=== PATIENT | female | born 1995 | race Caucasian/White ===

== ENCOUNTER → 2017-09-04 14:00 | Outpatient (CLI) | payer BC, SELFPAY ==
[2017-08-28 09:35] VITALS: BP 136/90
--- NOTE | 2017-09-04 14:00 | BRBX_PTH ---
PATIENT: MECHE HORNER LOC: [facility] U#:[id number] AGE/SX: 30/F ROOM: RE09/04/[address]: Dr. Oliver Stewart MD : 1995 BED: DIS: SPEC #: [id number] RECD: 09/04/17 19:24 STATUS: EZEKIEL JULIUS #: [id number] MIKAL: 09/04/17 14:[address]: Oliver Stewart DEPT: SURGICAL PATHOLOGY RECD BY: Casper Dahl ENTERED: 09/05/17 12:05 SP TYPE: BREAST BX OTHR DR: Dr. Cade Calhoun MD Tissues: Left breast, NOS Procedures: Surgery Specimen Level IV HEADER OPERATION: Left breast core biopsy PRE-OP DIAGNOSIS: Left breast abnormal ultrasound TISSUE SUBMITTED: Left breast tissue ISCHEMIC TIME: <1 minute MICROSCOPIC DIAGNOSIS Left breast, core biopsy: Fibroadenoma. AM:mich 09/08/17 MICROSCOPIC DESCRIPTION Slides are reviewed. GROSS DESCRIPTION Received in fixative is one container labeled with the patient's name and designated left breast tissue. The specimen consists of multiple cores of light dean-white soft tissue measuring in aggregate 1 x 0.5 x 0.1 cm. The specimen is totally submitted in one cassette. / AM:mich 09/05/17 TC: 5 CPT: 87290
[2017-09-04 14:25] VITALS: BMI 23.3
== END ==
PROVIDERS: Family Provider Family Medicine; PCP Family Medicine; Visit Provider Surgery
DX: D24.2 Benign neoplasm of left breast (principal)
CPT/HCPCS: 88305

== ENCOUNTER → 2017-09-26 15:53 | Outpatient (CLI) | payer BC, SELFPAY ==
[2017-09-26 18:23] LABS: T4 Free Direct 0.95 ng/dL (0.76-1.46); Thyroid Stim Hormone (TSH) 5.87 uIU/mL (0.358-3.74)
[2017-09-26 18:29] LABS: Vitamin D,25 Hydroxy 29.3 ng/mL (29.95-100.01)
== END ==
PROVIDERS: Family Provider Family Medicine; PCP Family Medicine; Visit Provider Family Medicine
DX: E03.9 Hypothyroidism, unspecified (principal); R53.83 Other fatigue; R00.2 Palpitations
CPT/HCPCS: 36415; 82306; 84439; 84443

== ENCOUNTER → 2017-12-25 15:08 | Outpatient (CLI) | payer BC, SELFPAY ==
[2017-12-25 17:42] LABS: Thyroid Stim Hormone (TSH) 7.89 uIU/mL (0.358-3.74)
== END ==
PROVIDERS: Visit Provider Family Medicine
DX: E03.9 Hypothyroidism, unspecified (principal)
CPT/HCPCS: 36415; 84443

== ENCOUNTER → 2018-02-20 15:20 | Outpatient (CLI) | payer BC, SELFPAY ==
[2018-02-20 18:02] LABS: Thyroid Stim Hormone (TSH) 2.98 uIU/mL (0.358-3.74)
== END ==
PROVIDERS: Family Provider Family Medicine; PCP Family Medicine; Visit Provider Family Medicine
DX: E03.9 Hypothyroidism, unspecified (principal)
CPT/HCPCS: 36415; 84443

== ENCOUNTER → 2018-05-22 15:11 | Outpatient (CLI) | payer BC, SELFPAY | PROVIDERS: Family Provider Family Medicine; PCP Family Medicine; Visit Provider Family Medicine | DX: E03.9 Hypothyroidism, unspecified (principal) | CPT/HCPCS: 36415; 84443 ==

== ENCOUNTER → 2018-10-22 14:10 | Outpatient (CLI) | payer BC, SELFPAY ==
[2018-10-22 08:39] VITALS: BMI 23.3
[2018-10-22 17:06] LABS: Chlamydia Trachomatis by PCR Negative (Negative); Neisserai gonorrhoeae by PCR Negative (Negative); Probe Check PASS; Sample Adequacy Control PASS; Specimen Processing Control PASS
== END ==
PROVIDERS: Family Provider Family Medicine; PCP Family Medicine; Referring Provider Nurse Practitioner Women's Health; Visit Provider Nurse Practitioner Women's Health
DX: Z11.3 Encounter for screening for infections with a predominantly sexual mode of transmission (principal); N89.8 Other specified noninflammatory disorders of vagina
CPT/HCPCS: 87070; 87205; 87491; 87591

== ENCOUNTER → 2019-06-30 15:03 | Outpatient (CLI) | payer BC, SELFPAY ==
[2018-10-22 08:39] VITALS: BMI 23.3
--- NOTE | 2019-06-30 15:09 | US_ITS ---
STUDY: THYROID ULTRASOUND REASON FOR EXAM: Female, 24 years old. Enlarged thyroid TECHNIQUE: Ultrasound evaluation of the thyroid was performed with real-time and static almendarez-scale imaging. COMPARISON: None. FINDINGS: RIGHT LOBE: The right lobe of the thyroid gland measures 3.6 x 1.2 x 1.1 cm. There is a homogeneous echotexture. There are no demonstrated solid, cystic or complex lesions. LEFT LOBE: The left lobe of the thyroid gland measures 3.7 x 1.1 x 0.9 cm. There is a homogeneous echotexture. There are no demonstrated solid, cystic or complex lesions. ISTHMUS: The isthmus measures 2 mm . The regional lymph nodes are normal. US/Thyroid IMPRESSION: Normal ultrasound examination of the thyroid. Electronically Signed: Leeroy Gerardo MD at 16:15 EST , Service support ,
== END ==
PROVIDERS: Family Provider Internal Medicine; PCP Internal Medicine; Referring Provider Internal Medicine; Visit Provider Internal Medicine
DX: E04.9 Nontoxic goiter, unspecified (principal)
CPT/HCPCS: 76536

== ENCOUNTER → 2019-07-02 09:58 | Outpatient (CLI) | payer BC, SELFPAY ==
[2018-10-22 08:39] VITALS: BMI 23.3
--- NOTE | 2019-07-02 10:01 | NM_ITS ---
CLINICAL: 24-year-old female with history of clinically apparent thyromegaly 99m Tc SESTAMIBI DUAL PHASE PARATHYROID SCINTIGRAPHY COMPARISON: Thyroid ultrasound report 06/30/2019 FINDINGS: Following the intravenous administration of 25.4 mCi of 99m Tc sestamibi, image acquisitions of the anterior neck at approximately 20 minutes and approximately 2.0 hours post radiopharmaceutical provision reveal: 1. Immediate static blood pool acquisitions demonstrate distribution of the radiopharmaceutical in the right-left thyroid colloid. Subtle prominent uptake is noted in the left anterior neck caudal to the inferior pole of the left lobe thyroid colloid. 2. Delayed images depict symmetric near complete washout of the radiotracer from the right thyroid bed. Asymmetric persistent uptake is noted in the left thyroid bed and left anterior neck adjacent to the inferior pole of the left thyroid bed. NM/Parathyroid Scan IMPRESSION: 1. The persistent relative increase in radiopharmaceutical concentration identified in the left thyroid bed and left anterior neck may represent the presence of parathyroid adenoma. 2. No other definitive scintigraphic abnormalities are visualized. Electronically Signed: Casper Lugo DO at 11:04 EST Tel , Service support ,
== END ==
LOC: NM 09:59
PROVIDERS: Family Provider Internal Medicine; PCP Internal Medicine; Referring Provider Internal Medicine; Visit Provider Internal Medicine
DX: E04.9 Nontoxic goiter, unspecified (principal)
CPT/HCPCS: 78070; A9500

== ENCOUNTER → 2021-07-06 | Outpatient (CLI) | payer BC, SELFPAY ==
[2021-07-06 13:05] LABS: Follicle Stimulating Hormone 7.3 mIU/mL; Luteinizing Hormone 3.7 mIU/mL; Prolactin 14.1 ng/mL
[2021-07-09 10:48] LABS: Testosterone Free 2.4 pg/mL (0.0-4.2)
== END | disposition home or self-care (01) ==
LOC: LABSPEC 10:40
PROVIDERS: PCP Internal Medicine; Visit Provider Internal Medicine
DX: N92.6 Irregular menstruation, unspecified (principal)
CPT/HCPCS: 82670; 83001; 83002; 84146; 84402

== ENCOUNTER → 2021-07-13 | Outpatient (CLI) | payer BC, SELFPAY ==
[2021-07-13 11:30] LABS: Follicle Stimulating Hormone 8.8 mIU/mL
== END | disposition home or self-care (01) ==
LOC: LABSPEC 10:12
PROVIDERS: PCP Internal Medicine; Visit Provider Internal Medicine
DX: N92.6 Irregular menstruation, unspecified (principal)
CPT/HCPCS: 83001

== ENCOUNTER 2021-10-19 12:39 | Outpatient (CLI) | payer BC, SELFPAY ==
[2021-10-19 12:54] LABS: Internal QC Validated? YES +Cl - CLEAR BKGD
[2021-10-19 13:05] LABS: Pregnancy, Serum, hCG Quali. POSITIVE Negative (0-9 Nonpreg); hCG Titer Quant., Serum 619 mIU/mL (1-3)
== END 2021-10-19 23:59 | disposition home or self-care (01) ==
LOC: LABSPEC 12:40
PROVIDERS: PCP Internal Medicine; Visit Provider Internal Medicine
DX: N91.2 Amenorrhea, unspecified (principal)
CPT/HCPCS: 84702; 84703

== ENCOUNTER 2021-10-19 16:20 | Emergency (ER) | payer BC, SELFPAY ==
[2021-10-19 16:21] VITALS: BP 168/89; PULSE 119; RESP 18; TEMP 36.4; O2SAT 97; BMI 25.7
--- NOTE | 2021-10-19 16:54 | EDS_ITS ---
HPI HPI - Female History of Present Illness Chief Complaint: Informant: patient Pain Pain: Positive for Pelvic Pain Onset: Days (3) Context: Gradual Onset Timing: Continuous Quality: Positive for Dull Location: LLQ Bleeding Maximum Severity: Spotting (2 days ago) Associated Symptoms Associated Symptoms: Negative for Dysuria and Hematuria Last known menstrual period: 09/20/2021 P: 0 Ab: 0 Narrative Narrative: Patient presents with pelvic pain that has been getting worse over the past 3 days. Patient states that she was supposed to start her menstrual cycle yesterday. Patient states that when the pain began she thought it was typical menstrual cramping. Patient went to her doctor today and was diagnosed with a positive test. Quantitative hCG was 619 earlier today. Patient states that her primary care physician told her to come to the emergency department for possible ectopic . Patient is 1 para 0. Patient states she had some mild spotting 2 days ago but denies any other vaginal bleeding or discharge. Patient states her pain is worse over the left lower abdomen and pelvis area. Patient states her pain is worse with walking. [facility] Medical History (Updated 10/19/21 @ 19:[address] Alex Knox, ) Anxiety Breast lump in female Thyroid disorder Home Medications escitalopram oxalate 10 mg tablet 10 mg PO QDAY 08/28/17 [History Last Taken Unknown] levonorgestrel 0.15 mg-ethinyl estradiol 0.03 mg tablet 1 tab PO DAILY #84 tab 10/22/18 [Rx Last Taken Unknown] metronidazole 500 mg tablet 500 mg PO BID #14 tab 11/25/19 [Rx Last Taken Unknown] Allergy/AdvReac Type Severity Reaction Status Date / Time acetaminophen [From [place]] Allergy Mild Other Verified 10/19/21 16:29 hydrocodone [From [place]] Allergy Mild Other Verified 10/19/21 16:29 Family History Mother Breast cancer Asthma Social History Smoking Status: Never smoker alcohol intake: never substance use type: does not use caffeine: Yes what type of physical activity do you participate in: none seatbelt use: always do you feel safe at home: Yes additional social history: Seperated- works at [employer] ROS ROS ED Constitutional Constitutional ED: Denies chills or fever(s) Eyes Eyes: Denies blurry vision or change in vision ENT ENT ED: Denies rhinorrhea or sore throat Cardiovascular Cardiovascular: Denies chest pain or palpitations Respiratory/Chest Respiratory/Chest: Denies cough or dyspnea Gastrointestinal Gastrointestinal: Reports abdominal pain; Denies nausea or vomiting Genitourinary Genitourinary ED: Denies dysuria or hematuria Musculoskeletal Musculoskeletal: Denies back pain or neck pain Integumentary Denies abscess or rash Neurologic Neurologic: Denies headache(s) or weakness Allergic/Immunologic Allergic/Immunologic ED: Denies mouth swelling or urticaria EXAM Physical Exam Const Vital Signs: 10/19/21 16:21 Temperature 97.6 F L Temperature Source Temporal Pulse Rate 119 H Respiratory Rate 18 Blood Pressure 168/89 H Blood Pressure Mean 115 Pulse Ox 97 Oxygen Delivery Method Room Air Positive well nourished and well developed General Appearance ED: well developed and NAD HEENT Reports moist mucous membranes Neck supple and no JVD Resp normal respiratory effort and clear to auscultation bilaterally Cardio regular rate, regular rhythm and no murmurs GI normal to inspection, nondistended, normoactive bowel sounds and soft to palpation Palpation: soft and tender LLQ; Negative for guarding or rigid Extremity normal to inspection General Extremety ED: Negative for edema or tenderness General Extremity: Negative for edema Neuro oriented x3, CN's II-XII intact bilaterally and no sensory deficits noted Sensorium / Orientation: alert Motor Exam: strength 5/5 throughout Psych mental status grossly normal Skin no rashes or lesions noted MDM MDM MDM Narrative Medical decision making narrative: Patient was given IV fluids. CBC was within normal limits. Basic metabolic profile was within normal limits. Urinalysis does not show any evidence of urinary tract infection. Blood type is A positive. Outpatient quantitative hCG was 619 earlier today. Pelvic ultrasound was obtained. There are cysts on the left ovary. There is a complex cyst measuring 22 x 23 mm which has the appearance of a hemorrhagic cyst. There is a second cyst measuring 16 x 15 mm. This looks like a simple cyst. There is no adnexal mass or complex lesion. There is no intrauterine visualized. Patient was advised of her findings. Patient was advised that her quantitative hCG levels may be too low to see an intrauterine at this time. Patient was instructed to follow-up with her [employer] in 2 to 3 days for repeat quantitative hCG and reevaluation. Patient was instructed to return if worse in any way. Patient understood and was agreeable with the plan. All questions were answered. Lab Data Attestation: I reviewed the patient's lab results. Labs: Laboratory Results - last 24 hr 10/19/21 10/19/21 10/19/21 17:25 17:25 17:25 WBC 8.1 RBC 4.86 Hgb 14.3 Hct 43.9 MCV 90.3 MCH 29.4 MCHC 32.6 RDW Std Deviation 40.3 RDW Coeff of Anai 12.2 Plt Count 240 MPV 10.7 Immature Gran % (Auto) 0.100 Neut % (Auto) 72.3 H Lymph % (Auto) 21.0 Stokes % (Auto) 5.0 Eos % (Auto) 1.0 Baso % (Auto) 0.6 Absolute Neuts (auto) 5.8 Absolute Lymphs (auto) 1.70 Nucleated RBC % 0 Sodium 136 Potassium 3.5 Chloride 105 Carbon Dioxide 25.0 Anion Gap 6 BUN 11 Creatinine 0.95 Estim Creat Clear Calc 80.75 Est GFR (MDRD) Af Amer 91 Est GFR (MDRD) Non-Af 75 BUN/Creatinine Ratio 11.6 Glucose 95 Calcium 9.2 Urine Color Urine Clarity Urine pH Ur Specific [place] Urine Protein Urine Glucose (UA) Urine Ketones Urine Occult Blood Urine Nitrite Urine Bilirubin Urine Urobilinogen Ur Leukocyte Esterase Urine RBC Urine WBC Ur Squamous Epith Cells Urine Bacteria Urine Mucus Blood Type A POSITIVE 10/19/21 17:40 WBC RBC Hgb Hct MCV MCH MCHC RDW Std Deviation RDW Coeff of Anai Plt Count MPV Immature Gran % (Auto) Neut % (Auto) Lymph % (Auto) Stokes % (Auto) Eos % (Auto) Baso % (Auto) Absolute Neuts (auto) Absolute Lymphs (auto) Nucleated RBC % Sodium Potassium Chloride Carbon Dioxide Anion Gap BUN Creatinine Estim Creat Clear Calc Est GFR (MDRD) Af Amer Est GFR (MDRD) Non-Af BUN/Creatinine Ratio Glucose Calcium Urine Color Yellow Urine Clarity Clear Urine pH 6.5 Ur Specific [place] 1.010 Urine Protein Negative Urine Glucose (UA) Normal Urine Ketones 15 H Urine Occult Blood 25 H Urine Nitrite Negative Urine Bilirubin Negative Urine Urobilinogen Normal Ur Leukocyte Esterase Negative Urine RBC 0 SEEN Urine WBC 0 SEEN Ur Squamous Epith Cells 0-5 SEEN Urine Bacteria RARE Urine Mucus 0 SEEN Blood Type Radiography Diagnostic Testing: Clinical Impression(s) from Imaging Studies Obstetrics Ultrasound 10/19/21 17:05 IMPRESSION: There is no intrauterine Complex cyst measures 22 x 23 mm. This has the appearance of a hemorrhagic cyst or collapsing cyst, or involuting corpus luteum cyst. However, given patient history ectopic is not excluded but felt to be less likely given that there is no free fluid in the pelvis. . Electronically Signed: Benigno Hope MD at 18:44 EDT Reading Location ID and State: [facility] / [place] , Service support , Discharge Plan Triage Chief Complaint: Other Complaint: Abd Pain ED Provider: Alex Knox Dx/Rx/DC Orders Clinical Impression: , Ovarian cyst during in first trimester Instructions: ED Abdominal Pain, Early Prescriptions: No Action escitalopram oxalate 10 mg tablet 10 mg PO QDAY RF: 0 levonorgestrel-ethinyl estrad 0.15-0.03 mg tablet 1 tab PO DAILY Qty: 84 RF: 4 metronidazole [Flagyl] 500 mg tablet 500 mg PO BID Qty: 14 RF: 0 Primary Care Provider: Marina Bronson Referrals: Marina Bronson MD [Primary Care Provider] - 5-7 Days Yenni Acuna MD [STAFF PHYSICIAN] - 3-5 Days Activity Restrictions/Additional Instructions: You may start taking vitamins. They are [id number]. Disposition Disposition: Home, Self Care
--- NOTE | 2021-10-19 17:05 | US_ITS ---
STUDY: FIRST TRIMESTER OBSTETRICAL ULTRASOUND REASON FOR EXAM: Female, 26 years old. Pelvic pain TECHNIQUE: Transvaginal US was obtained to better visualized the ovaries. TECHNICAL QUALITY: Adequate. PRIOR ULTRASOUND: None. FINDINGS: There is no demonstrated intrauterine gestational sac. There is no demonstrated yolk sac. The placenta is non-visualized. There is no demonstrated embryo ( pole). The estimated gestation age (EGA) by LMP is 4 weeks, 1 days. The estimated date of delivery (STEFANI) by LMP is 12.1.22. The uterus measures 8 x 5.1 cm. There is no demonstrated uterine fibroid. The cervix is closed. Endometrial stripe is 13 mm. Possible arcuate uterus. The right ovary measures in cm: 2.5 x 1.9. Prominent follicle measures 9 mm. There is no visualized right adnexal mass or complex lesion. The left ovary measures 3.3 x 3.2 cm. Complex cyst measures 22 x 23 mm. This has the appearance of a hemorrhagic cyst Second cyst measures 16 x 15 mm. This has appearance of a simple cyst. There is no visualized left adnexal mass or complex lesion. There is no fluid in the cul de sac. US/Transvaginal w/Preg US IMPRESSION: There is no intrauterine Complex cyst measures 22 x 23 mm. This has the appearance of a hemorrhagic cyst or collapsing cyst, or involuting corpus luteum cyst. However, given patient history ectopic is not excluded but felt to be less likely given that there is no free fluid in the pelvis. . Electronically Signed: Benigno Hope MD at 18:44 EDT ,
[2021-10-19 17:38] LABS: Absolute Neutrophil Count 5.8 X10^3/uL (2.0-7.7); Basophil# 0.05 X10^3/uL; Basophil% 0.6 % (0-1); Eosinophil# 0.08 X10^3/uL; Hematocrit 43.9 % (37-47); Hemoglobin 14.3 g/dL (12.0-15.0); Mean Corp Hgb Conc 32.6 g/dL (32-36); Mean Corpuscular Hgb 29.4 pg (27.0-32.0); Mean Corpuscular Volume 90.3 fL (81-99); Mean Platelet Vol. 10.7 fl (6.2-12.0); NRBC Flagged by Analyzer 0 % (0-5); Neutrophil # 5.84 X10^3/uL (2.7-7.7); Neutrophil % 72.3 % (47-70); Platelet Count 240 K/mm3 (150-450); RBC Distribution Width CV 12.2 % (11.6-14.6); RBC Distribution Width SD 40.3 fl (35.1-43.9); Red Blood Count 4.86 M/mm3 (4.2-5.4); White Blood Count 8.1 K/mm3 (4.4-11.0)
[2021-10-19 17:48] LABS: Anion Gap 6 (5-15); BUN 11 mg/dL (7-18); BUN/Creat Ratio 11.6 RATIO (10-20); Calcium,Total 9.2 mg/dL (8.5-10.1); Chloride 105 mmol/L (98-107); Creatinine, Serum 0.95 mg/dL (0.55-1.02); EST Glomerular Filtration Rate 75 mL/min (>60); Est Glom Filt Rate - Afr Amer 91 mL/min (>60); Estimated Creatinine Clearance 80.75 ml/min; Glucose 95 mg/dL (74-106); Potassium 3.5 mmol/L (3.5-5.1); Sodium Level 136 mmol/L (136-145)
[2021-10-19] MEDS: 0.9% Normal Saline 1,000 ML 1000 ML IV (17:49)
[2021-10-19 17:56] LABS: Mucous, Urine 0 SEEN /hpf (<or=2+); Red Blood Cells-Urine 0 SEEN /hpf (0-5); White Blood Cells 0 SEEN /hpf (0-5)
[2021-10-19 17:58] LABS: Color, Urine Yellow (Yellow); Glucose, Dipstick Normal (Normal); Ketone-Dipstick 15 mg/dl (Negative); Leukocyte Esterase-Dipstick Negative /ul (Negative); Nitrite-Dipstick Negative (Negative); Occult Blood-Urine 25 /ul (Negative); Protein-Dipstick Negative (Negative); Urine Bilirubin Dipstick Negative (Negative); Urine Clarity Clear (Clear); Urine Urobilinogen Normal (Normal); Urine pH 6.5 (5.0 - 8.0)
[2021-10-19 18:05] LABS: Bacteria RARE /hpf (None Seen); Squamous Epithelial Cells - UA 0-5 SEEN /hpf (5-10)
[2021-10-19 19:47] VITALS: BP 124/74; PULSE 76; RESP 18; O2SAT 98
== END 2021-10-19 19:52 | disposition home or self-care (01) ==
PROVIDERS: Emergency Provider Emergency Medicine; PCP Internal Medicine; Visit Provider Emergency Medicine
DX: O34.81 Maternal care for other abnormalities of pelvic organs, first trimester (principal); N83.202 Unspecified ovarian cyst, left side; O99.281 Endocrine, nutritional and metabolic diseases complicating pregnancy, first trimester; E07.9 Disorder of thyroid, unspecified; Z79.899 Other long term (current) drug therapy
CPT/HCPCS: 76817; 80048; 81001; 85025; 86900; 86901; 96360; 96361; 99283; J7030; A4216

== ENCOUNTER 2021-10-22 09:46 | Outpatient (CLI) | payer BC, SELFPAY ==
[2021-10-22 10:37] LABS: hCG Titer Quant., Serum 1368 mIU/mL (1-3)
== END 2021-10-22 23:59 | disposition home or self-care (01) ==
LOC: LABSPEC 09:47
PROVIDERS: PCP Internal Medicine; Visit Provider Internal Medicine
DX: R10.2 Pelvic and perineal pain (principal); Z33.1 Pregnant state, incidental
CPT/HCPCS: 84702

== ENCOUNTER 2021-10-22 15:02 | Outpatient (CLI) | payer BC, SELFPAY ==
--- NOTE | 2021-10-22 15:06 | US_ITS ---
STUDY: FIRST TRIMESTER OBSTETRICAL ULTRASOUND REASON FOR EXAM: Female, 26 years old viability/rule out ectopic -- STAT read/call office LMP: 09/20/2021. TECHNIQUE: Transvaginal TECHNICAL QUALITY: Adequate. PRIOR ULTRASOUND: Comparison is made with prior study 10/19/2021. FINDINGS: There is visualization of a single gestational sac in a normal intrauterine position. The mean sac diameter (MSD) measures 3.9 mm, indicating an estimated gestational age (EGA) of 5 weeks, 0 days. The gestational sac shape is within normal limits. There is no demonstrated yolk sac. The placenta is non-visualized. There is no demonstrated embryo ( pole). The estimated gestation age (EGA) by LMP is 4 weeks, 4 days. The estimated date of delivery (STEFANI) by LMP is 06/27/2022. The estimated gestation age (EGA) by US is 5 weeks, 0 days. The estimated date of delivery (STEFANI) by US is 06/24/2022. The uterus measures 8 cm x 6.1 cm x 4.4 cm. There is no demonstrated uterine fibroid. The cervix is closed. The right ovary measures 2.5 cm x 1.6 cm x 1.5 cm. There is no right ovarian cyst. There is no visualized right adnexal mass or complex lesion. The left ovary measures 3.8 cm x 4.1 cm x 3.1 cm. A a solid nodule measuring 2.9 cm x 2.1 cm x 2.3 cm is seen within the ovary. An ectopic cannot be excluded.. Adjacent to this, there is evidence of a 2.4 cm x 1.5 cm x 1.9 cm simple cyst in the left ovary. There is no fluid in the cul de sac. US/Transvaginal w/Preg US IMPRESSION: 3.9 mm rounded fluid collection is seen within the endometrium. No yolk sac or pole is seen. There is a 2.9 cm x 2.1 cm by 2.3 cm solid nodule in the left ovary adjacent to a 2.4 cm x 1.5 cm x 1.9 cm ovarian cyst. An ectopic patency cannot be excluded. Serial beta hCG correlation is recommended. Electronically Signed: Tyree Faulkner MD at 9:37 EDT ,
== END 2021-10-22 23:59 | disposition home or self-care (01) ==
LOC: US 15:04
PROVIDERS: PCP Internal Medicine; Referring Provider Obstetrics & Gynecology; Visit Provider Obstetrics & Gynecology
DX: O34.81 Maternal care for other abnormalities of pelvic organs, first trimester (principal); O99.891 Other specified diseases and conditions complicating pregnancy; N83.209 Unspecified ovarian cyst, unspecified side
CPT/HCPCS: 76817

== ENCOUNTER 2021-10-24 10:10 | Outpatient (CLI) | payer BC, SELFPAY ==
[2021-10-24 10:51] LABS: hCG Titer Quant., Serum 3221 mIU/mL (1-3)
== END 2021-10-24 23:59 | disposition home or self-care (01) ==
LOC: LABSPEC 10:12
PROVIDERS: PCP Internal Medicine; Referring Provider Internal Medicine; Visit Provider Internal Medicine
DX: R10.2 Pelvic and perineal pain (principal); Z33.1 Pregnant state, incidental
CPT/HCPCS: 84702

== ENCOUNTER 2021-10-26 10:07 | Outpatient (CLI) | payer BC, SELFPAY ==
[2021-10-26 10:50] LABS: hCG Titer Quant., Serum 6948 mIU/mL (1-3)
== END 2021-10-26 23:59 | disposition home or self-care (01) ==
LOC: LABSPEC 10:09
PROVIDERS: PCP Internal Medicine; Visit Provider Internal Medicine
DX: Z33.1 Pregnant state, incidental (principal)
CPT/HCPCS: 84702

== ENCOUNTER 2021-10-30 08:19 | Outpatient (CLI) | payer BC, SELFPAY ==
--- NOTE | 2021-10-30 08:22 | US_ITS ---
STUDY: FIRST TRIMESTER OBSTETRICAL ULTRASOUND REASON FOR EXAM: Female, 26 years old viability -- previous US 10/22/21 LMP: 09/20/2021. TECHNIQUE: Transvaginal TECHNICAL QUALITY: Adequate. PRIOR ULTRASOUND: None. FINDINGS: There is visualization of a single gestational sac in a normal intrauterine position. The mean sac diameter (MSD) measures 1.5 cm, indicating an estimated gestational age (EGA) of 6 weeks, 2 days. The gestational sac shape is within normal limits. There is a visualized yolk sac. The yolk sac measures 3.2 mm. The placenta is non-visualized. Findings suggestive of embryonic pole. The crown-rump length (CRL) measures 3 mm, indicating an estimated gestational age (EGA) of 6 weeks, 1 days. There is no demonstrated cardiac activity . The estimated gestation age (EGA) by LMP is 5 weeks, 5 days. The estimated date of delivery (STEFANI) by LMP is 06/27/2022. The estimated gestation age (EGA) by US is 6 weeks, 1 days. The estimated date of delivery (STEFANI) by US is 06/24/2022. The uterus measures 8.7 cm x 5.7 cm x 4.5 cm. There is no demonstrated uterine fibroid. The cervix is closed. The right ovary measures 2.9 cm x 2.4 cm x 1.9 cm. There is no right ovarian cyst. There is no visualized right adnexal mass or complex lesion. The left ovary measures 4.1 cm x 3.9 cm x 2.3 cm. There is a 3.3 cm x 2 cm x 2.4 cm cyst in the left ovary. There is also evidence of a 2.5 cm x 2 cm x 2.3 cm complex cyst in the left ovary. There is no visualized left adnexal mass or complex lesion. There is no fluid in the cul de sac. US/Transvaginal w/Preg US IMPRESSION: Intrauterine gestational sac containing a yolk sac and possible pole. No cardiac activity is noted. Estimated gestational age is 6 weeks and 1 day. Left ovarian cyst. Left ovarian complex cyst. Electronically Signed: Tyree Faulkner MD at 10:31 EDT ,
== END 2021-10-30 23:59 | disposition home or self-care (01) ==
LOC: US 08:20
PROVIDERS: PCP Internal Medicine; Referring Provider Obstetrics & Gynecology; Visit Provider Obstetrics & Gynecology
DX: O36.80X0 Pregnancy with inconclusive fetal viability, not applicable or unspecified (principal)
CPT/HCPCS: 76817

== ENCOUNTER 2021-11-01 15:02 | Outpatient (CLI) | payer BC, SELFPAY ==
[2021-11-01 15:47] LABS: hCG Titer Quant., Serum 48954 mIU/mL (1-3)
== END 2021-11-01 23:59 | disposition home or self-care (01) ==
LOC: LABSPEC 15:04
PROVIDERS: PCP Internal Medicine; Visit Provider Internal Medicine
DX: R10.2 Pelvic and perineal pain (principal); Z33.1 Pregnant state, incidental
CPT/HCPCS: 84702

== ENCOUNTER 2021-11-06 13:58 | Outpatient (CLI) | payer BC, SELFPAY | END 2021-11-06 23:59 | disposition home or self-care (01) | LOC: LABSPEC 13:59 | PROVIDERS: PCP Internal Medicine; Visit Provider Internal Medicine | DX: Z34.90 Encounter for supervision of normal pregnancy, unspecified, unspecified trimester (principal) | CPT/HCPCS: 84702 ==

== ENCOUNTER → 2021-11-30 | Outpatient (CLI) | payer BC, SELFPAY ==
[2021-11-29 12:54] LABS: Amphetamine Urine VISTA NEGATIVE (<1000 ng/mL); Barbiturate Urine VISTA NEGATIVE (< 200 ng/mL); Benzodiazepine Urine VISTA NEGATIVE (< 200 ng/mL); Cocaine Urine VISTA NEGATIVE (< 300 ng/mL); Ecstacy Urine VISTA NEGATIVE (< 500 ng/mL); Methadone Urine VISTA NEGATIVE (< 300 ng/mL); PCP Urine VISTA NEGATIVE (< 25 ng/mL); THC Urine VISTA NEGATIVE (< 50 ng/mL); Vista UDS pH Range 8
[2021-11-30 22:06] LABS: Chlamydia By Nucleic Acid AMP Negative (Negative)
[2021-12-01 10:36] LABS: Gonococcus By Nucleic Acid AMP Negative (Negative)
[2021-12-04 16:46] LABS: HPV Reflexed? NOT INDICATED
== END | disposition home or self-care (01) ==
LOC: LABSPEC 09:46
PROVIDERS: PCP Internal Medicine; Visit Provider Obstetrics & Gynecology
DX: Z34.90 Encounter for supervision of normal pregnancy, unspecified, unspecified trimester (principal)
CPT/HCPCS: 80307; 87086; 87491; 87591; 88175; G0145

== ENCOUNTER → 2022-04-05 | Outpatient (CLI) | payer BC, SELFPAY ==
[2022-04-05 10:17] LABS: Basophil# 0.04 X10^3/uL; Basophil% 0.5 % (0-1); Eosinophil# 0.15 X10^3/uL; Eosinophils% 1.7 % (0-5); Hematocrit 33.2 % (37-47); Hemoglobin 10.9 g/dL (12.0-15.0); Lymphocyte % 13.6 % (19-41); Mean Corp Hgb Conc 32.8 g/dL (32-36); Mean Corpuscular Hgb 29.5 pg (27.0-32.0); Mean Platelet Vol. 10.5 fl (6.2-12.0); Monocyte% 4.5 % (0-10); NRBC Flagged by Analyzer 0 % (0-5); Neutrophil # 6.99 X10^3/uL (2.7-7.7); Platelet Count 207 K/mm3 (150-450); RBC Distribution Width CV 12.6 % (11.6-14.6); RBC Distribution Width SD 41.6 fl (35.1-43.9); Red Blood Count 3.69 M/mm3 (4.2-5.4); White Blood Count 8.8 K/mm3 (4.4-11.0)
[2022-04-05 10:42] LABS: Glucose Challenge Gest 1H 50g 164 mg/dL (70-140)
== END | disposition home or self-care (01) ==
LOC: LAB 08:48
PROVIDERS: PCP Internal Medicine; Referring Provider Obstetrics & Gynecology; Visit Provider Obstetrics & Gynecology
DX: O09.90 Supervision of high risk pregnancy, unspecified, unspecified trimester (principal)
CPT/HCPCS: 36415; 82950; 85025

== ENCOUNTER → 2022-04-16 | Outpatient (CLI) | payer BC, SELFPAY ==
[2022-04-16 07:56] LABS: Glucose GTT-Gestation. Fasting 84 mg/dL (<105)
[2022-04-16 08:53] LABS: Glucose GTT-Gestational 1 Hr 200 mg/dL (<190)
[2022-04-16 09:38] LABS: Glucose GTT-Gestational 2 Hr 175 mg/dL (<165)
[2022-04-16 10:35] LABS: Glucose GTT-Gestational 3 Hr 120 L (<145)
== END | disposition home or self-care (01) ==
LOC: LAB 06:53
PROVIDERS: PCP Internal Medicine; Referring Provider Obstetrics & Gynecology; Visit Provider Obstetrics & Gynecology
DX: O99.810 Abnormal glucose complicating pregnancy (principal)
CPT/HCPCS: 36415; 82951; 82952

== ENCOUNTER 2022-04-24 09:01 | Outpatient (RCR) | payer BC, SELFPAY | END 2022-04-26 23:59 | LOC: DC 09:01 | PROVIDERS: PCP Internal Medicine; Referring Provider Registered Nurse; Visit Provider Registered Nurse | DX: O24.419 Gestational diabetes mellitus in pregnancy, unspecified control (principal) | CPT/HCPCS: 97802 ==

== ENCOUNTER 2022-05-01 13:13 | Outpatient (RCR) | payer BC, SELFPAY | END 2022-05-27 23:59 | LOC: DC 13:13 | PROVIDERS: PCP Internal Medicine; Referring Provider Registered Nurse; Visit Provider Registered Nurse | DX: O24.419 Gestational diabetes mellitus in pregnancy, unspecified control (principal) | CPT/HCPCS: 97803 ==

== ENCOUNTER → 2022-05-30 | Outpatient (CLI) | payer BC, SELFPAY ==
--- NOTE | 2022-05-30 08:51 | US_ITS ---
STUDY: SECOND AND THIRD TRIMESTER OBSTETRICAL ULTRASOUND - LIMITED REASON FOR EXAM: Female, 27 years old growth LMP: 09/20/2021. PRIOR ULTRASOUND: Comparison is made with prior study dated 10/30/2021. TECHNIQUE: Transabdominal TECHNICAL QUALITY: Adequate. FINDINGS: There is a single intrauterine fetus. The fetus is in a cephalic presentation. There is demonstrated cardiac activity with a heart rate of 136 bpm. There is a normal amniotic fluid volume. The largest amniotic fluid pocket measures 5.75 cm. The amniotic fluid index (MEL) is 12.02 cm. The placenta is anterior in location and is not low lying. There are Grade 0 placental changes. The cervix measures 3.4 cm in length. BIOMETRY: BPD: 8.88 cm: 35 weeks, 6 days HC: 31.74 cm: 35 weeks, 5 days AC: 32.11 cm: 36 weeks, 0 days FL: 6.92 cm: 35 weeks, 4 days Age by LMP: 36 weeks, 0 days. STEFANI by LMP: 06/27/2022. age by current US: 35 weeks, 5 days. STEFANI by current US: 06/29/2022. Estimated weight: 2823 grams, +/- 423 grams, 51 percentile. US/OB Limited With Biometrics IMPRESSION: Single live intrauterine gestation with a mean gestational age of 35 weeks and 5 days. Electronically Signed: Tyree Faulkner MD at 13:06 EDT ,
== END | disposition home or self-care (01) ==
LOC: OPUS 08:50
PROVIDERS: PCP Internal Medicine; Visit Provider Obstetrics & Gynecology
DX: O09.93 Supervision of high risk pregnancy, unspecified, third trimester (principal); Z3A.35 35 weeks gestation of pregnancy
CPT/HCPCS: 76816

== ENCOUNTER → 2022-06-06 | Outpatient (CLI) | payer BC, SELFPAY | END | disposition home or self-care (01) | PROVIDERS: PCP Internal Medicine; Visit Provider Obstetrics & Gynecology | DX: O09.90 Supervision of high risk pregnancy, unspecified, unspecified trimester (principal) | CPT/HCPCS: 87081 ==

== ENCOUNTER 2022-06-23 16:25 | Inpatient (IN) | payer BC, SELFPAY ==
[2022-06-23] VITALS (25 sets, daily range): BP systolic 114–163; BP diastolic 65–97; PULSE 74–99; TEMP 36–37.6; O2SAT 97–100; BMI 31.1
[2022-06-23] MEDS: LACTATED RINGERS 500 ML 999 ML IV (16:48)
[2022-06-23 16:55] LABS: Bedside Glucose 95 mg/dL (74-106)
[2022-06-23 17:02] LABS: Absolute Neutrophil Count 7.4 X10^3/uL (2.0-7.7); Basophil# 0.02 X10^3/uL; Basophil% 0.2 % (0-1); Eosinophil# 0.03 X10^3/uL; Eosinophils% 0.3 % (0-5); Hematocrit 39.8 % (37-47); Hemoglobin 12.8 g/dL (12.0-15.0); Mean Corp Hgb Conc 32.2 g/dL (32-36); Mean Corpuscular Hgb 28.2 pg (27.0-32.0); Mean Corpuscular Volume 87.7 fL (81-99); Mean Platelet Vol. 11.3 fl (6.2-12.0); Monocyte# 0.48 X10^3/uL; Monocyte% 5.2 % (0-10); NRBC Flagged by Analyzer 0 % (0-5); Neutrophil # 7.42 X10^3/uL (2.7-7.7); Neutrophil % 79.8 % (47-70); Platelet Count 200 K/mm3 (150-450); RBC Distribution Width CV 13.9 % (11.6-14.6); RBC Distribution Width SD 44.1 fl (35.1-43.9); Red Blood Count 4.54 M/mm3 (4.2-5.4); White Blood Count 9.3 K/mm3 (4.4-11.0)
[2022-06-23 17:14] LABS: AST(SGOT) 17 U/L (15-37); Alanine Aminotransfer ALT/SGPT 21 U/L (13-56); EST Glomerular Filtration Rate 91 mL/min (>60); Est Glom Filt Rate - Afr Amer 110 mL/min (>60); Estimated Creatinine Clearance 95.05 ml/min; Uric Acid 4.4 mg/dL (2.6-6.0)
[2022-06-23] MEDS: Lactated Ringers 1,000 ML 200 ML IV (17:19)
[2022-06-23 18:05] LABS: Bedside Glucose 92 mg/dL (74-106)
[2022-06-23 18:15] LABS: Protein, Urine (Random) 9.5 mg/dL (<11.9); Protein:Creat Ratio 265 mg/g CRE (0-200)
--- NOTE | 2022-06-23 18:36 | HP.PCM.OB_ITS ---
HPI - General General Date of Admission: 06/23/22 HPI Narrative MECHE MUHAMMAD, is a 27 F who presents IAL 5 cm dilated regualr ctx no vb lof good fm Maternal Data Information STEFANI Calculator Estimated Delivery Date Method Current WG Current Estimate 06/27/22 LMP (Certain) 39w 3d PFSH PFSH Medical History (Updated 06/23/22 @ 22:[address] Yenni Acuna MD) Abnormal glucose affecting Anxiety Breast lump in female Thyroid disorder Home Medications levothyroxine 75 mcg tablet (Synthroid) 75 mcg PO DAILY hypothyroidism 11/07/21 [History Last Taken 06/23/22 09:30] prenat.vits,jaswant,qcw-gxir-nutoa 1 tab PO DAILY 11/13/21 [History Last Taken 06/23/22 09:30] sertraline 50 mg tablet 50 mg PO DAILY anxiety 11/13/21 [History Last Taken 06/22/22 22:00] Allergy/AdvReac Type Severity Reaction Status Date / Time acetaminophen [From [place]] Allergy Mild Other Verified 06/23/22 16:53 hydrocodone [From [place]] Allergy Mild Other Verified 06/23/22 16:53 Family History Mother Breast cancer Asthma Social History adopted: No household members: significant other current occupational status: employed current occupation: [employer] pets and animals: No Smoking Status: Never smoker alcohol intake: never substance use type: does not use caffeine: Yes what type of physical activity do you participate in: none seatbelt use: always do you feel safe at home: Yes additional social history: BF:Noe History 1 Elective abortions Hx Para 0 Spontaneous abortions Hx # Term Pregnancies Ectopic pregnancies Hx # Pregnancies Multiple births # of living children Visit Details Expected Delivery Route/Plan Labor Preferences- CB/BF classes: [] labor support person: [] labor intervention preferences: [] pain management options preferred: [] cut cord/dad catch: [] : [] PP control planned: [] discussed possible routes of delivery and associated risks: [] special requests: [] Plans Covid status: discussed Flu vaccine: discussed Tdap vaccine: [] Rhogam: [] LARC form signed: [] Problem list reviewed and updated with the most current plan of care details and appropriate orders placed. Relevant counseling for the gestational age provided. Continue routine care and follow up unless otherwise noted in visit notes/problem list details OB Flowsheet Initial Weight: 161 lb Date -?-?-?-?-?-?-?-?-?-?-?-?- EGA Weight BP Urine Prot -?-?-?-?-?-?-?-?-?-?-?-?- Glucose FHR FuHt Pres Dilation -?-?-?-?-?-?-?-?-?-?-?-?- Effaced St Visit Note 11/29/21 -?-?-?-?-?-?-?-?-?-?-?-?- 10w 0d 161 lb (+0 oz) -?-?-?-?-?-?-?-?-?-?-?-?- 145 -?-?-?-?-?-?-?-?-?-?-?-?- SM- CRL 3 cm con s with LMP 12/27/21 -?-?-?-?-?-?-?-?-?-?-?-?- 14w 0d 166 lb (+5 lb) 135/87 Negative -?-?-?-?-?-?-?-?-?-?-?-?- Negative 140 -?-?-?-?-?-?-?-?-?-?-?-?- JV- pt complains of allergies. She has confirmed that she does not want to do nipt or carrier testing. anatomy ultrasound with mfm ordered. 01/24/22 -?-?-?-?-?-?-?-?-?-?-?-?- 18w 0d 175 lb 6 oz (+14 lb 6 oz) 142/84 Negative -?-?-?-?-?-?-?-?-?-?-?-?- Negative 150 -?-?-?-?-?-?-?-?-?-?-?-?- JV- no lof, vagi nal bleeding, or dec fm. antomy scan scheduled 02/07 with mfm. 02/19/22 -?-?-?-?-?-?-?-?-?-?-?-?- 21w 5d 177 lb (+16 lb) 130/86 Negative -?-?-?-?-?-?-?-?-?-?-?-?- Negative 145 -?-?-?-?-?-?-?-?-?-?-?-?- SM- no vb lof go od fm no regular ctx, told to go get NOB labs drawn 03/20/22 -?-?-?-?-?-?-?-?-?-?-?-?- 25w 6d 183 lb 6 oz (+22 lb 6 oz) 130/84 Negative -?-?-?-?-?-?-?-?-?-?-?-?- Negative 135 26 -?-?-?-?-?-?-?-?-?-?-?-?- JV- no lof, vagi nal bleeding, or dec fm. 28 week labs ordered. plan for tdap next visit. 04/05/22 -?-?-?-?-?-?-?-?-?-?-?-?- 28w 1d 188 lb 8 oz (+27 lb 8 oz) 130/80 Negative -?-?-?-?-?-?-?-?-?-?-?-?- Negative 143 28 -?-?-?-?-?-?-?-?-?-?-?-?- JV- no lof, vagi nal bleeding, or dec fm. Pt had cbc and gct today. gct is pending, cbc showed borderline anemia. 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 Still needs TSH. will get that next visit. 04/19/22 -?-?-?-?-?-?-?-?-?-?-?-?- 30w 1d 188 lb 2 oz (+27 lb 2 oz) 137/91 Negative -?-?-?-?-?-?-?-?-?-?-?-?- Negative 145 30 -?-?-?-?-?-?-?-?-?-?-?-?- JV- glucose leve ls well controlled with diet alone. No complaints. declines flu shot 05/03/22 -?-?-?-?-?-?-?-?-?-?-?-?- 32w 1d 187 lb (+26 lb) 115/79 Negative -?-?-?-?-?-?-?-?-?-?-?-?- Negative 140 32 -?-?-?-?-?-?-?-?-?-?-?-?- SM- no vb lof go od fm no regular ctx BS well controlled. 05/17/22 -?-?-?-?-?-?-?-?-?-?-?-?- 34w 1d 187 lb 2 oz (+26 lb 2 oz) 125/82 Negative -?-?-?-?-?-?-?-?-?-?-?-?- Negative 145 34 -?-?-?-?-?-?-?-?-?-?-?-?- JV- glucose leve ls still controlled well with diet and followed by endo. no lof ,vaginal bleeding, or dec fm. u 05/28/22 -?-?-?-?-?-?-?-?-?-?-?-?- 35w 5d 189 lb 4 oz (+28 lb 4 oz) 118/82 Negative -?-?-?-?-?-?-?-?-?-?-?-?- Negative 147 35 -?-?-?-?-?-?-?-?-?-?-?-?- JV- no lof, vagi nal bleeding, or dec fm. growth scan is on thrusday this week. 06/06/22 -?-?-?-?-?-?-?-?-?-?-?-?- 37w 0d 190 lb 4 oz (+29 lb 4 oz) 134/83 Negative -?-?-?-?-?-?-?-?-?-?-?-?- Negative 145 36 Cephalic -?-?-?-?-?-?-?-?-?-?-?-?- JV- no lof, vag inal bleeding, or dec fm. growth scan last week showed that baby was in the 51st% and efw at delivery is between 7-8 pounds. pt declines pelvic exam today. 06/13/22 -?-?-?-?-?-?-?-?-?-?-?-?- 38w 0d 192 lb (+31 lb) 110/78 Negative -?-?-?-?-?-?-?-?-?-?-?-?- Negative 140 37 Cephalic -?-?-?-?-?-?-?-?-?-?-?-?- SM- no vb lof go od fm n regular ctx BS controlled SM- no vb lof good fm n regu lar ctx BS controlled, discussed needs fu to obtain lab results, had drawn at her work office 06/19/22 -?-?-?-?-?-?-?-?-?-?-?-?- 38w 6d 188 lb 2 oz (+27 lb 2 oz) 135/88 Negative -?-?-?-?-?-?-?-?-?-?-?-?- Negative 130 37 Cephalic 3 -?-?-?-?-?-?-?-?-?-?-?-?- 70 JV- good control of glucose. no lof, vaginal bleeding, or dec fm. setting up 40 week IOL. 06/23/22 -?-?-?-?-?-?-?-?-?-?-?-?- 39w 3d 187 lb 6.287 oz (+26 lb 6.287 oz) 150/97 163/92 133/77 147/80 142/81 122/71 142/84 129/78 146/79 126/67 156/77 121/65 -?-?-?-?-?-?-?-?-?-?-?-?- -?-?-?-?-?-?-?-?-?-?-?-?- NST FHR Rate Baby A Baseline: 140 Variability:: Moderate Accelerations:: 15 x 15 Decelerations:: None NST Reactive:: Yes FHR Category:: Category I Uterine Activity:: q3-5 ROS Constitutional Constitutional: Reports systems reviewed and no addt'l complaints, except as documented ENT HEENT: Reports systems reviewed and no addt'l complaints, except as documented Cardiovascular Cardiovascular: Reports systems reviewed and no addt'l complaints, except as documented Respiratory/Chest Respiratory/Chest: Reports systems reviewed and no addt'l complaints, except as documented Gastrointestinal Gastrointestinal: Reports systems reviewed and no addt'l complaints, except as documented and nausea; Denies abdominal pain Genitourinary Genitourinary: Reports systems reviewed and no addt'l complaints, except as documented, contractions Details: present and frequency (regular ) and movement Details: present Musculoskeletal Musculoskeletal: Reports systems reviewed and no addt'l complaints, except as documented Integumentary Integumentary: Reports as per HPI Neurologic Neurologic: Reports systems reviewed and no addt'l complaints, except as documented Endocrine Endocrinology: Reports systems reviewed and no addt'l complaints, except as docu mented Vital Signs Vital Signs Vital Signs: 06/23/22 16:11 06/23/22 16:11 06/23/22 16:11 Temperature Temperature Source Pulse Rate 99 Blood Pressure 150/97 H BP Systolic 150 BP Diastolic 97 Pulse Ox 100 06/23/22 16:11 06/23/22 16:28 06/23/22 16:28 Temperature 98.6 F Temperature Source Pulse Rate 96 Blood Pressure 163/92 H BP Systolic 163 BP Diastolic 92 Pulse Ox 06/23/22 16:43 06/23/22 16:43 06/23/22 16:58 Temperature Temperature Source Pulse Rate 89 Blood Pressure 133/77 H 147/80 H BP Systolic 133 147 BP Diastolic 77 80 Pulse Ox 06/23/22 16:58 06/23/22 17:14 06/23/22 17:14 Temperature Temperature Source Pulse Rate 85 86 Blood Pressure 142/81 H BP Systolic 142 BP Diastolic 81 Pulse Ox 06/23/22 17:28 06/23/22 17:28 06/23/22 17:58 Temperature Temperature Source Pulse Rate 86 Blood Pressure 122/71 H 142/84 H BP Systolic 122 142 BP Diastolic 71 84 Pulse Ox 06/23/22 17:58 06/23/22 17:59 06/23/22 17:59 Temperature 99.7 F H Temperature Source Temporal Pulse Rate 85 Blood Pressure BP Systolic BP Diastolic Pulse Ox 06/23/22 18:29 06/23/22 18:29 Temperature Temperature Source Pulse Rate 76 Blood Pressure 129/78 H BP Systolic 129 BP Diastolic 78 Pulse Ox Weight Weight: 187 lb 6.287 oz Body Mass Index (BMI) 31.1 Physical Exam Const alert, oriented x3 and healthy appearing Constitutional Narrative: uncomfortable with contractions HEENT normocephalic and moist oral mucous membranes Head and Scalp: atraumatic Neck full ROM, no lymphadenopathy, supple and thyroid normal General: trachea midline Thyroid: thyroid normal Lymph Lymphatic: no lymphadenopathy noted Chest inspection of chest normal Resp normal respiratory effort Cardio regular rate GI normal to inspection, nondistended, normoactive bowel sounds, soft to palpation and non-tender Inspection: gravid external exam normal Bimanual Exam - Vag & Uterus: uterus non-tender Manual OB Exam: estimated gestational size appropriate, presentation cephalic, dilated, effaced and station Extremity normal to inspection General Extremity: Negative for edema Skin no rashes or lesions noted Neuro deep tendon reflexes 2+ bilaterally Motor Exam: strength 5/5 throughout and clonus absent Psych mental status grossly normal Labs Labs Labs: Blood Type A POSITIVE Antibody Screen NEGATIVE Hct 39.8 % (37-47) Hgb 12.8 g/dL (12.0-15.0) Pap Smear Negative Obstetrics US Chlamydia DNA (ABRAM) Negative (Negative) Neisseria gonorrhoeae DNA (ABRAM) Negative (Negative) Glucose 1 Hr 50 gm 164 mg/dL (70-140) H Assessment & Plan (1) Active labor at term: (2) Thyroid disorder: COMMENT: synthroid, labs q trimester hypothyroid (3) Gestational diabetes: COMMENT: monitor bs q 1 hr active labor diet controlled. plan delivery by 40 weeks. 05/30 growth 2823g 51% (4) Abnormal glucose affecting : COMMENT: failed 3 hr GTT (5) Refuses tetanus, diphtheria, and acellular pertussis (Tdap) vaccination: (6) Anxiety: COMMENT: zoloft, counseling encouraged (7) Supervision of high risk , antepartum: COMMENT: PRR STEFANI: 06/27/22 BF:Noe(Crystal) (8) : QUALIFIERS: Weeks of gestation: 38 weeks Qualified Code(s): Z3A.38 - 38 weeks gestation of COMMENT: GBS neg, discussed genetic and carrier screen, nl anatomy PLAN: Plan Patient presents IAL, plan expectant management for , pitocin/AROM PRN if needed. Pain management: none. GBS neg. Management of any complications: gdm see a/p comments I have reviewed the PFSH and made any clinically relevant updates.
[2022-06-23 21:11] LABS: Bedside Glucose 90 mg/dL (74-106)
[2022-06-23 21:11] LABS: Bedside Glucose 91 mg/dL (74-106)
[2022-06-23] MEDS: Oxytocin 10 UNITS/ML Vial IM (21:53)
--- NOTE | 2022-06-23 22:23 | OP.PCM_ITS ---
Assessment & Plan (1) Active labor at term: (2) : QUALIFIERS: Weeks of gestation: 38 weeks Qualified Code(s): Z3A.38 - 38 weeks gestation of COMMENT: GBS neg, discussed genetic and carrier screen, nl anatomy (3) Supervision of high risk , antepartum: COMMENT: PRR STEFANI: 06/27/22 BF:Noe(Crystal) (4) Anxiety: COMMENT: zoloft, counseling encouraged (5) Refuses tetanus, diphtheria, and acellular pertussis (Tdap) vaccination: (6) Abnormal glucose affecting : COMMENT: failed 3 hr GTT (7) Gestational diabetes: COMMENT: monitor bs q 1 hr active labor diet controlled. plan delivery by 40 weeks. 05/30 growth 2823g 51% (8) Thyroid disorder: COMMENT: synthroid, labs q trimester hypothyroid (9) Vaginal delivery: COMMENT: SM girl Lisa 38 IAL GDMA1 Maternal Data Information STEFANI Calculator Estimated Delivery Date Method Current WG Current Estimate 06/27/22 LMP (Certain) 39w 3d Vaginal Delivery Operative Information Date of Procedure: 06/23/22 Pre-Operative Diagnosis: IAL Post-Operative Diagnosis: same Surgery / Procedure Performed: Spontaneous Vaginal Delivery Type of Anesthesia: Local with 1% Lidocaine Special Medications: none Estimated Blood Loss: 200 Fluids Replaced: crystalloid Findings Description of Procedure: Patient began pushing and delivered the head in the WILLIE presentation. The head was delivered atraumatically . The anterior and posterior shoulders delivered without complication followed by the rest of the and the infant was placed on the maternal abdomen. Delayed cord clamping was employed for approximately 60 seconds. Cord was clamped and cut and gentle traction was applied to the cord and the placenta delivered spontaneously immediately following it was noted to be intact with three-vessel cord. The perineum and vagina were inspected and noted to have a right periclitoral and second degree perineal laceration repaired with 3-0 rapide i nthe usual fashion. EBL was 200. Patient and infant tolerated delivery well. Presentation: WILLIE Amniotic Membrane Rupture Type: Spontaneous Amniotic Fluid Description: Clear Placental Delivery Description: Spontaneous Placenta Disposition: [facility] Cord Vessel Description: 3 Vessels Cord Entanglement: None Infant A Gender: Female Delayed Cord Clamping: Yes Post Vaginal Delivery Medications Given After Delivery: IV Pitocin Episiotomy Description: None Laceration: Periurethral Extnsion/lac (periclitoral right), Perineal Extension/lac and 2nd degree Complication Complications: None Procedures Urinary/Genital [id number]: [id number] Vaginal Delivery [facility]
--- NOTE | 2022-06-23 22:25 | DCINST_ITS ---
Discharge Instructions Diet Discharge Diet: No restrictions Activity Discharge Activity: Return to Normal Activity, May Drive, May Shower and May Take a Tub Bath (in 4 weeks) May resume sexual activity in: 6-8 weeks (after seen by OB provider) Weight Bearing Status: Full weight bearing Lifting Restrictions: none Dressing / Incision Call your doctor if you observe: Fever of 101 or Higher, Inability to urinate, Using more than 1 pad per hour (for more than 2 hours in a row or more), Shortness of breath, Dizziness, Chest pain and - (headache not controlled with tylenol, change in vision) Follow Up Care When: in 6 weeks for visit, call the office to make the appointment. If you had elevated blood pressures call the office to be seen within 1 week. Test Results: Test results from this visit will be discussed in further detail at your follow- up appointment, if applicable. Discharge Plan Admission Admit Date/Time: 06/23/22 16:25 Attending Provider: Yenni Acuna Primary Care Provider: Marina Bronson Discharge Orders/Prescriptions Prescriptions: No Action levothyroxine [Synthroid] 75 mcg tablet 75 mcg PO DAILY sertraline 50 mg tablet 50 mg PO DAILY prenat.vits,jaswant,wgj-xbwh-akicd Tablet 1 tab PO DAILY Referrals / Follow Up: Marina Bronson MD [Primary Care Provider] - Disposition Disposition (needs filled in before D/C Order can be placed): Home, Self Care
[2022-06-23 23:26] LABS: Bedside Glucose 121 mg/dL (74-106)
[2022-06-23] MEDS: Sertraline 50 MG Tablet PO (23:48)
[2022-06-24 00:10] VITALS: BP 119/74; PULSE 77
[2022-06-24] MEDS: Acetaminophen 500 MG Tablet 1000 MG PO ×3 (00:33→15:50)
[2022-06-24 04:25] VITALS: BP 127/70; PULSE 80; RESP 16; TEMP 36.5; O2SAT 96
[2022-06-24] MEDS: Naproxen 500 MG Tablet PO ×3 (04:35→21:49)
[2022-06-24] MEDS: Levothyroxine 75 MCG Tablet PO (06:02)
[2022-06-24 06:25] LABS: Bedside Glucose 106 mg/dL (74-106)
--- NOTE | 2022-06-24 08:54 | PN.OBGYN_ITS ---
Subjective Subjective Patient doing well without complaints. Tolerating PO. Ambulating and voiding without difficulty. Feeding well. Denies chest pain, shortness of breath, calf pain/swelling, fevers, chills, lightheadedness. Objective Data Objective Data Vital Signs: Vital Signs Temp Pulse Resp BP Pulse Ox O2 Del Method 97.7 F L 80 16 127/70 H 96 Room Air 06/24/22 04:25 06/24/22 04:25 06/24/22 04:25 06/24/22 04:25 06/24/22 04:25 06/24/22 04:25 Oxygen Delivery Method Room Air Weight: 187 lb 6.287 oz Body Mass Index (BMI) 31.1 Intake & Output: Intake and Output for Last 24 Hours 06/22/22 06/23/22 06/24/22 23:59 23:59 23:59 Intake Total 1416.67 / 1416.67 Output Total 400 / 400 1080 / 1080 Balance 1016.67 / 1016.67 -1080 / -1080 Lab / Micro Data Attestation: I reviewed the patient's lab results. Result Diagrams: 06/23/22 16:48 06/23/22 16:48 Labs: Laboratory Results - last 24 hr 06/23/22 16:34: POC Glucose 95 06/23/22 16:48: WBC 9.3, RBC 4.54, Hgb 12.8, Hct 39.8, MCV 87.7, MCH 28.2, MCHC 32.2, RDW Std Deviation 44.1 H, RDW Coeff of Anai 13.9, Plt Count 200, MPV 11.3, Immature Gran % (Auto) 0.500, Neut % (Auto) 79.8 H, Lymph % (Auto) 14.0 L, [place] % (Auto) 5.2, Eos % (Auto) 0.3, Baso % (Auto) 0.2, Absolute Neuts (auto) 7.4, Absolute Lymphs (auto) 1.30, Nucleated RBC % 0 06/23/22 16:48: Blood Type A POSITIVE, Antibody Screen NEGATIVE 06/23/22 16:48: Creatinine 0.80, Estim Creat Clear Calc 95.05, Est GFR (MDRD) Af Amer 110, Est GFR (MDRD) Non-Af 91, Uric Acid 4.4, AST 17, ALT 21 06/23/22 17:42: POC Glucose 92 06/23/22 17:45: U Random Total Protein 9.5, Urine Creatinine 35.90, Protein/Creatinin Ratio 265 H 06/23/22 19:28: POC Glucose 91 06/23/22 20:37: POC Glucose 90 06/23/22 22:51: POC Glucose 121 H 06/24/22 06:01: POC Glucose 106 Physical Exam Const alert, oriented x3 and no apparent distress Lymph Lymphatic: no lymphadenopathy noted Resp normal respiratory effort and normal air movement GI soft to palpation and non-tender GI Narrative: fundus 1below U, firm. small lochia rubra Extremity normal to inspection and full ROM Skin no rashes or lesions noted Psych mental status grossly normal Assessment & Plan (1) Vaginal delivery: COMMENT: SM girl Lisa 38 IAL GDMA1 (2) Anxiety: COMMENT: zoloft, counseling encouraged (3) Gestational diabetes: COMMENT: diet controlled. plan delivery by 40 weeks. 05/30 growth 2823g 51% stable blood sugars pp. 106 (4) Thyroid disorder: COMMENT: synthroid, labs q trimester hypothyroid PLAN: Plan s/p PPD # 1 1. routine post delivery care 2. breast feeding- support given 3. rh positive 4. rubella immune
[2022-06-24 09:16] VITALS: BP 106/61; PULSE 70; RESP 16; TEMP 36.1; O2SAT 95
[2022-06-24] MEDS: Senna/Docusate Sodium 1 Tablet PO (09:26)
--- NOTE | 2022-06-24 10:44 | NURSING ---
periclitoral laceration noted in addition to second degree perineal tear.
[2022-06-24 11:40] VITALS: BP 130/78; PULSE 75; RESP 16; TEMP 36.6; O2SAT 97
--- NOTE | 2022-06-24 11:46 | NURSING ---
periclitoral tear noted by this RN in additio to second degree perineal tear
[2022-06-24] MEDS: Prenatal Vits Tablet 1 TABLET PO (13:05)
[2022-06-24 16:18] VITALS: BP 117/86; PULSE 84; RESP 16; TEMP 36.4; O2SAT 96
[2022-06-24 20:48] VITALS: BP 132/92; PULSE 89; RESP 15; TEMP 36.3; O2SAT 97
[2022-06-24] MEDS: Sertraline 50 MG Tablet PO (21:49)
[2022-06-25 01:22] VITALS: BP 128/79; PULSE 70; RESP 15; TEMP 36.6; O2SAT 97
[2022-06-25] MEDS: Acetaminophen 500 MG Tablet 1000 MG PO (07:35)
[2022-06-25] MEDS: Levothyroxine 75 MCG Tablet PO (07:35)
--- NOTE | 2022-06-25 07:57 | PCM.PN.OB ---
Subjective Subjective Patient doing well without complaints. Tolerating PO. Ambulating and voiding without difficulty. Feeding well. Denies chest pain, shortness of breath, calf pain/swelling, fevers, chills, lightheadedness. Objective Data Objective Data Vital Signs: Vital Signs Temp Pulse Resp BP Pulse Ox O2 Del Method 97.9 F 70 15 128/79 H 97 Room Air 06/25/22 01:22 06/25/22 01:22 06/25/22 01:22 06/25/22 01:22 06/25/22 01:22 06/25/22 01:22 Oxygen Delivery Method Room Air Weight: 187 lb 6.287 oz Body Mass Index (BMI) 31.1 Intake & Output: Intake and Output for Last 24 Hours 06/23/22 06/24/22 06/25/22 23:59 23:59 23:59 Intake Total 1416.67 / 1416.67 Output Total 400 / 400 1080 / 1080 Balance 1016.67 / 1016.67 -1080 / -1080 Lab / Micro Data Result Diagrams: 06/23/22 16:48 06/23/22 16:48 Physical Exam Const alert and oriented x3 HEENT normocephalic Eyes PERRL Neck full ROM Resp normal respiratory effort GI soft to palpation GI Narrative: FF below U Assessment & Plan (1) Vaginal delivery: COMMENT: SM girl Lisa 38 IAL GDMA1 (2) Anxiety: COMMENT: zoloft, counseling encouraged (3) Gestational diabetes: COMMENT: diet controlled. plan delivery by 40 weeks. 05/30 growth 2823g 51% stable blood sugars pp. 106 (4) Thyroid disorder: COMMENT: synthroid, labs q trimester hypothyroid PLAN: Plan s/p PPD # 2 1. routine post delivery care 2. breast feeding- support given 3. rh positive 4. rubella immune 5. home today
[2022-06-25 08:42] VITALS: BP 124/76; PULSE 62; RESP 16; TEMP 36.2; O2SAT 98
== END 2022-06-25 10:00 | disposition home or self-care (01) | DRG 807 ==
LOC: WPOUT 16:27 → WP 16:27
PROVIDERS: Admitting Provider Obstetrics & Gynecology; PCP Internal Medicine; Referring Provider Obstetrics & Gynecology; Visit Provider Obstetrics & Gynecology
DX: O70.1 Second degree perineal laceration during delivery (principal); Z37.0 Single live birth; O24.429 Gestational diabetes mellitus in childbirth, unspecified control; E03.9 Hypothyroidism, unspecified; F41.9 Anxiety disorder, unspecified; O99.344 Other mental disorders complicating childbirth; O99.284 Endocrine, nutritional and metabolic diseases complicating childbirth; Z3A.38 38 weeks gestation of pregnancy; Z28.21 Immunization not carried out because of patient refusal
CPT/HCPCS: 59025; 59050; 82565; 82570; 82962; 84156; 84450; 84460; 84550; 85025; 86850; 86900; 86901; 99218; J7120; G0378

== ENCOUNTER → 2023-09-15 | Outpatient (CLI) | payer BC, SELFPAY ==
[2023-09-15 13:53] LABS: Internal QC Validated? YES +Cl - CLEAR BKGD
[2023-09-15 14:41] LABS: Pregnancy, Serum, hCG Quali. POSITIVE Negative (0-9 Nonpreg); hCG Titer Quant., Serum 22 mIU/mL (1-3)
== END | disposition home or self-care (01) ==
PROVIDERS: PCP Internal Medicine; Referring Provider Internal Medicine; Visit Provider Internal Medicine
DX: N91.2 Amenorrhea, unspecified (principal); R79.89 Other specified abnormal findings of blood chemistry
CPT/HCPCS: 84702; 84703

== ENCOUNTER → 2023-09-18 | Outpatient (CLI) | payer BC, SELFPAY ==
[2023-09-18 10:38] LABS: hCG Titer Quant., Serum 81 mIU/mL (1-3)
--- OUTSIDE RECORDS SUMMARY | 2023-09-18 11:09 | XMS RPT_ITS | CCD ---
Author Name Unknown Address [address] [place] [address] Organization [facility] Care Team Providers Care Lvn Lpn Name Role Phone Diamond Mclean E Unavailable EILEEN Stevenson Unavailable Unavailable Unavailable Unavailable Anatoly Escalona Unavailable Unavailable Diamond Mclean Unavailable Anatoly Escalona Unavailable Unavailable Unavailable Unavailable Casper Reyes Unavailable meche jensen Unavailable Unavailable Winnie Jensen Unavailable Unavailable Tapan Mejia Unavailable EILEEN Stevenson Unavailable Unavailable Diamond Mclean Attending Unavailable Diamond Mclean Referring Unavailable Diamond Mclean Consulting Unavailable Virginia Redmond Unavailable Unavailable meche Anguiano Unavailable Unavailable EILEEN Stevenson Unavailable Unavailable Anatoly Escalona Unavailable Unavailable Anatoly Andrea Unavailable Unavailable May Pineda Unavailable Unavailable Ciesa Diamond BRUSH Unavailable Tapan Mejia Unavailable Casper Reyes MD Unavailable EILEEN Stevenson LPN Unavailable Unavailable Anatoly Andrea LPN Unavailable Unavailable Silvio meche Unavailable Unavailable Edwin GUADALUPE May Unavailable Unavailable Unavailable Unavailable Marina Bronson MD Unavailable [phone] [employer] LIQUOR DEPARTMENT MANAGER, Jyoti Unavailable Unavailable Marline Rosado MA Unavailable Unavailable DoroteoaDiamond Unavailable Caridad Diamond Unavailable Marina Bronson MD Unavailable [phone] Medications Current Medications Medication Drug Class(es) Dates Sig (Normalized) Sig (Original) sertraline 100 mg oral tablet (20 sources) Serotonin Reuptake Inhibitor Start: 02-07-2023 sertraline 100 mg oral tablet 1 1/2 (one and a half) tablet daily for 0 days Quantity: 180 {Tablet} Refills: 3 Ordered: 07-Feb-2023 Aiyana JARRELL, Marina Bronson MD, Marina Bermudez Start : 07-Feb-2023 Active Comments: May increase to two tablets if needed. Completed/Discontinued Medications Medication Drug Class(es) Dates Sig (Normalized) Sig (Original) ALPRAZolam 1 mg oral tablet (20 sources) Benzodiazepine Start: 06-26-2018 End: 10-16-2018 take 1 tablet by mouth every six hours as needed for anxiety Xanax 1 MG Oral Tablet 1 (one) Tablet Tablet q 6 hours prn severe anxiety for 0 days Quantity: 30 {Tablet} Refills: 1 Ordered: 16-Oct-2018 EILEEN Stevenson LPN Start : 26-Jun-2018 End : 16-Oct-2018 Inactive Comments: thirty DX: F41.9 Problems Active Problems Problem Classification Problem Date Documented Da te Episodic/Chronic Administrative/social admission (7 sources) Medical examinations/report s status; Translations: [Well woman exam] 07-31-2018 Episodic Anxiety disorders (20 sources) Anxiety; Translations: [Anxiety] 06-26-2018 Chronic Conditions associated with dizziness or vertigo (20 sources) Vertigo; Translations: [Vertigo] 01-18-2019 Episodic Diabetes or abnormal glucose tolerance complicating ; childbirth; or the puerperium (10 sources) Gestational diabetes mellitus; Translations: [Gestational diabetes] 05-06-2022 Episodic Genitourinary symptoms and ill-defined conditions (20 sources) Dysuria; Translations: [Scalding pain on urination ] Resolved: 10-19-2021 08-25-2018 Episodic Immunizations and screening for infectious disease (20 sources) Contact with and (suspected) exposure to other viral communicable diseases; Translations: [Exposure to SARS virus] Resolved: 10-19-2021 01-17-2020 Episodic Inflammatory diseases of female pelvic organs (20 sources) Vaginitis; Translations: [Vaginitis] Resolved: 10-16-2018 07-31-2018 Episodic Malaise and fatigue (20 sources) Fatigue; Translations: [Fatigue] 06-11-2018 Episodic Menstrual disorders (20 sources) Irregular periods; Translations: [Irregular menses] 06-26-2021 Chronic Mycoses (20 sources) Mycosis; Translations: [Yeast infection] Resolved: 10-16-2018 07-31-2018 Episodic Nutritional deficiencies (20 sources) Cobalamin deficiency; Translations: [B12 deficiency] 06-12-2020 Episodic Other aftercare (20 sources) Antibiotic prophylaxis indicated; Translations: [Prophylactic antibiotic] Resolved: 10-19-2021 06-21-2020 Episodic Other complications of (15 sources) Morning sickness; Translations: [Morning sickness] 11-01-2021 Episodic Other female genital disorders (20 sources) Vaginal discharge; Translations: [Vaginal discharge] Resolved: 10-16-2018 07-31-2018 Episodic Other gastrointestinal disorders (20 sources) Diarrhea; Translations: [Diarrhea] Resolved: 10-16-2018 07-31-2018 Episodic Past or Other Problems Problem Classification Problem Date Documented Da te Episodic/Chronic Residual codes; unclassified (9 sources) Antibiotic prophylaxis indicated; Translations: [Prophylactic antibiotic] 11-26-2019 Unclassified (20 sources) Yeast infection Unclassified (20 sources) Well woman exam; Translations: [Patient encounter status] 07-31-2018 Unclassified (20 sources) Burning with urination Unclassified (20 sources) Unspecified Diagnosis Resolved: 10-16-2018 09-18-2018 Unclassified (20 sources) Strep pharyngitis Unclassified (20 sources) BMI 23.0-23.9, adult; Translations: [Body mass index 20-24 - normal] 02-09-2019 Unclassified (20 sources) Attention deficit Unclassified (20 sources) Enlarged thyroid Unclassified (20 sources) Exposure to SARS virus Unclassified (20 sources) Prophylactic antibiotic Unclassified (20 sources) B12 deficiency Unclassified (18 sources) Rash Unclassified (7 sources) Irregular menses Unclassified (14 sources) Exposure to COVID-19 virus Unclassified (7 sources) Nonsmoker Unclassified (7 sources) Cold sore Unclassified (3 sources) Unclassified (12 sources) Pelvic pain with positive beta-human chorionic gonadotropin (BhCG) in female Unclassified (3 sources) Morning sickness Results Test Name Value Interpretation Reference Range Facil ity Vital Signs Date Time Vital Sign Value Performing Clinician Facility 06-06-2021 11:34-0500 Body height 165.1 cm Anatoly Andrea LPN [facility] Work Phone: 06-06-2021 11:34-0500 Body mass index (BMI) [Ratio] 23.3 kg/m2 Anatoly Andrea THORACIC MEDICINE PHYSICIAN [facility] Work Phone: 06-06-2021 11:34-0500 Body surface area Derived from formula 1.7 m2 Anatoly Andrea [facility] Work Phone: 06-06-2021 11:34-0500 Body temperature 101.4 [degF] Anatoly Andrea [facility] Work Phone: Encounters Encounter Date Encounter Type Care Provider Facility Start: 05-06-2022 End: 05-06-2022 Annotation/Addendum Marina Bronson MD Work Phone: [facility] Start: 04-10-2022 End: 04-10-2022 Phone Encounter Marina Bronson MD Work Phone: [facility] Start: 11-30-2021 End: 11-30-2021 Phone Encounter Marina Bronson MD Work Phone: [facility] Start: 11-30-2021 End: 11-30-2021 Phone Encounter Marina Bronson MD Work Phone: [facility] Start: 11-06-2021 End: 11-06-2021 Lab Order Marina Bronson MD Work Phone: [facility] Start: 11-01-2021 End: 11-01-2021 Lab Order Marina Bronson MD Work Phone: [facility] Start: 11-01-2021 End: 11-01-2021 Phone Encounter Marina Bronson MD Work Phone: [facility] Start: 10-26-2021 End: 10-26-2021 Phone Encounter Marina Bronson MD Work Phone: [facility] Start: 10-24-2021 End: 10-24-2021 Phone Encounter Marina Bronson MD Work Phone: [facility] Start: 10-22-2021 End: 10-22-2021 Lab Order Marina Bronson MD Work Phone: [facility] Start: 10-19-2021 End: 10-19-2021 Lab Order Marina Bronson MD Work Phone: [facility] Start: 06-26-2021 End: 06-26-2021 Lab Order Diamond Mclean STEAM FLATTENER Work Phone: [facility] Start: 06-08-2021 End: 06-08-2021 Phone Encounter Diamond Mclean STEAM FLATTENER Work Phone: [facility] Start: 06-06-2021 End: 06-08-2021 Erroneous Entry Diamond Mclean STEAM FLATTENER Work Phone: [facility] Start: 06-06-2021 End: 06-06-2021 Lab Order Diamond Mclean STEAM FLATTENER Work Phone: [facility] Start: 05-04-2021 End: 05-04-2021 Phone Encounter Diamond Mclean STEAM FLATTENER Work Phone: [facility] Start: 01-05-2021 End: 01-05-2021 Phone Encounter Diamond Mclean STEAM FLATTENER Work Phone: [facility] Start: 12-14-2020 End: 12-14-2020 Phone Encounter Diamond Mclean STEAM FLATTENER Work Phone: [facility] Start: 12-14-2020 End: 12-14-2020 Lab Order Diamond Mclean STEAM FLATTENER Work Phone: [facility] Start: 11-23-2020 Review Diamond Mclean STEAM FLATTENER Work Phone: [facility] Start: 09-18-2020 End: 09-18-2020 Lab Order [facility] Mclean [facility] Start: 07-24-2020 End: 07-24-2020 Annotation/Addendum Diamond Mclean [facility] Start: 07-24-2020 End: 07-24-2020 Annotation/Addendum Diamond Mclean [facility] Start: 07-07-2020 End: 07-07-2020 Phone Encounter Diamond Mclean [facility] Start: 06-21-2020 End: 06-21-2020 Phone Encounter Diamond [facility] Start: 06-12-2020 End: 06-12-2020 Lab Order Diamond Mclean [facility] Start: 01-17-2020 End: 01-17-2020 Annotation/Addendum Diamond Mclean [facility] Start: 11-26-2019 End: 11-26-2019 Phone Encounter Diamond Cresp[facility] Start: 07-19-2019 End: 07-19-2019 Lab Order Diamond Cresp[facility] Start: 06-29-2019 End: 06-29-2019 Lab Order Diamond Cresp[facility] Start: 06-29-2019 End: 06-29-2019 Phone Encounter Diamond [facility]resp[facility] Start: 06-29-2019 End: 06-29-2019 Phone Encounter Diamond Mclean [facility] Start: 04-15-2019 End: 04-15-2019 Annotation/Addendum Diamond Mclean [facility] Start: 04-05-2019 End: 04-05-2019 Phone Encounter Diamond Mclean [facility] Start: 04-02-2019 End: 04-02-2019 Phone Encounter Diamond Mclean [facility] Start: 02-25-2019 End: 02-25-2019 Phone Encounter Diamond Mclean [facility] Start: 02-10-2019 End: 02-10-2019 Phone Encounter Diamond Mclean [facility] Start: 02-09-2019 End: 02-09-2019 Office outpatient visit 40 minutes Diamond Caridad [facility] Start: 01-18-2019 End: 01-18-2019 Phone Encounter Diamond Mclean [facility] Start: 10-20-2018 Patient encounter procedure Diamond Mclean [facility] Start: 10-20-2018 End: 10-20-2018 Lab Order Diamond Mclean [facility] Start: 10-16-2018 Review Diamond Caridad P[facility] Start: 10-13-2018 End: 10-13-2018 Phone Encounter Diamond Mclean [facility] Start: 09-23-2018 End: 09-23-2018 Annotation/Addendum Diamond Mclean [facility] Start: 09-18-2018 End: 09-18-2018 Phone Encounter Diamond Mclean [facility] Start: 09-09-2018 End: 09-09-2018 Phone Encounter Diamond Mclean [facility] Start: 08-25-2018 End: 08-25-2018 Annotation/Addendum Diamond Mclean [facility] Start: 08-25-2018 End: 08-25-2018 Lab Order Diamond Mclean [facility] Start: 07-31-2018 End: 07-31-2018 Lab Order Diamond Mclean [facility] Start: 07-31-2018 End: 07-31-2018 Patient encounter procedure Marina Bronson MD Work Phone: [facility] Start: 07-31-2018 End: 07-31-2018 Office outpatient visit 15 minutes Diamond Mclean [facility] Start: 07-29-2018 End: 07-29-2018 Phone Encounter Diamnod Mclean [facility] Start: 06-26-2018 End: 06-26-2018 Phone Encounter Diamond Mclean [facility] Start: 06-11-2018 End: 06-11-2018 Phone Encounter Diamond Mclean [facility] Start: 05-25-2018 End: 05-25-2018 Lab Order Diamond Mclean [facility] Patient encounter procedure EILEEN Stevenson LPN [facility] Work Phone: Patient encounter procedure Anatoly Andrea LPN [facility] Work Phone: End: 10-19-2021 Patient encounter procedure EILEEN Graham JAINN [facility] Work Phone: Procedures Date Procedure Procedure Detail Performing Clinician Start: 11-25-2022 End: 11-26-2022 MR/[facility] Procedure Note: See Note; NOTES: [address] [address] OFFICE VISIT Date of Service: 11/25/22 MR#: [id number] Acct: [id number] Name: MECHE ANGUIANO Rep #: [id number] : 1995 Provider: MINNA sethi Age/Sex: 27/F Location: [facility] Status: Signed Intake Intake Visit Reasons: black spot on nipple Chief Complaint: black spot on niplpe Accompanied by: Self Allergies acetaminophen [From [place]] Allergy (Mild, Verified 06/23/22 16:53) Other hydrocodone [From [place]] Allergy (Mild, Verified 06/23/22 16:53) Other : Yes PFSH PFSH Medical History (Updated 06/24/22 @ 08:56 by Linda Leonard CNM) Abnormal glucose affecting Anxiety Breast lump in female Thyroid disorder Family History Mother Breast cancer Asthma Social History adopted: No household members: significant other current occupational status: employed current occupation: [employer] pets and animals: No Smoking Status: Never smoker alcohol intake: never substance use type: does not use caffeine: Yes what type of physical activity do you participate in: none seatbelt use: always do you feel safe at home: Yes additional social history: BF:Noe History 1 Elective abortions Hx Para 0 Spontaneous abortions Hx # Term Pregnancies Ectopic pregnancies Hx # Pregnancies Multiple births # of living children 1 Past Pregnancies Del. Date Name GA/Weeks Outcome Route Bth Weight Infant Gen Labor Lgth Anesthesia Del Locatn Provider FOB 06/23/22 Lisa 38 live - full term Female [facility] Dr. Aidan wang Delivery Date: 06/23/22 Last Updated by: Elizabeth Zabala IAL, GDMA1 HPI HPI HPI: MECHE ANGUIANO, is a 27 F who presents to the office today for black sot on nipple. History provided by the patient. ROS ROS Const Constitutional: Denies fever(s) or lethargy : Denies nipple discharge Skin Skin/Breast: Denies breast pain, breast skin changes or nipple discharge Details: black spot noticed about 2 months ago to left nipple, patient is exclusively pumping, patient denies and pain or discomfort are area, was not sure if her pump was rubbing that spot to cause nipple trauma but patient denies any pain with pumping, no itching, drainage or other symptoms, states spot has been about the same size over the last couple of months, no other skin concerns Exam Maternal Assessment Breast Assessment Bilateral Breasts: Full Nipple Assessment Bilateral Nipples: Everted Areolar Tissue Areolar Tissue: Pliable Assessment Goals Breast Feeding Goals: Exclusively pumping Exam Const General: comfortable and no acute distress Orientation: alert and oriented x3 Chest Breast inspection: normal inspection of the breasts Breast palpation: normal palpation of the breasts Other: left nipple with pinpoint blacked spots about 0.5 cm in diameter to upper nipple base, skin healed over, no redness, swelling, warmth or drainage present Resp Effort Inspection: normal respiratory effort Skin General: no rashes or lesions noted Psych Appearance: grossly normal Mental Status: mental status grossly normal Affect: normal affect Assessment and Plan Assessment and Plan (1) Rash and nonspecific skin eruption: Plan: Does not appear to be from nipple trauma and pumping. Patient fitted to make sure using correct flange size. Referred to derm for evaluation. Coding Level of Care Code Off vis,est,level 3 Diagnoses Rash and nonspecific skin eruption R21 11/26/22 0516 <Electronically signed by Wendy HOUSTONC> Date Wendy Wakefield NP, NP-C Cosigner Signature: Date (if applicable) CC: Marina Bronson MD Work Phone: Start: 08-05-2022 End: 08-05-2022 Design Printer Balloon Office Visit Report Procedure Note: See Note; NOTES: [facility] [address] [place] [address] OFFICE VISIT Date of Service: 08/05/22 MR#: [id number] Acct: [id number] Name: MECHE ANGUIANO Rep #: [id number] : 1995 Provider: Dr. Yenni morrow MD Age/Sex: 27/F Location: [place] Status: Signed Intake Vital Signs 08/05/22 10:07 08/05/22 10:07 Height 1.65 m 1.65 m Weight: 72.575 kg BMI 26.6 BP 150/100 H Intake Visit Reasons: 6 wk PP, declined IUD Chief Complaint: 6w pp declines IUD Consumer Lending Manager Required: No Is patient in pain?: No Allergies acetaminophen [From [place]] Allergy (Mild, Verified 06/23/22 16:53) Other hydrocodone [From [place]] Allergy (Mild, Verified 06/23/22 16:53) Other Medications levothyroxine 75 mcg tablet (Synthroid) 75 mcg PO DAILY hypothyroidism 11/07/21 [History Confirmed 08/05/22] prenat.vits,jaswant,pxt-tvkr-mxjk c 1 tab PO DAILY 11/13/21 [History Confirmed 08/05/22] sertraline 50 mg tablet 50 mg PO DAILY anxiety 11/13/21 [History Confirmed 08/05/22] norethindrone (contraceptive) 0.35 mg tablet (Ortho Micronor) 0.35 mg PO DAILY #28 tabs 08/05/22 [Rx Confirmed 08/05/22] : Yes [facility] Medical History (Updated 06/24/22 @ 08:56 by Linda Leonard CNM) Abnormal glucose affecting Anxiety Breast lump in female Thyroid disorder Family History Mother Breast cancer Asthma Social History adopted: No household members: significant other current occupational status: employed current occupation: [employer] pets and animals: No Smoking Status: Never smoker alcohol intake: never substance use type: does not use caffeine: Yes what type of physical activity do you participate in: none seatbelt use: always do you feel safe at home: Yes additional social history: BF:Noe History 1 Elective abortions Hx Para 0 Spontaneous abortions Hx # Term Pregnancies Ectopic pregnancies Hx # Pregnancies Multiple births # of living children 1 Past Pregnancies Del. Date Name GA/Weeks Outcome Route Bth Weight Infant Gen Labor Lgth Anesthesia Del Locatn Provider FOB 06/23/22 Lisa 38 live - full term Female [facility] Dr. Aidan wang Delivery Date: 06/23/22 Last Updated by: Elizabeth Zabala IAL, GDMA1 Depression Screen PHQ-2/9 PHQ-2 Over the last 2 weeks, how often have you been bothered by any of the following problems? 1. Little interest or pleasure in doing things: not at all 2. Feeling down, depressed, or hopeless: not at all Total score: 0 Post HPI 6 wk PP, declined IUD: Details: MECHE ANGUIANO is a 27 year old who presents for her post visit. Infant Feeding: Breast Menses resumed: No Dortches since delivery: No Emotional Support: Yes ROS Const Reports system reviewed and no additional complaints, except as documented GI Reports system reviewed and no additional complaints, except as documented, Denies bloating, Denies constipation, Denies nausea and Denies vomiting Reports system reviewed and no additional complaints, except as documented, Denies abnormal vaginal bleeding, Denies pelvic pain, Denies sexual dysfunction, Denies urinary incontinence, Denies urinary hesitancy, Denies urinary urgency and Denies vaginal discharge Skin/Breast Reports system reviewed and no additional complaints, except as documented and Reports as per HPI Psych Reports as per HPI Exam Const General: cooperative, healthy appearing, comfortable and no acute distress HENMT Head: normal to inspection Neck Neck: normal visual inspection and no lymphadenopathy Thyroid: thyroid normal Chest Breast inspection: normal inspection of the breasts and normal inspection of the axillae Breast palpation: normal palpation of the breasts and normal palpation of the axillae Resp Effort Inspection: normal respiratory effort GI Inspection: normal to inspection Palpation: soft, no hepatosplenomegaly and nontender General: bladder normal to palpation External Female Exam: normal external appearance and normal appearance of the urethra Urethra: normal appearance of the urethra Speculum Exam - Vagina: normal appearance of the vagina and normal vaginal discharge Speculum Exam - Cervix: normal appearance of the cervix Bimanual Exam- Vagina Uterus: normal bimanual exam, uterine size normal, bladder normal to palpation, uterine shape normal and non-tender Bimanual Exam- Adnexa, other: normal adnexae and normal Pelvic Support: normal Skin General: no rashes or lesions noted Coding Level of Care Code No Charge Diagnoses Vaginal delivery O80 Anxiety F41.9 Gestational diabetes O24.419 Thyroid disorder E07.9 Assessment and Plan Assessment and Plan (1) Vaginal delivery: Status: Acute Comment: SM girl Lisa 38 IAL GDMA1 (2) Anxiety: Status: Acute Comment: zoloft, counseling encouraged (3) Gestational diabetes: Status: Acute Comment: diet controlled. plan delivery by 40 weeks. 05/30 growth 2823g 51% stable blood sugars pp. 106 (4) Thyroid disorder: Status: Acute Comment: synthroid, labs q trimester hypothyroid Orders: Orders 2 HR Glucose Tolerance - 75 gm Today O24.419 - Gestational diabetes mellitus in , unspecified control Medications: New norethindrone (contraceptive) (Ortho Micronor) start day 1 of menstrual cycle 0.35 mg PO DAILY 28 tabs 12RF Plan Cervical cancer screening: up to date Contraceptive plans: pill ordered Complications:gct ordered Follow up for annual exams or sooner if indicated. 08/05/22 1112 <Electronically signed by Yenni Acuna MD> Date Yenni Acuna MD Cosign Signature: Date (if applicable) CC: Marina Bronson MD Work Phone: Start: 06-27-2022 End: 06-27-2022 /TOM Procedure Note: See Note; NOTES: [facility] [address] [place] [address] OFFICE VISIT Date of Service: 06/27/22 MR#: [id number] Acct: [id number] Name: MECHE ANGUIANO Rep #: [id number] : 1995 Provider: MINNA sethi Age/Sex: 27/F Location: [facility] [place] Status: Signed Intake Vital Signs 06/23/22 16:17 Height 5 ft 5 in Intake Visit Reasons: feeding assessment Chief Complaint: assessment Accompanied by: Significant Other Allergies acetaminophen [From [place]] Allergy (Mild, Verified 06/23/22 16:53) Other hydrocodone [From [place]] Allergy (Mild, Verified 06/23/22 16:53) Other : Yes PFSH [facility] Medical History (Updated 06/24/22 @ 08:56 by Linda Leonard CNM) Abnormal glucose affecting Anxiety Breast lump in female Thyroid disorder Family History Mother Breast cancer Asthma Social History adopted: No household members: significant other current occupational status: employed current occupation: [employer] pets and animals: No Smoking Status: Never smoker alcohol intake: never substance use type: does not use caffeine: Yes what type of physical activity do you participate in: none seatbelt use: always do you feel safe at home: Yes additional social history: BF:Noe History 1 Elective abortions Hx Para 0 Spontaneous abortions Hx # Term Pregnancies Ectopic pregnancies Hx # Pregnancies Multiple births # of living children 1 Past Pregnancies Del. Date Name GA/Weeks Outcome Route Bth Weight Infant Gen Labor Lgth Anesthesia Del Locatn Provider FOB 06/23/22 Lisa 38 live - full term Female [facility] Dr. Aidan wang Delivery Date: 06/23/22 Last Updated by: Elizabeth Zabala IAL, GDMA1 HPI HPI HPI: MECHE ANGUIANO, is a 27 F who presents to the office today for assessment. History provided by the patient. ROS ROS Const Constitutional: Denies fever(s) or lethargy : Denies nipple discharge Skin Skin/Breast: Reports other (feeling more full, milk coming in last night); Denies breast pain, breast skin changes or nipple discharge Details: 2x in last 24 hours, 15-30 minutes to first side and 0-30 minutes to second side, all other feeds were 30 cc EBM in bottle q2-3 hours, milk started to come in last night, feeling more full, using nipple butter to help with soreness, worse with initial latch and then pain improves as the feed continues Exam Maternal Assessment Breast Assessment Bilateral Breasts: Full Nipple Assessment Right Nipple: Flat Left Nipple: Everted Areolar Tissue Areolar Tissue: Pliable Assessment Baby Feeding History Is your baby latching onto the breast: Yes Number of Breast Feedings in 24 hours: 2x Minutes per breast: First Breast: 15-30 Minutes per breast: Second Breast: 0-30 Supplements Supplement Type:: Expressed milk Frequency: q2-3 horus when not nursing Amount: 1 oz Breast Pumping Type of Breast Pump: Freeme Frequency: q2-3 horus when not nursing Amount: 30 cc Goals Breast Feeding Goals: Exclusive Exam Const General: comfortable and no acute distress Orientation: alert and oriented x3 Chest Breast inspection: normal inspection of the breasts Breast palpation: normal palpation of the breasts Other: bilateral nipples slight reddened, 1 cm bruise above right nipple, small crack to left nipple, no bleeding Resp Effort Inspection: normal respiratory effort Skin General: no rashes or lesions noted Psych Appearance: grossly normal Mental Status: mental status grossly normal Affect: normal affect Assessment and Plan Assessment and Plan (1) Care and examination of lactating mother: Plan: Educated on nursing positions, pulling chin down to get deeper latch for baby. Baby nursed for 15 minutes to each side and transferred 40 cc. Continue to feed on demand q2-3 hours. Educated on skin to skin, milk storage, pumping and haakaa use. Fitted in office and recommended size 20 flange for pump. Follow up with 07/01 or sooner as needed. Coding Level of Care Code 64941 PRVT COUNSELING INDIVID Diagnoses Care and examination of lactating mother Z39.1 Time Spent (min) 30 06/27/22 1423 <Electronically signed by Wendy HOUSTONC> Date Wendy MORILLO Cosigner Signature: Date (if applicable) CC: Marina Bronson MD Work Phone: Start: 06-19-2022 End: 06-19-2022 [employer] Office Visit Report Procedure Note: See Note; NOTES: [facility] [address] [place] [address] OFFICE VISIT Date of Service: 06/19/22 MR#: [id number] Acct: [id number] Name: MECHE ANGUIANO Rep #: [id number] : 1995 Provider: Dr. Kaelyn Mcclain DO Age/Sex: 27/F Location: [facility] Status: Signed Intake Vital Signs 05/28/22 09:00 06/19/22 08:29 06/19/22 08:30 Height 5 ft 5 in 5 ft 5 in 5 ft 5 in Weight: 188 lb 2 oz BMI 31.3 BP 135/88 H Intake Visit Reasons: 39 WK OB Consumer Lending Manager Required: No Is patient in pain?: No Allergies acetaminophen [From [place]] Allergy (Mild, Verified 06/19/22 08:28) Other hydrocodone [From [place]] Allergy (Mild, Verified 06/19/22 08:28) Other Medications levothyroxine 75 mcg tablet (Synthroid) 75 mcg PO DAILY 11/07/21 [History Confirmed 06/19/22] prenat.vits,jaswant,wrm-cgyf-lrjo c 1 tab PO DAILY 11/13/21 [History Confirmed 06/19/22] sertraline 50 mg tablet 100 mg PO DAILY 11/13/21 [History Confirmed 06/19/22] Last Menstrual Period: 09/20/21 Zika: Zika virus screening: Negative : No PFSH PFSH Medical History Abnormal glucose affecting Anxiety Breast lump in female Thyroid disorder Family History Mother Breast cancer Asthma Social History adopted: No household members: significant other current occupational status: employed current occupation: [employer] pets and animals: No Smoking Status: Never smoker alcohol intake: never substance use type: does not use caffeine: Yes what type of physical activity do you participate in: none seatbelt use: always do you feel safe at home: Yes additional social history: BF:Noe History 1 Elective abortions Hx Para 0 Spontaneous abortions Hx # Term Pregnancies Ectopic pregnancies Hx # Pregnancies Multiple births # of living children HPI 39 WK OB Details: MECHE ANGUIANO is a 27 year old who presents for routine OB visit. OB Visit STEFANI Calculator Estimated Delivery Date Method Current WG Current Estimate 06/27/22 LMP (Certain) 38w 6d Expected Delivery Route/Plan Labor Preferences- CB/BF classes: [] labor support person: [] labor intervention preferences: [] pain management options preferred: [] cut cord/dad catch: [] : [] PP control planned: [] discussed possible routes of delivery and associated risks: [] special requests: [] Specific Issue/Plans Covid status: discussed Flu vaccine: discussed Tdap vaccine: [] Rhogam: [] LARC form signed: [] Problem list reviewed and updated with the most current plan of care details and appropriate orders placed. Relevant counseling for the gestational age provided. Continue routine care and follow up unless otherwise noted in visit notes/problem list details Initial Weight: 161 lb Date -???-???-???-???-???-???-???- ???-???-???-???-???- EGA Weight BP Urine Prot -???-???-???-???-???-???-???- ???-???-???-???-???- Glucose FHR FuHt Pres Dilation -???-???-???-???-???-???-???- ???-???-???-???-???- Effaced St Visit Note 11/29/21 -???-???-???-???-???-???-???- ???-???-???-???-???- 10w 0d 161 lb (+0 oz) -???-???-???-???-???-???-???- ???-???-???-???-???- 145 -???-???-???-???-???-???-???- ???-???-???-???-???- SM- CRL 3 cm cons with LMP 12/27/21 -???-???-???-???-???-???-???- ???-???-???-???-???- 14w 0d 166 lb (+5 lb) 135/87 Negative -???-???-???-???-???-???-???- ???-???-???-???-???- Negative 140 -???-???-???-???-???-???-???- ???-???-???-???-???- JV- pt compl ains of allergies. She has confirmed that she does not want to do nipt or carrier testing. anatomy ultrasound with mfm ordered. 01/24/22 -???-???-???-???-???-???-???- ???-???-???-???-???- 18w 0d 175 lb 6 oz (+14 lb 6 oz) 142/84 Negative -???-???-???-???-???-???-???- ???-???-???-???-???- Negative 150 -???-???-???-???-???-???-???- ???-???-???-???-???- JV- no lof, vaginal bleeding, or dec fm. antomy scan scheduled 02/07 with mfm. 02/19/22 -???-???-???-???-???-???-???- ???-???-???-???-???- 21w 5d 177 lb (+16 lb) 130/86 Negative -???-???-???-???-???-???-???- ???-???-???-???-???- Negative 145 -???-???-???-???-???-???-???- ???-???-???-???-???- SM- no vb lo f good fm no regular ctx, told to go get NOB labs drawn 03/20/22 -???-???-???-???-???-???-???- ???-???-???-???-???- 25w 6d 183 lb 6 oz (+22 lb 6 oz) 130/84 Negative -???-???-???-???-???-???-???- ???-???-???-???-???- Negative 135 26 -???-???-???-???-???-???-???- ???-???-???-???-???- JV- no lof, vaginal bleeding, or dec fm. 28 week labs ordered. plan for tdap next visit. 04/05/22 -???-???-???-???-???-???-???- ???-???-???-???-???- 28w 1d 188 lb 8 oz (+27 lb 8 oz) 130/80 Negative -???-???-???-???-???-???-???- ???-???-???-???-???- Negative 143 28 -???-???-???-???-???-???-???- ???-???-???-???-???- JV- no lof, vaginal bleeding, or dec fm. Pt had cbc and gct today. gct is pending, cbc showed borderline anemia. she will berry picker OTC iron. 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 Still needs TSH. will get that next visit. 04/19/22 -???-???-???-???-???-???-???- ???-???-???-???-???- 30w 1d 188 lb 2 oz (+27 lb 2 oz) 137/91 Negative -???-???-???-???-???-???-???- ???-???-???-???-???- Negative 145 30 -???-???-???-???-???-???-???- ???-???-???-???-???- JV- glucose levels well controlled with diet alone. No complaints. declines flu shot 05/03/22 -???-???-???-???-???-???-???- ???-???-???-???-???- 32w 1d 187 lb (+26 lb) 115/79 Negative -???-???-???-???-???-???-???- ???-???-???-???-???- Negative 140 32 -???-???-???-???-???-???-???- ???-???-???-???-???- SM- no vb lo f good fm no regular ctx BS well controlled. 05/17/22 -???-???-???-???-???-???-???- ???-???-???-???-???- 34w 1d 187 lb 2 oz (+26 lb 2 oz) 125/82 Negative -???-???-???-???-???-???-???- ???-???-???-???-???- Negative 145 34 -???-???-???-???-???-???-???- ???-???-???-???-???- JV- glucose levels still controlled well with diet and followed by endo. no lof ,vaginal bleeding, or dec fm. u 05/28/22 -???-???-???-???-???-???-???- ???-???-???-???-???- 35w 5d 189 lb 4 oz (+28 lb 4 oz) 118/82 Negative -???-???-???-???-???-???-???- ???-???-???-???-???- Negative 147 35 -???-???-???-???-???-???-???- ???-???-???-???-???- JV- no lof, vaginal bleeding, or dec fm. growth scan is on thrusday this week. 06/06/22 -???-???-???-???-???-???-???- ???-???-???-???-???- 37w 0d 190 lb 4 oz (+29 lb 4 oz) 134/83 Negative -???-???-???-???-???-???-???- ???-???-???-???-???- Negative 145 36 Cephalic -???-???-???-???-???-???-???- ???-???-???-???-???- JV- no lof, vaginal bleeding, or dec fm. growth scan last week showed that baby was in the 51st% and efw at delivery is between 7-8 pounds. pt declines pelvic exam today. 06/13/22 -???-???-???-???-???-???-???- ???-???-???-???-???- 38w 0d 192 lb (+31 lb) 110/78 Negative -???-???-???-???-???-???-???- ???-???-???-???-???- Negative 140 37 Cephalic -???-???-???-???-???-???-???- ???-???-???-???-???- SM- no vb lo f good fm n regular ctx BS controlled SM- no vb lof good fm n regular ct x BS controlled, discussed needs fu to obtain lab results, had drawn at her work office 06/19/22 -???-???-???-???-???-???-???- ???-???-???-???-???- 38w 6d 188 lb 2 oz (+27 lb 2 oz) 135/88 Negative -???-???-???-???-???-???-???- ???-???-???-???-???- Negative 130 37 Cephalic 3 -???-???-???-???-???-???-???- ???-???-???-???-???- 70 JV- martir c ontrol of glucose. no lof, vaginal bleeding, or dec fm. setting up 40 week IOL. ACOG First Trimester First Trimester: Desire for , Alcohol, Tobacco Cessation, Illicit/Recreational Drug/Substance Use, Intimate Partner Violence, Barriers to care, Unstable Housing, Communication Barriers, Environmental/Work Hazards, Anticipated Course of Care, Toxoplasmosis Precations, Use of Any medications, Sexual activity, Exercise, Dental Care, Sauna/Hot tub use, Seat Belt use, Childbirth classes/Hospital facilities, , Travel, Indications for Ultrasound and Screening for Aneuploidy Second Trimester Second Trimester: Signs and Symptoms of Labor, Selecting a care provider, Reproductive Life Planning Contreception, Care Planning, Depression/Anxiety and Intimate Partner Violence; Discussed Tobacco Cessation Third Trimester Third Trimester: Pain Management Plans, Labor support person(s), Immediate Larc, Movement Monitoring, Signs and Symptoms of Preeclampsia and Education Diagnostics Diagnostics Diagnostics: Gest Glucose Tolerance MG/DL Details: HIV: Urine Culture: Sequential Screen: NIPT Screen: ROS Const Denies fever(s) GI Reports as per HPI and Denies abdominal pain Reports as per HPI, Denies abnormal vaginal bleeding, Denies dysuria and Denies vaginal discharge Exam Const General: healthy appearing, comfortable and no acute distress GI Inspection: normal to inspection Palpation: soft and nontender Results POC Urinalysis 2 Dip (Clinic) Office Urine Glucose Negative Last Edit by Elizabeth Zabala on 06/19/22 08:46 Office Urine Protein Negative Last Edit by Elizabeth Zabala on 06/19/22 08:46 Coding Level of Care Code OB Routine Diagnoses Gestational diabetes O24.419 Abnormal glucose affecting O99.810 Refuses tetanus, diphtheria, and acellular pertussis (Tdap) vaccination Z28.21 Thyroid disorder E07.9 Anxiety F41.9 Supervision of high risk , antepartum O09.90 Z3A.38 Weeks of gestation: 38 weeks Assessment and Plan Assessment and Plan (1) Gestational diabetes: Status: Acute Comment: diet controlled. plan delivery by 40 weeks. 113 growth 2823g 51% (2) Abnormal glucose affecting : Status: Acute Comment: failed 3 hr GTT (3) Refuses tetanus, diphtheria, and acellular pertussis (Tdap) vaccination: Status: Acute (4) Thyroid disorder: Status: Acute Comment: synthroid, labs q trimester (5) Anxiety: Status: Acute Comment: zoloft, counseling encouraged (6) Supervision of high risk , antepartum: Status: Acute Comment: PRR STEFANI: 06/27/22 BF:Miranda) (7) : Status: Acute Qualifiers: Weeks of gestation: 38 weeks Qualified Code(s): Z3A.38 - 38 weeks gestation of Comment: GBS neg, discussed genetic and carrier screen, nl anatomy Orders: Orders POC Urinalysis 2 Dip (Clinic) Today 06/19/22 0858 <Electronically signed by Kaelyn Quinteros DO> Date Kaelyn Quinteros DO Cosigner Signature: Date (if applicable) CC: Marina Bronson MD Work Phone: Start: 06-13-2022 End: 06-17-2022 [employer] Office Visit Report Procedure Note: See Note; NOTES: [facility] [address] [place] [address] OFFICE VISIT Date of Service: 06/13/22 MR#: [id number] Acct: [id number] Name: MECHE ANGUIANO Rep #: [id number] : 1995 Provider: Dr. Yenni morrow MD Age/Sex: 27/F Location: [facility] Status: Signed Intake Vital Signs 05/28/22 09:00 06/13/22 10:59 06/13/22 11:00 Height 5 ft 5 in 5 ft 5 in 5 ft 5 in Weight: 192 lb BMI 31.9 BP 110/78 Intake Visit Reasons: 38 WK OB Chief Complaint: est ob Consumer Lending Manager Required: No Is patient in pain?: No Allergies acetaminophen [From [place]] Allergy (Mild, Verified 06/06/22 08:53) Other hydrocodone [From [place]] Allergy (Mild, Verified 06/06/22 08:53) Other Medications levothyroxine 75 mcg tablet (Synthroid) 75 mcg PO DAILY 11/07/21 [History Confirmed 06/13/22] prenat.vits,jaswant,anx-hgka-yqdq c 1 tab PO DAILY 11/13/21 [History Confirmed 06/13/22] sertraline 50 mg tablet 100 mg PO DAILY 11/13/21 [History Confirmed 06/13/22] Last Menstrual Period: 09/20/21 Zika: Zika virus screening: Negative : No PFSH PFSH Medical History Abnormal glucose affecting Anxiety Breast lump in female Thyroid disorder Family History Mother Breast cancer Asthma Social History adopted: No household members: significant other current occupational status: employed current occupation: [employer] pets and animals: No Smoking Status: Never smoker alcohol intake: never substance use type: does not use caffeine: Yes what type of physical activity do you participate in: none seatbelt use: always do you feel safe at home: Yes additional social history: BF:Noe History 1 Elective abortions Hx Para 0 Spontaneous abortions Hx # Term Pregnancies Ectopic pregnancies Hx # Pregnancies Multiple births # of living children HPI 38 WK OB Details: MECHE ANGUIANO is a 27 year old who presents for routine OB visit. OB Visit STEFANI Calculator Estimated Delivery Date Method Current WG Current Estimate 06/27/22 LMP (Certain) 38w 4d Expected Delivery Route/Plan Labor Preferences- CB/BF classes: [] labor support person: [] labor intervention preferences: [] pain management options preferred: [] cut cord/dad catch: [] : [] PP control planned: [] discussed possible routes of delivery and associated risks: [] special requests: [] Specific Issue/Plans Covid status: discussed Flu vaccine: discussed Tdap vaccine: [] Rhogam: [] LARC form signed: [] Problem list reviewed and updated with the most current plan of care details and appropriate orders placed. Relevant counseling for the gestational age provided. Continue routine care and follow up unless otherwise noted in visit notes/problem list details Initial Weight: 161 lb Date -???-???-???-???-???-???-???- ???-???-???-???-???- EGA Weight BP Urine Prot -???-???-???-???-???-???-???- ???-???-???-???-???- Glucose FHR FuHt Pres Dilation -???-???-???-???-???-???-???- ???-???-???-???-???- Effaced St Visit Note 11/29/21 -???-???-???-???-???-???-???- ???-???-???-???-???- 10w 0d 161 lb (+0 oz) -???-???-???-???-???-???-???- ???-???-???-???-???- 145 -???-???-???-???-???-???-???- ???-???-???-???-???- SM- CRL 3 cm cons with LMP 12/27/21 -???-???-???-???-???-???-???- ???-???-???-???-???- 14w 0d 166 lb (+5 lb) 135/87 Negative -???-???-???-???-???-???-???- ???-???-???-???-???- Negative 140 -???-???-???-???-???-???-???- ???-???-???-???-???- JV- pt compl ains of allergies. She has confirmed that she does not want to do nipt or carrier testing. anatomy ultrasound with mfm ordered. 01/24/22 -???-???-???-???-???-???-???- ???-???-???-???-???- 18w 0d 175 lb 6 oz (+14 lb 6 oz) 142/84 Negative -???-???-???-???-???-???-???- ???-???-???-???-???- Negative 150 -???-???-???-???-???-???-???- ???-???-???-???-???- JV- no lof, vaginal bleeding, or dec fm. antomy scan scheduled 02/07 with mfm. 02/19/22 -???-???-???-???-???-???-???- ???-???-???-???-???- 21w 5d 177 lb (+16 lb) 130/86 Negative -???-???-???-???-???-???-???- ???-???-???-???-???- Negative 145 -???-???-???-???-???-???-???- ???-???-???-???-???- SM- no vb lo f good fm no regular ctx, told to go get NOB labs drawn 03/20/22 -???-???-???-???-???-???-???- ???-???-???-???-???- 25w 6d 183 lb 6 oz (+22 lb 6 oz) 130/84 Negative -???-???-???-???-???-???-???- ???-???-???-???-???- Negative 135 26 -???-???-???-???-???-???-???- ???-???-???-???-???- JV- no lof, vaginal bleeding, or dec fm. 28 week labs ordered. plan for tdap next visit. 04/05/22 -???-???-???-???-???-???-???- ???-???-???-???-???- 28w 1d 188 lb 8 oz (+27 lb 8 oz) 130/80 Negative -???-???-???-???-???-???-???- ???-???-???-???-???- Negative 143 28 -???-???-???-???-???-???-???- ???-???-???-???-???- JV- no lof, vaginal bleeding, or dec fm. Pt had cbc and gct today. gct is pending, cbc showed borderline anemia. she will berry picker OTC iron. 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 Still needs TSH. will get that next visit. 04/19/22 -???-???-???-???-???-???-???- ???-???-???-???-???- 30w 1d 188 lb 2 oz (+27 lb 2 oz) 137/91 Negative -???-???-???-???-???-???-???- ???-???-???-???-???- Negative 145 30 -???-???-???-???-???-???-???- ???-???-???-???-???- JV- glucose levels well controlled with diet alone. No complaints. declines flu shot 05/03/22 -???-???-???-???-???-???-???- ???-???-???-???-???- 32w 1d 187 lb (+26 lb) 115/79 Negative -???-???-???-???-???-???-???- ???-???-???-???-???- Negative 140 32 -???-???-???-???-???-???-???- ???-???-???-???-???- SM- no vb lo f good fm no regular ctx BS well controlled. 05/17/22 -???-???-???-???-???-???-???- ???-???-???-???-???- 34w 1d 187 lb 2 oz (+26 lb 2 oz) 125/82 Negative -???-???-???-???-???-???-???- ???-???-???-???-???- Negative 145 34 -???-???-???-???-???-???-???- ???-???-???-???-???- JV- glucose levels still controlled well with diet and followed by endo. no lof ,vaginal bleeding, or dec fm. u 05/28/22 -???-???-???-???-???-???-???- ???-???-???-???-???- 35w 5d 189 lb 4 oz (+28 lb 4 oz) 118/82 Negative -???-???-???-???-???-???-???- ???-???-???-???-???- Negative 147 35 -???-???-???-???-???-???-???- ???-???-???-???-???- JV- no lof, vaginal bleeding, or dec fm. growth scan is on thrusday this week. 06/06/22 -???-???-???-???-???-???-???- ???-???-???-???-???- 37w 0d 190 lb 4 oz (+29 lb 4 oz) 134/83 Negative -???-???-???-???-???-???-???- ???-???-???-???-???- Negative 145 36 Cephalic -???-???-???-???-???-???-???- ???-???-???-???-???- JV- no lof, vaginal bleeding, or dec fm. growth scan last week showed that baby was in the 51st% and efw at delivery is between 7-8 pounds. pt declines pelvic exam today. 06/13/22 -???-???-???-???-???-???-???- ???-???-???-???-???- 38w 0d 192 lb (+31 lb) 110/78 Negative -???-???-???-???-???-???-???- ???-???-???-???-???- Negative 140 37 Cephalic -???-???-???-???-???-???-???- ???-???-???-???-???- SM- no vb lo f good fm n regular ctx BS controlled SM- no vb lof good fm n regular ct x BS controlled, discussed needs fu to obtain lab results, had drawn at her work office ACOG First Trimester First Trimester: Desire for , Alcohol, Tobacco Cessation, Illicit/Recreational Drug/Substance Use, Intimate Partner Violence, Barriers to care, Unstable Housing, Communication Barriers, Environmental/Work Hazards, Anticipated Course of Care, Toxoplasmosis Precations, Use of Any medications, Sexual activity, Exercise, Dental Care, Sauna/Hot tub use, Seat Belt use, Childbirth classes/Hospital facilities, , Travel, Indications for Ultrasound and Screening for Aneuploidy Second Trimester Second Trimester: Signs and Symptoms of Labor, Selecting a care provider, Reproductive Life Planning Contreception, Care Planning, Depression/Anxiety and Intimate Partner Violence; Discussed Tobacco Cessation Third Trimester Third Trimester: Pain Management Plans, Labor support person(s), Immediate Larc, Movement Monitoring, Signs and Symptoms of Preeclampsia and Education Diagnostics Diagnostics Diagnostics: Gest Glucose Tolerance MG/DL Glucose 1 Hr 50 gm 164 mg/dL (70-140) H Hgb 10.9 g/dL (12.0-15.0) L Hct 33.2 % (37-47) L Details: HIV: Urine Culture: Sequential Screen: NIPT Screen: Results POC Urinalysis 2 Dip (Clinic) Office Urine Glucose Negative Last Edit by Carlota Boland on 06/13/22 11:01 Office Urine Protein Negative Last Edit by Carlota Boland on 06/13/22 11:01 Coding Level of Care Code OB Routine Diagnoses Gestational diabetes O24.419 Abnormal glucose affecting O99.810 Refuses tetanus, diphtheria, and acellular pertussis (Tdap) vaccination Z28.21 Thyroid disorder E07.9 Anxiety F41.9 Supervision of high risk , antepartum O09.90 Z3A.38 Weeks of gestation: 38 weeks Assessment and Plan Assessment and Plan (1) Gestational diabetes: Status: Acute Comment: diet controlled. plan delivery by 40 weeks. 11 growth 2823g 51% (2) Abnormal glucose affecting : Status: Acute Comment: failed 3 hr GTT (3) Refuses tetanus, diphtheria, and acellular pertussis (Tdap) vaccination: Status: Acute (4) Thyroid disorder: Status: Acute Comment: synthroid, labs q trimester (5) Anxiety: Status: Acute Comment: zoloft, counseling encouraged (6) Supervision of high risk , antepartum: Status: Acute Comment: STEFANI: 06/27/22 BF:Noe(Crystal) (7) : Status: Acute Qualifiers: Weeks of gestation: 38 weeks Qualified Code(s): Z3A.38 - 38 weeks gestation of Comment: GBS neg, discussed genetic and carrier screen, nl anatomy Orders: Orders POC Urinalysis 2 Dip (Clinic) 06/13/22 06/17/22 0531 <Electronically signed by Yenni Acuna MD> Date Yenni Acuna MD Cosigner Signature: Date (if applicable) CC: Marina Bronson MD Work Phone: Start: 06-06-2022 End: 06-06-2022 [employer] Office Visit Report Procedure Note: See Note; NOTES: [facility] [address] [place] [address] [address] [place] [address] OFFICE VISIT Date of Service: 06/06/22 MR#: [id number] Acct: [id number] Name: MECHE ANGUIANO Rep #: [id number] : 1995 Provider: Dr. Kaelyn Mcclain DO Age/Sex: 27/F Location: [facility] Status: Signed Intake Vital Signs 06/06/22 08:53 06/06/22 08:54 Height 5 ft 5 in 5 ft 5 in Weight: 190 lb 4 oz BMI 31.6 BP 134/83 H Intake Visit Reasons: 37 WK OB Consumer Lending Manager Required: No Is patient in pain?: No Allergies acetaminophen [From [place]] Allergy (Mild, Verified 06/06/22 08:53) Other hydrocodone [From [place]] Allergy (Mild, Verified 06/06/22 08:53) Other Medications levothyroxine 75 mcg tablet (Synthroid) 75 mcg PO DAILY 11/07/21 [History Confirmed 06/06/22] prenat.vits,jaswant,fvp-ltoe-hkmr c 1 tab PO DAILY 11/13/21 [History Confirmed 06/06/22] sertraline 50 mg tablet 100 mg PO DAILY 11/13/21 [History Confirmed 06/06/22] Last Menstrual Period: 09/20/21 Zika: Zika virus screening: Negative : No PFSH PFSH Medical History Abnormal glucose affecting Anxiety Breast lump in female Thyroid disorder Family History Mother Breast cancer Asthma Social History adopted: No household members: significant other current occupational status: employed current occupation: [employer] pets and animals: No Smoking Status: Never smoker alcohol intake: never substance use type: does not use caffeine: Yes what type of physical activity do you participate in: none seatbelt use: always do you feel safe at home: Yes additional social history: BF:Noe History 1 Elective abortions Hx Para 0 Spontaneous abortions Hx # Term Pregnancies Ectopic pregnancies Hx # Pregnancies Multiple births # of living children HPI 37 WK OB Details: MECHE ANGUIANO is a 27 year old who presents for routine OB visit. OB Visit STEFANI Calculator Estimated Delivery Date Method Current WG Current Estimate 06/27/22 LMP (Certain) 37w 0d Expected Delivery Route/Plan Labor Preferences- CB/BF classes: [] labor support person: [] labor intervention preferences: [] pain management options preferred: [] cut cord/dad catch: [] : [] PP control planned: [] discussed possible routes of delivery and associated risks: [] special requests: [] Specific Issue/Plans Covid status: discussed Flu vaccine: discussed Tdap vaccine: [] Rhogam: [] LARC form signed: [] Problem list reviewed and updated with the most current plan of care details and appropriate orders placed. Relevant counseling for the gestational age provided. Continue routine care and follow up unless otherwise noted in visit notes/problem list details Initial Weight: 161 lb Date -???-???-???-???-???-???-???- ???-???-???-???-???- EGA Weight BP Urine Prot -???-???-???-???-???-???-???- ???-???-???-???-???- Glucose FHR FuHt Pres Dilation -???-???-???-???-???-???-???- ???-???-???-???-???- Effaced St Visit Note 11/29/21 -???-???-???-???-???-???-???- ???-???-???-???-???- 10w 0d 161 lb (+0 oz) -???-???-???-???-???-???-???- ???-???-???-???-???- 145 -???-???-???-???-???-???-???- ???-???-???-???-???- SM- CRL 3 cm cons with LMP 12/27/21 -???-???-???-???-???-???-???- ???-???-???-???-???- 14w 0d 166 lb (+5 lb) 135/87 Negative -???-???-???-???-???-???-???- ???-???-???-???-???- Negative 140 -???-???-???-???-???-???-???- ???-???-???-???-???- JV- pt compl ains of allergies. She has confirmed that she does not want to do nipt or carrier testing. anatomy ultrasound with mfm ordered. 01/24/22 -???-???-???-???-???-???-???- ???-???-???-???-???- 18w 0d 175 lb 6 oz (+14 lb 6 oz) 142/84 Negative -???-???-???-???-???-???-???- ???-???-???-???-???- Negative 150 -???-???-???-???-???-???-???- ???-???-???-???-???- JV- no lof, vaginal bleeding, or dec fm. antomy scan scheduled 02/07 with mfm. 02/19/22 -???-???-???-???-???-???-???- ???-???-???-???-???- 21w 5d 177 lb (+16 lb) 130/86 Negative -???-???-???-???-???-???-???- ???-???-???-???-???- Negative 145 -???-???-???-???-???-???-???- ???-???-???-???-???- SM- no vb lo f good fm no regular ctx, told to go get NOB labs drawn 03/20/22 -???-???-???-???-???-???-???- ???-???-???-???-???- 25w 6d 183 lb 6 oz (+22 lb 6 oz) 130/84 Negative -???-???-???-???-???-???-???- ???-???-???-???-???- Negative 135 26 -???-???-???-???-???-???-???- ???-???-???-???-???- JV- no lof, vaginal bleeding, or dec fm. 28 week labs ordered. plan for tdap next visit. 04/05/22 -???-???-???-???-???-???-???- ???-???-???-???-???- 28w 1d 188 lb 8 oz (+27 lb 8 oz) 130/80 Negative -???-???-???-???-???-???-???- ???-???-???-???-???- Negative 143 28 -???-???-???-???-???-???-???- ???-???-???-???-???- JV- no lof, vaginal bleeding, or dec fm. Pt had cbc and gct today. gct is pending, cbc showed borderline anemia. she will berry picker OTC iron. 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 Still needs TSH. will get that next visit. 04/19/22 -???-???-???-???-???-???-???- ???-???-???-???-???- 30w 1d 188 lb 2 oz (+27 lb 2 oz) 137/91 Negative -???-???-???-???-???-???-???- ???-???-???-???-???- Negative 145 30 -???-???-???-???-???-???-???- ???-???-???-???-???- JV- glucose levels well controlled with diet alone. No complaints. declines flu shot 05/03/22 -???-???-???-???-???-???-???- ???-???-???-???-???- 32w 1d 187 lb (+26 lb) 115/79 Negative -???-???-???-???-???-???-???- ???-???-???-???-???- Negative 140 32 -???-???-???-???-???-???-???- ???-???-???-???-???- SM- no vb lo f good fm no regular ctx BS well controlled. 05/17/22 -???-???-???-???-???-???-???- ???-???-???-???-???- 34w 1d 187 lb 2 oz (+26 lb 2 oz) 125/82 Negative -???-???-???-???-???-???-???- ???-???-???-???-???- Negative 145 34 -???-???-???-???-???-???-???- ???-???-???-???-???- JV- glucose levels still controlled well with diet and followed by endo. no lof ,vaginal bleeding, or dec fm. u 05/28/22 -???-???-???-???-???-???-???- ???-???-???-???-???- 35w 5d 189 lb 4 oz (+28 lb 4 oz) 118/82 Negative -???-???-???-???-???-???-???- ???-???-???-???-???- Negative 147 35 -???-???-???-???-???-???-???- ???-???-???-???-???- JV- no lof, vaginal bleeding, or dec fm. growth scan is on thrusday this week. 06/06/22 -???-???-???-???-???-???-???- ???-???-???-???-???- 37w 0d 190 lb 4 oz (+29 lb 4 oz) 134/83 Negative -???-???-???-???-???-???-???- ???-???-???-???-???- Negative 145 36 Cephalic -???-???-???-???-???-???-???- ???-???-???-???-???- JV- no lof, vaginal bleeding, or dec fm. growth scan last week showed that baby was in the 51st% and efw at delivery is between 7-8 pounds. pt declines pelvic exam today. ACOG First Trimester First Trimester: Desire for , Alcohol, Tobacco Cessation, Illicit/Recreational Drug/Substance Use, Intimate Partner Violence, Barriers to care, Unstable Housing, Communication Barriers, Environmental/Work Hazards, Anticipated Course of Care, Toxoplasmosis Precations, Use of Any medications, Sexual activity, Exercise, Dental Care, Sauna/Hot tub use, Seat Belt use, Childbirth classes/Hospital facilities, , Travel, Indications for Ultrasound and Screening for Aneuploidy Second Trimester Second Trimester: Signs and Symptoms of Labor, Selecting a care provider, Reproductive Life Planning Contreception, Care Planning, Depression/Anxiety and Intimate Partner Violence; Discussed Tobacco Cessation Third Trimester Third Trimester: Pain Management Plans, Labor support person(s), Immediate Larc, Movement Monitoring, Signs and Symptoms of Preeclampsia and [place] [facility] Diagnostics Diagnostics: Gest Glucose Tolerance MG/DL Glucose 1 Hr 50 gm 164 mg/dL (70-140) H Hgb 10.9 g/dL (12.0-15.0) L Hct 33.2 % (37-47) L Details: HIV: Urine Culture: Sequential Screen: NIPT Screen: ROS Const Denies fever(s) GI Reports as per HPI and Denies abdominal pain Reports as per HPI, Denies abnormal vaginal bleeding, Denies dysuria and Denies vaginal discharge Exam Const General: healthy appearing, comfortable and no acute distress GI Inspection: normal to inspection Palpation: soft and nontender Results POC Urinalysis 2 Dip (Clinic) Office Urine Glucose Negative Last Edit by Elizabeth Zabala on 06/06/22 09:08 Office Urine Protein Negative Last Edit by Elizabeth Zabala on 06/06/22 09:08 Coding Level of Care Code OB Routine Diagnoses Gestational diabetes O24.419 Abnormal glucose affecting O99.810 Refuses tetanus, diphtheria, and acellular pertussis (Tdap) vaccination Z28.21 Thyroid disorder E07.9 Anxiety F41.9 Supervision of high risk , antepartum O09.90 Z3A.37 Weeks of gestation: 37 weeks Assessment and Plan Assessment and Plan (1) Gestational diabetes: Status: Acute Comment: [facility]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, 05/30 growth 2823g 51% (2) Abnormal glucose affecting : Status: Acute Comment: failed 3 hr GTT (3) Refuses tetanus, diphtheria, and acellular pertussis (Tdap) vaccination: Status: Acute (4) Thyroid disorder: Status: Acute Comment: synthroid, labs q trimester (5) Anxiety: Status: Acute Comment: zoloft, counseling encouraged (6) Supervision of high risk , antepartum: Status: Acute Comment: STEFANI: 06/27/22 BF:Miranda) (7) : Status: Acute Qualifiers: Weeks of gestation: 37 weeks Qualified Code(s): Z3A.37 - 37 weeks gestation of Comment: discussed genetic and carrier screen, nl anatomy Orders: Orders POC Urinalysis 2 Dip (Clinic) Today Culture, Group B Streptococcus Today O09.90 - Supervision of high risk , unspecified, unspecified trimester 06/06/22 0919 <Electronically signed by Kaelyn Quinteros DO> Date Kaelyn Quinteros DO Cosigner Signature: Date (if applicable) CC: Marina Bronson MD Work Phone: Start: 05-30-2022 End: 05-30-2022 OB Limited With Biometrics Procedure Note: See Note; NOTES: [facility] Imaging Services [address] [place] [address] OB Limited With Biometrics MR#: [id number] Acct: [id number] Name: MECHE ANGUIANO Rep #: [id number] : 1995 F 27 From: Tyree olivo MD PCP: Dr. Marina Bronson MD Status: REG CLI Study: OB Limited With Biometrics Date of Exam: 05/30 Exam# [id number] Ordering Dr: Yenni Acuna STUDY: SECOND AND THIRD TRIMESTER OBSTETRICAL ULTRASOUND - LIMITED REASON FOR EXAM: Female, 27 years old growth LMP: 09/20/2021. PRIOR ULTRASOUND: Comparison is made with prior study dated 10/30/2021. TECHNIQUE: Transabdominal TECHNICAL QUALITY: Adequate. FINDINGS: There is a single intrauterine fetus. The fetus is in a cephalic presentation. There is demonstrated cardiac activity with a heart rate of 136 bpm. There is a normal amniotic fluid volume. The largest amniotic fluid pocket measures 5.75 cm. The amniotic fluid index (MEL) is 12.02 cm. The placenta is anterior in location and is not low lying. There are Grade 0 placental changes. The cervix measures 3.4 cm in length. BIOMETRY: BPD: 8.88 cm: 35 weeks, 6 days HC: 31.74 cm: 35 weeks, 5 days AC: 32.11 cm: 36 weeks, 0 days FL: 6.92 cm: 35 weeks, 4 days Age by LMP: 36 weeks, 0 days. STEFANI by LMP: 06/27/2022. age by current US: 35 weeks, 5 days. STEFANI by current US: 06/29/2022. Estimated weight: 2823 grams, +/- 423 grams, 51 percentile. US/OB Limited With Biometrics IMPRESSION: Single live intrauterine gestation with a mean gestational age of 35 weeks and 5 days. Electronically Signed: Tyree Faulkner MD at 13:06 EDT Reading Location ID and State: [facility] / [place] , Service support , CC: Dr. Marina Bronson MD; Dr. Yenni Acuna MD Reheat Furnace Operator: Signed Marina Bronson MD Work Phone: Start: 05-28-2022 End: 05-28-2022 [employer] Office Visit Report Procedure Note: See Note; NOTES: [facility] [address] [place], [place] [address] OFFICE VISIT Date of Service: 05/28/22 MR#: [id number] Acct: [id number] Name: MECHE ANGUIANO Rep #: [id number] : 1995 Provider: Dr. Kaelyn Mcclain DO Age/Sex: 27/F Location: [facility] Status: Signed Intake Vital Signs 04/19/22 08:55 05/28/22 08:59 05/28/22 09:00 Height 5 ft 5 in 5 ft 5 in 5 ft 5 in Weight: 189 lb 4 oz BMI 31.4 BP 118/82 H Intake Visit Reasons: 36 WK OB Consumer Lending Manager Required: No Is patient in pain?: No Allergies acetaminophen [From [place]] Allergy (Mild, Verified 05/28/22 08:59) Other hydrocodone [From [place]] Allergy (Mild, Verified 05/28/22 08:59) Other Medications levothyroxine 75 mcg tablet (Synthroid) 75 mcg PO DAILY 11/07/21 [History Confirmed 05/28/22] prenat.vits,jaswant,yig-ylbh-ncvp c 1 tab PO DAILY 11/13/21 [History Confirmed 05/28/22] sertraline 50 mg tablet 100 mg PO DAILY 11/13/21 [History Confirmed 05/28/22] Last Menstrual Period: 09/20/21 Zika: Zika virus screening: Negative : No PFSH PFSH Medical History Abnormal glucose affecting Anxiety Breast lump in female Thyroid disorder Family History Mother Breast cancer Asthma Social History adopted: No household members: significant other current occupational status: employed current occupation: [employer] pets and animals: No Smoking Status: Never smoker alcohol intake: never substance use type: does not use caffeine: Yes what type of physical activity do you participate in: none seatbelt use: always do you feel safe at home: Yes additional social history: BF:Noe History 1 Elective abortions Hx Para 0 Spontaneous abortions Hx # Term Pregnancies Ectopic pregnancies Hx # Pregnancies Multiple births # of living children HPI 36 WK OB Details: MECHE ANGUIANO is a 27 year old who presents for routine OB visit. OB Visit STEFANI Calculator Estimated Delivery Date Method Current WG Current Estimate 06/27/22 LMP (Certain) 35w 5d Expected Delivery Route/Plan Labor Preferences- CB/BF classes: [] labor support person: [] labor intervention preferences: [] pain management options preferred: [] cut cord/dad catch: [] : [] PP control planned: [] discussed possible routes of delivery and associated risks: [] special requests: [] Specific Issue/Plans Covid status: discussed Flu vaccine: discussed Tdap vaccine: [] Rhogam: [] LARC form signed: [] Problem list reviewed and updated with the most current plan of care details and appropriate orders placed. Relevant counseling for the gestational age provided. Continue routine care and follow up unless otherwise noted in visit notes/problem list details Initial Weight: 161 lb Date -???-???-???-???-???-???-???- ???-???-???-???-???- EGA Weight BP Urine Prot -???-???-???-???-???-???-???- ???-???-???-???-???- Glucose FHR FuHt Pres Dilation -???-???-???-???-???-???-???- ???-???-???-???-???- Effaced St Visit Note 11/29/21 -???-???-???-???-???-???-???- ???-???-???-???-???- 10w 0d 161 lb (+0 oz) -???-???-???-???-???-???-???- ???-???-???-???-???- 145 -???-???-???-???-???-???-???- ???-???-???-???-???- SM- CRL 3 cm cons with LMP 12/27/21 -???-???-???-???-???-???-???- ???-???-???-???-???- 14w 0d 166 lb (+5 lb) 135/87 Negative -???-???-???-???-???-???-???- ???-???-???-???-???- Negative 140 -???-???-???-???-???-???-???- ???-???-???-???-???- JV- pt compl ains of allergies. She has confirmed that she does not want to do nipt or carrier testing. anatomy ultrasound with mfm ordered. 01/24/22 -???-???-???-???-???-???-???- ???-???-???-???-???- 18w 0d 175 lb 6 oz (+14 lb 6 oz) 142/84 Negative -???-???-???-???-???-???-???- ???-???-???-???-???- Negative 150 -???-???-???-???-???-???-???- ???-???-???-???-???- JV- no lof, vaginal bleeding, or dec fm. antomy scan scheduled 02/07 with mfm. 02/19/22 -???-???-???-???-???-???-???- ???-???-???-???-???- 21w 5d 177 lb (+16 lb) 130/86 Negative -???-???-???-???-???-???-???- ???-???-???-???-???- Negative 145 -???-???-???-???-???-???-???- ???-???-???-???-???- SM- no vb lo f good fm no regular ctx, told to go get NOB labs drawn 03/20/22 -???-???-???-???-???-???-???- ???-???-???-???-???- 25w 6d 183 lb 6 oz (+22 lb 6 oz) 130/84 Negative -???-???-???-???-???-???-???- ???-???-???-???-???- Negative 135 26 -???-???-???-???-???-???-???- ???-???-???-???-???- JV- no lof, vaginal bleeding, or dec fm. 28 week labs ordered. plan for tdap next visit. 04/05/22 -???-???-???-???-???-???-???- ???-???-???-???-???- 28w 1d 188 lb 8 oz (+27 lb 8 oz) 130/80 Negative -???-???-???-???-???-???-???- ???-???-???-???-???- Negative 143 28 -???-???-???-???-???-???-???- ???-???-???-???-???- JV- no lof, vaginal bleeding, or dec fm. Pt had cbc and gct today. gct is pending, cbc showed borderline anemia. she will berry picker OTC iron. 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 Still needs TSH. will get that next visit. 04/19/22 -???-???-???-???-???-???-???- ???-???-???-???-???- 30w 1d 188 lb 2 oz (+27 lb 2 oz) 137/91 Negative -???-???-???-???-???-???-???- ???-???-???-???-???- Negative 145 30 -???-???-???-???-???-???-???- ???-???-???-???-???- JV- glucose levels well controlled with diet alone. No complaints. declines flu shot 05/03/22 -???-???-???-???-???-???-???- ???-???-???-???-???- 32w 1d 187 lb (+26 lb) 115/79 Negative -???-???-???-???-???-???-???- ???-???-???-???-???- Negative 140 32 -???-???-???-???-???-???-???- ???-???-???-???-???- SM- no vb lo f good fm no regular ctx BS well controlled. 05/17/22 -???-???-???-???-???-???-???- ???-???-???-???-???- 34w 1d 187 lb 2 oz (+26 lb 2 oz) 125/82 Negative -???-???-???-???-???-???-???- ???-???-???-???-???- Negative 145 34 -???-???-???-???-???-???-???- ???-???-???-???-???- JV- glucose levels still controlled well with diet and followed by endo. no lof ,vaginal bleeding, or dec fm. u 05/28/22 -???-???-???-???-???-???-???- ???-???-???-???-???- 35w 5d 189 lb 4 oz (+28 lb 4 oz) 118/82 Negative -???-???-???-???-???-???-???- ???-???-???-???-???- Negative 147 35 -???-???-???-???-???-???-???- ???-???-???-???-???- JV- no lof, vaginal bleeding, or dec fm. growth scan is on thrusday this week. ACOG First Trimester First Trimester: Desire for , Alcohol, Tobacco Cessation, Illicit/Recreational Drug/Substance Use, Intimate Partner Violence, Barriers to care, Unstable Housing, Communication Barriers, Environmental/Work Hazards, Anticipated Course of Care, Toxoplasmosis Precations, Use of Any medications, Sexual activity, Exercise, Dental Care, Sauna/Hot tub use, Seat Belt use, Childbirth classes/Hospital facilities, , Travel, Indications for Ultrasound and Screening for Aneuploidy Diagnostics Diagnostics Diagnostics: Gest Glucose Tolerance MG/DL Glucose 1 Hr 50 gm 164 mg/dL (70-140) H Hgb 10.9 g/dL (12.0-15.0) L Hct 33.2 % (37-47) L Details: HIV: Urine Culture: Sequential Screen: NIPT Screen: Results POC Urinalysis 2 Dip (Clinic) Office Urine Glucose Negative Last Edit by Elizabeth Zabala on 05/28/22 09:36 Office Urine Protein Negative Last Edit by Elizabeth Zabala on 05/28/22 09:36 Coding Level of Care Code OB Routine Diagnoses Gestational diabetes O24.419 Abnormal glucose affecting O99.810 Refuses tetanus, diphtheria, and acellular pertussis (Tdap) vaccination Z28.21 Thyroid disorder E07.9 Anxiety F41.9 Supervision of high risk , antepartum O09.90 Z3A.35 Weeks of gestation: 35 weeks Assessment and Plan Assessment and Plan (1) Gestational diabetes: Status: Acute Comment: [facility]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 (2) Abnormal glucose affecting : Status: Acute Comment: failed 3 hr GTT (3) Refuses tetanus, diphtheria, and acellular pertussis (Tdap) vaccination: Status: Acute (4) Thyroid disorder: Status: Acute Comment: synthroid, labs q trimester (5) Anxiety: Status: Acute Comment: zoloft, counseling encouraged (6) Supervision of high risk , antepartum: Status: Acute Comment: STEFANI: 06/27/22 BF:Noe(Crystal) (7) : Status: Acute Qualifiers: Weeks of gestation: 35 weeks Qualified Code(s): Z3A.35 - 35 weeks gestation of Comment: discussed genetic and carrier screen, nl anatomy Orders: Orders POC Urinalysis 2 Dip (Clinic) Today 05/28/22 0942 <Electronically signed by Kaelyn Quinteros DO> Date Kaleyn Quinteros DO [facility] Signature: Date (if applicable) CC: Marina Bronson MD Work Phone: Start: 05-17-2022 End: 05-17-2022 [employer]inter [employer] Office Visit Report Procedure Note: See Note; NOTES: [facility] [address] [place] [address] [address] [place] [address] OFFICE VISIT Date of Service: 05/17/22 MR#: [id number] Acct: [id number] Name: MECHE ANGUIANO Rep #: [id number] : 1995 Provider: Dr. Kaelyn Mcclain DO Age/Sex: 27/F Location: [place] Status: Signed Intake Vital Signs 04/19/22 08:55 05/17/22 08:40 05/17/22 08:40 05/17/22 08:43 Height 5 ft 5 in 5 ft 5 in 5 ft 5 in 5 ft 5 in Weight: 187 lb 2 oz BMI 31.1 BP 125/82 H Intake Visit Reasons: 34 WK OB Allergies acetaminophen [From [place]] Allergy (Mild, Verified 05/17/22 08:40) Other hydrocodone [From [place]] Allergy (Mild, Verified 05/17/22 08:40) Other Medications levothyroxine 75 mcg tablet (Synthroid) 75 mcg PO DAILY 11/07/21 [History Confirmed 05/17/22] prenat.vits,jaswant,qse-neyn-jpve c 1 tab PO DAILY 11/13/21 [History Confirmed 05/17/22] sertraline 50 mg tablet 100 mg PO DAILY 11/13/21 [History Confirmed 05/17/22] Last Menstrual Period: 09/20/21 PFSH PFSH Medical History Abnormal glucose affecting Anxiety Breast lump in female Thyroid disorder Family History Mother Breast cancer Asthma Social History adopted: No household members: significant other current occupational status: employed current occupation: [employer] pets and animals: No Smoking Status: Never smoker alcohol intake: never substance use type: does not use caffeine: Yes what type of physical activity do you participate in: none seatbelt use: always do you feel safe at home: Yes additional social history: BF:Noe History 1 Elective abortions Hx Para 0 Spontaneous abortions Hx # Term Pregnancies Ectopic pregnancies Hx # Pregnancies Multiple births # of living children HPI 34 WK OB Details: MECHE ANGUIANO is a 27 year old who presents for routine OB visit. OB Visit STEFANI Calculator Estimated Delivery Date Method Current WG Current Estimate 06/27/22 LMP (Certain) 34w 1d Comments: HIV: Urine Culture: Sequential Screen: NIPT Screen: Expected Delivery Route/Plan Labor Preferences- CB/BF classes: [] labor support person: [] labor intervention preferences: [] pain management options preferred: [] cut cord/dad catch: [] : [] PP control planned: [] discussed possible routes of delivery and associated risks: [] special requests: [] Specific Issue/Plans Covid status: discussed Flu vaccine: discussed Tdap vaccine: [] Rhogam: [] LARC form signed: [] Problem list reviewed and updated with the most current plan of care details and appropriate orders placed. Relevant counseling for the gestational age provided. Continue routine care and follow up unless otherwise noted in visit notes/problem list details Initial Weight: 161 lb Date -???-???-???-???-???-???-???- ???-???-???-???-???- EGA Weight BP Urine Prot -???-???-???-???-???-???-???- ???-???-???-???-???- Glucose FHR FuHt Pres Dilation -???-???-???-???-???-???-???- ???-???-???-???-???- Effaced St Visit Note 11/29/21 -???-???-???-???-???-???-???- ???-???-???-???-???- 10w 0d 161 lb (+0 oz) -???-???-???-???-???-???-???- ???-???-???-???-???- 145 -???-???-???-???-???-???-???- ???-???-???-???-???- SM- CRL 3 cm cons with LMP 12/27/21 -???-???-???-???-???-???-???- ???-???-???-???-???- 14w 0d 166 lb (+5 lb) 135/87 Negative -???-???-???-???-???-???-???- ???-???-???-???-???- Negative 140 -???-???-???-???-???-???-???- ???-???-???-???-???- JV- pt compl ains of allergies. She has confirmed that she does not want to do nipt or carrier testing. anatomy ultrasound with mfm ordered. 01/24/22 -???-???-???-???-???-???-???- ???-???-???-???-???- 18w 0d 175 lb 6 oz (+14 lb 6 oz) 142/84 Negative -???-???-???-???-???-???-???- ???-???-???-???-???- Negative 150 -???-???-???-???-???-???-???- ???-???-???-???-???- JV- no lof, vaginal bleeding, or dec fm. antomy scan scheduled 02/07 with mfm. 02/19/22 -???-???-???-???-???-???-???- ???-???-???-???-???- 21w 5d 177 lb (+16 lb) 130/86 Negative -???-???-???-???-???-???-???- ???-???-???-???-???- Negative 145 -???-???-???-???-???-???-???- ???-???-???-???-???- SM- no vb lo f good fm no regular ctx, told to go get NOB labs drawn 03/20/22 -???-???-???-???-???-???-???- ???-???-???-???-???- 25w 6d 183 lb 6 oz (+22 lb 6 oz) 130/84 Negative -???-???-???-???-???-???-???- ???-???-???-???-???- Negative 135 26 -???-???-???-???-???-???-???- ???-???-???-???-???- JV- no lof, vaginal bleeding, or dec fm. 28 week labs ordered. plan for tdap next visit. 04/05/22 -???-???-???-???-???-???-???- ???-???-???-???-???- 28w 1d 188 lb 8 oz (+27 lb 8 oz) 130/80 Negative -???-???-???-???-???-???-???- ???-???-???-???-???- Negative 143 28 -???-???-???-???-???-???-???- ???-???-???-???-???- JV- no lof, vaginal bleeding, or dec fm. Pt had cbc and gct today. gct is pending, cbc showed borderline anemia. she will berry picker OTC iron. 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 Still needs TSH. will get that next visit. 04/19/22 -???-???-???-???-???-???-???- ???-???-???-???-???- 30w 1d 188 lb 2 oz (+27 lb 2 oz) 137/91 Negative -???-???-???-???-???-???-???- ???-???-???-???-???- Negative 145 30 -???-???-???-???-???-???-???- ???-???-???-???-???- JV- glucose levels well controlled with diet alone. No complaints. declines flu shot 05/03/22 -???-???-???-???-???-???-???- ???-???-???-???-???- 32w 1d 187 lb (+26 lb) 115/79 Negative -???-???-???-???-???-???-???- ???-???-???-???-???- Negative 140 32 -???-???-???-???-???-???-???- ???-???-???-???-???- SM- no vb lo f good fm no regular ctx BS well controlled. 05/17/22 -???-???-???-???-???-???-???- ???-???-???-???-???- 34w 1d 187 lb 2 oz (+26 lb 2 oz) 125/82 Negative -???-???-???-???-???-???-???- ???-???-???-???-???- Negative 145 34 -???-???-???-???-???-???-???- ???-???-???-???-???- JV- glucose levels still controlled well with diet and followed by endo. no lof ,vaginal bleeding, or dec fm. u ACOG First Trimester First Trimester: Desire for , Alcohol, Tobacco Cessation, Illicit/Recreational Drug/Substance Use, Intimate Partner Violence, Barriers to care, Unstable Housing, Communication Barriers, Environmental/Work Hazards, Anticipated Course of Care, Toxoplasmosis Precations, Use of Any medications, Sexual activity, Exercise, Dental Care, Sauna/Hot tub use, Seat Belt use, Childbirth classes/Hospital facilities, , Travel, Indications for Ultrasound and Screening for Aneuploidy Diagnostics Diagnostics Diagnostics: Gest Glucose Tolerance MG/DL Glucose 1 Hr 50 gm 164 mg/dL (70-140) H Hgb 10.9 g/dL (12.0-15.0) L Hct 33.2 % (37-47) L Chlamydia DNA (ABRAM) Negative (Negative) N.gonorrhoeae DNA (ABRAM) Negative (Negative) Details: HIV: Urine Culture: Sequential Screen: NIPT Screen: HIV: Urine Culture: Sequential Screen: NIPT Screen: Results POC Urinalysis 2 Dip (Clinic) Office Urine Glucose Negative Last Edit by Elizabeth Zabala on 05/17/22 08:54 Office Urine Protein Negative Last Edit by Elizabeth Zabala on 05/17/22 08:54 Coding Level of Care Code OB Routine Diagnoses Gestational diabetes O24.419 Abnormal glucose affecting O99.810 Refuses tetanus, diphtheria, and acellular pertussis (Tdap) vaccination Z28.21 Thyroid disorder E07.9 Anxiety F41.9 Supervision of high risk , antepartum O09.90 Z3A.34 Weeks of gestation: 34 weeks Assessment and Plan Assessment and Plan (1) Gestational diabetes: Status: Acute Comment: 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 (2) Abnormal glucose affecting : Status: Acute Comment: failed 3 hr GTT (3) Refuses tetanus, diphtheria, and acellular pertussis (Tdap) vaccination: Status: Acute (4) Thyroid disorder: Status: Acute Comment: synthroid, labs q trimester (5) Anxiety: Status: Acute Comment: zoloft, counseling encouraged (6) Supervision of high risk , antepartum: Status: Acute Comment: STEFANI: 06/27/22 BF:Miranda) (7) : Status: Acute Qualifiers: Weeks of gestation: 34 weeks Qualified Code(s): Z3A.34 - 34 weeks gestation of Comment: discussed genetic and carrier screen, nl anatomy Orders: Orders POC Urinalysis 2 Dip (Clinic) Today 05/17/22 09 <Electronically signed by Kaelyn Quinteros DO> Date Kaelyn Quinteros DO Cosigner Signature: Date (if applicable) CC: Marina Bronson MD Work Phone: Start: 05-03-2022 End: 05-03-2022 [employer] Office Visit Report Procedure Note: See Note; NOTES: [facility] [address] [place] [address] OFFICE VISIT Date of Service: 05/03/22 MR#: [id number] Acct: [id number] Name: MECHE ANGUIANO Rep #: [id number] : 1995 Provider: Dr. Yenni morrow MD Age/Sex: 27/F Location: [place] Status: Signed Intake Vital Signs 04/19/22 08:55 05/01/22 16:57 05/03/22 10:37 05/03/22 10:38 Height 5 ft 5 in 5 ft 5 in 5 ft 5 in 5 ft 5 in Weight: 187 lb 6.4 oz 187 lb BMI 31.1 BP 115/79 Intake Visit Reasons: 32 WK OB Chief Complaint: est ob Consumer Lending Manager Required: No Is patient in pain?: No Allergies acetaminophen [From [place]] Allergy (Mild, Verified 04/23/22 08:08) Other hydrocodone [From [place]] Allergy (Mild, Verified 04/23/22 08:08) Other Medications levothyroxine 75 mcg tablet (Synthroid) 75 mcg PO DAILY 11/07/21 [History Confirmed 05/03/22] prenat.vits,jaswant,dcs-rcab-zewq c 1 tab PO DAILY 11/13/21 [History Confirmed 05/03/22] sertraline 50 mg tablet 100 mg PO DAILY 11/13/21 [History Confirmed 05/03/22] Last Menstrual Period: 09/20/21 Zika: Zika virus screening: Negative : No PFSH PFSH Medical History Abnormal glucose affecting Anxiety Breast lump in female Thyroid disorder Family History Mother Breast cancer Asthma Social History adopted: No household members: significant other current occupational status: employed current occupation: [employer] pets and animals: No Smoking Status: Never smoker alcohol intake: never substance use type: does not use caffeine: Yes what type of physical activity do you participate in: none seatbelt use: always do you feel safe at home: Yes additional social history: BF:Noe History 1 Elective abortions Hx Para 0 Spontaneous abortions Hx # Term Pregnancies Ectopic pregnancies Hx # Pregnancies Multiple births # of living children HPI 32 WK OB Details: MECHE ANGUIANO is a 27 year old who presents for routine OB visit. OB Visit STEFANI Calculator Estimated Delivery Date Method Current WG Current Estimate 06/27/22 LMP (Certain) 32w 1d Expected Delivery Route/Plan Labor Preferences- CB/BF classes: [] labor support person: [] labor intervention preferences: [] pain management options preferred: [] cut cord/dad catch: [] : [] PP control planned: [] discussed possible routes of delivery and associated risks: [] special requests: [] Specific Issue/Plans Covid status: discussed Flu vaccine: discussed Tdap vaccine: [] Rhogam: [] LARC form signed: [] Problem list reviewed and updated with the most current plan of care details and appropriate orders placed. Relevant counseling for the gestational age provided. Continue routine care and follow up unless otherwise noted in visit notes/problem list details Initial Weight: 161 lb Date -???-???-???-???-???-???-???- ???-???-???-???-???- EGA Weight BP Urine Prot -???-???-???-???-???-???-???- ???-???-???-???-???- Glucose FHR FuHt Pres Dilation -???-???-???-???-???-???-???- ???-???-???-???-???- Effaced St Visit Note 11/29/21 -???-???-???-???-???-???-???- ???-???-???-???-???- 10w 0d 161 lb (+0 oz) -???-???-???-???-???-???-???- ???-???-???-???-???- 145 -???-???-???-???-???-???-???- ???-???-???-???-???- SM- CRL 3 cm cons with LMP 12/27/21 -???-???-???-???-???-???-???- ???-???-???-???-???- 14w 0d 166 lb (+5 lb) 135/87 Negative -???-???-???-???-???-???-???- ???-???-???-???-???- Negative 140 -???-???-???-???-???-???-???- ???-???-???-???-???- JV- pt compl ains of allergies. She has confirmed that she does not want to do nipt or carrier testing. anatomy ultrasound with mfm ordered. 01/24/22 -???-???-???-???-???-???-???- ???-???-???-???-???- 18w 0d 175 lb 6 oz (+14 lb 6 oz) 142/84 Negative -???-???-???-???-???-???-???- ???-???-???-???-???- Negative 150 -???-???-???-???-???-???-???- ???-???-???-???-???- JV- no lof, vaginal bleeding, or dec fm. antomy scan scheduled 02/07 with mfm. 02/19/22 -???-???-???-???-???-???-???- ???-???-???-???-???- 21w 5d 177 lb (+16 lb) 130/86 Negative -???-???-???-???-???-???-???- ???-???-???-???-???- Negative 145 -???-???-???-???-???-???-???- ???-???-???-???-???- SM- no vb lo f good fm no regular ctx, told to go get NOB labs drawn 03/20/22 -???-???-???-???-???-???-???- ???-???-???-???-???- 25w 6d 183 lb 6 oz (+22 lb 6 oz) 130/84 Negative -???-???-???-???-???-???-???- ???-???-???-???-???- Negative 135 26 -???-???-???-???-???-???-???- ???-???-???-???-???- JV- no lof, vaginal bleeding, or dec fm. 28 week labs ordered. plan for tdap next visit. 04/05/22 -???-???-???-???-???-???-???- ???-???-???-???-???- 28w 1d 188 lb 8 oz (+27 lb 8 oz) 130/80 Negative -???-???-???-???-???-???-???- ???-???-???-???-???- Negative 143 28 -???-???-???-???-???-???-???- ???-???-???-???-???- JV- no lof, vaginal bleeding, or dec fm. Pt had cbc and gct today. gct is pending, cbc showed borderline anemia. she will berry picker OTC iron. 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 Still needs TSH. will get that next visit. 04/19/22 -???-???-???-???-???-???-???- ???-???-???-???-???- 30w 1d 188 lb 2 oz (+27 lb 2 oz) 137/91 Negative -???-???-???-???-???-???-???- ???-???-???-???-???- Negative 145 30 -???-???-???-???-???-???-???- ???-???-???-???-???- JV- glucose levels well controlled with diet alone. No complaints. declines flu shot 05/03/22 -???-???-???-???-???-???-???- ???-???-???-???-???- 32w 1d 187 lb (+26 lb) 115/79 Negative -???-???-???-???-???-???-???- ???-???-???-???-???- Negative 140 32 -???-???-???-???-???-???-???- ???-???-???-???-???- SM- no vb lo f good fm no regular ctx BS well controlled. ACOG First Trimester First Trimester: Desire for , Alcohol, Tobacco Cessation, Illicit/Recreational Drug/Substance Use, Intimate Partner Violence, Barriers to care, Unstable Housing, Communication Barriers, Environmental/Work Hazards, Anticipated Course of Care, Toxoplasmosis Precations, Use of Any medications, Sexual activity, Exercise, Dental Care, Sauna/Hot tub use, Seat Belt use, Childbirth classes/Hospital facilities, , Travel, Indications for Ultrasound and Screening for Aneuploidy Diagnostics Diagnostics Diagnostics: Gest Glucose Tolerance MG/DL Glucose 1 Hr 50 gm 164 mg/dL (70-140) H Pap Smear Negative Hgb 10.9 g/dL (12.0-15.0) L Hct 33.2 % (37-47) L Chlamydia DNA (ABRAM) Negative (Negative) N.gonorrhoeae DNA (ABRAM) Negative (Negative) Details: HIV: Urine Culture: Sequential Screen: NIPT Screen: Results POC Urinalysis 2 Dip (Clinic) Office Urine Glucose Negative Last Edit by Carlota Boland on 05/03/22 10:39 Office Urine Protein Negative Last Edit by Carlota Boland on 05/03/22 10:39 Coding Level of Care Code OB Routine Diagnoses Gestational diabetes O24.419 Abnormal glucose affecting O99.810 Refuses tetanus, diphtheria, and acellular pertussis (Tdap) vaccination Z28.21 Thyroid disorder E07.9 Anxiety F41.9 Supervision of high risk , antepartum O09.90 Z3A.32 Weeks of gestation: 32 weeks Assessment and Plan Assessment and Plan (1) Gestational diabetes: Status: Acute Comment: [facility]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 (2) Abnormal glucose affecting : Status: Acute Comment: failed 3 hr GTT (3) Refuses tetanus, diphtheria, and acellular pertussis (Tdap) vaccination: Status: Acute (4) Thyroid disorder: Status: Acute Comment: synthroid, labs q trimester (5) Anxiety: Status: Acute Comment: zoloft, counseling encouraged (6) Supervision of high risk , antepartum: Status: Acute Comment: STEFANI: 06/27/22 BF:Noe(Crystal) (7) : Status: Acute Qualifiers: Weeks of gestation: 32 weeks Qualified Code(s): Z3A.32 - 32 weeks gestation of Comment: discussed genetic and carrier screen, nl anatomy Orders: Orders POC Urinalysis 2 Dip (Clinic) Today 05/03/22 1049 <Electronically signed by Yenni Acuna MD> Date [facility] Signature: Date (if applicable) CC: Marina Bronson MD Work Phone: Start: 04-23-2022 End: 04-23-2022 Endocrinology Visit Report Procedure Note: See Note; NOTES: [facility] [place] [address] OFFICE VISIT Date of Service: 04/23/22 MR#: [id number] Acct: [id number] Name: MECHE ANGUIANO Rep #: [id number] : 1995 Provider: Aidan Rodney Age/Sex: 27/F [place] [facility] [place]: Signed Intake Vital Signs 04/22/22 10:40 04/23/22 08:02 Height 5 ft 5 in 5 ft 5 in Weight: 189 lb 2 oz BMI 31.4 BP 128/86 H Blood Pressure Location Lt brachial Position Sitting Respiration 18 Pulse 110 H Pulse Source Monitor Temp 95.6 F L Temp Source Temporal Pulse Oximetry (%) 96 Oxygen Delivery Method room air Intake Visit Reasons: Gestational diabetes Chief Complaint: gestational diabetes Consumer Lending Manager Required: No Accompanied by: Self Is patient in pain?: No Allergies acetaminophen [From [place]] Allergy (Mild, Verified 04/23/22 08:08) Other hydrocodone [From [place]] Allergy (Mild, Verified 04/23/22 08:08) Other Is last menstrual period known: Yes Patient : Yes Nurse's Note: Pt had A1C 4.8% two weeks ago at work [facility] Medical History Abnormal glucose affecting Anxiety Breast lump in female Thyroid disorder Family History Mother Breast cancer Asthma Social History adopted: No household members: significant other current occupational status: employed current occupation: [employer] pets and animals: No Smoking Status: Never smoker alcohol intake: never substance use type: does not use caffeine: Yes what type of physical activity do you participate in: none seatbelt use: always do you feel safe at home: Yes additional social history: BF:Noe WELLS HPI Chief Complaint: gestational diabetes Details: MECHE ANGUIANO, is a 27 F who presents to the office today for evaluation and management of gestational diabetes. A1C 4.8% per patient 1 hour glucola 164 3 hr gtt: [id number] This is her first , she is 30 weeks gestation. She has gained about 28 pounds so far. Father and paternal grandfather have type 2 diabetes. They both take insulin. She is testing blood sugars for the past 10 days. Blood sugars are in goal post meal, but a bit high fasting. She meets with the gum scoring machine operator tomorrow. Exam Const General: cooperative, healthy appearing, comfortable, no acute distress, well developed and not cushingoid Nutritional Appearance: well nourished Orientation: alert, awake and oriented x3 HENMT Head: normal to inspection Ears: hearing grossly normal bilaterally Nose: external nose normal Mouth: oral mucosae normal Eyes General: appearance normal, both eyes and all related structures Alignment and Position: alignment normal Periorbital: periorbital findings normal Eyelids: eyelids normal Conjunctivae: conjunctivae normal Neck Neck: normal visual inspection Neck mass: No Lymphatic: no lymphadenopathy noted Chest Chest palpation inspection: normal inspection of the chest Resp Effort Inspection: normal respiratory effort, able to speak in complete sentences, symmetric chest movement, no audible wheezes and no cough Cardio Rate: regular rate Rhythm: regular rhythm GI Inspection: normal to inspection Auscultation: normal bowel sounds Palpation: soft and no hepatosplenomegaly Skin General: no rashes or lesions noted Neuro General: patient alert, patient awake and patient oriented x3 Cranial Nerves: CN's II-XI intact bilaterally Cognition: normal cognition Speech: speech normal Gait: normal gait Motor: muscle tone normal throughout Extrem General: no edema Psych Appearance: grossly normal Mental Status: mental status grossly normal Mood: congruent mood Affect: normal affect Speech and Movement: speech and movement normal Attitude: cooperative Thought Process: normal Thought Content: normal Judgment: judgment good Coding Level of Care Code Off vis,new,level 5 Diagnoses Gestational diabetes mellitus O24.410 Gestational diabetes mellitus control: diet-controlled Trimester: third trimester Assessment and Plan Assessment and Plan (1) Gestational diabetes mellitus: Qualifiers: Gestational diabetes mellitus control: diet-controlled Trimester: third trimester Qualified Code(s): O24.410 - Gestational diabetes mellitus in , diet controlled Plan Patient counseled: *consequences of hyperglycemia in including macrosomia, stillbirth, and diabetes during childhood *goals of testing and when to test *how to report blood sugars *possible use of metformin or insulin *future risk of diabetes for patient and child *delivery procedures *Plate method dietary sheet given to the patient and explained in detail. Match all insulin requiring foods with a non-insulin requiring food. Also, choose high fiber, low glycemic index carbohydrates. I have spent [62] minutes today reviewing labs, records and history. Time includes coordinating care, interpretation of tests, discussion with patient's other health care providers via telephone. This also includes time I spent with the patient for exam, treatment plan and education as well as documenting clinical information. 04/23/22 0911 <Electronically signed by Jude Hernandez MD> Date Jude Tejada Signature: Date (if applicable) CC: MD Marina Peñaloza MD Work Phone: Start: 04-19-2022 End: 04-19-2022 [employer] Office Visit Report Procedure Note: See Note; NOTES: [facility] [address] [place] [address] OFFICE VISIT Date of Service: 04/19/22 MR#: [id number] Acct: [id number] Name: MECHE ANGUIANO Rep #: [id number] : 1995 Provider: Dr. Kaelyn Mcclain DO Age/Sex: 27/F Location: [facility] [place] Status: Signed Intake Vital Signs 03/20/22 08:34 04/19/22 08:55 Height 5 ft 5 in 5 ft 5 in Weight: 188 lb 2 oz BMI 31.3 BP 137/91 H Intake Visit Reasons: 30 WK OB Consumer Lending Manager Required: No Is patient in pain?: No Allergies acetaminophen [From [place]] Allergy (Mild, Verified 04/19/22 08:54) Other hydrocodone [From [place]] Allergy (Mild, Verified 04/19/22 08:54) Other Medications levothyroxine 75 mcg tablet (Synthroid) 75 mcg PO DAILY 11/07/21 [History Confirmed 04/19/22] prenat.vits,jaswant,qya-wvkt-okvw c 1 tab PO DAILY 11/13/21 [History Confirmed 04/19/22] sertraline 50 mg tablet 100 mg PO DAILY 11/13/21 [History Confirmed 04/19/22] Last Menstrual Period: 09/20/21 : No PFSH PFSH Medical History Abnormal glucose affecting Anxiety Breast lump in female Thyroid disorder Family History Mother Breast cancer Asthma Social History adopted: No household members: significant other current occupational status: employed current occupation: [employer] pets and animals: No Smoking Status: Never smoker alcohol intake: never substance use type: does not use caffeine: Yes what type of physical activity do you participate in: none seatbelt use: always do you feel safe at home: Yes additional social history: BF:Noe History 1 Elective abortions Hx Para 0 Spontaneous abortions Hx # Term Pregnancies Ectopic pregnancies Hx # Pregnancies Multiple births # of living children HPI 30 WK OB Details: MECHE ANGUIANO is a 27 year old who presents for routine OB visit. OB Visit STEFANI Calculator Estimated Delivery Date Method Current WG Current Estimate 06/27/22 LMP (Certain) 30w 1d Expected Delivery Route/Plan Labor Preferences- CB/BF classes: [] labor support person: [] labor intervention preferences: [] pain management options preferred: [] cut cord/dad catch: [] : [] PP control planned: [] discussed possible routes of delivery and associated risks: [] special requests: [] Specific Issue/Plans Covid status: discussed Flu vaccine: discussed Tdap vaccine: [] Rhogam: [] LARC form signed: [] Problem list reviewed and updated with the most current plan of care details and appropriate orders placed. Relevant counseling for the gestational age provided. Continue routine care and follow up unless otherwise noted in visit notes/problem list details Initial Weight: 161 lb Date -???-???-???-???-???-???-???- ???-???-???-???-???- EGA Weight BP Urine Prot -???-???-???-???-???-???-???- ???-???-???-???-???- Glucose FHR FuHt Pres Dilation -???-???-???-???-???-???-???- ???-???-???-???-???- Effaced St Visit Note 11/29/21 -???-???-???-???-???-???-???- ???-???-???-???-???- 10w 0d 161 lb (+0 oz) -???-???-???-???-???-???-???- ???-???-???-???-???- 145 -???-???-???-???-???-???-???- ???-???-???-???-???- SM- CRL 3 cm cons with LMP 12/27/21 -???-???-???-???-???-???-???- ???-???-???-???-???- 14w 0d 166 lb (+5 lb) 135/87 Negative -???-???-???-???-???-???-???- ???-???-???-???-???- Negative 140 -???-???-???-???-???-???-???- ???-???-???-???-???- JV- pt compl ains of allergies. She has confirmed that she does not want to do nipt or carrier testing. anatomy ultrasound with mfm ordered. 01/24/22 -???-???-???-???-???-???-???- ???-???-???-???-???- 18w 0d 175 lb 6 oz (+14 lb 6 oz) 142/84 Negative -???-???-???-???-???-???-???- ???-???-???-???-???- Negative 150 -???-???-???-???-???-???-???- ???-???-???-???-???- JV- no lof, vaginal bleeding, or dec fm. antomy scan scheduled 02/07 with mfm. 02/19/22 -???-???-???-???-???-???-???- ???-???-???-???-???- 21w 5d 177 lb (+16 lb) 130/86 Negative -???-???-???-???-???-???-???- ???-???-???-???-???- Negative 145 -???-???-???-???-???-???-???- ???-???-???-???-???- SM- no vb lo f good fm no regular ctx, told to go get NOB labs drawn 03/20/22 -???-???-???-???-???-???-???- ???-???-???-???-???- 25w 6d 183 lb 6 oz (+22 lb 6 oz) 130/84 Negative -???-???-???-???-???-???-???- ???-???-???-???-???- Negative 135 26 -???-???-???-???-???-???-???- ???-???-???-???-???- JV- no lof, vaginal bleeding, or dec fm. 28 week labs ordered. plan for tdap next visit. 04/05/22 -???-???-???-???-???-???-???- ???-???-???-???-???- 28w 1d 188 lb 8 oz (+27 lb 8 oz) 130/80 Negative -???-???-???-???-???-???-???- ???-???-???-???-???- Negative 143 28 -???-???-???-???-???-???-???- ???-???-???-???-???- JV- no lof, vaginal bleeding, or dec fm. Pt had cbc and gct today. gct is pending, cbc showed borderline anemia. she will berry picker OTC iron. 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 Still needs TSH. will get that next visit. 04/19/22 -???-???-???-???-???-???-???- ???-???-???-???-???- 30w 1d 188 lb 2 oz (+27 lb 2 oz) 137/91 Negative -???-???-???-???-???-???-???- ???-???-???-???-???- Negative 145 30 -???-???-???-???-???-???-???- ???-???-???-???-???- JV- glucose levels well controlled with diet alone. No complaints. declines flu shot ACOG First Trimester First Trimester: Desire for , Alcohol, Tobacco Cessation, Illicit/Recreational Drug/Substance Use, Intimate Partner Violence, Barriers to care, Unstable Housing, Communication Barriers, Environmental/Work Hazards, Anticipated Course of Care, Toxoplasmosis Precations, Use of Any medications, Sexual activity, Exercise, Dental Care, Sauna/Hot tub use, Seat Belt use, Childbirth classes/Hospital facilities, , Travel, Indications for Ultrasound and Screening for Aneuploidy Diagnostics Diagnostics Diagnostics: Gest Glucose Tolerance MG/DL Glucose 1 Hr 50 gm 164 mg/dL (70-140) H Pap Smear Negative Hgb 10.9 g/dL (12.0-15.0) L Hct 33.2 % (37-47) L Chlamydia DNA (ABRAM) Negative (Negative) N.gonorrhoeae DNA (ABRAM) Negative (Negative) Details: HIV: Urine Culture: Sequential Screen: NIPT Screen: Results POC Urinalysis 2 Dip (Clinic) Office Urine Glucose Negative Last Edit by Edith Blanco on 04/19/22 09:10 Office Urine Protein Negative Last Edit by Edith Blanco on 04/19/22 09:10 Coding Level of Care Code OB Routine Diagnoses Gestational diabetes O24.419 Abnormal glucose affecting O99.810 Refuses tetanus, diphtheria, and acellular pertussis (Tdap) vaccination Z28.21 Thyroid disorder E07.9 Anxiety F41.9 Supervision of high risk , antepartum O09.90 Z3A.30 Weeks of gestation: 30 weeks Assessment and Plan Assessment and Plan (1) Gestational diabetes: Status: Acute Comment: [facility] 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 (2) Abnormal glucose affecting : Status: Acute Comment: failed 3 hr GTT (3) Refuses tetanus, diphtheria, and acellular pertussis (Tdap) vaccination: Status: Acute (4) Thyroid disorder: Status: Acute Comment: synthroid, labs q trimester (5) Anxiety: Status: Acute Comment: zoloft, counseling encouraged (6) Supervision of high risk , antepartum: Status: Acute Comment: STEFANI: 06/27/22 BF:Noe(Crystal) (7) : Status: Acute Qualifiers: Weeks of gestation: 30 weeks Qualified Code(s): Z3A.30 - 30 weeks gestation of Comment: discussed genetic and carrier screen, nl anatomy Orders: Orders POC Urinalysis 2 Dip (Clinic) Today 04/19/22 0914 <Electronically signed by Kaelyn Quinteros DO> Date Kaelyn Quinteros DO Cosigner Signature: Date (if applicable) CC: Marina Bronson MD Work Phone: Start: 04-05-2022 End: 04-05-2022 [employer] Office Visit Report Procedure Note: See Note; NOTES: [facility] [address] [place] [address] OFFICE VISIT Date of Service: 04/05/22 MR#: [id number] Acct: [id number] Name: MECHE ANGUIANO Rep #: [id number] : 1995 Provider: Dr. Kaelyn Mcclain DO Age/Sex: 26/F Location: [place] Status: Signed Intake Vital Signs 03/20/22 08:55 04/05/22 10:03 04/05/22 10:03 Height 5 ft 5 in 5 ft 5 in 5 ft 5 in Weight: 188 lb 8 oz BMI 31.4 BP 130/80 H Intake Visit Reasons: 28 WK OB/GLUCOSE Consumer Lending Manager Required: No Is patient in pain?: No Allergies acetaminophen [From [place]] Allergy (Mild, Verified 04/05/22 10:02) Other hydrocodone [From [place]] Allergy (Mild, Verified 04/05/22 10:02) Other Medications levothyroxine 75 mcg tablet (Synthroid) 75 mcg PO DAILY 11/07/21 [History Confirmed 04/05/22] prenat.vits,jaswant,nvt-ymnb-yyte c 1 tab PO DAILY 11/13/21 [History Confirmed 04/05/22] sertraline 50 mg tablet 100 mg PO DAILY 11/13/21 [History Confirmed 04/05/22] Last Menstrual Period: 09/20/21 Zika: Zika virus screening: Negative : No PFSH PFSH Medical History Anxiety Breast lump in female Thyroid disorder Family History Mother Breast cancer Asthma Social History adopted: No household members: significant other current occupational status: employed current occupation: [employer] pets and animals: No Smoking Status: Never smoker alcohol intake: never substance use type: does not use caffeine: Yes what type of physical activity do you participate in: none seatbelt use: always do you feel safe at home: Yes additional social history: BF:Noe History 1 Elective abortions Hx Para 0 Spontaneous abortions Hx # Term Pregnancies Ectopic pregnancies Hx # Pregnancies Multiple births # of living children HPI 28 WK OB/GLUCOSE Details: MECHE ANGUIANO is a 26 year old who presents for routine OB visit. OB Visit STEFANI Calculator Estimated Delivery Date Method Current WG Current Estimate 06/27/22 LMP (Certain) 28w 1d Expected Delivery Route/Plan Labor Preferences- CB/BF classes: [] labor support person: [] labor intervention preferences: [] pain management options preferred: [] cut cord/dad catch: [] : [] PP control planned: [] discussed possible routes of delivery and associated risks: [] special requests: [] Specific Issue/Plans Covid status: discussed Flu vaccine: discussed Tdap vaccine: [] Rhogam: [] LARC form signed: [] Problem list reviewed and updated with the most current plan of care details and appropriate orders placed. Relevant counseling for the gestational age provided. Continue routine care and follow up unless otherwise noted in visit notes/problem list details Initial Weight: 161 lb Date -???-???-???-???-???-???-???- ???-???-???-???-???- EGA Weight BP Urine Prot -???-???-???-???-???-???-???- ???-???-???-???-???- Glucose FHR FuHt Pres Dilation -???-???-???-???-???-???-???- ???-???-???-???-???- Effaced St Visit Note 11/29/21 -???-???-???-???-???-???-???- ???-???-???-???-???- 10w 0d 161 lb (+0 oz) -???-???-???-???-???-???-???- ???-???-???-???-???- 145 -???-???-???-???-???-???-???- ???-???-???-???-???- SM- CRL 3 cm cons with LMP 12/27/21 -???-???-???-???-???-???-???- ???-???-???-???-???- 14w 0d 166 lb (+5 lb) 135/87 Negative -???-???-???-???-???-???-???- ???-???-???-???-???- Negative 140 -???-???-???-???-???-???-???- ???-???-???-???-???- JV- pt compl ains of allergies. She has confirmed that she does not want to do nipt or carrier testing. anatomy ultrasound with mfm ordered. 01/24/22 -???-???-???-???-???-???-???- ???-???-???-???-???- 18w 0d 175 lb 6 oz (+14 lb 6 oz) 142/84 Negative -???-???-???-???-???-???-???- ???-???-???-???-???- Negative 150 -???-???-???-???-???-???-???- ???-???-???-???-???- JV- no lof, vaginal bleeding, or dec fm. antomy scan scheduled 02/07 with mfm. 02/19/22 -???-???-???-???-???-???-???- ???-???-???-???-???- 21w 5d 177 lb (+16 lb) 130/86 Negative -???-???-???-???-???-???-???- ???-???-???-???-???- Negative 145 -???-???-???-???-???-???-???- ???-???-???-???-???- SM- no vb lo f good fm no regular ctx, told to go get NOB labs drawn 03/20/22 -???-???-???-???-???-???-???- ???-???-???-???-???- 25w 6d 183 lb 6 oz (+22 lb 6 oz) 130/84 Negative -???-???-???-???-???-???-???- ???-???-???-???-???- Negative 135 26 -???-???-???-???-???-???-???- ???-???-???-???-???- JV- no lof, vaginal bleeding, or dec fm. 28 week labs ordered. plan for tdap next visit. 04/05/22 -???-???-???-???-???-???-???- ???-???-???-???-???- 28w 1d 188 lb 8 oz (+27 lb 8 oz) 130/80 Negative -???-???-???-???-???-???-???- ???-???-???-???-???- Negative 143 28 -???-???-???-???-???-???-???- ???-???-???-???-???- JV- no lof, vaginal bleeding, or dec fm. Pt had cbc and gct today. gct is pending, cbc showed borderline anemia. she will berry picker OTC iron. 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 Still needs TSH. will get that next visit. ACOG First Trimester First Trimester: Desire for , Alcohol, Tobacco Cessation, Illicit/Recreational Drug/Substance Use, Intimate Partner Violence, Barriers to care, Unstable Housing, Communication Barriers, Environmental/Work Hazards, Anticipated Course of Care, Toxoplasmosis Precations, Use of Any medications, Sexual activity, Exercise, Dental Care, Sauna/Hot tub use, Seat Belt use, Childbirth classes/Hospital facilities, , Travel, Indications for Ultrasound and Screening for Aneuploidy Diagnostics Diagnostics Diagnostics: Glucose 1 Hr 50 gm Pending Pap Smear Negative Hgb 10.9 g/dL (12.0-15.0) L Hct 33.2 % (37-47) L Chlamydia DNA (ABRAM) Negative (Negative) N.gonorrhoeae DNA (ABRAM) Negative (Negative) Details: HIV: Urine Culture: Sequential Screen: NIPT Screen: Results POC Urinalysis 2 Dip (Clinic) Office Urine Glucose Negative Last Edit by Elizabeth Zabala on 04/05/22 10:13 Office Urine Protein Negative Last Edit by Elizabeth Zabala on 04/05/22 10:13 Coding Level of Care Code OB Routine Diagnoses Thyroid disorder E07.9 Anxiety F41.9 Supervision of high risk , antepartum O09.90 Z3A.28 Weeks of gestation: 28 weeks Assessment and Plan Assessment and Plan (1) Thyroid disorder: Status: Acute Comment: synthroid, labs q trimester (2) Anxiety: Status: Acute Comment: zoloft, counseling encouraged (3) Supervision of high risk , antepartum: Status: Acute Comment: STEFANI: 06/27/22 BF:Noe(Crystal) (4) : Status: Acute Qualifiers: Weeks of gestation: 28 weeks Qualified Code(s): Z3A.28 - 28 weeks gestation of Comment: discussed genetic and carrier screen, nl anatomy Orders: Orders POC Urinalysis 2 Dip (Clinic) Today Thyroid Stim Hormone (TSH) Today E07.9 - Disorder of thyroid, unspecified T4 Free Direct Today E07.9 - Disorder of thyroid, unspecified 04/05/22 1037 <Electronically signed by Kaelyn Quinteros DO> Date Kaelyn Quinteros DO Cosigner Signature: Date (if applicable) CC: Marina Bronson MD Work Phone: Start: 03-20-2022 End: 03-20-2022 [employer] Office Visit Report Procedure Note: See Note; NOTES: [facility] [address] [place] [address]. [address] [place] [address] OFFICE VISIT Date of Service: 03/20/22 MR#: [id number] Acct: [id number] Name: MECHE ANGUIANO Rep #: [id number] : 1995 Provider: Dr. Kaelyn Mcclain DO Age/Sex: 26/F Location: [facility] Status: Signed Intake Vital Signs 03/20/22 08:33 03/20/22 08:34 Height 5 ft 5 in 5 ft 5 in Weight: 183 lb 6 oz BMI 30.5 BP 130/84 H Intake Visit Reasons: 26 WK OB Consumer Lending Manager Required: No Is patient in pain?: No Allergies acetaminophen [From [place]] Allergy (Mild, Verified 03/20/22 08:33) Other hydrocodone [From [place]] Allergy (Mild, Verified 03/20/22 08:33) Other Medications levothyroxine 75 mcg tablet (Synthroid) 75 mcg PO DAILY 11/07/21 [History Confirmed 03/20/22] prenat.vits,jaswant,ttp-nwty-gtoy c 1 tab PO DAILY 11/13/21 [History Confirmed 03/20/22] sertraline 50 mg tablet 100 mg PO DAILY 11/13/21 [History Confirmed 03/20/22] Last Menstral Period: 09/20/21 Zika: Zika virus screening: Negative : No PFSH PFSH Medical History Anxiety Breast lump in female Thyroid disorder Family History Mother Breast cancer Asthma Social History adopted: No household members: significant other current occupational status: employed current occupation: [employer] pets and animals: No Smoking Status: Never smoker alcohol intake: never substance use type: does not use caffeine: Yes what type of physical activity do you participate in: none seatbelt use: always do you feel safe at home: Yes additional social history: BF:Noe Pregancy History 1 Elective abortions Hx Para 0 Spontaneous abortions Hx # Term Pregnancies Ectopic pregnancies Hx # Pregnancies Multiple births # of living children HPI 26 WK OB Details: MECHE ANGUIANO is a 26 year old who presents for routine OB visit. OB Visit STEFANI Calculator Estimated Delivery Date Method Current WG Current Estimate 06/27/22 LMP (Certain) 25w 6d Expected Delivery Route/Plan Labor Preferences- CB/BF classes: [] labor support person: [] labor intervention preferences: [] pain management options preferred: [] cut cord/dad catch: [] : [] PP control planned: [] discussed possible routes of delivery and associated risks: [] special requests: [] Specific Issue/Plans Covid status: discussed Flu vaccine: discussed Tdap vaccine: [] Rhogam: [] LARC form signed: [] Problem list reviewed and updated with the most current plan of care details and appropriate orders placed. Relevant counseling for the gestational age provided. Continue routine care and follow up unless otherwise noted in visit notes/problem list details Initial Weight: 161 lb Date -???-???-???-???-???-???-???- ???-???-???-???-???- EGA Weight BP Urine Prot -???-???-???-???-???-???-???- ???-???-???-???-???- Glucose FHR FuHt Pres Dilation -???-???-???-???-???-???-???- ???-???-???-???-???- Effaced St Visit Note 11/29/21 -???-???-???-???-???-???-???- ???-???-???-???-???- 10w 0d 161 lb (+0 oz) -???-???-???-???-???-???-???- ???-???-???-???-???- 145 -???-???-???-???-???-???-???- ???-???-???-???-???- SM- CRL 3 cm cons with LMP 12/27/21 -???-???-???-???-???-???-???- ???-???-???-???-???- 14w 0d 166 lb (+5 lb) 135/87 Negative -???-???-???-???-???-???-???- ???-???-???-???-???- Negative 140 -???-???-???-???-???-???-???- ???-???-???-???-???- JV- pt compl ains of allergies. She has confirmed that she does not want to do nipt or carrier testing. anatomy ultrasound with mfm ordered. 01/24/22 -???-???-???-???-???-???-???- ???-???-???-???-???- 18w 0d 175 lb 6 oz (+14 lb 6 oz) 142/84 Negative -???-???-???-???-???-???-???- ???-???-???-???-???- Negative 150 -???-???-???-???-???-???-???- ???-???-???-???-???- JV- no lof, vaginal bleeding, or dec fm. antomy scan scheduled 02/07 with mfm. 02/19/22 -???-???-???-???-???-???-???- ???-???-???-???-???- 21w 5d 177 lb (+16 lb) 130/86 Negative -???-???-???-???-???-???-???- ???-???-???-???-???- Negative 145 -???-???-???-???-???-???-???- ???-???-???-???-???- SM- no vb lo f good fm no regular ctx, told to go get NOB labs drawn 03/20/22 -???-???-???-???-???-???-???- ???-???-???-???-???- 25w 6d 183 lb 6 oz (+22 lb 6 oz) 130/84 Negative -???-???-???-???-???-???-???- ???-???-???-???-???- Negative 135 26 -???-???-???-???-???-???-???- ???-???-???-???-???- JV- no lof, vaginal bleeding, or dec fm. 28 week labs ordered. plan for tdap next visit. ACOG First Trimester First Trimester: Desire for , Alcohol, Tobacco Cessation, Illicit/Recreational Drug/Substance Use, Intimate Partner Violence, Barriers to care, Unstable Housing, Communication Ba rriers, Environmental/Work Hazards, Anticipated Course of Care, Toxoplasmosis Precations, Use of Any medications, Sexual activity, Exercise, Dental Care, Sauna/Hot tub use, Seat Belt use, Childbirth classes/Hospital facilities, , Travel, Indications for Ultrasound and Screening for Aneuploidy Diagnostics Diagnostics Diagnostics: Pap Smear Negative Chlamydia DNA (ABRAM) Negative (Negative) N.gonorrhoeae DNA (ABRAM) Negative (Negative) Details: HIV: Urine Culture: Sequential Screen: NIPT Screen: Results POC Urinalysis 2 Dip (Clinic) Office Urine Glucose Negative Last Edit by Elizabeth Zabala on 03/20/22 08:44 Office Urine Protein Negative Last Edit by Elizabeth Zabala on 03/20/22 08:44 Coding Level of Care Code OB Routine Diagnoses Thyroid disorder E07.9 Anxiety F41.9 Supervision of high risk , antepartum O09.90 Z3A.25 Weeks of gestation: 25 weeks Assessment and Plan Assessment and Plan (1) Thyroid disorder: Status: Acute Comment: synthroid, labs q trimester (2) Anxiety: Status: Acute Comment: zoloft, counseling encouraged (3) Supervision of high risk , antepartum: Status: Acute Comment: STEFANI: 06/27/22 BF:Noe(Crystal) (4) : Status: Acute Qualifiers: Weeks of gestation: 25 weeks Qualified Code(s): Z3A.25 - 25 weeks gestation of Comment: discussed genetic and carrier screen, nl anatomy Orders: Orders POC Urinalysis 2 Dip (Clinic) Today Glucose Challenge Gest 1H 50g Today O09.90 - Supervision of high risk , unspecified, unspecified trimester CBC W/Diff, Automated Today O09.90 - Supervision of high risk , unspecified, unspecified trimester 03/20/22 0854 <Electronically signed by Kaelyn Quinteros DO> Date Kaelyn Quinteros DO Cosigner Signature: Date (if applicable) CC: Marina Bronson MD Work Phone: Start: 02-19-2022 End: 02-19-2022 [employer] Office Visit Report Procedure Note: See Note; NOTES: [facility] [place] [address] [place] [address] OFFICE VISIT Date of Service: 02/19/22 MR#: [id number] Acct: [id number] Name: MECHE ANGUIANO Rep #: [id number] : 1995 Provider: Dr. Yenni morrow MD Age/Sex: 26/F Location: [facility] Status: Signed Intake Vital Signs 02/19/22 10:50 02/19/22 10:51 Height 5 ft 5 in 5 ft 5 in Weight: 177 lb BMI 29.4 BP 130/86 H Intake Visit Reasons: 22WK OB Chief Complaint: est ob Consumer Lending Manager Required: No Is patient in pain?: No Allergies acetaminophen [From [place]] Allergy (Mild, Verified 01/24/22 11:50) Other hydrocodone [From [place]] Allergy (Mild, Verified 01/24/22 11:50) Other Medications levothyroxine 75 mcg tablet (Synthroid) 75 mcg PO DAILY 11/07/21 [History Confirmed 02/19/22] prenat.vits,jaswant,kwj-ekqv-uxrt c 1 tab PO DAILY 11/13/21 [History Confirmed 02/19/22] sertraline 50 mg tablet 100 mg PO DAILY 11/13/21 [History Confirmed 02/19/22] Last Menstral Period: 09/20/21 Zika: Zika virus screening: Negative : No PFSH PFSH Medical History Anxiety Breast lump in female Thyroid disorder Family History Mother Breast cancer Asthma Social History adopted: No household members: significant other current occupational status: employed current occupation: [employer] pets and animals: No Smoking Status: Never smoker alcohol intake: never substance use type: does not use caffeine: Yes what type of physical activity do you participate in: none seatbelt use: always do you feel safe at home: Yes additional social history: BF:Noe Pregancy History 1 Elective abortions Hx Para 0 Spontaneous abortions Hx # Term Pregnancies Ectopic pregnancies Hx # Pregnancies Multiple births # of living children HPI 22WK OB Details: MECHE ANGUIANO is a 26 year old who presents for routine OB visit. OB Visit STEFANI Calculator Estimated Delivery Date Method Current WG Current Estimate 06/27/22 LMP (Certain) 21w 5d Expected Delivery Route/Plan Labor Preferences- CB/BF classes: [] labor support person: [] labor intervention preferences: [] pain management options preferred: [] cut cord/dad catch: [] : [] PP control planned: [] discussed possible routes of delivery and associated risks: [] special requests: [] Specific Issue/Plans Covid status: discussed Flu vaccine: discussed Tdap vaccine: [] Rhogam: [] LARC form signed: [] Problem list reviewed and updated with the most current plan of care details and appropriate orders placed. Relevant counseling for the gestational age provided. Continue routine care and follow up unless otherwise noted in visit notes/problem list details Initial Weight: 161 lb Date -???-???-???-???-???-???-???- ???-???-???-???-???- EGA Weight BP Urine Prot -???-???-???-???-???-???-???- ???-???-???-???-???- Glucose FHR FuHt Pres Dilation -???-???-???-???-???-???-???- ???-???-???-???-???- Effaced St Visit Note 11/29/21 -???-???-???-???-???-???-???- ???-???-???-???-???- 10w 0d 161 lb (+0 oz) -???-???-???-???-???-???-???- ???-???-???-???-???- 145 -???-???-???-???-???-???-???- ???-???-???-???-???- SM- CRL 3 cm cons with LMP 12/27/21 -???-???-???-???-???-???-???- ???-???-???-???-???- 14w 0d 166 lb (+5 lb) 135/87 Negative -???-???-???-???-???-???-???- ???-???-???-???-???- Negative 140 -???-???-???-???-???-???-???- ???-???-???-???-???- JV- pt compl ains of allergies. She has confirmed that she does not want to do nipt or carrier testing. anatomy ultrasound with mfm ordered. 01/24/22 -???-???-???-???-???-???-???- ???-???-???-???-???- 18w 0d 175 lb 6 oz (+14 lb 6 oz) 142/84 Negative -???-???-???-???-???-???-???- ???-???-???-???-???- Negative 150 -???-???-???-???-???-???-???- ???-???-???-???-???- JV- no lof, vaginal bleeding, or dec fm. antomy scan scheduled 02/07 with mfm. 02/19/22 -???-???-???-???-???-???-???- ???-???-???-???-???- 21w 5d 177 lb (+16 lb) 130/86 Negative -???-???-???-???-???-???-???- ???-???-???-???-???- Negative 145 -???-???-???-???-???-???-???- ???-???-???-???-???- SM- no vb lo f good fm no regular ctx, told to go get NOB labs drawn ACOG First Trimester First Trimester: Desire for , Alcohol, Tobacco Cessation, Illicit/Recreational Drug/Substance Use, Intimate Partner Violence, Barriers to care, Unstable Housing, Communication Barriers, Environmental/Work Hazards, Anticipated Course of Care, Toxoplasmosis Precations, Use of Any medications, Sexual activity, Exercise, Dental Care, Sauna/Hot tub use, Seat Belt use, Childbirth classes/Hospital facilities, , Travel, Indications for Ultrasound and Screening for Aneuploidy Diagnostics Diagnostics Diagnostics: Chlamydia DNA (ABRAM) Negative (Negative) N.gonorrhoeae DNA (ABRAM) Negative (Negative) Details: HIV: Urine Culture: Sequential Screen: NIPT Screen: Results POC Urinalysis 2 Dip (Clinic) Office Urine Glucose Negative Last Edit by Carlota Boland on 02/19/22 10:53 Office Urine Protein Negative Last Edit by Carlota Boland on 02/19/22 10:53 Coding Level of Care Code OB Routine Diagnoses Thyroid disorder E07.9 Anxiety F41.9 Supervision of high risk , antepartum O09.90 Z3A.21 Weeks of gestation: 21 weeks Assessment and Plan Assessment and Plan (1) Thyroid disorder: Status: Acute Comment: synthroid, labs q trimester (2) Anxiety: Status: Acute Comment: zoloft, counseling encouraged (3) Supervision of high risk , antepartum: Status: Acute Comment: STEFANI: 06/27/22 BF:Noe(Crystal) (4) : Status: Acute Qualifiers: Weeks of gestation: 21 weeks Qualified Code(s): Z3A.21 - 21 weeks gestation of Comment: discussed genetic and carrier screen, nl anatomy Orders: Orders POC Urinalysis 2 Dip (Clinic) Today 02/19/22 1123 <Electronically signed by Yenni Acuna MD> Date [facility] Signature: Date (if applicable) CC: Marina Bronson MD Work Phone: Start: 01-24-2022 End: 01-24-2022 [employer] Office Visit Report Comments: See Note; NOTES: [facility] [address] [place] [address] OFFICE VISIT Date of Service: 01/24/22 MR#: [id number] Acct: [id number] Name: SILVIOMECHE Rep #: [id number] : 1995 Provider: Dr. Kaelyn Mcclain DO Age/Sex: 26/F Location: [facility] Status: Signed Intake Vital Signs 01/24/22 11:50 01/24/22 11:50 Height 5 ft 5 in 5 ft 5 in Weight: 175 lb 6 oz BMI 29.2 BP 142/84 H Intake Visit Reasons: 18 WK OB Consumer Lending Manager Required: No Is patient in pain?: No Allergies acetaminophen [From [place]] Allergy (Mild, Verified 01/24/22 11:50) Other hydrocodone [From [place]] Allergy (Mild, Verified 01/24/22 11:50) Other Medications levothyroxine 75 mcg tablet (Synthroid) 75 mcg PO DAILY 11/07/21 [History Confirmed 01/24/22] prenat.vits,jaswant,apr-zpwu-vvez c 1 tab PO DAILY 11/13/21 [History Confirmed 01/24/22] sertraline 50 mg tablet 100 mg PO DAILY 11/13/21 [History Confirmed 01/24/22] Last Menstral Period: 09/20/21 Zika: Zika virus screening: Negative : No PFSH PFSH Medical History Anxiety Breast lump in female Thyroid disorder Family History Mother Breast cancer Asthma Social History adopted: No household members: significant other current occupational status: employed current occupation: [employer] pets and animals: No Smoking Status: Never smoker alcohol intake: never substance use type: does not use caffeine: Yes what type of physical activity do you participate in: none seatbelt use: always do you feel safe at home: Yes additional social history: BF:Noe Pregancy History 1 Elective abortions Hx Para 0 Spontaneous abortions Hx # Term Pregnancies Ectopic pregnancies Hx # Pregnancies Multiple births # of living children HPI 18 WK OB Details: MECHE ANGUIANO is a 26 year old who presents for routine OB visit. OB Visit STEFANI Calculator Estimated Delivery Date Method Current WG Current Estimate 06/27/22 LMP (Certain) 18w 0d Expected Delivery Route/Plan Labor Preferences- CB/BF classes: [] labor support person: [] labor intervention preferences: [] pain management options preferred: [] cut cord/dad catch: [] : [] PP control planned: [] discussed possible routes of delivery and associated risks: [] special requests: [] Specific Issue/Plans Covid status: discussed Flu vaccine: discussed Tdap vaccine: [] Rhogam: [] LARC form signed: [] Problem list reviewed and updated with the most current plan of care details and appropriate orders placed. Relevant counseling for the gestational age provided. Continue routine care and follow up unless otherwise noted in visit notes/problem list details Initial Weight: 161 lb Date -???-???-???-???-???-???-???- ???-???-???-???-???- EGA Weight BP Urine Prot -???-???-???-???-???-???-???- ???-???-???-???-???- Glucose FHR FuHt Pres Dilation -???-???-???-???-???-???-???- ???-???-???-???-???- Effaced St Visit Note 11/29/21 -???-???-???-???-???-???-???- ???-???-???-???-???- 10w 0d 161 lb (+0 oz) -???-???-???-???-???-???-???- ???-???-???-???-???- 145 -???-???-???-???-???-???-???- ???-???-???-???-???- SM- CRL 3 cm cons with LMP 12/27/21 -???-???-???-???-???-???-???- ???-???-???-???-???- 14w 0d 166 lb (+5 lb) 135/87 Negative -???-???-???-???-???-???-???- ???-???-???-???-???- Negative 140 -???-???-???-???-???-???-???- ???-???-???-???-???- JV- pt compl ains of allergies. She has confirmed that she does not want to do nipt or carrier testing. anatomy ultrasound with mfm ordered. 01/24/22 -???-???-???-???-???-???-???- ???-???-???-???-???- 18w 0d 175 lb 6 oz (+14 lb 6 oz) 142/84 -???-???-???-???-???-???-???- ???-???-???-???-???- 150 -???-???-???-???-???-???-???- ???-???-???-???-???- JV- no lof, vaginal bleeding, or dec fm. antomy scan scheduled 02/07 with mfm. ACOG First Trimester First Trimester: Desire for , Alcohol, Tobacco Cessation, Illicit/Recreational Drug/Substance Use, Intimate Partner Violence, Barriers to care, Unstable Housing, Communication Barriers, Environmental/Work Hazards, Anticipated Course of Care, Toxoplasmosis Precations, Use of Any medications, Sexual activity, Exercise, Dental Care, Sauna/Hot tub use, Seat Belt use, Childbirth classes/Hospital facilities, , Travel, Indications for Ultrasound and Screening for Aneuploidy Diagnostics Diagnostics Diagnostics: Chlamydia DNA (ABRAM) Negative (Negative) N.gonorrhoeae DNA (ABRAM) Negative (Negative) Details: HIV: Urine Culture: Sequential Screen: NIPT Screen: Coding Level of Care Code OB Routine Diagnoses Thyroid disorder E07.9 Anxiety F41.9 Supervision of high risk , antepartum O09.90 Z3A.18 Weeks of gestation: 18 weeks Assessment and Plan Assessment and Plan (1) Thyroid disorder: Status: Acute Comment: synthroid, labs q trimester (2) Anxiety: Status: Acute Comment: zoloft, counseling encouraged (3) Supervision of high risk , antepartum: Status: Acute Comment: STEFANI: 06/27/22 BF:Noe(AmaroChelsey) (4) : Status: Acute Qualifiers: Weeks of gestation: 18 weeks Qualified Code(s): Z3A.18 - 18 weeks gestation of Comment: discussed genetic and carrier screen Orders: Orders POC Urinalysis 2 Dip (Clinic) Today 01/24/22 1211 <Electronically signed by Kaelyn Quinteros DO> Date Kaelyn Quinteros DO [facility] Signature: Date (if applicable) CC: Marina Bronson MD Work Phone: Start: 12-27-2021 End: 12-27-2021 [employer] Office Visit Report Comments: See Note; NOTES: [facility] [address] [place] [address]. [address] [place] [address] OFFICE VISIT Date of Service: 12/27/21 MR#: [id number] Acct: [id number] Name: MECHE ANGUIANO Rep #: [id number] : 1995 Provider: Dr. Kaelyn Mcclain DO Age/Sex: 26/F Location: [facility] Status: Signed Intake Vital Signs 12/27/21 10:30 Height 5 ft 5 in Weight: 166 lb BMI 27.6 BP 135/87 H Intake Visit Reasons: 14 WK OB Consumer Lending Manager Required: No Is patient in pain?: No Allergies acetaminophen [From [place]] Allergy (Mild, Verified 12/27/21 10:29) Other hydrocodone [From [place]] Allergy (Mild, Verified 12/27/21 10:29) Other Medications levothyroxine 75 mcg tablet 75 mcg PO DAILY 11/07/21 [History Confirmed 12/27/21] prenat.vits,jaswant,ufx-sjtp-kywy c 1 tab PO DAILY 11/13/21 [History Confirmed 12/27/21] sertraline 50 mg tablet 100 mg PO DAILY tab 11/13/21 [History Confirmed 12/27/21] Last Menstral Period: 09/20/21 Zika: Zika virus screening: Negative : No PFSH PFSH Medical History Anxiety Breast lump in female Thyroid disorder Family History Mother Breast cancer Asthma Social History adopted: No household members: significant other current occupational status: employed current occupation: [employer] pets and animals: No Smoking Status: Never smoker alcohol intake: never substance use type: does not use caffeine: Yes what type of physical activity do you participate in: none seatbelt use: always do you feel safe at home: Yes additional social history: BF:Noe Pregancy History 1 Elective abortions Hx Para 0 Spontaneous abortions Hx # Term Pregnancies Ectopic pregnancies Hx # Pregnancies Multiple births # of living children HPI 14 WK OB Details: MECHE ANGUIANO is a 26 year old who presents for routine OB visit. OB Visit STEFANI Calculator Estimated Delivery Date Method Current WG Current Estimate 06/27/22 LMP (Certain) 14w 0d Expected Delivery Route/Plan Labor Preferences- CB/BF classes: [] labor support person: [] labor intervention preferences: [] pain management options preferred: [] cut cord/dad catch: [] : [] PP control planned: [] discussed possible routes of delivery and associated risks: [] special requests: [] Specific Issue/Plans Covid status: discussed Flu vaccine: discussed Tdap vaccine: [] Rhogam: [] LARC form signed: [] Problem list reviewed and updated with the most current plan of care details and appropriate orders placed. Relevant counseling for the gestational age provided. Continue routine care and follow up unless otherwise noted in visit notes/problem list details Initial Weight: 161 lb Date -???-???-???-???-???-???-???- ???-???-???-???-???- EGA Weight BP Urine Prot -???-???-???-???-???-???-???- ???-???-???-???-???- Glucose FHR FuHt Pres Dilation -???-???-???-???-???-???-???- ???-???-???-???-???- Effaced St Visit Note 11/29/21 -???-???-???-???-???-???-???- ???-???-???-???-???- 10w 0d 161 lb (+0 oz) -???-???-???-???-???-???-???- ???-???-???-???-???- 145 -???-???-???-???-???-???-???- ???-???-???-???-???- SM- CRL 3 cm cons with LMP 12/27/21 -???-???-???-???-???-???-???- ???-???-???-???-???- 14w 0d 166 lb (+5 lb) 135/87 Negative -???-???-???-???-???-???-???- ???-???-???-???-???- Negative 140 -???-???-???-???-???-???-???- ???-???-???-???-???- JV- pt compl ains of allergies. She has confirmed that she does not want to do nipt or carrier testing. anatomy ultrasound with mfm ordered. ACOG First Trimester First Trimester: Desire for , Alcohol, Tobacco Cessation, Illicit/Recreational Drug/Substance Use, Intimate Partner Violence, Barriers to care, Unstable Housing, Communication Barriers, Environmental/Work Hazards, Anticipated Course of Care, Toxoplasmosis Precations, Use of Any medications, Sexual activity, Exercise, Dental Care, Sauna/Hot tub use, Seat Belt use, Childbirth classes/Hospital facilities, , Travel, Indications for Ultrasound and Screening for Aneuploidy Diagnostics Diagnostics Diagnostics: Blood Type A POSITIVE Hgb 14.3 g/dL (12.0-15.0) Hct 43.9 % (37-47) Chlamydia DNA (ABRAM) Negative (Negative) N.gonorrhoeae DNA (ABRAM) Negative (Negative) Details: HIV: Urine Culture: Sequential Screen: NIPT Screen: Results POC Urinalysis 2 Dip (Clinic) Office Urine Glucose Negative Last Edit by Elizabeth Zabala on 12/27/21 10:42 Office Urine Protein Negative Last Edit by Elizabeth Zabala on 12/27/21 10:42 Coding Level of Care Code OB Routine Diagnoses Thyroid disorder E07.9 Anxiety F41.9 Supervision of high risk , antepartum O09.90 Z3A.14 Weeks of gestation: 14 weeks Assessment and Plan Assessment and Plan (1) Thyroid disorder: Status: Acute Comment: synthroid, labs q trimester (2) Anxiety: Status: Acute Comment: zoloft, counseling encouraged (3) Supervision of high risk , antepartum: Status: Acute Comment: STEFANI: 06/27/22 BF:Noe(Crystal) (4) : Status: Acute Qualifiers: Weeks of gestation: 14 weeks Qualified Code(s): Z3A.14 - 14 weeks gestation of Comment: discussed genetic and carrier screen Plan Details Other Orders: Orders: POC Urinalysis 2 Dip (Clinic) Today 12/27/21 1120 <Electronically signed by Kaelyn Quinteros DO> Date Kaelyn Quinteros DO Cosigner Signature: Date (if applicable) CC: Marina Bronson MD Work Phone: Start: 11-29-2021 End: 11-29-2021 [employer]inter [employer] Office Visit Report Comments: See Note; NOTES: [facility] [address] [place] [address] OFFICE VISIT Date of Service: 11/29/21 MR#: [id number] Acct: [id number] Name: MECHE ANGUIANO Rep #: [id number] : 1995 Provider: Dr. Yenni morrow MD Age/Sex: 26/F Location: [facility] Status: Signed Intake Vital Signs 11/29/21 09:24 Height 5 ft 5 in Weight: 161 lb BMI 26.8 Intake Visit Reasons: NOB LMP 09/20/21 Chief Complaint: NEW OB LMP 09/20/21 Consumer Lending Manager Required: No Is patient in pain?: No Allergies acetaminophen [From [place]] Allergy (Mild, Verified 11/29/21 09:25) Other hydrocodone [From [place]] Allergy (Mild, Verified 11/29/21 09:25) Other Medications levothyroxine 75 mcg tablet 75 mcg PO DAILY 11/07/21 [History Confirmed 11/29/21] prenat.vits,jaswant,azq-ngpz-fcwn c 1 tab PO DAILY 11/13/21 [History Confirmed 11/29/21] sertraline 50 mg tablet 100 mg PO DAILY tab 11/13/21 [History Confirmed 11/29/21] Last Menstral Period: 09/20/21 Zika: Zika virus screening: Negative : No PFSH PFSH Medical History (Updated 11/29/21 @ 09:[address] Yenni Acuna MD) Anxiety Breast lump in female Thyroid disorder Family History Mother Breast cancer Asthma Social History adopted: No household members: significant other current occupational status: employed current occupation: [employer] pets and animals: No Smoking Status: Never smoker alcohol intake: never substance use type: does not use caffeine: Yes what type of physical activity do you participate in: none seatbelt use: always do you feel safe at home: Yes additional social history: BF:Noe Pregancy History 1 Elective abortions Hx Para 0 Spontaneous abortions Hx # Term Pregnancies Ectopic pregnancies Hx # Pregnancies Multiple births # of living children HPI NOB LMP 09/20/21 Details: MECHE ANGUIANO is a 26 year old who presents for New OB visit. OB Visit STEFANI Calculator Estimated Delivery Date Method Current WG Current Estimate 06/27/22 LMP (Certain) 10w 0d Expected Delivery Route/Plan Labor Preferences- CB/BF classes: [] labor support person: [] labor intervention preferences: [] pain management options preferred: [] cut cord/dad catch: [] : [] PP control planned: [] discussed possible routes of delivery and associated risks: [] special requests: [] Specific Issue/Plans Covid status: discussed Flu vaccine: discussed Tdap vaccine: [] Rhogam: [] LARC form signed: [] Problem list reviewed and updated with the most current plan of care details and appropriate orders placed. Relevant counseling for the gestational age provided. Continue routine care and follow up unless otherwise noted in visit notes/problem list details Initial Weight: 161 lb Date -???-???-???-???-???-???-???- ???-???-???-???-???- EGA Weight BP Urine Prot -???-???-???-???-???-???-???- ???-???-???-???-???- Glucose FHR FuHt Pres Dilation -???-???-???-???-???-???-???- ???-???-???-???-???- Effaced St Visit Note 11/29/21 -???-???-???-???-???-???-???- ???-???-???-???-???- 10w 0d 161 lb (+0 oz) -???-???-???-???-???-???-???- ???-???-???-???-???- 145 -???-???-???-???-???-???-???- ???-???-???-???-???- SM- CRL 3 cm cons with LMP Menstrual History Last Menstral Period: 09/20/21 Reported LMP: definite Normal amount/duration: Yes On hormonal BC at conception: No Antepartum Record Genetic Screening: Congenital Heart Defect: Other, Neural Tube Defect: Other, Hemoglobinopathy Or Carrier: Other, Cystic Fibrosis: Other, Chromosome Abnormality: Other, Joe-Sachs: Other, Hemophilia: Other, Intellectual Disability/Autism: Other, Recurrent Loss/Stillbirth: Other, Other Structural Defect: Other, Other Genetic Disease: Other and Maternal Metabolic Disorder: Other Infection History: Live with someone with TB or Exposed to TB: No, Patient or Partner has history of Genital Herpes: No, Rash or Viral illness since last mentrual period: No, Prior GBS-Infected child: No, History of STD: No, HIV Infection: No, History of Hepatitis: No, Recent travel outside of [place]: No, Concern for hepatitis exposure: No and Varicella immune: Yes (immune) Comments: no covid vaccines Medical History Medical History: Positive: Psychiatric (anxiety/zoloft), Thyroid dysfunction (synthroid), Seasonal allergies (OTC med prn) and Drug/latex allergies/reactions ([place]) and Negative: Diabetes, Hypertension, Heart disease, Auto-immune disorder, Kidney disease/UTI, Neurologic/epilepsy, Depression/ depression, Hepatitis/liver disease, Varicosities/phlebitis, Trauma/domestic violence, History of blood transfusions, D (Rh) Sensitized, Pulmonary (e.g.,TB,Asthma), Breast, Cabinet Builder surgery, Operations/hospitalizations, Anesthetic complications, History of abnormal pap, Uterine anomaly/nasra, Infertility, Anti-retroviral treatment, Relevant family history and Other ACOG First Trimester First Trimester: Desire for , Alcohol, Tobacco Cessation, Illicit/Recreational Drug/Substance Use, Intimate Partner Violence, Barriers to care, Unstable Housing, Communication Barriers, Environmental/Work Hazards, Anticipated Course of Care, Nurtrition and weight gain, Toxoplasmosis Precations, Use of Any medications, Sexual activity, Exercise, Dental Care, Sauna/Hot tub use, Seat Belt use, Childbirth classes/Hospital facilities, , Travel, Indications for Ultrasound and Screening for Aneuploidy ROS Const Reports system reviewed and no additional complaints, except as documented, Reports fatigue and Denies fever(s) Eyes Reports system reviewed and no additional complaints, except as documented ENT Reports system reviewed and no additional complaints, except as documented Card Denies chest pain and Denies dyspnea Resp Reports system reviewed and no additional complaints, except as documented, Denies cough and Denies dyspnea GI Denies abdominal pain and Reports nausea Reports system reviewed and no additional complaints, except as documented Musc Reports system reviewed and no additional complaints, except as documented Skin/Breast Reports system reviewed and no additional complaints, except as documented Neuro Yes system reviewed and no additional complaints, except as documented Psych Reports system reviewed and no additional complaints, except as documented Endo Reports system reviewed and no additional complaints, except as documented and Reports fatigue Exam Const General: healthy appearing, comfortable and no acute distress Orientation: alert [facility] Head: normal to inspection, normocephalic and atraumatic Ears: hearing grossly normal bilaterally and external ears normal Nose: external nose normal and nares normal Mouth: oral mucosae normal Teeth and gingiva: dentition normal Eyes General: appearance normal, both eyes and all related structures Neck Neck: normal visual inspection, no lymphadenopathy and supple Thyroid: thyroid normal Chest Chest palpation inspection: normal inspection of the chest Breast inspection: normal inspection of the breasts and normal inspection of the axillae Breast palpation: normal palpation of the breasts and normal palpation of the axillae Resp Effort Inspection: normal respiratory effort GI Inspection: normal to inspection Palpation: soft and no hepatosplenomegaly General: bladder normal to palpation External Female Exam: normal external appearance and normal appearance of the urethra Urethra: normal appearance of the urethra Speculum Exam - Vagina: normal appearance of the vagina and normal vaginal discharge Speculum Exam - Cervix: normal appearance of the cervix Bimanual Exam- Vagina Uterus: normal bimanual exam, bladder normal to palpation, non-tender and other Bimanual Exam- Adnexa, other: non-tender Skin General: no rashes or lesions noted Neuro Motor: muscle tone normal throughout and no movement abnormalities noted Extrem General: normal to inspection and full ROM Supplemental Info [facility] book given and patient encouraged to read about nutrition, exercise, weight gain, and food avoidance in . Coding Level of Care Code OB Routine Diagnoses Thyroid disorder E07.9 Anxiety F41.9 Supervision of high risk , antepartum O09.90 Z34.90 Assessment and Plan Assessment and Plan (1) Thyroid disorder: Status: Acute Comment: synthroid, labs q trimester (2) Anxiety: Status: Acute Comment: zoloft, counseling encouraged (3) Supervision of high risk , antepartum: Status: Acute Comment: STEFANI: 06/27/22 BF:Noe(Crystal) (4) : Status: Acute Comment: discussed genetic and carrier screen Orders: Orders: Type Screen Today Hepatitis B Surface Antigen Today Hepatitis C Antibody Today HIV - [facility] Today Syphilis Antibodies Today Rubella IgG Today T4 Free Direct Today Thyroid Stim Hormone (TSH) Today CBC W/Diff, Automated Today Culture, Urine Today Chlamydia/GC ABRAM aptima Today Urine Drug Screen ([facility]) Today Plan - Dr. Yenni Acuna MD: Patient oriented to practice and discussed care expectations and screenings. OG book offered to patient. Discussed routine and specially indicated labs if needed- patient consents to testing. see problem list details for plan information. Optional screening including carrier screenings, neural tube defect screening, sequential screening, and NIPT screening offered to patient and patient chose: considering NIPT 11/29/21 1027 <Electronically signed by Yenni Acuna MD> Date Yenni Acuna MD Cosigner Signature: Date (if applicable) CC: Marina Bronson MD Work Phone: Start: 11-07-2021 End: 11-07-2021 [employer]inter [employer] Office Visit Report Comments: See Note; NOTES: [facility] [address] [place] [address] OFFICE VISIT Date of Service: 11/07/21 MR#: [id number] Acct: [id number] Name: MECHE ANGUIANO Rep #: [id number] : 1995 Provider: Dr. Kaelyn Mcclain DO Age/Sex: 26/F Location: [facility] Status: Signed Intake Vital Signs 11/07/21 16:34 Height 5 ft 5 in Weight: 152 lb 2 oz BMI 25.3 BP 160/90 H Intake Visit Reasons: repeat US in office ok per JV Consumer Lending Manager Required: No Is patient in pain?: No Allergies acetaminophen [From [place]] Allergy (Mild, Verified 11/07/21 16:33) Other hydrocodone [From [place]] Allergy (Mild, Verified 11/07/21 16:33) Other Medications levothyroxine 75 mcg tablet 75 mcg PO DAILY 11/07/21 [History Confirmed 11/07/21] promethazine 12.5 mg tablet 12.5 mg PO Q6H PRN #60 tab 11/07/21 [Rx Confirmed 11/07/21] sertraline 50 mg tablet 50 mg PO DAILY 11/07/21 [History Confirmed 11/07/21] Is last menstrual period known: Yes Post menopausal: No Patient : Yes : No [facility] Medical History (Updated 11/07/21 @ 16:[address] Kaelyn Quinteros DO) Anxiety Breast lump in female Thyroid disorder Family History Mother Breast cancer Asthma Social History Smoking Status: Never smoker alcohol intake: never substance use type: does not use caffeine: Yes what type of physical activity do you participate in: none seatbelt use: always do you feel safe at home: Yes additional social history: Seperated- works at [employer] HPI repeat US in office ok per JV Details: MECHE ANGUIANO is a 26 year old who presents for possible miscarriage follow up. Last week she had an ultrasound that did not show a heart beat and measured 6 weeks 1 day. She denies cramping or bleeding and states that she very much feels with nausea and anxiousness about what is going on. Pregancy History 1 Elective abortions Hx Para Spontaneous abortions Hx # Term Pregnancies Ectopic pregnancies Hx # Pregnancies Multiple births # of living children ROS Const ROS Unobtainable: All systems reviewed are unremarkable except as noted in H Resp Resp: Reports system reviewed and no additional complaints, except as documented; Denies cough GI GI: Reports as per HPI Psych Psych: Reports system reviewed and no additional complaints, except as documented Exam Const General: cooperative, healthy appearing, comfortable and no acute distress Resp Effort Inspection: normal respiratory effort Skin General: no rashes or lesions noted Psych Appearance: grossly normal Speech and Movement: speech and movement normal Coding Level of Care Code Off vis,est,level 3 Diagnoses Threatened O20.0 Assessment and Plan Assessment and Plan (1) Threatened : Status: Acute Comment: heart tones on ultrasound 11/07 with CRL measuring 7 weeks 0 days Plan - Dr. Kaelyn Quinteros, DO: pt reassured and plans to keep new ob appt next month. Plan Details Other Medications: New: promethazine 12.5 mg PO Q6H PRN 60 tabs 4RF nasuea 11/07/21 7227 <Electronically signed by Kaelyn Quinteros DO> Date Kaelyn Quinteros DO Cosigner Signature: Date (if applicable) CC: Marina Bronson MD Work Phone: Start: 10-30-2021 End: 10-31-2021 Transvaginal w/Preg US Comments: See Note; NOTES: [facility] Imaging Services [address] [place] [address] Transvaginal w/Preg US MR#: [id number] Acct: [id number] Name: MECHE ANGUIANO Rep #: [id number] : 1995 F 26 From: Tyree olivo MD PCP: Dr. Marina Bronson MD Status: REG CLI Study: Transvaginal w/Preg US Date of Exam: 10/30/21 Exam# [id number] Ordering Dr: Nazia Flowers MORTAR MAKER MORTAR MAKER -C STUDY: FIRST TRIMESTER OBSTETRICAL ULTRASOUND REASON FOR EXAM: Female, 26 years old viability -- previous US 10/22/21 LMP: 09/20/2021. TECHNIQUE: Transvaginal TECHNICAL QUALITY: Adequate. PRIOR ULTRASOUND: None. FINDINGS: There is visualization of a single gestational sac in a normal intrauterine position. The mean sac diameter (MSD) measures 1.5 cm, indicating an estimated gestational age (EGA) of 6 weeks, 2 days. The gestational sac shape is within normal limits. There is a visualized yolk sac. The yolk sac measures 3.2 mm. The placenta is non-visualized. Findings suggestive of embryonic pole. The crown-rump length (CRL) measures 3 mm, indicating an estimated gestational age (EGA) of 6 weeks, 1 days. There is no demonstrated cardiac activity . The estimated gestation age (EGA) by LMP is 5 weeks, 5 days. The estimated date of delivery (STEFANI) by LMP is 06/27/2022. The estimated gestation age (EGA) by US is 6 weeks, 1 days. The estimated date of delivery (STEFANI) by US is 06/24/2022. The uterus measures 8.7 cm x 5.7 cm x 4.5 cm. There is no demonstrated uterine fibroid. The cervix is closed. The right ovary measures 2.9 cm x 2.4 cm x 1.9 cm. There is no right ovarian cyst. There is no visualized right adnexal mass or complex lesion. The left ovary measures 4.1 cm x 3.9 cm x 2.3 cm. There is a 3.3 cm x 2 cm x 2.4 cm cyst in the left ovary. There is also evidence of a 2.5 cm x 2 cm x 2.3 cm complex cyst in the left ovary. There is no visualized left adnexal mass or complex lesion. There is no fluid in the cul de sac. US/Transvaginal w/Preg US IMPRESSION: Intrauterine gestational sac containing a yolk sac and possible pole. No cardiac activity is noted. Estimated gestational age is 6 weeks and 1 day. Left ovarian cyst. Left ovarian complex cyst. Electronically Signed: Tyree Faulkner MD at 10:31 EDT Reading Location ID and State: [facility] / [place] , Service support , CC: ILIA Flowers; Dr. Marina Bronson MD Reheat Furnace Operator: Signed Marina Bronson MD Work Phone: Start: 10-22-2021 End: 10-23-2021 Transvaginal w/Preg US Comments: See Note; NOTES: [facility] Imaging Services [address] [place] [id number] Transvaginal w/Preg US MR#: [id number] Acct: [id number] Name: MECHE ANGUIANO Rep #: [id number] : 1995 F 26 From: Tyree olivo MD PCP: Dr. Marina Bronson MD Status: REG CLI Study: Transvaginal w/Preg US Date of Exam: 10/22/21 Exam# [id number] Ordering Dr: Yenni Acuna STUDY: FIRST TRIMESTER OBSTETRICAL ULTRASOUND REASON FOR EXAM: Female, 26 years old viability/rule out ectopic -- STAT read/call office LMP: 09/20/2021. TECHNIQUE: Transvaginal TECHNICAL QUALITY: Adequate. PRIOR ULTRASOUND: Comparison is made with prior study 10/19/2021. FINDINGS: There is visualization of a single gestational sac in a normal intrauterine position. The mean sac diameter (MSD) measures 3.9 mm, indicating an estimated gestational age (EGA) of 5 weeks, 0 days. The gestational sac shape is within normal limits. There is no demonstrated yolk sac. The placenta is non-visualized. There is no demonstrated embryo ( pole). The estimated gestation age (EGA) by LMP is 4 weeks, 4 days. The estimated date of delivery (STEFANI) by LMP is 06/27/2022. The estimated gestation age (EGA) by US is 5 weeks, 0 days. The estimated date of delivery (STEFANI) by US is 06/24/2022. The uterus measures 8 cm x 6.1 cm x 4.4 cm. There is no demonstrated uterine fibroid. The cervix is closed. The right ovary measures 2.5 cm x 1.6 cm x 1.5 cm. There is no right ovarian cyst. There is no visualized right adnexal mass or complex lesion. The left ovary measures 3.8 cm x 4.1 cm x 3.1 cm. A a solid nodule measuring 2.9 cm x 2.1 cm x 2.3 cm is seen within the ovary. An ectopic cannot be excluded.. Adjacent to this, there is evidence of a 2.4 cm x 1.5 cm x 1.9 cm simple cyst in the left ovary. There is no fluid in the cul de sac. US/Transvaginal w/Preg US IMPRESSION: 3.9 mm rounded fluid collection is seen within the endometrium. No yolk sac or pole is seen. There is a 2.9 cm x 2.1 cm by 2.3 cm solid nodule in the left ovary adjacent to a 2.4 cm x 1.5 cm x 1.9 cm ovarian cyst. An ectopic patency cannot be excluded. Serial beta hCG correlation is recommended. Electronically Signed: Tyree Faulkner MD at 9:37 EDT , CC: Dr. Marina Bronson MD; Dr. Yenni Acuna MD Reheat Furnace Operator: Signed Marina Bronson MD Work Phone: Start: 10-19-2021 End: 10-23-2021 Transvaginal w/Preg US Comments: See Note; NOTES: [facility] Imaging Services [address] [place] [address] Transvaginal w/Preg US MR#: [id number] Acct: [id number] Name: MECHE ANGUIANO Rep #: [id number] : 1995 F 26 From: Benigno Chery PCP: Dr. Marina Bronson MD Status: [facility] Study: Transvaginal w/Preg US Date of Exam: 10/19/21 Exam# [id number] Ordering Dr: Alex Knox DO STUDY: FIRST TRIMESTER OBSTETRICAL ULTRASOUND REASON FOR EXAM: Female, 26 years old. Pelvic pain TECHNIQUE: Transvaginal US was obtained to better visualized the ovaries. TECHNICAL QUALITY: Adequate. PRIOR ULTRASOUND: None. FINDINGS: There is no demonstrated intrauterine gestational sac. There is no demonstrated yolk sac. The placenta is non-visualized. There is no demonstrated embryo ( pole). The estimated gestation age (EGA) by LMP is 4 weeks, 1 days. The estimated date of delivery (STEFANI) by LMP is 12.1.22. The uterus measures 8 x 5.1 cm. There is no demonstrated uterine fibroid. The cervix is closed. Endometrial stripe is 13 mm. Possible arcuate uterus. The right ovary measures in cm: 2.5 x 1.9. Prominent follicle measures 9 mm. There is no visualized right adnexal mass or complex lesion. The left ovary measures 3.3 x 3.2 cm. Complex cyst measures 22 x 23 mm. This has the appearance of a hemorrhagic cyst Second cyst measures 16 x 15 mm. This has appearance of a simple cyst. There is no visualized left adnexal mass or complex lesion. There is no fluid in the cul de sac. US/Transvaginal w/Preg US IMPRESSION: There is no intrauterine Complex cyst measures 22 x 23 mm. This has the appearance of a hemorrhagic cyst or collapsing cyst, or involuting corpus luteum cyst. However, given patient history ectopic is not excluded but felt to be less likely given that there is no free fluid in the pelvis. . Electronically Signed: Benigno Hope MD at 18:44 EDT Reading Location ID and State: [facility] / [place] , Service support , CC: Dr. Marina Bronson MD; Dr. Alex Knox DO Reheat Furnace Operator: Signed Marina Bronson MD Work Phone: Start: 10-19-2021 End: 10-19-2021 Emergency Department Summary Comments: See Note; NOTES: [facility] Medical Records Department [address] [place] [id number] Emergency Department Summary 10/19/21 MR#: [id number] Acct: [id number] Name: MECHE ANGUIANO Rep #: [id number] : 1995 26 From: Alex Knox DO PCP: Dr. Marina Bronson MD Status:DEP ER Location: ED HPI HPI - Female History of Present Illness Chief Complaint: Informant: patient Pain Pain: Positive for Pelvic Pain Onset: Days (3) Context: Gradual Onset Timing: Continuous Quality: Positive for Dull Location: LLQ Bleeding Maximum Severity: Spotting (2 days ago) Associated Symptoms Associated Symptoms: Negative for Dysuria and Hematuria Last known menstrual period: 09/20/2021 P: 0 Ab: 0 Narrative Narrative: Patient presents with pelvic pain that has been getting worse over the past 3 days. Patient states that she was supposed to start her menstrual cycle yesterday. Patient states that when the pain began she thought it was typical menstrual cramping. Patient went to her doctor today and was diagnosed with a positive test. Quantitative hCG was 619 earlier today. Patient states that her primary care physician told her to come to the emergency department for possible ectopic . Patient is 1 para 0. Patient states she had some mild spotting 2 days ago but denies any other vaginal bleeding or discharge. Patient states her pain is worse over the left lower abdomen and pelvis area. Patient states her pain is worse with walking. [facility] Medical History (Updated 10/19/21 @ 19:[address] Alex Knox DO) Anxiety Breast lump in female Thyroid disorder Home Medications escitalopram oxalate 10 mg tablet 10 mg PO QDAY 08/28/17 [History Last Taken Unknown] levonorgestrel 0.15 mg-ethinyl estradiol 0.03 mg tablet 1 tab PO DAILY #84 tab 10/22/18 [Rx Last Taken Unknown] metronidazole 500 mg tablet 500 mg PO BID #14 tab 11/25/19 [Rx Last Taken Unknown] Allergy/AdvReac Type Severity Reaction Status Date / Time acetaminophen [From [place]] Allergy Mild Other Verified 10/19/21 16:29 hydrocodone [From [place]] Allergy Mild Other Verified 10/19/21 16:29 Family History Mother Breast cancer Asthma Social History Smoking Status: Never smoker alcohol intake: never substance use type: does not use caffeine: Yes what type of physical activity do you participate in: none seatbelt use: always do you feel safe at home: Yes additional social history: Seperated- works at [employer] ED Constitutional Constitutional ED: Denies chills or fever(s) Eyes Eyes: Denies blurry vision or change in vision ENT ENT ED: Denies rhinorrhea or sore throat Cardiovascular Cardiovascular: Denies chest pain or palpitations Respiratory/Chest Respiratory/Chest: Denies cough or dyspnea Gastrointestinal Gastrointestinal: Reports abdominal pain; Denies nausea or vomiting Genitourinary Genitourinary ED: Denies dysuria or hematuria Musculoskeletal Musculoskeletal: Denies back pain or neck pain Integumentary Denies abscess or rash Neurologic Neurologic: Denies headache(s) or weakness Allergic/Immunologic Allergic/Immunologic ED: Denies mouth swelling or urticaria EXAM Physical Exam Const Vital Signs: 10/19/21 16:21 Temperature 97.6 F L Temperature Source Temporal Pulse Rate 119 H Respiratory Rate 18 Blood Pressure 168/89 H Blood Pressure Mean 115 Pulse Ox 97 Oxygen Delivery Method Room Air Positive well nourished and well developed General Appearance ED: well developed and NAD HEENT Reports moist mucous membranes Neck supple and no JVD Resp normal respiratory effort and clear to auscultation bilaterally Cardio regular rate, regular rhythm and no murmurs GI normal to inspection, nondistended, normoactive bowel sounds and soft to palpation Palpation: soft and tender LLQ; Negative for guarding or rigid Extremity normal to inspection General Extremety ED: Negative for edema or tenderness General Extremity: Negative for edema Neuro oriented x3, CN's II-XII intact bilaterally and no sensory deficits noted Sensorium / Orientation: alert Motor Exam: strength 5/5 throughout Psych mental status grossly normal Skin no rashes or lesions noted MDM MDM MDM Narrative Medical decision making narrative: Patient was given IV fluids. CBC was within normal limits. Basic metabolic profile was within normal limits. Urinalysis does not show any evidence of urinary tract infection. Blood type is A positive. Outpatient quantitative hCG was 619 earlier today. Pelvic ultrasound was obtained. There are cysts on the left ovary. There is a complex cyst measuring 22 x 23 mm which has the appearance of a hemorrhagic cyst. There is a second cyst measuring 16 x 15 mm. This looks like a simple cyst. There is no adnexal mass or complex lesion. There is no intrauterine visualized. Patient was advised of her findings. Patient was advised that her quantitative hCG levels may be too low to see an intrauterine at this time. Patient was instructed to follow-up with her [facility] in 2 to 3 days for repeat quantitative hCG and reevaluation. Patient was instructed to return if worse in any way. Patient understood and was agreeable with the plan. All questions were answered. Lab Data Attestation: I reviewed the patient's lab results. Labs: Laboratory Results - last 24 hr 10/19/21 10/19/21 10/19/21 17:25 17:25 17:25 WBC 8.1 RBC 4.86 Hgb 14.3 Hct 43.9 MCV 90.3 MCH 29.4 MCHC 32.6 RDW Std Deviation 40.3 RDW Coeff of Anai 12.2 Plt Count 240 MPV 10.7 Immature Gran % (Auto) 0.100 Neut % (Auto) 72.3 H Lymph % (Auto) 21.0 Sab[place] % (Auto) 5.0 Eos % (Auto) 1.0 Baso % (Auto) 0.6 Absolute Neuts (auto) 5.8 Absolute Lymphs (auto) 1.70 Nucleated RBC % 0 Sodium 136 Potassium 3.5 Chloride 105 Carbon Dioxide 25.0 Anion Gap 6 BUN 11 Creatinine 0.95 Estim Creat Clear Calc 80.75 Est GFR (MDRD) Af Amer 91 Est GFR (MDRD) Non-Af 75 BUN/Creatinine Ratio 11.6 Glucose 95 Calcium 9.2 Urine Color Urine Clarity Urine pH Ur Specific [place] Urine Protein Urine Glucose (UA) Urine Ketones Urine Occult Blood Urine Nitrite Urine Bilirubin Urine Urobilinogen Ur Leukocyte Esterase Urine RBC Urine WBC Ur Squamous Epith Cells Urine Bacteria Urine Mucus Blood Type A POSITIVE 10/19/21 17:40 WBC RBC Hgb Hct MCV MCH MCHC RDW Std Deviation RDW Coeff of Anai Plt Count MPV Immature Gran % (Auto) Neut % (Auto) Lymph % (Auto) Sabine % (Auto) Eos % (Auto) Baso % (Auto) Absolute Neuts (auto) Absolute Lymphs (auto) Nucleated RBC % Sodium Potassium Chloride Carbon Dioxide Anion Gap BUN Creatinine Estim Creat Clear Calc Est GFR (MDRD) Af Amer Est GFR (MDRD) Non-Af BUN/Creatinine Ratio Glucose Calcium Urine Color Yellow Urine Clarity Clear Urine pH 6.5 Ur Specific [place] 1.010 Urine Protein Negative Urine Glucose (UA) Normal Urine Ketones 15 H Urine Occult Blood 25 H Urine Nitrite Negative Urine Bilirubin Negative Urine Urobilinogen Normal Ur Leukocyte Esterase Negative Urine RBC 0 SEEN Urine WBC 0 SEEN Ur Squamous Epith Cells 0-5 SEEN Urine Bacteria RARE Urine Mucus 0 SEEN Blood Type Radiography Diagnostic Testing: Clinical Impression(s) from Imaging Studies Obstetrics Ultrasound 10/19/21 17:05 IMPRESSION: There is no intrauterine Complex cyst measures 22 x 23 mm. This has the appearance of a hemorrhagic cyst or collapsing cyst, or involuting corpus luteum cyst. However, given patient history ectopic is not excluded but felt to be less likely given that there is no free fluid in the pelvis. . Electronically Signed: Benigno Hope MD at 18:44 EDT Reading Location ID and State: [facility] / [place] , Service support , Discharge Plan Triage Chief Complaint: Other Complaint: Abd Pain ED Provider: Alex Knox Dx/Rx/DC Orders Clinical Impression: , Ovarian cyst during in first trimester Instructions: ED Abdominal Pain, Early Prescriptions: No Action escitalopram oxalate 10 mg tablet 10 mg PO QDAY RF: 0 levonorgestrel-ethinyl estrad 0.15-0.03 mg tablet 1 tab PO DAILY Qty: 84 RF: 4 metronidazole [Flagyl] 500 mg tablet 500 mg PO BID Qty: 14 RF: 0 Primary Care Provider: Marina Bronson Referrals: Marina Bronson MD [Primary Care Provider] - 5-7 Days Yenni Acuna MD [STAFF PHYSICIAN] - 3-5 Days Activity Restrictions/Additional Instructions: You may start taking vitamins. They are [id number]. Disposition Disposition: Home, Self Care What to do if you have Problems For any increased pain, shortness of breath, bleeding, nausea or vomiting, chest pain, or any unexpected problems, contact your Primary Care Provider. Call [facility] ([phone]) or report to the closest Emergency Room. Call 911 if necessary. 10/19/212211 <Electronically signed by Alex Knox DO> Cosigner Signature (if applicable): CC: Dr. Marina Bronson MD Signed Marina Bronson MD Work Phone: Start: 07-02-2019 End: 07-05-2019 Parathyroid scan Comments: See Note; NOTES: [facility] Imaging Services [address] [place] [address] Parathyroid Scan MR#: [id number] Acct: [id number] Name: MECHE ANGUIANO Rep #: [id number] : 1995 F 24 From: Casper Lugo DO PCP: Marina Bronson MD Status: REG CLI Study: Parathyroid Scan Date of Exam: 07/02/19 Exam# [id number] Ordering Dr: Marina Bronson MD CLINICAL: 24-year-old female with history of clinically apparent thyromegaly 99m Tc SESTAMIBI DUAL PHASE PARATHYROID SCINTIGRAPHY COMPARISON: Thyroid ultrasound report 06/30/2019 FINDINGS: Following the intravenous administration of 25.4 mCi of 99m Tc sestamibi, image acquisitions of the anterior neck at approximately 20 minutes and approximately 2.0 hours post radiopharmaceutical provision reveal: 1. Immediate static blood pool acquisitions demonstrate distribution of the radiopharmaceutical in the right-left thyroid colloid. Subtle prominent uptake is noted in the left anterior neck caudal to the inferior pole of the left lobe thyroid colloid. 2. Delayed images depict symmetric near complete washout of the radiotracer from the right thyroid bed. Asymmetric persistent uptake is noted in the left thyroid bed and left anterior neck adjacent to the inferior pole of the left thyroid bed. NM/Parathyroid Scan IMPRESSION: 1. The persistent relative increase in radiopharmaceutical concentration identified in the left thyroid bed and left anterior neck may represent the presence of parathyroid adenoma. 2. No other definitive scintigraphic abnormalities are visualized. Electronically Signed: Casper Lugo DO at 11:04 EST Tel , Service support , CC: Marina Bronson MD Reheat Furnace Operator: Signed Marina Bronson Work Phone: Start: 06-30-2019 End: 06-30-2019 Thyroid Comments: See Note; NOTES: [facility] Imaging Services [address] [place] [id number] Thyroid MR#: [id number] Acct: [id number] Name: MECHE ANGUIANO Rep #: [id number] : 1995 F 24 From: Leeroy Gerardo MD PCP: Marina Bronson MD Status: REG CLI Study: Thyroid Date of Exam: 06/30/19 Exam# [id number] Ordering Dr: Marina Bronson MD STUDY: THYROID ULTRASOUND REASON FOR EXAM: Female, 24 years old. Enlarged thyroid TECHNIQUE: Ultrasound evaluation of the thyroid was performed with real-time and static almendarez-scale imaging. COMPARISON: None. FINDINGS: RIGHT LOBE: The right lobe of the thyroid gland measures 3.6 x 1.2 x 1.1 cm. There is a homogeneous echotexture. There are no demonstrated solid, cystic or complex lesions. LEFT LOBE: The left lobe of the thyroid gland measures 3.7 x 1.1 x 0.9 cm. There is a homogeneous echotexture. There are no demonstrated solid, cystic or complex lesions. ISTHMUS: The isthmus measures 2 mm . The regional lymph nodes are normal. US/Thyroid IMPRESSION: Normal ultrasound examination of the thyroid. Electronically Signed: Leeroy Gerardo MD at 16:15 EST , Service support , CC: Marina Bronson MD Reheat Furnace Operator: Signed Marina Bronson Work Phone: Plan of Treatment Date Care Activity Detail Author Start: 11-30-2021 Syphilis test non-treponemal antibody qual RPR (RAPID PLASMA REAGIN) ([id number]) [facility]; [facility] Work Phone: Start: 11-30-2021 Syphilis test quantitative SYPHILIS ASSAY (39875) [facility]; [facility] Work Phone: Start: 11-30-2021 Culture bct isol&prsmptv id isolate ea urine URINE NAI CULTURE-IDENTIFICATN ([id number]) [facility]; [facility] Work Phone: Start: 11-06-2021 Gonadotropin chorionic qualitative HCG Qualitative, Serum (30734) [facility]; [facility] Work Phone: Payers Date Payer Category Payer Unknown [id number] Unknown Pedro BC/BS Unknown [id number] Social History Date Type Detail Facility Alcohol Use: Alcohol Use: [facility] Work Phone: Medical Equipment Procedure Code Equipment Code Equipment Origin al Text Equipment Identifier Dates ReliOn Blood Glu cose Test In Vitro Strip 1 (one) Each test 4 times daily and as needed for 0 days Quantity: 150 {Each} Refills: 3 Ordered: 06-May-2022 Slarb THORACIC MEDICINE PHYSICIAN, May Start : 06-May-2022 Active Comments: Medication taken as needed. Dx O24.419 Start: 05-06-2022 Clinical Notes Note Date & Type Note Facility [facility]; [facility] Work Phone: Instructions* Name Dates Details How to access health informa tion online Indication:BMI 23.0-23.9, adult Start:09-Feb-2019 Instruction Type:Patient Education How to access health informa tion online - Detail Indication:BMI 23.0-23.9, adult Start:09-Feb-2019 Instruction Type:Patient Education Patient Instructions Indication:BMI 23.0-23.9, adult Start:09-Feb-2019 Instruction Type:Provider Instructions for Treatment How to access health informa tion online Indication:Vaginal discharge Start:31-Jul-2018 Instruction Type:Patient Education How to access health informa tion online - Detail Indication:Vaginal discharge Start:31-Jul-2018 Instruction Type:Patient Education Patient Instructions Indication:Vaginal discharge Start:31-Jul-2018 Instruction Type:Provider Instructions for Treatment [facility]; [facility] Work Phone: Instructions* Name Dates Details How to access health informa tion online Indication:BMI 23.0-23.9, adult Start:09-Feb-2019 Instruction Type:Patient Education How to access health informa tion online - Detail Indication:BMI 23.0-23.9, adult Start:09-Feb-2019 Instruction Type:Patient Education Patient Instructions Indication:BMI 23.0-23.9, adult Start:09-Feb-2019 Instruction Type:Provider Instructions for Treatment How to access health informa tion online Indication:Vaginal discharge Start:31-Jul-2018 Instruction Type:Patient Education How to access health informa tion online - Detail Indication:Vaginal discharge Start:31-Jul-2018 Instruction Type:Patient Education Patient Instructions Indication:Vaginal discharge Start:31-Jul-2018 Instruction Type:Provider Instructions for Treatment [facility] Work Phone: [facility]* Name Dates Details How to access health informa tion online Indication:BMI 23.0-23.9, adult Start:09-Feb-2019 Instruction Type:Patient Education How to access health informa tion online - Detail Indication:BMI 23.0-23.9, adult Start:09-Feb-2019 Instruction Type:Patient Education Patient Instructions Indication:BMI 23.0-23.9, adult Start:09-Feb-2019 Instruction Type:Provider Instructions for Treatment How to access health informa tion online Indication:Vaginal discharge Start:31-Jul-2018 Instruction Type:Patient Education How to access health informa tion online - Detail Indication:Vaginal discharge Start:31-Jul-2018 Instruction Type:Patient Education Patient Instructions Indication:Vaginal discharge Start:31-Jul-2018 Instruction Type:Provider Instructions for Treatment [facility]; [facility] Work Phone: [facility]* Name Dates Details How to access health informa tion online Indication:BMI 23.0-23.9, adult Start:09-Feb-2019 Instruction Type:Patient Education How to access health informa tion online - Detail Indication:BMI 23.0-23.9, adult Start:09-Feb-2019 Instruction Type:Patient Education Patient Instructions Indication:BMI 23.0-23.9, adult Start:09-Feb-2019 Instruction Type:Provider Instructions for Treatment How to access health informa tion online Indication:Vaginal discharge Start:31-Jul-2018 Instruction Type:Patient Education How to access health informa tion online - Detail Indication:Vaginal discharge Start:31-Jul-2018 Instruction Type:Patient Education Patient Instructions Indication:Vaginal discharge Start:31-Jul-2018 Instruction Type:Provider Instructions for Treatment [facility] Work Phone: [facility] Name Dates Details Patient Instructions Indication:Nonsmoker Start:06-Jun-2021 Instruction Type:Provider Instructions for Treatment How to Access Health Informa tion Online using Patient Portal and [employer] Apps Indication:Nonsmoker Start:06-Jun-2021 Instruction Type:Patient Education How to access health informa tion online Indication:BMI 23.0-23.9, adult Start:09-Feb-2019 Instruction Type:Patient Education How to access health informa tion online - Detail Indication:BMI 23.0-23.9, adult Start:09-Feb-2019 Instruction Type:Patient Education Patient Instructions Indication:BMI 23.0-23.9, adult Start:09-Feb-2019 Instruction Type:Provider Instructions for Treatment How to access health informa tion online Indication:Vaginal discharge Start:31-Jul-2018 Instruction Type:Patient Education How to access health informa tion online - Detail Indication:Vaginal discharge Start:31-Jul-2018 Instruction Type:Patient Education Patient Instructions Indication:Vaginal discharge Start:31-Jul-2018 Instruction Type:Provider Instructions for Treatment [facility]; [facility] Work Phone: [facility]* Name Dates Details Patient Instructions Indication:Nonsmoker Start:06-Jun-2021 Instruction Type:Provider Instructions for Treatment How to Access Health Informa tion Online using Patient Portal and [employer] Apps Indication:Nonsmoker Start:06-Jun-2021 Instruction Type:Patient Education How to access health informa tion online Indication:BMI 23.0-23.9, adult Start:09-Feb-2019 Instruction Type:Patient Education How to access health informa tion online - Detail Indication:BMI 23.0-23.9, adult Start:09-Feb-2019 Instruction Type:Patient Education Patient Instructions Indication:BMI 23.0-23.9, adult Start:09-Feb-2019 Instruction Type:Provider Instructions for Treatment How to access health informa tion online Indication:Vaginal discharge Start:31-Jul-2018 Instruction Type:Patient Education How to access health informa tion online - Detail Indication:Vaginal discharge Start:31-Jul-2018 Instruction Type:Patient Education Patient Instructions Indication:Vaginal discharge Start:31-Jul-2018 Instruction Type:Provider Instructions for Treatment [facility]; [facility] Work Phone: [facility]* Name Dates Details Patient Instructions Indication:Nonsmoker Start:06-Jun-2021 Instruction Type:Provider Instructions for Treatment How to Access Health Informa tion Online using Patient Portal and [employer] Apps Indication:Nonsmoker Start:06-Jun-2021 Instruction Type:Patient Education How to access health informa tion online Indication:BMI 23.0-23.9, adult Start:09-Feb-2019 Instruction Type:Patient Education How to access health informa tion online - Detail Indication:BMI 23.0-23.9, adult Start:09-Feb-2019 Instruction Type:Patient Education Patient Instructions Indication:BMI 23.0-23.9, adult Start:09-Feb-2019 Instruction Type:Provider Instructions for Treatment How to access health informa tion online Indication:Vaginal discharge Start:31-Jul-2018 Instruction Type:Patient Education How to access health informa tion online - Detail Indication:Vaginal discharge Start:31-Jul-2018 Instruction Type:Patient Education Patient Instructions Indication:Vaginal discharge Start:31-Jul-2018 Instruction Type:Provider Instructions for Treatment [facility]; [facility] Work Phone: [facility]* Name Dates Details Patient Instructions Indication:Nonsmoker Start:06-Jun-2021 Instruction Type:Provider Instructions for Treatment How to Access Health Informa tion Online using Patient Portal and [employer] Apps Indication:Nonsmoker Start:06-Jun-2021 Instruction Type:Patient Education How to access health informa tion online Indication:BMI 23.0-23.9, adult Start:09-Feb-2019 Instruction Type:Patient Education How to access health informa tion online - Detail Indication:BMI 23.0-23.9, adult Start:09-Feb-2019 Instruction Type:Patient Education Patient Instructions Indication:BMI 23.0-23.9, adult Start:09-Feb-2019 Instruction Type:Provider Instructions for Treatment How to access health informa tion online Indication:Vaginal discharge Start:31-Jul-2018 Instruction Type:Patient Education How to access health informa tion online - Detail Indication:Vaginal discharge Start:31-Jul-2018 Instruction Type:Patient Education Patient Instructions Indication:Vaginal discharge Start:31-Jul-2018 Instruction Type:Provider Instructions for Treatment [facility]; [facility] Work Phone: [facility]* Name Dates Details Patient Instructions Indication:Nonsmoker Start:06-Jun-2021 Instruction Type:Provider Instructions for Treatment How to Access Health Informa tion Online using Patient Portal and [employer] Apps Indication:Nonsmoker Start:06-Jun-2021 Instruction Type:Patient Education How to access health informa tion online Indication:BMI 23.0-23.9, adult Start:09-Feb-2019 Instruction Type:Patient Education How to access health informa tion online - Detail Indication:BMI 23.0-23.9, adult Start:09-Feb-2019 Instruction Type:Patient Education Patient Instructions Indication:BMI 23.0-23.9, adult Start:09-Feb-2019 Instruction Type:Provider Instructions for Treatment How to access health informa tion online Indication:Vaginal discharge Start:31-Jul-2018 Instruction Type:Patient Education How to access health informa tion online - Detail Indication:Vaginal discharge Start:31-Jul-2018 Instruction Type:Patient Education Patient Instructions Indication:Vaginal discharge Start:31-Jul-2018 Instruction Type:Provider Instructions for Treatment [facility]; [facility] Work Phone: [facility]* Name Dates Details Patient Instructions Indication:Nonsmoker Start:06-Jun-2021 Instruction Type:Provider Instructions for Treatment How to Access Health Informa tion Online using Patient Portal and [employer] Apps Indication:Nonsmoker Start:06-Jun-2021 Instruction Type:Patient Education How to access health informa tion online Indication:BMI 23.0-23.9, adult Start:09-Feb-2019 Instruction Type:Patient Education How to access health informa tion online - Detail Indication:BMI 23.0-23.9, adult Start:09-Feb-2019 Instruction Type:Patient Education Patient Instructions Indication:BMI 23.0-23.9, adult Start:09-Feb-2019 Instruction Type:Provider Instructions for Treatment How to access health informa tion online Indication:Vaginal discharge Start:31-Jul-2018 Instruction Type:Patient Education How to access health informa tion online - Detail Indication:Vaginal discharge Start:31-Jul-2018 Instruction Type:Patient Education Patient Instructions Indication:Vaginal discharge Start:31-Jul-2018 Instruction Type:Provider Instructions for Treatment [facility]; [facility] Work Phone: instructions* Name Dates Details Patient Instructions Indication:Nonsmoker Start:06-Jun-2021 Instruction Type:Provider Instructions for Treatment How to Access Health Informa tion Online using Patient Portal and [employer] Apps Indication:Nonsmoker Start:06-Jun-2021 Instruction Type:Patient Education How to access health informa tion online Indication:BMI 23.0-23.9, adult Start:09-Feb-2019 Instruction Type:Patient Education How to access health informa tion online - Detail Indication:BMI 23.0-23.9, adult Start:09-Feb-2019 Instruction Type:Patient Education Patient Instructions Indication:BMI 23.0-23.9, adult Start:09-Feb-2019 Instruction Type:Provider Instructions for Treatment How to access health informa tion online Indication:Vaginal discharge Start:31-Jul-2018 Instruction Type:Patient Education How to access health informa tion online - Detail Indication:Vaginal discharge Start:31-Jul-2018 Instruction Type:Patient Education Patient Instructions Indication:Vaginal discharge Start:31-Jul-2018 Instruction Type:Provider Instructions for Treatment [facility] [facility]; [facility] Work Phone: [employer]* Name Dates Details Patient Instructions Indication:Nonsmoker Start:06-Jun-2021 Instruction Type:Provider Instructions for Treatment How to Access Health Informa tion Online using Patient Portal and [employer] Apps Indication:Nonsmoker Start:06-Jun-2021 Instruction Type:Patient Education How to access health informa tion online Indication:BMI 23.0-23.9, adult Start:09-Feb-2019 Instruction Type:Patient Education How to access health informa tion online - Detail Indication:BMI 23.0-23.9, adult Start:09-Feb-2019 Instruction Type:Patient Education Patient Instructions Indication:BMI 23.0-23.9, adult Start:09-Feb-2019 Instruction Type:Provider Instructions for Treatment How to access health informa tion online Indication:Vaginal discharge Start:31-Jul-2018 Instruction Type:Patient Education How to access health informa tion online - Detail Indication:Vaginal discharge Start:31-Jul-2018 Instruction Type:Patient Education Patient Instructions Indication:Vaginal discharge Start:31-Jul-2018 Instruction Type:Provider Instructions for Treatment [facility]; [facility] Work Phone: instructions* Name Dates Details Patient Instructions Indication:Nonsmoker Start:06-Jun-2021 Instruction Type:Provider Instructions for Treatment How to Access Health Informa tion Online using Patient Portal and [employer] Apps Indication:Nonsmoker Start:06-Jun-2021 Instruction Type:Patient Education How to access health informa tion online Indication:BMI 23.0-23.9, adult Start:09-Feb-2019 Instruction Type:Patient Education How to access health informa tion online - Detail Indication:BMI 23.0-23.9, adult Start:09-Feb-2019 Instruction Type:Patient Education Patient Instructions Indication:BMI 23.0-23.9, adult Start:09-Feb-2019 Instruction Type:Provider Instructions for Treatment How to access health informa tion online Indication:Vaginal discharge Start:31-Jul-2018 Instruction Type:Patient Education How to access health informa tion online - Detail Indication:Vaginal discharge Start:31-Jul-2018 Instruction Type:Patient Education Patient Instructions Indication:Vaginal discharge Start:31-Jul-2018 Instruction Type:Provider Instructions for Treatment [facility]; [facility] Work Phone: instructions* Name Dates Details Patient Instructions Indication:Nonsmoker Start:06-Jun-2021 Instruction Type:Provider Instructions for Treatment How to Access Health Informa tion Online using Patient Portal and [employer] Apps Indication:Nonsmoker Start:06-Jun-2021 Instruction Type:Patient Education How to access health informa tion online Indication:BMI 23.0-23.9, adult Start:09-Feb-2019 Instruction Type:Patient Education How to access health informa tion online - Detail Indication:BMI 23.0-23.9, adult Start:09-Feb-2019 Instruction Type:Patient Education Patient Instructions Indication:BMI 23.0-23.9, adult Start:09-Feb-2019 Instruction Type:Provider Instructions for Treatment How to access health informa tion online Indication:Vaginal discharge Start:31-Jul-2018 Instruction Type:Patient Education How to access health informa tion online - Detail Indication:Vaginal discharge Start:31-Jul-2018 Instruction Type:Patient Education Patient Instructions Indication:Vaginal discharge Start:31-Jul-2018 Instruction Type:Provider Instructions for Treatment [facility]; [facility] Work Phone: Instructions* Name Dates Details Patient Instructions Indication:Nonsmoker Start:06-Jun-2021 Instruction Type:Provider Instructions for Treatment How to Access Health Informa tion Online using Patient Portal and [employer] Indication:Nonsmoker Start:06-Jun-2021 Instruction Type:Patient Education How to access health informa tion online Indication:BMI 23.0-23.9, adult Start:09-Feb-2019 Instruction Type:Patient Education How to access health informa tion online - Detail Indication:BMI 23.0-23.9, adult Start:09-Feb-2019 Instruction Type:Patient Education Patient Instructions Indication:BMI 23.0-23.9, adult Start:09-Feb-2019 Instruction Type:Provider Instructions for Treatment How to access health informa tion online Indication:Vaginal discharge Start:31-Jul-2018 Instruction Type:Patient Education How to access health informa tion online - Detail Indication:Vaginal discharge Start:31-Jul-2018 Instruction Type:Patient Education Patient Instructions Indication:Vaginal discharge Start:31-Jul-2018 Instruction Type:Provider Instructions for Treatment [facility]; [facility] Work Phone: Instructions* Name Dates Details Patient Instructions Indication:Nonsmoker Start:06-Jun-2021 Instruction Type:Provider Instructions for Treatment How to Access Health Informa tion Online using Patient Portal and [employer] Apps Indication:Nonsmoker Start:06-Jun-2021 Instruction Type:Patient Education How to access health informa tion online Indication:BMI 23.0-23.9, adult Start:09-Feb-2019 Instruction Type:Patient Education How to access health informa tion online - Detail Indication:BMI 23.0-23.9, adult Start:09-Feb-2019 Instruction Type:Patient Education Patient Instructions Indication:BMI 23.0-23.9, adult Start:09-Feb-2019 Instruction Type:Provider Instructions for Treatment How to access health informa tion online Indication:Vaginal discharge Start:31-Jul-2018 Instruction Type:Patient Education How to access health informa tion online - Detail Indication:Vaginal discharge Start:31-Jul-2018 Instruction Type:Patient Education Patient Instructions Indication:Vaginal discharge Start:31-Jul-2018 Instruction Type:Provider Instructions for Treatment [facility]; [facility] Work Phone: Instructions* Name Dates Details Patient Instructions Indication:Nonsmoker Start:06-Jun-2021 Instruction Type:Provider Instructions for Treatment How to Access Health Informa tion Online using Patient Portal and [employer] Apps Indication:Nonsmoker Start:06-Jun-2021 Instruction Type:Patient Education How to access health informa tion online Indication:BMI 23.0-23.9, adult Start:09-Feb-2019 Instruction Type:Patient Education How to access health informa tion online - Detail Indication:BMI 23.0-23.9, adult Start:09-Feb-2019 Instruction Type:Patient Education Patient Instructions Indication:BMI 23.0-23.9, adult Start:09-Feb-2019 Instruction Type:Provider Instructions for Treatment How to access health informa tion online Indication:Vaginal discharge Start:31-Jul-2018 Instruction Type:Patient Education How to access health informa tion online - Detail Indication:Vaginal discharge Start:31-Jul-2018 Instruction Type:Patient Education Patient Instructions Indication:Vaginal discharge Start:31-Jul-2018 Instruction Type:Provider Instructions for Treatment [facility]; [facility] Work Phone: Instructions Name Dates Details Vaginal discharge : How to a ccess health information online Indication:Vaginal discharge Vaginal discharge : How to a ccess health information online - Detail Indication:Vaginal discharge Vaginal discharge : Patient Instructions Indication:Vaginal discharge Name Dates Details Vaginal discharge : How to a ccess health information online Indication:Vaginal discharge Vaginal discharge : How to a ccess health information online - Detail Indication:Vaginal discharge Vaginal discharge : Patient Instructions Indication:Vaginal discharge Name Dates Details Vaginal discharge : How to a ccess health information online Indication:Vaginal discharge Vaginal discharge : How to a ccess health information online - Detail Indication:Vaginal discharge Vaginal discharge : Patient Instructions Indication:Vaginal discharge Name Dates Details Vaginal discharge : How to a ccess health information online Indication:Vaginal discharge Vaginal discharge : How to a ccess health information online - Detail Indication:Vaginal discharge Vaginal discharge : Patient Instructions Indication:Vaginal discharge Name Dates Details Vaginal discharge : How to a ccess health information online Indication:Vaginal discharge Vaginal discharge : How to a ccess health information online - Detail Indication:Vaginal discharge Vaginal discharge : Patient Instructions Indication:Vaginal discharge Name Dates Details Vaginal discharge : How to a ccess health information online Indication:Vaginal discharge Vaginal discharge : How to a ccess health information online - Detail Indication:Vaginal discharge Vaginal discharge : Patient Instructions Indication:Vaginal discharge Name Dates Details Vaginal discharge : How to a ccess health information online Indication:Vaginal discharge Vaginal discharge : How to a ccess health information online - Detail Indication:Vaginal discharge Vaginal discharge : Patient Instructions Indication:Vaginal discharge Name Dates Details How to access health informa tion online Indication:Vaginal discharge Start:31-Jul-2018 Instruction Type:Patient Edu cation How to access health informa tion online - Detail Indication:Vaginal discharge Start:31-Jul-2018 Instruction Type:Patient Edu cation Patient Instructions Indication:Vaginal discharge Start:31-Jul-2018 Instruction Type:Provider Instructions for Treatment Name Dates Details How to access health informa tion online Indication:Vaginal discharge Start:31-Jul-2018 Instruction Type:Patient Edu cation How to access health informa tion online - Detail Indication:Vaginal discharge Start:31-Jul-2018 Instruction Type:Patient Edu cation Patient Instructions Indication:Vaginal discharge Start:31-Jul-2018 Instruction Type:Provider Instructions for Treatment Name Dates Details How to access health informa tion online Indication:BMI 23.0-23.9, adult Start:09-Feb-2019 Instruction Type:Patient Education How to access health informa tion online - Detail Indication:BMI 23.0-23.9, adult Start:09-Feb-2019 Instruction Type:Patient Education Patient Instructions Indication:BMI 23.0-23.9, adult Start:09-Feb-2019 Instruction Type:Provider Instructions for Treatment How to access health informa tion online Indication:Vaginal discharge Start:31-Jul-2018 Instruction Type:Patient Education How to access health informa tion online - Detail Indication:Vaginal discharge Start:31-Jul-2018 Instruction Type:Patient Education Patient Instructions Indication:Vaginal discharge Start:31-Jul-2018 Instruction Type:Provider Instructions for Treatment Name Dates Details How to access health informa tion online Indication:BMI 23.0-23.9, adult Start:09-Feb-2019 Instruction Type:Patient Education How to access health informa tion online - Detail Indication:BMI 23.0-23.9, adult Start:09-Feb-2019 Instruction Type:Patient Education Patient Instructions Indication:BMI 23.0-23.9, adult Start:09-Feb-2019 Instruction Type:Provider Instructions for Treatment How to access health informa tion online Indication:Vaginal discharge Start:31-Jul-2018 Instruction Type:Patient Education How to access health informa tion online - Detail Indication:Vaginal discharge Start:31-Jul-2018 Instruction Type:Patient Education Patient Instructions Indication:Vaginal discharge Start:31-Jul-2018 Instruction Type:Provider Instructions for Treatment Name Dates Details How to access health informa tion online Indication:BMI 23.0-23.9, adult Start:09-Feb-2019 Instruction Type:Patient Education How to access health informa tion online - Detail Indication:BMI 23.0-23.9, adult Start:09-Feb-2019 Instruction Type:Patient Education Patient Instructions Indication:BMI 23.0-23.9, adult Start:09-Feb-2019 Instruction Type:Provider Instructions for Treatment How to access health informa tion online Indication:Vaginal discharge Start:31-Jul-2018 Instruction Type:Patient Education How to access health informa tion online - Detail Indication:Vaginal discharge Start:31-Jul-2018 Instruction Type:Patient Education Patient Instructions Indication:Vaginal discharge Start:31-Jul-2018 Instruction Type:Provider Instructions for Treatment Name Dates Details How to access health informa tion online Indication:BMI 23.0-23.9, adult Start:09-Feb-2019 Instruction Type:Patient Education How to access health informa tion online - Detail Indication:BMI 23.0-23.9, adult Start:09-Feb-2019 Instruction Type:Patient Education Patient Instructions Indication:BMI 23.0-23.9, adult Start:09-Feb-2019 Instruction Type:Provider Instructions for Treatment How to access health informa tion online Indication:Vaginal discharge Start:31-Jul-2018 Instruction Type:Patient Education How to access health informa tion online - Detail Indication:Vaginal discharge Start:31-Jul-2018 Instruction Type:Patient Education Patient Instructions Indication:Vaginal discharge Start:31-Jul-2018 Instruction Type:Provider Instructions for Treatment Name Dates Details How to access health informa tion online Indication:BMI 23.0-23.9, adult Start:09-Feb-2019 Instruction Type:Patient Education How to access health informa tion online - Detail Indication:BMI 23.0-23.9, adult Start:09-Feb-2019 Instruction Type:Patient Education Patient Instructions Indication:BMI 23.0-23.9, adult Start:09-Feb-2019 Instruction Type:Provider Instructions for Treatment How to access health informa tion online Indication:Vaginal discharge Start:31-Jul-2018 Instruction Type:Patient Education How to access health informa tion online - Detail Indication:Vaginal discharge Start:31-Jul-2018 Instruction Type:Patient Education Patient Instructions Indication:Vaginal discharge Start:31-Jul-2018 Instruction Type:Provider Instructions for Treatment Name Dates Details How to access health informa tion online Indication:BMI 23.0-23.9, adult Start:09-Feb-2019 Instruction Type:Patient Education How to access health informa tion online - Detail Indication:BMI 23.0-23.9, adult Start:09-Feb-2019 Instruction Type:Patient Education Patient Instructions Indication:BMI 23.0-23.9, adult Start:09-Feb-2019 Instruction Type:Provider Instructions for Treatment How to access health informa tion online Indication:Vaginal discharge Start:31-Jul-2018 Instruction Type:Patient Education How to access health informa tion online - Detail Indication:Vaginal discharge Start:31-Jul-2018 Instruction Type:Patient Education Patient Instructions Indication:Vaginal discharge Start:31-Jul-2018 Instruction Type:Provider Instructions for Treatment Name Dates Details How to access health informa tion online Indication:BMI 23.0-23.9, adult Start:09-Feb-2019 Instruction Type:Patient Education How to access health informa tion online - Detail Indication:BMI 23.0-23.9, adult Start:09-Feb-2019 Instruction Type:Patient Education Patient Instructions Indication:BMI 23.0-23.9, adult Start:09-Feb-2019 Instruction Type:Provider Instructions for Treatment How to access health informa tion online Indication:Vaginal discharge Start:31-Jul-2018 Instruction Type:Patient Education How to access health informa tion online - Detail Indication:Vaginal discharge Start:31-Jul-2018 Instruction Type:Patient Education Patient Instructions Indication:Vaginal discharge Start:31-Jul-2018 Instruction Type:Provider Instructions for Treatment Name Dates Details How to access health informa tion online Indication:BMI 23.0-23.9, adult Start:09-Feb-2019 Instruction Type:Patient Education How to access health informa tion online - Detail Indication:BMI 23.0-23.9, adult Start:09-Feb-2019 Instruction Type:Patient Education Patient Instructions Indication:BMI 23.0-23.9, adult Start:09-Feb-2019 Instruction Type:Provider Instructions for Treatment How to access health informa tion online Indication:Vaginal discharge Start:31-Jul-2018 Instruction Type:Patient Education How to access health informa tion online - Detail Indication:Vaginal discharge Start:31-Jul-2018 Instruction Type:Patient Education Patient Instructions Indication:Vaginal discharge Start:31-Jul-2018 Instruction Type:Provider Instructions for Treatment Name Dates Details How to access health informa tion online Indication:BMI 23.0-23.9, adult Start:09-Feb-2019 Instruction Type:Patient Education How to access health informa tion online - Detail Indication:BMI 23.0-23.9, adult Start:09-Feb-2019 Instruction Type:Patient Education Patient Instructions Indication:BMI 23.0-23.9, adult Start:09-Feb-2019 Instruction Type:Provider Instructions for Treatment How to access health informa tion online Indication:Vaginal discharge Start:31-Jul-2018 Instruction Type:Patient Education How to access health informa tion online - Detail Indication:Vaginal discharge Start:31-Jul-2018 Instruction Type:Patient Education Patient Instructions Indication:Vaginal discharge Start:31-Jul-2018 Instruction Type:Provider Instructions for Treatment Name Dates Details How to access health informa tion online Indication:BMI 23.0-23.9, adult Start:09-Feb-2019 Instruction Type:Patient Education How to access health informa tion online - Detail Indication:BMI 23.0-23.9, adult Start:09-Feb-2019 Instruction Type:Patient Education Patient Instructions Indication:BMI 23.0-23.9, adult Start:09-Feb-2019 Instruction Type:Provider Instructions for Treatment How to access health informa tion online Indication:Vaginal discharge Start:31-Jul-2018 Instruction Type:Patient Education How to access health informa tion online - Detail Indication:Vaginal discharge Start:31-Jul-2018 Instruction Type:Patient Education Patient Instructions Indication:Vaginal discharge Start:31-Jul-2018 Instruction Type:Provider Instructions for Treatment Name Dates Details How to access health informa tion online Indication:BMI 23.0-23.9, adult Start:09-Feb-2019 Instruction Type:Patient Education How to access health informa tion online - Detail Indication:BMI 23.0-23.9, adult Start:09-Feb-2019 Instruction Type:Patient Education Patient Instructions Indication:BMI 23.0-23.9, adult Start:09-Feb-2019 Instruction Type:Provider Instructions for Treatment How to access health informa tion online Indication:Vaginal discharge Start:31-Jul-2018 Instruction Type:Patient Education How to access health informa tion online - Detail Indication:Vaginal discharge Start:31-Jul-2018 Instruction Type:Patient Education Patient Instructions Indication:Vaginal discharge Start:31-Jul-2018 Instruction Type:Provider Instructions for Treatment Name Dates Details How to access health informa tion online Indication:BMI 23.0-23.9, adult Start:09-Feb-2019 Instruction Type:Patient Education How to access health informa tion online - Detail Indication:BMI 23.0-23.9, adult Start:09-Feb-2019 Instruction Type:Patient Education Patient Instructions Indication:BMI 23.0-23.9, adult Start:09-Feb-2019 Instruction Type:Provider Instructions for Treatment How to access health informa tion online Indication:Vaginal discharge Start:31-Jul-2018 Instruction Type:Patient Education How to access health informa tion online - Detail Indication:Vaginal discharge Start:31-Jul-2018 Instruction Type:Patient Education Patient Instructions Indication:Vaginal discharge Start:31-Jul-2018 Instruction Type:Provider Instructions for Treatment Name Dates Details How to access health informa tion online Indication:BMI 23.0-23.9, adult Start:09-Feb-2019 Instruction Type:Patient Education How to access health informa tion online - Detail Indication:BMI 23.0-23.9, adult Start:09-Feb-2019 Instruction Type:Patient Education Patient Instructions Indication:BMI 23.0-23.9, adult Start:09-Feb-2019 Instruction Type:Provider Instructions for Treatment How to access health informa tion online Indication:Vaginal discharge Start:31-Jul-2018 Instruction Type:Patient Education How to access health informa tion online - Detail Indication:Vaginal discharge Start:31-Jul-2018 Instruction Type:Patient Education Patient Instructions Indication:Vaginal discharge Start:31-Jul-2018 Instruction Type:Provider Instructions for Treatment Name Dates Details How to access health informa tion online Indication:BMI 23.0-23.9, adult Start:09-Feb-2019 Instruction Type:Patient Education How to access health informa tion online - Detail Indication:BMI 23.0-23.9, adult Start:09-Feb-2019 Instruction Type:Patient Education Patient Instructions Indication:BMI 23.0-23.9, adult Start:09-Feb-2019 Instruction Type:Provider Instructions for Treatment How to access health informa tion online Indication:Vaginal discharge Start:31-Jul-2018 Instruction Type:Patient Education How to access health informa tion online - Detail Indication:Vaginal discharge Start:31-Jul-2018 Instruction Type:Patient Education Patient Instructions Indication:Vaginal discharge Start:31-Jul-2018 Instruction Type:Provider Instructions for Treatment Name Dates Details How to access health informa tion online Indication:BMI 23.0-23.9, adult Start:09-Feb-2019 Instruction Type:Patient Education How to access health informa tion online - Detail Indication:BMI 23.0-23.9, adult Start:09-Feb-2019 Instruction Type:Patient Education Patient Instructions Indication:BMI 23.0-23.9, adult Start:09-Feb-2019 Instruction Type:Provider Instructions for Treatment How to access health informa tion online Indication:Vaginal discharge Start:31-Jul-2018 Instruction Type:Patient Education How to access health informa tion online - Detail Indication:Vaginal discharge Start:31-Jul-2018 Instruction Type:Patient Education Patient Instructions Indication:Vaginal discharge Start:31-Jul-2018 Instruction Type:Provider Instructions for Treatment Name Dates Details Vaginal discharge : How to a ccess health information online Indication:Vaginal discharge Vaginal discharge : How to a ccess health information online - Detail Indication:Vaginal discharge Vaginal discharge : Patient Instructions Indication:Vaginal discharge Name Dates Details How to access health informa tion online Indication:BMI 23.0-23.9, adult Start:09-Feb-2019 Instruction Type:Patient Education How to access health informa tion online - Detail Indication:BMI 23.0-23.9, adult Start:09-Feb-2019 Instruction Type:Patient Education Patient Instructions Indication:BMI 23.0-23.9, adult Start:09-Feb-2019 Instruction Type:Provider Instructions for Treatment How to access health informa tion online Indication:Vaginal discharge Start:31-Jul-2018 Instruction Type:Patient Education How to access health informa tion online - Detail Indication:Vaginal discharge Start:31-Jul-2018 Instruction Type:Patient Education Patient Instructions Indication:Vaginal discharge Start:31-Jul-2018 Instruction Type:Provider Instructions for Treatment Name Dates Details Vaginal discharge : How to a ccess health information online Indication:Vaginal discharge Vaginal discharge : How to a ccess health information online - Detail Indication:Vaginal discharge Vaginal discharge : Patient Instructions Indication:Vaginal discharge Summary Purpose Family History No Family History Records Found Advance Directives No Advanced Directives Records Found Additional Source Comments INFORMATION SOURCE (unrecogn ized section and content) FOR RECORDS PERTAINING TO PATIENTS WHO ARE OR HAVE BEEN ENROLLED IN A CHEMICAL DEPENDENCY/SUBSTANCEABUSE PROGRAM, SOME INFORMATION MAY BE OMITTED. This clinical summary was aggregated from multiple sources. Caution should be exercised in using it in the provision of clinical care. This summary normalizes information from multiple sources, and as a consequence, information in this document may materially change the coding, format and clinical context of patient data. In addition, data may be omitted in some cases. CLINICAL DECISIONS SHOULD BE BASED ON THE PRIMARY CLINICAL RECORDS. [facility]. provides no warranty or guarantee of the accuracy or completeness of information in this document.
== END | disposition home or self-care (01) ==
LOC: LABSPEC 10:01
PROVIDERS: PCP Internal Medicine; Referring Provider Internal Medicine; Visit Provider Internal Medicine
DX: R79.89 Other specified abnormal findings of blood chemistry (principal)
CPT/HCPCS: 84702

== ENCOUNTER → 2023-09-26 | Outpatient (CLI) | payer BC, SELFPAY ==
[2023-09-26 15:19] LABS: hCG Titer Quant., Serum 2921 mIU/mL (1-3)
--- OUTSIDE RECORDS SUMMARY | 2023-09-26 17:37 | XMS RPT_ITS | CCD ---
Author Name Unknown Address [address] [place] [address] Organization [facility] Care Team Providers Care Marketing Database Coordinator Name Role Phone Diamond Mclean E Unavailable [...] Tapan Mejia Unavailable Casper Reyes MD Unavailable [phone] EILEEN Stevenson LPN Unavailable Unavailable Anatoly Andrea LPN Unavailable Unavailable Silvio meche Unavailable Unavailable Edwin GUADALUPE May Unavailable Unavailable Unavailable Unavailable Marina Bronson MD Unavailable [phone] Gravius SLITTING MACHINE OPERATOR, Jyoti Unavailable Unavailable Marline Rosado MA Unavailable [...] index (BMI) [Ratio] 23.3 kg/m2 Anatoly Andrea JANITORIAL SERVICES SUPERVISOR [facility] Work Phone: 06-06-2021 11:34-0500 Body surface area Derived from formula 1.7 m2 Anatoly Andrea [facility] Work Phone: 06-06-2021 11:34-0500 Body temperature 101.4 [degF] Anatoly Andrea [facility] Work [...] Medicine Start: 11-01-2021 End: 11-01-2021 Phone Encounter Mraina Bronson MD Work Phone: [facility] [...] 06-26-2021 End: 06-26-2021 Lab Order Diamond Mclean [employer] Work Phone: [facility] Start: 06-08-2021 End: 06-08-2021 Phone Encounter Diamond Mclean [employer] Work Phone: [facility] Start: 06-06-2021 End: 06-08-2021 Erroneous Entry Diamond Mclean [employer] Work Phone: [facility] Start: 06-06-2021 End: 06-06-2021 Lab Order Diamond Mclean [employer] Work Phone: [facility] Start: 05-04-2021 End: 05-04-2021 Phone Encounter Diamond Mclean [employer] Work Phone: [facility] Start: 01-05-2021 End: 01-05-2021 Phone Encounter Diamond Mclean [employer] Work Phone: [facility] Start: 12-14-2020 End: 12-14-2020 Phone Encounter Diamond Mclean [employer] Work Phone: [facility] Start: 12-14-2020 End: 12-14-2020 Lab Order Diamond Mclean [employer] Work Phone: [facility] Start: 11-23-2020 Review Diamond Mclean [employer] Work Phone: [facility] Start: 09-18-2020 End: 09-18-2020 Lab Order Diamond Mclean [facility] Start: 07-24-2020 End: 07-24-2020 Annotation/Addendum Diamond Mclean [facility] Start: 07-24-2020 End: 07-24-2020 Annotation/Addendum Diamond Mclean [facility] Start: 07-07-2020 End: 07-07-2020 Phone Encounter Diamond Mclean [facility] Start: 06-21-2020 End: 06-21-2020 Phone Encounter Diamond Crespo Food Service Assistant al Medicine Start: 06-12-2020 End: 06-12-2020 Lab Order Diamond Mclean [facility] Start: 01-17-2020 End: 01-17-2020 Annotation/Addendum Diamond Mclean [facility] Start: 11-26-2019 End: 11-26-2019 Phone Encounter Diamond Crespo Food Service Assistant al Medicine Start: 07-19-2019 End: 07-19-2019 Lab Order Diamond Crespo Food Service Assistant [facility] Medicine Start: 06-29-2019 End: 06-29-2019 Lab Order Diamond Crespo Food Service Assistant [facility] Medicine Start: 06-29-2019 End: 06-29-2019 Phone Encounter Diamond Crespo Food Service Assistant [facility] Medicine Start: 06-29-2019 End: 06-29-2019 Phone Encounter Diamond Mclean [facility] Start: 04-15-2019 End: 04-15-2019 Annotation/Addendum Diamond Mclean [facility] Start: 04-05-2019 End: 04-05-2019 Phone Encounter Diamond Mclean [facility] Start: 04-02-2019 End: 04-02-2019 Phone Encounter Diamond Mclean [facility] Start: 02-25-2019 End: 02-25-2019 Phone Encounter Diamond Mclean [facility] Start: 02-10-2019 End: 02-10-2019 Phone Encounter Diamond Mclean [facility] Start: 02-09-2019 End: 02-09-2019 Office outpatient visit 40 minutes Diamond Caridad [facility] Start: 01-18-2019 End: 01-18-2019 Phone Encounter Diamond Mclean [facility] Start: 10-20-2018 Patient encounter procedure Diamond Mclean [facility] Start: 10-20-2018 End: 10-20-2018 Lab Order Diamond Mclean [facility] Start: 10-16-2018 Review Diamond Caridad Pacheco [facility] Start: 10-13-2018 End: 10-13-2018 Phone Encounter Diamond Mclean [facility] Start: 09-23-2018 End: 09-23-2018 Annotation/Addendum Diamond Mclean [facility] Start: 09-18-2018 End: 09-18-2018 Phone Encounter Diamond Mclean [facility] Start: 09-09-2018 End: 09-09-2018 Phone Encounter Diamond Mclean [facility] Start: 08-25-2018 End: 08-25-2018 Annotation/Addendum Diamond Mclean [facility] Start: 08-25-2018 End: 08-25-2018 Lab Order Diamond Mclean [facility] Start: 07-31-2018 End: 07-31-2018 Lab Order Diamond Mclean [facility] Start: 07-31-2018 End: 07-31-2018 Patient encounter procedure Marina Bronson MD Work Phone: [facility] Start: 07-31-2018 End: 07-31-2018 Office outpatient visit 15 minutes Diamond Mclean [facility] Start: 07-29-2018 End: 07-29-2018 Phone Encounter Diamond Mclean [facility] Start: 06-26-2018 End: 06-26-2018 Phone Encounter Diamond Mclean [facility] Start: 06-11-2018 End: 06-11-2018 Phone Encounter Diamond Mclean [facility] Start: 05-25-2018 End: 05-25-2018 Lab Order Diamond Mclean [facility] Patient encounter procedure EILEEN Stevenson LPN [facility] Work Phone: Patient encounter procedure Anatoly Andrea LPN [facility] Work Phone: End: 10-19-2021 Patient encounter procedure EILEEN Graham JAINN [facility] Work Phone: Procedures Date Procedure Procedure Detail Performing Clinician Start: 11-25-2022 End: 11-26-2022 MR/[facility] Procedure Note: See Note; NOTES: [address] [address] OFFICE VISIT Date of Service: 11/25/22 MR#: [id number] Acct: [id number] Name: MECHE ANGUIANO Rep #: [id number] : 1995 Provider: MINNA sethi Age/Sex: 27/F Location: [facility] Status: Signed Intake Intake Visit Reasons: black spot on nipple Chief Complaint: black spot on niplpe Accompanied by: Self Allergies acetaminophen [From [facility]] Allergy (Mild, Verified 06/23/22 16:53) Other hydrocodone [From [facility]] Allergy (Mild, Verified 06/23/22 16:53) Other : [...] Lisa 38 live - full term Female [facility] Dr. Aidan wang Delivery Date: 06/23/22 Last [...] MD Work Phone: Start: 08-05-2022 End: 08-05-2022 Manager Revenue Office Visit Report Procedure Note: See Note; NOTES: [facility] [address] [place] [address] OFFICE VISIT Date of Service: 08/05/22 MR#: [id number] Acct: [id number] Name: MECHE ANGUIANO Rep #: [id number] : 1995 Provider: Dr. Yenni morrow MD Age/Sex: 27/F [place] [facility] [place]: Signed Intake Vital Signs 08/05/22 10:07 08/05/22 10:07 Height 1.65 m 1.65 m Weight: 72.575 kg BMI 26.6 BP 150/100 H Intake Visit Reasons: 6 wk PP, declined IUD Chief Complaint: 6w pp declines IUD Disability Insurance Hearing Officer Required: No Is patient in pain?: No Allergies acetaminophen [From [facility]] Allergy (Mild, Verified 06/23/22 16:53) Other hydrocodone [From [facility]] Allergy (Mild, Verified 06/23/22 16:53) Other Medications levothyroxine 75 mcg tablet (Synthroid) 75 mcg PO DAILY hypothyroidism 11/07/21 [History Confirmed 08/05/22] prenat.vits,jaswant,isx-gehz-kuqw c 1 tab PO DAILY 11/13/21 [History Confirmed 08/05/22] sertraline 50 mg tablet 50 mg PO DAILY anxiety 11/13/21 [History Confirmed 08/05/22] norethindrone (contraceptive) 0.35 mg tablet (Ortho Micronor) 0.35 mg PO DAILY #28 tabs 08/05/22 [Rx Confirmed 08/05/22] : [facility] Medical History (Updated 06/24/22 @ 08:56 by [...] Date Name GA/Weeks Outcome Route Bth Weight Gen Labor Lgth Anesthesia Del Locatn Provider FOB 06/23/22 Lisa 38 live - full term Female [facility] Dr. Aidan wang Delivery Date: 06/23/22 Last [...] old who presents for her post visit. Feeding: Breast Menses resumed: No [place] since delivery: No Emotional Support: Yes ROS [...] 06-27-2022 /TOM Procedure Note: See Note; NOTES: [facility] [address] [place] [address] OFFICE VISIT Date of Service: 06/27/22 MR#: [id number] Acct: [id number] Name: MECHE ANGUIANO Rep #: [id number] : 1995 Provider: MINNA sethi Age/Sex: 27/F Location: [facility] Status: Signed Intake Vital Signs 06/23/22 16:17 Height 5 ft 5 in Intake Visit Reasons: feeding assessment Chief Complaint: assessment Accompanied by: Significant Other Allergies acetaminophen [From [facility]] Allergy (Mild, Verified 06/23/22 16:53) Other hydrocodone [From [facility]] Allergy (Mild, Verified 06/23/22 16:53) Other : Yes [facility] Medical History (Updated 06/24/22 @ 08:56 by [...] Lisa 38 live - full term Female [facility] Dr. Aidan wang Delivery Date: 06/23/22 Last [...] as needed. Coding Level of Care Code 44290 PRVT COUNSELING INDIVID Diagnoses Care and examination of lactating mother Z39.1 Time Spent (min) 30 06/27/22 1423 <Electronically signed by Wendy HOUSTONC> Date Wendy MORILLO Cosigner Signature: Date (if applicable) CC: Marina Bronson MD Work Phone: Start: 06-19-2022 End: 06-19-2022 Manager Revenue Office Visit Report Procedure Note: See Note; NOTES: [facility] [address] [place] [address] OFFICE VISIT Date of Service: 06/19/22 MR#: [id number] Acct: [id number] Name: MECHE ANGUIANO Rep #: [id number] : 1995 Provider: Dr. Kaelyn Mcclain DO Age/Sex: 27/F [place] [facility] Status: Signed Intake Vital Signs 05/28/22 09:00 06/19/22 08:29 06/19/22 08:30 Height 5 ft 5 in 5 ft 5 in 5 ft 5 in Weight: 188 lb 2 oz BMI 31.3 BP 135/88 H Intake Visit Reasons: 39 WK OB Disability Insurance Hearing Officer Required: No Is patient in pain?: No Allergies acetaminophen [From [facility]] Allergy (Mild, Verified 06/19/22 08:28) Other hydrocodone [From [facility]] Allergy (Mild, Verified 06/19/22 08:28) Other Medications levothyroxine 75 mcg tablet (Synthroid) 75 mcg PO DAILY 11/07/21 [History Confirmed 06/19/22] prenat.vits,jaswant,hty-mflq-bjvd c 1 tab PO DAILY 11/13/21 [History [...] pending, cbc showed borderline anemia. she will sweet pickle maker OTC iron. 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 [...] MD Work Phone: Start: 06-13-2022 End: 06-17-2022 Manager Revenue Office Visit Report Procedure Note: See Note; NOTES: [facility] [address] [place] [address] OFFICE VISIT Date of Service: 06/13/22 MR#: [id number] Acct: [id number] Name: MECHE ANGUIANO Rep #: [id number] : 1995 Provider: Dr. Yenni morrow MD Age/Sex: 27/F [place] [facility] Status: Signed Intake Vital Signs 05/28/22 09:00 06/13/22 10:59 06/13/22 11:00 Height 5 ft 5 in 5 ft 5 in 5 ft 5 in Weight: 192 lb BMI 31.9 BP 110/78 Intake Visit Reasons: 38 WK OB Chief Complaint: est ob Disability Insurance Hearing Officer Required: No Is patient in pain?: No Allergies acetaminophen [From [facility]] Allergy (Mild, Verified 06/06/22 08:53) Other hydrocodone [From [facility]] Allergy (Mild, Verified 06/06/22 08:53) Other Medications levothyroxine 75 mcg tablet (Synthroid) 75 mcg PO DAILY 11/07/21 [History Confirmed 06/13/22] prenat.vits,jaswant,olg-gsls-jmxo c 1 tab PO DAILY 11/13/21 [History [...] pending, cbc showed borderline anemia. she will sweet pickle maker OTC iron. 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 [...] MD Work Phone: Start: 06-06-2022 End: 06-06-2022 Manager Revenue Office Visit Report Procedure Note: See Note; NOTES: [facility] [address] [place] [address] [address] [place] [address] OFFICE VISIT Date of Service: 06/06/22 MR#: [id number] Acct: [id number] Name: MECHE ANGUIANO Rep #: [id number] : 1995 Provider: Dr. Kaelyn Mcclain DO Age/Sex: 27/F [place] [facility] Status: Signed Intake Vital Signs 06/06/22 08:53 06/06/22 08:54 Height 5 ft 5 in 5 ft 5 in Weight: 190 lb 4 oz BMI 31.6 BP 134/83 H Intake Visit Reasons: 37 WK OB Disability Insurance Hearing Officer Required: No Is patient in pain?: No Allergies acetaminophen [From [facility]] Allergy (Mild, Verified 06/06/22 08:53) Other hydrocodone [From [facility]] Allergy (Mild, Verified 06/06/22 08:53) Other Medications levothyroxine 75 mcg tablet (Synthroid) 75 mcg PO DAILY 11/07/21 [History Confirmed 06/06/22] prenat.vits,jaswant,tcg-tfzx-uptz c 1 tab PO DAILY 11/13/21 [History [...] pending, cbc showed borderline anemia. she will sweet pickle maker OTC iron. 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 [...] Plan (1) Gestational diabetes: Status: Acute Comment: [facility] java tech lead referal. appt on 04/24, 05/30 growth 2823g [...] With Biometrics Procedure Note: See Note; NOTES: [facility] [address] [facility] [place] [address] OB Limited With Biometrics MR#: [id number] Acct: [id number] Name: MECHE ANGUIANO Rep #: [id number] : 1995 F 27 From: Tyree olivo MD PCP: Dr. Marina Bronson MD Status: REG CLI Study: OB Limited With Biometrics Date of Exam: 05/30 Exam# [id number] Ordering Dr: eYnni Acuna STUDY: SECOND AND THIRD TRIMESTER OBSTETRICAL [...] 13:06 EDT Reading Location ID and State: [facility] / [place] , Service support , CC: Dr. Marina Bronson MD; Dr. Yenni Acuna MD Forensic Pathologist: Signed Marina Bronson MD Work Phone: Start: 05-28-2022 End: 05-28-2022 Manager Revenue Office Visit Report Procedure Note: See Note; NOTES: [facility] [address] [place], [place] [address] OFFICE VISIT Date of Service: 05/28/22 MR#: [id number] Acct: [id number] Name: MECHE ANGUIANO Rep #: [id number] : 1995 Provider: Dr. Kaelyn Mcclain DO Age/Sex: 27/F Location[place] [facility] Status: Signed Intake Vital Signs 04/19/22 08:55 05/28/22 08:59 05/28/22 09:00 Height 5 ft 5 in 5 ft 5 in 5 ft 5 in Weight: 189 lb 4 oz BMI 31.4 BP 118/82 H Intake Visit Reasons: 36 WK OB Disability Insurance Hearing Officer Required: No Is patient in pain?: No Allergies acetaminophen [From [facility]] Allergy (Mild, Verified 05/28/22 08:59) Other hydrocodone [From [facility]] Allergy (Mild, Verified 05/28/22 08:59) Other Medications levothyroxine 75 mcg tablet (Synthroid) 75 mcg PO DAILY 11/07/21 [History Confirmed 05/28/22] prenat.vits,jaswant,ydc-jwoh-gcbo c 1 tab PO DAILY 11/13/21 [History [...] pending, cbc showed borderline anemia. she will sweet pickle maker OTC iron. 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 [...] Plan (1) Gestational diabetes: Status: Acute Comment: [facility] java tech lead referal. appt on 04/24 (2) Abnormal glucose [...] Kaelyn Quinteros DO> Date Kaelyn Quinteros DO [facility] Signature: Date (if applicable) CC: Marina Bronson MD Work Phone: Start: 05-17-2022 End: 05-17-2022 Manager Revenue Office Visit Report Procedure Note: See Note; NOTES: [facility] [address] [place] [address] [address] [place] [address] OFFICE VISIT Date of Service: 05/17/22 MR#: [id number] Acct: [id number] Name: MECHE ANGUIANO Rep #: [id number] : 1995 Provider: Dr. Kaelyn Mcclain DO Age/Sex: 27/F [place] [facility] Status: Signed Intake Vital Signs 04/19/22 08:55 05/17/22 08:40 05/17/22 08:40 05/17/22 08:43 Height 5 ft 5 in 5 ft 5 in 5 ft 5 in 5 ft 5 in Weight: 187 lb 2 oz BMI 31.1 BP 125/82 H Intake Visit Reasons: 34 WK OB Allergies acetaminophen [From [facility]] Allergy (Mild, Verified 05/17/22 08:40) Other hydrocodone [From [facility]] Allergy (Mild, Verified 05/17/22 08:40) Other Medications levothyroxine 75 mcg tablet (Synthroid) 75 mcg PO DAILY 11/07/21 [History Confirmed 05/17/22] prenat.vits,jaswant,sfn-zrgf-zbzz c 1 tab PO DAILY 11/13/21 [History [...] pending, cbc showed borderline anemia. she will sweet pickle maker OTC iron. 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 [...] (1) Gestational diabetes: Status: Acute Comment: endo [facility] java tech lead referal. appt on 04/24 (2) Abnormal glucose [...] MD Work Phone: Start: 05-03-2022 End: 05-03-2022 Manager Revenue Office Visit Report Procedure Note: See Note; NOTES: [facility] [address] [place] [address] OFFICE VISIT Date of Service: 05/03/22 MR#: [id number] Acct: [id number] Name: MECHE ANGUIANO Rep #: [id number] : 1995 Provider: Dr. Yenni morrow MD Age/Sex: 27/F [place] [facility] Status: Signed Intake Vital Signs 04/19/22 08:55 05/01/22 16:57 05/03/22 10:37 05/03/22 10:38 Height 5 ft 5 in 5 ft 5 in 5 ft 5 in 5 ft 5 in Weight: 187 lb 6.4 oz 187 lb BMI 31.1 BP 115/79 Intake Visit Reasons: 32 WK OB Chief Complaint: est ob Disability Insurance Hearing Officer Required: No Is patient in pain?: No Allergies acetaminophen [From [facility]] Allergy (Mild, Verified 04/23/22 08:08) Other hydrocodone [From [facility]] Allergy (Mild, Verified 04/23/22 08:08) Other Medications levothyroxine 75 mcg tablet (Synthroid) 75 mcg PO DAILY 11/07/21 [History Confirmed 05/03/22] prenat.vits,jaswant,kgw-tkwq-ktgx c 1 tab PO DAILY 11/13/21 [History [...] pending, cbc showed borderline anemia. she will sweet pickle maker OTC iron. 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 [...] Plan (1) Gestational diabetes: Status: Acute Comment: [facility] java tech lead referal. appt on 04/24 (2) Abnormal glucose [...] Yenni Acuna MD> Date [facility]: Date (if applicable) CC: Marina Bronson MD Work Phone: Start: 04-23-2022 End: 04-23-2022 Endocrinology Visit Report Procedure Note: See Note; NOTES: [facility] [facility] [place] [address] OFFICE VISIT Date of Service: 04/23/22 MR#: [id number] Acct: [id number] Name: MECHE ANGUIANO Rep #: [id number] : 1995 Provider: Aidan Rodney Age/Sex: 27/F Location: [facility] Status: Signed Intake Vital Signs 04/22/22 10:40 [...] Reasons: Gestational diabetes Chief Complaint: gestational diabetes Disability Insurance Hearing Officer Required: No Accompanied by: Self Is patient in pain?: No Allergies acetaminophen [From [facility]] Allergy (Mild, Verified 04/23/22 08:08) Other hydrocodone [From [facility]] Allergy (Mild, Verified 04/23/22 08:08) Other Is last menstrual period known: Yes Patient : Yes Nurse's Note: Pt had A1C 4.8% two weeks ago at [facility] Medical History Abnormal glucose affecting Anxiety Breast [...] 1 hour glucola 164 3 hr gtt: [phone] This is her first , she is 30 weeks gestation. She has gained about 28 pounds so far. Father and paternal grandfather have type 2 diabetes. They both take insulin. She is testing blood sugars for the past 10 days. Blood sugars are in goal post meal, but a bit high fasting. She meets with the java tech lead tomorrow. Exam Const General: cooperative, healthy appearing, [...] MD Work Phone: Start: 04-19-2022 End: 04-19-2022 Manager Revenue Office Visit Report Procedure Note: See Note; NOTES: [facility] [address] [place] [address] OFFICE VISIT Date of Service: 04/19/22 MR#: [id number] Acct: [id number] Name: MECHE ANGUIANO Rep #: [id number] : 1995 Provider: Dr. Kaelyn Mcclain DO Age/Sex: 27/F Location[place] [facility] Status: Signed Intake Vital Signs 03/20/22 08:34 04/19/22 08:55 Height 5 ft 5 in 5 ft 5 in Weight: 188 lb 2 oz BMI 31.3 BP 137/91 H Intake Visit Reasons: 30 WK OB Disability Insurance Hearing Officer Required: No Is patient in pain?: No Allergies acetaminophen [From [facility]] Allergy (Mild, Verified 04/19/22 08:54) Other hydrocodone [From [facility]] Allergy (Mild, Verified 04/19/22 08:54) Other Medications levothyroxine 75 mcg tablet (Synthroid) 75 mcg PO DAILY 11/07/21 [History Confirmed 04/19/22] prenat.vits,jaswant,uws-dgnt-nwfb c 1 tab PO DAILY 11/13/21 [History [...] pending, cbc showed borderline anemia. she will sweet pickle maker OTC iron. 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 [...] Plan (1) Gestational diabetes: Status: Acute Comment: [facility] java tech lead referal (2) Abnormal glucose affecting : Status: [...] MD Work Phone: Start: 04-05-2022 End: 04-05-2022 Manager Revenue Office Visit Report Procedure Note: See Note; NOTES: [facility] [address] [place] [address] OFFICE VISIT Date of Service: 04/05/22 MR#: [id number] Acct: [id number] Name: MECHE ANGUIANO Rep #: [id number] : 1995 Provider: Dr. Kaelyn Mcclain DO Age/Sex: 26/F [place] [facility] Status: Signed Intake Vital Signs 03/20/22 08:55 04/05/22 10:03 04/05/22 10:03 Height 5 ft 5 in 5 ft 5 in 5 ft 5 in Weight: 188 lb 8 oz BMI 31.4 BP 130/80 H Intake Visit Reasons: 28 WK OB/GLUCOSE Disability Insurance Hearing Officer Required: No Is patient in pain?: No Allergies acetaminophen [From [facility]] Allergy (Mild, Verified 04/05/22 10:02) Other hydrocodone [From [facility]] Allergy (Mild, Verified 04/05/22 10:02) Other Medications levothyroxine 75 mcg tablet (Synthroid) 75 mcg PO DAILY 11/07/21 [History Confirmed 04/05/22] prenat.vits,jaswant,okz-teqf-poqq c 1 tab PO DAILY 11/13/21 [History [...] pending, cbc showed borderline anemia. she will sweet pickle maker OTC iron. 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 [...] MD Work Phone: Start: 03-20-2022 End: 03-20-2022 Manager Revenue Office Visit Report Procedure Note: See Note; NOTES: [facility] [address] [place] [address]. [address] [place] [address] OFFICE VISIT Date of Service: 03/20/22 MR#: [id number] Acct: [id number] Name: MECHE ANGUIANO Rep #: [id number] : 1995 Provider: Dr. Kaelyn Mcclain DO Age/Sex: 26/F Location: [facility] Status: Signed Intake Vital Signs 03/20/22 08:33 03/20/22 08:34 Height 5 ft 5 in 5 ft 5 in Weight: 183 lb 6 oz BMI 30.5 BP 130/84 H Intake Visit Reasons: 26 WK OB Disability Insurance Hearing Officer Required: No Is patient in pain?: No Allergies acetaminophen [From [facility]] Allergy (Mild, Verified 03/20/22 08:33) Other hydrocodone [From [facility]] Allergy (Mild, Verified 03/20/22 08:33) Other Medications levothyroxine 75 mcg tablet (Synthroid) 75 mcg PO DAILY 11/07/21 [History Confirmed 03/20/22] prenat.vits,jaswant,jti-tsae-numr c 1 tab PO DAILY 11/13/21 [History [...] MD Work Phone: Start: 02-19-2022 End: 02-19-2022 Manager Revenue Office Visit Report Procedure Note: See Note; NOTES: [facility] [address] [facility] [place] [address] OFFICE VISIT Date of Service: 02/19/22 MR#: [id number] Acct: [id number] Name: MECHE ANGUIANO Rep #: [id number] : 1995 Provider: Dr. Yenni morrow MD Age/Sex: 26/F Location: [facility] Status: Signed Intake Vital Signs 02/19/22 10:50 02/19/22 10:51 Height 5 ft 5 in 5 ft 5 in Weight: 177 lb BMI 29.4 BP 130/86 H Intake Visit Reasons: 22WK OB Chief Complaint: est ob Disability Insurance Hearing Officer Required: No Is patient in pain?: No Allergies acetaminophen [From [facility]] Allergy (Mild, Verified 01/24/22 11:50) Other hydrocodone [From [facility]] Allergy (Mild, Verified 01/24/22 11:50) Other Medications levothyroxine 75 mcg tablet (Synthroid) 75 mcg PO DAILY 11/07/21 [History Confirmed 02/19/22] prenat.vits,jaswant,uvj-oytw-fbff c 1 tab PO DAILY 11/13/21 [History [...] <Electronically signed by Yenni Acuna MD> Date [facility] Signature: Date (if applicable) CC: Marina Bronson MD Work Phone: Start: 01-24-2022 End: 01-24-2022 Manager Revenue Office Visit Report Comments: See Note; NOTES: [facility] [address] [place] [address] OFFICE VISIT Date of Service: 01/24/22 MR#: [id number] Acct: [id number] Name: SILVIOMECHE Rep #: [id number] : 1995 Provider: Dr. Kaelyn Mcclain DO Age/Sex: 26/F [place] [facility] [place]: Signed Intake Vital Signs 01/24/22 11:50 01/24/22 11:50 Height 5 ft 5 in 5 ft 5 in Weight: 175 lb 6 oz BMI 29.2 BP 142/84 H Intake Visit Reasons: 18 WK OB Disability Insurance Hearing Officer Required: No Is patient in pain?: No Allergies acetaminophen [From [facility]] Allergy (Mild, Verified 01/24/22 11:50) Other hydrocodone [From [facility]] Allergy (Mild, Verified 01/24/22 11:50) Other Medications levothyroxine 75 mcg tablet (Synthroid) 75 mcg PO DAILY 11/07/21 [History Confirmed 01/24/22] prenat.vits,jaswant,mjs-cmnz-wnja c 1 tab PO DAILY 11/13/21 [History [...] Kaelyn Quinteros DO> Date Kaelyn Quinteros DO [facility] Signature: Date (if applicable) CC: Marina Bronson MD Work Phone: Start: 12-27-2021 End: 12-27-2021 Manager Revenue Office Visit Report Comments: See Note; NOTES: [facility] [address] [place] [address]. [address] [place] [address] OFFICE VISIT Date of Service: 12/27/21 MR#: [id number] Acct: [id number] Name: MECHE ANGUIANO Rep #: [id number] : 1995 Provider: Dr. Kaelyn Mcclain DO Age/Sex: 26/F [place] [facility] [place]: Signed Intake Vital Signs 12/27/21 10:30 Height 5 ft 5 in Weight: 166 lb BMI 27.6 BP 135/87 H Intake Visit Reasons: 14 WK OB Disability Insurance Hearing Officer Required: No Is patient in pain?: No Allergies acetaminophen [From [facility]] Allergy (Mild, Verified 12/27/21 10:29) Other hydrocodone [From [facility]] Allergy (Mild, Verified 12/27/21 10:29) Other Medications levothyroxine 75 mcg tablet 75 mcg PO DAILY 11/07/21 [History Confirmed 12/27/21] prenat.vits,jaswant,ini-zkcc-camw c 1 tab PO DAILY 11/13/21 [History [...] MD Work Phone: Start: 11-29-2021 End: 11-29-2021 Manager Revenue Office Visit Report Comments: See Note; NOTES: [facility] [address] [place] [address] OFFICE VISIT Date of Service: 11/29/21 MR#: [id number] Acct: [id number] Name: MECHE ANGUIANO Rep #: [id number] : 1995 Provider: Dr. Yenni morrow MD Age/Sex: 26/F [place] [facility] [place]: Signed Intake Vital Signs 11/29/21 09:24 Height 5 ft 5 in Weight: 161 lb BMI 26.8 Intake Visit Reasons: NOB LMP 09/20/21 Chief Complaint: NEW OB LMP 09/20/21 Disability Insurance Hearing Officer Required: No Is patient in pain?: No Allergies acetaminophen [From [facility]] Allergy (Mild, Verified 11/29/21 09:25) Other hydrocodone [From [facility]] Allergy (Mild, Verified 11/29/21 09:25) Other Medications levothyroxine 75 mcg tablet 75 mcg PO DAILY 11/07/21 [History Confirmed 11/29/21] prenat.vits,jaswant,szz-vbzi-bvzq c 1 tab PO DAILY 11/13/21 [History [...] allergies (OTC med prn) and Drug/latex allergies/reactions ([facility]) and Negative: Diabetes, Hypertension, Heart disease, Auto-immune disorder, Kidney disease/UTI, Neurologic/epilepsy, Depression/ depression, Hepatitis/liver disease, Varicosities/phlebitis, Trauma/domestic violence, History of blood transfusions, D (Rh) Sensitized, Pulmonary (e.g.,TB,Asthma), Breast, Endless Steamer Tender surgery, Operations/hospitalizations, Anesthetic complications, History of abnormal [...] comfortable and no acute distress Orientation: alert [facility] Head: normal to inspection, normocephalic and [...] to inspection and full ROM Supplemental Info [facility] book given and patient encouraged to read [...] Drug Screen (VISTA) Today Plan - Dr. Yneni Acuna MD: Patient oriented to practice and [...] MD Work Phone: Start: 11-07-2021 End: 11-07-2021 Manager Revenue Office Visit Report Comments: See Note; NOTES: [facility] [address] [place] [address] OFFICE VISIT Date of Service: 11/07/21 MR#: [id number] Acct: [id number] Name: MECHE ANGUIANO Rep #: [id number] : 1995 Provider: Dr. Kaelyn Mcclain DO Age/Sex: 26/F [place] [facility] [place] Status: Signed Intake Vital Signs 11/07/21 16:34 Height 5 ft 5 in Weight: 152 lb 2 oz BMI 25.3 BP 160/90 H Intake Visit Reasons: repeat US in office ok per J[facility] Disability Insurance Hearing Officer Required: No Is patient in pain?: No Allergies acetaminophen [From [facility]] Allergy (Mild, Verified 11/07/21 16:33) Other hydrocodone [From [facility]] Allergy (Mild, Verified 11/07/21 16:33) Other Medications levothyroxine 75 mcg tablet 75 mcg PO DAILY 11/07/21 [History Confirmed 11/07/21] promethazine 12.5 mg tablet 12.5 mg PO Q6H PRN #60 tab 11/07/21 [Rx Confirmed 11/07/21] sertraline 50 mg tablet 50 mg PO DAILY 11/07/21 [History Confirmed 11/07/21] Is last menstrual period known: Yes Post menopausal: No Patient : Yes : No [facility] History (Updated 11/07/21 @ 16:56 by [...] Yes additional social history: Seperated- works at [employer] HPI repeat US in office [...] Q6H PRN 60 tabs 4RF nasuea 11/07/21 0653 <Electronically signed by Kaelyn Quinteros DO> Date Kaelyn Quinteros DO Cosigner Signature: Date (if applicable) CC: Marina Bronson MD Work Phone: Start: 10-30-2021 End: 10-31-2021 Transvaginal w/Preg US Comments: See Note; NOTES: [facility] [address] [place] [address] Transvaginal w/Preg US MR#: [id number] Acct: [id number] Name: MECHE ANGUIANO Rep #: [id number] : 1995 F 26 From: Tyree olivo MD PCP: Dr. Marina Bronson MD Status: REG CLI Study: Transvaginal w/Preg US Date of Exam: 10/30/21 Exam# [id number] Ordering Dr: Nazia Flowers DORMITORY SUPERVISOR DORMITORY SUPERVISOR -C STUDY: FIRST TRIMESTER OBSTETRICAL ULTRASOUND REASON [...] 10:31 EDT Reading Location ID and State: [facility] / [place] , Service support , CC: ILIA Flowers; Dr. Marina Bronson MD Forensic Pathologist: Signed Marina Bronson MD Work Phone: Start: 10-22-2021 End: 10-23-2021 Transvaginal w/Preg US Comments: See Note; NOTES: [facility] [address] [place] [address] Transvaginal w/Preg US MR#: [id number] Acct: [id number] Name: MECHE ANGUIANO Rep #: [id number] : 1995 F 26 From: Tyree olivo MD PCP: Dr. Marina Bronson MD Status: REG CLI Study: Transvaginal w/Preg US Date of Exam: 10/22/21 Exam# [id number] Ordering Dr: Yenni Acuna STUDY: FIRST TRIMESTER [...] Marina Bronson MD; Dr. Yenni Acuna MD Forensic Pathologist: Signed Marina Bronson MD Work Phone: Start: 10-19-2021 End: 10-23-2021 Transvaginal w/Preg US Comments: See Note; NOTES: [facility] [address] [place] [address] Transvaginal w/Preg US MR#: [id number] Acct: [id number] Name: MECHE ANGUIANO Rep #: [id number] : 1995 F 26 From: Benigno Chery PCP: Dr. Marina Bronson MD Status: [facility] Study: Transvaginal w/Preg US Date of Exam: 10/19/21 Exam# [id number] Ordering Dr: Alex Knox DO STUDY: FIRST [...] 18:44 EDT Reading Location ID and State: [facility] / [place] , Service support , CC: Dr. Marina Bronson MD; Dr. Alex Knox DO Forensic Pathologist: Signed Marina Bronson MD Work Phone: Start: 10-19-2021 End: 10-19-2021 Emergency Department Summary Comments: See Note; NOTES: [facility] Medical Records Department [address] [place] [address] Emergency Department Summary 10/19/21 MR#: [id number] Acct: [id number] Name: MECHE ANGUIANO Rep #: [id number] : 1995 26 From: Alex Knox DO [...] states her pain is worse with walking. [facility] Medical History (Updated 10/19/21 @ 19:38 by [...] Reaction Status Date / Time acetaminophen [From [facility]] Allergy Mild Other Verified 10/19/21 16:29 hydrocodone [From [facility]] Allergy Mild Other Verified 10/19/21 16:29 Family History Mother Breast cancer Asthma Social History Smoking Status: Never smoker alcohol intake: never substance use type: does not use caffeine: Yes what type of physical activity do you participate in: none seatbelt use: always do you feel safe at home: Yes additional social history: Seperated- works at [employer] ED Constitutional Constitutional ED: Denies [...] Patient was instructed to follow-up with her RESEARCH EPIDEMIOLOGIST in 2 to 3 days for repeat [...] (Auto) 72.3 H Lymph % (Auto) 21.0 [place] % (Auto) 5.0 Eos % (Auto) 1.0 [...] Color Urine Clarity Urine pH Ur Specific [place] Urine Protein Urine Glucose (UA) Urine Ketones [...] (Auto) Neut % (Auto) Lymph % (Auto) [place] % (Auto) Eos % (Auto) Baso % (Auto) Absolute Neuts (auto) Absolute Lymphs (auto) Nucleated RBC % Sodium Potassium Chloride Carbon Dioxide Anion Gap BUN Creatinine Estim Creat Clear Calc Est GFR (MDRD) Af Amer Est GFR (MDRD) Non-Af BUN/Creatinine Ratio Glucose Calcium Urine Color Yellow Urine Clarity Clear Urine pH 6.5 Ur Specific [place] 1.010 Urine Protein Negative Urine Glucose (UA) [...] 18:44 EDT Reading Location ID and State: [facility] / [place] , Service support , [...] You may start taking vitamins. They are yvqj-lcq-qunlwvp. Disposition Disposition: Home, Self Care What to do if you have Problems For any increased pain, shortness of breath, bleeding, nausea or vomiting, chest pain, or any unexpected problems, contact your Primary Care Provider. Call [facility] ([phone]) or report to the closest Emergency Room. Call 911 if necessary. 10/19/212211 <Electronically signed by Alex Knox DO> Cosigner Signature (if applicable): CC: Dr. Marina Bronson MD Signed Marina Bronson MD Work Phone: Start: 07-02-2019 End: 07-05-2019 Parathyroid scan Comments: See Note; NOTES: [facility] [address] [place] [address] Parathyroid Scan MR#: [id number] Acct: [id number] Name: MECHE ANGUIANO Rep #: [id number] : 1995 F 24 From: Casper Lugo DO PCP: Marina Bronson MD Status: REG CLI Study: Parathyroid Scan Date of Exam: 07/02/19 Exam# [id number] Ordering Dr: Marina Bronson MD CLINICAL: 24-year-old [...] Service support , CC: Marina Bronson MD Forensic Pathologist: Signed Marina Bronson Work Phone: Start: 06-30-2019 End: 06-30-2019 Thyroid Comments: See Note; NOTES: [facility] [address] [place] [address] Thyroid MR#: [id number] Acct: [id number] Name: MECHE ANGUIANO Rep #: [id number] : 1995 F 24 From: Leeroy Gerardo MD PCP: Marina Bronson MD Status: REG CLI Study: Thyroid Date of Exam: 06/30/19 Exam# [id number] Ordering Dr: Marina Bronson MD STUDY: THYROID [...] Service support , CC: Marina Bronson MD Forensic Pathologist: Signed Marina Bronson Work Phone: Plan of Treatment Date Care Activity Detail Author Start: 11-30-2021 Syphilis test non-treponemal antibody qual RPR (RAPID PLASMA REAGIN) (51772) [facility]; [facility] Work Phone: Start: 11-30-2021 Syphilis test quantitative SYPHILIS ASSAY (67328) [facility]; [facility] Work Phone: Start: 11-30-2021 Culture bct isol&prsmptv id isolate ea urine URINE NAI CULTURE-IDENTIFICATN (73169) [facility]; [facility] Work Phone: Start: 11-06-2021 Gonadotropin chorionic qualitative HCG Qualitative, Serum (10582) [facility]; [facility] Work Phone: Payers Date Payer Category Payer Unknown [id number] Unknown Pedro BC/BS Unknown [id number] Social History Date Type Detail Facility Alcohol Use: Alcohol Use: [facility] Work Phone: Medical Equipment Procedure Code Equipment Code Equipment Origin al Text Equipment Identifier Dates ReliOn Blood Glu cose Test In Vitro Strip 1 (one) Each test 4 times daily and as needed for 0 days Quantity: 150 {Each} Refills: 3 Ordered: 06-May-2022 Slarb JANITORIAL SERVICES SUPERVISOR, May Start : 06-May-2022 Active Comments: Medication [...] Internal Medicine; [facility] Work Phone: [employer]kle* Name Dates Details How to access health [...] Internal Medicine; [facility] Work Phone: [employer]kle* Name Dates Details How to access health [...] Internal Medicine; [facility] Work Phone: instructFilmMe* Name Dates Details Patient Instructions Indication:Nonsmoker Start:06-Jun-2021 Instruction Type:Provider Instructions for Treatment How to Access Health Informa tion Online using Patient Portal and Health Integrated Apps Indication:Nonsmoker Start:06-Jun-2021 Instruction Type:Patient Education How [...] [facility] Medicine; [facility] Work Phone: [employer]kle* Name Dates Details Patient Instructions Indication:Nonsmoker Start:06-Jun-2021 Instruction Type:Provider Instructions for Treatment How to Access Health Informa tion Online using Patient Portal and Health Integrated Apps Indication:Nonsmoker Start:06-Jun-2021 Instruction Type:Patient Education How [...] Internal Medicine; [facility] Work Phone: [employer]kle* Name Dates Details Patient Instructions Indication:Nonsmoker Start:06-Jun-2021 Instruction Type:Provider Instructions for Treatment How to Access Health Informa tion Online using Patient Portal and 3rd Libertarian Apps Indication:Nonsmoker Start:06-Jun-2021 Instruction Type:Patient Education How [...] Internal Medicine; [facility] Work Phone: [employer]kle* Name Dates Details Patient Instructions Indication:Nonsmoker Start:06-Jun-2021 Instruction Type:Provider Instructions for Treatment How to Access Health Informa tion Online using Patient Portal and Health Integrated Apps Indication:Nonsmoker Start:06-Jun-2021 Instruction Type:Patient Education How [...] [facility]; [facility] Work Phone: [employer]kle* Name Dates Details Patient Instructions Indication:Nonsmoker Start:06-Jun-2021 Instruction Type:Provider Instructions for Treatment How to Access Health Informa tion Online using Patient Portal and [employer] Libertarian Apps Indication:Nonsmoker Start:06-Jun-2021 Instruction Type:Patient Education How [...] [facility] Medicine; [facility] Work Phone: ins[employer]kle* Name Dates Details Patient Instructions Indication:Nonsmoker Start:06-Jun-2021 Instruction Type:Provider Instructions for Treatment How to Access Health Informa tion Online using Patient Portal and [employer] Libertarian Apps Indication:Nonsmoker Start:06-Jun-2021 Instruction Type:Patient Education How [...] tion Online using Patient Portal and 3rd Libertarian Apps Indication:Nonsmoker Start:06-Jun-2021 Instruction Type:Patient Education How [...] [facility]; [facility] Work Phone: [employer]* Name Dates Details Patient Instructions Indication:Nonsmoker Start:06-Jun-2021 Instruction Type:Provider Instructions for Treatment How to Access Health Informa tion Online using Patient Portal and 3rd Libertarian Apps Indication:Nonsmoker Start:06-Jun-2021 Instruction Type:Patient Education How [...] tion Online using Patient Portal and 3rd Libertarian Apps Indication:Nonsmoker Start:06-Jun-2021 Instruction Type:Patient Education How [...] tion Online using Patient Portal and 3rd Libertarian Apps Indication:Nonsmoker Start:06-Jun-2021 Instruction Type:Patient Education How [...] tion Online using Patient Portal and 3rd Libertarian Apps Indication:Nonsmoker Start:06-Jun-2021 Instruction Type:Patient Education How [...] Informa tion Online using Patient Portal and Message[employer] Libertarian Apps Indication:Nonsmoker Start:06-Jun-2021 Instruction Type:Patient Education How [...] tion Online using Patient Portal and 3rd Libertarian Apps Indication:Nonsmoker Start:06-Jun-2021 Instruction Type:Patient Education How [...] BE BASED ON THE PRIMARY CLINICAL RECORDS. [facility]. provides no warranty or guarantee of the accuracy or completeness of information in this document.
== END | disposition home or self-care (01) ==
LOC: LABSPEC 14:48
PROVIDERS: PCP Internal Medicine; Visit Provider Internal Medicine
DX: R79.89 Other specified abnormal findings of blood chemistry (principal)
CPT/HCPCS: 84702

== ENCOUNTER → 2023-10-16 | Outpatient (CLI) | payer BC, SELFPAY ==
[2023-10-17 21:07] LABS: Chlamydia By Nucleic Acid AMP Negative (Negative); Gonococcus By Nucleic Acid AMP Negative (Negative)
== END | disposition home or self-care (01) ==
PROVIDERS: PCP Internal Medicine; Referring Provider Advanced Practice Midwife; Visit Provider Advanced Practice Midwife
DX: Z34.90 Encounter for supervision of normal pregnancy, unspecified, unspecified trimester (principal); Z3A.00 Weeks of gestation of pregnancy not specified
CPT/HCPCS: 87086; 87491; 87591

== ENCOUNTER → 2023-10-24 | Outpatient (CLI) | payer BC, SELFPAY ==
[2023-10-24 13:54] LABS: Absolute Neutrophil Count 4.3 X10^3/uL (2.0-7.7); Basophil# 0.03 X10^3/uL; Basophil% 0.5 % (0-1); Eosinophil# 0.08 X10^3/uL; Eosinophils% 1.3 % (0-5); Hematocrit 39.8 % (37-47); Mean Corp Hgb Conc 32.7 g/dL (32-36); Mean Corpuscular Hgb 28.3 pg (27.0-32.0); Mean Corpuscular Volume 86.7 fL (81-99); Mean Platelet Vol. 10.8 fl (6.2-12.0); Monocyte# 0.35 X10^3/uL; Monocyte% 5.5 % (0-10); NRBC Flagged by Analyzer 0 % (0-5); Neutrophil # 4.31 X10^3/uL (2.7-7.7); Neutrophil % 67.2 % (47-70); Platelet Count 277 K/mm3 (150-450); RBC Distribution Width CV 12.8 % (11.6-14.6); RBC Distribution Width SD 40.6 fl (35.1-43.9); Red Blood Count 4.59 M/mm3 (4.2-5.4); White Blood Count 6.4 K/mm3 (4.4-11.0)
[2023-10-24 14:09] LABS: Hemoglobin A1c 4.9 % (3.8-5.6)
[2023-10-24 14:21] LABS: T4 Free Direct 0.84 ng/dL (0.76-1.46); Thyroid Stim Hormone (TSH) 4.73 uIU/mL (0.358-3.74)
[2023-10-24 14:54] LABS: HIV - WCH Non-Reactive (Nonreactive); Hepatitis B Surface Antigen Non-Reactive (Nonreactive); Hepatitis C Antibody Non-Reactive (Nonreactive); Rubella IgG Reactive (Nonreactive); Syphilis Antibodies Non-reactive
[2023-10-26 08:08] LABS: Thyroid Peroxidase AB < 9 IU/mL (0-34)
== END | disposition home or self-care (01) ==
PROVIDERS: Advanced Practice Midwife; PCP Internal Medicine; Referring Provider Obstetrics & Gynecology; Visit Provider Obstetrics & Gynecology
DX: O99.280 Endocrine, nutritional and metabolic diseases complicating pregnancy, unspecified trimester (principal); E07.9 Disorder of thyroid, unspecified; O09.299 Supervision of pregnancy with other poor reproductive or obstetric history, unspecified trimester; Z86.32 Personal history of gestational diabetes; Z3A.00 Weeks of gestation of pregnancy not specified
CPT/HCPCS: 83036; 84439; 84443; 85025; 86376; 86703; 86762; 86780; 86803; 86850; 86900; 86901; 87340

== ENCOUNTER 2024-03-09 16:00 | Outpatient (CLI) | payer BC, SELFPAY ==
[2024-03-09 16:19] VITALS: PULSE 90; O2SAT 100
[2024-03-09 16:20] VITALS: RESP 16; TEMP 36.8; O2SAT 100
[2024-03-09 16:24] VITALS: PULSE 88; O2SAT 98
[2024-03-09 16:29] VITALS: BP 126/71; PULSE 83; PULSE 84; O2SAT 97
[2024-03-09 18:08] VITALS: BMI 33.6
--- NOTE | 2024-03-11 19:51 | OB.TRI.PN_ITS ---
Progress Notes Date of Service: 03/09/24 Progress Note: Patient presents for triage evaluation secondary to threatened ptl, FHT: 140 Moderate variability reactive no decelerations category I tracing [place]: no regular Contractions Assessment and plan: threatened pTL Reactive NST, reassuring maternal and status patient discharged to home to follow-up as scehduled, no cervical change. See problem list details for additional plan information. Charges/Coding Procedures Urinary/Genital 52xxx-59xxx: 62477-81 non-stress test Interp Assessment & Plan (1) Threatened labor: (2) 28 weeks gestation of : COMMENT: seen in triage for r/o labor. no change (3) Anxiety: COMMENT: zoloft, counseling encouraged (4) : QUALIFIERS: Weeks of gestation: 29 weeks Qualified Code(s): Z3A.29 - 29 weeks gestation of COMMENT: NIPT low risk, Declined ntd and carrier testing Nl 28wk labs-works at [facility] [employer] [facility] and scanned in. (5) Supervision of high-risk : QUALIFIERS: Trimester: second trimester Qualified Code(s): O09.92 - Supervision of high risk , unspecified, second trimester COMMENT: PRR, , STEFANI 05/22/24 boy PC Lisa, Noe (6) Hx of gestational diabetes in prior , currently : COMMENT: nl HgbA1c at [facility] (7) Hypothyroidism affecting : QUALIFIERS: Trimester: second trimester Qualified Code(s): O99.282 - Endocrine, nutritional and metabolic diseases complicating , second trimester; E03.9 - Hypothyroidism, unspecified COMMENT: synthroid, labs q trimester hypothyroid TSHR AB neg sees PCP
== END 2024-03-09 18:04 | disposition home or self-care (01) ==
LOC: WPOUT 16:14 → WP 16:15
PROVIDERS: PCP Internal Medicine; Referring Provider Obstetrics & Gynecology; Visit Provider Obstetrics & Gynecology
DX: O47.03 False labor before 37 completed weeks of gestation, third trimester (principal); O99.343 Other mental disorders complicating pregnancy, third trimester; F41.9 Anxiety disorder, unspecified; Z79.899 Other long term (current) drug therapy; O99.283 Endocrine, nutritional and metabolic diseases complicating pregnancy, third trimester; E03.9 Hypothyroidism, unspecified; Z79.890 Hormone replacement therapy; O09.93 Supervision of high risk pregnancy, unspecified, third trimester; Z3A.00 Weeks of gestation of pregnancy not specified
CPT/HCPCS: 59025; 59050; 99221; G0378

== ENCOUNTER → 2024-04-26 | Outpatient (CLI) | payer BC, SELFPAY ==
--- NOTE | 2024-04-26 15:26 | US_ITS ---
STUDY: SECOND AND THIRD TRIMESTER OBSTETRICAL ULTRASOUND - LIMITED REASON FOR EXAM: Female, 29 years old thyroid disease in LMP: August 16, 2023. PRIOR ULTRASOUND: None. TECHNIQUE: Transabdominal TECHNICAL QUALITY: Adequate. FINDINGS: There is a single intrauterine fetus. The fetus is in a cephalic presentation. There is demonstrated cardiac activity with a heart rate of 147 bpm. There is a normal amniotic fluid volume. The largest amniotic fluid pocket measures 3.7 cm. The amniotic fluid index (MEL) is 11.3 cm. The placenta is posterior in location and is not low lying. There are Grade 2 placental changes. BIOMETRY: BPD: 9 cm: 36 weeks, 4 days: 67% HC: 32.1 cm: 36 weeks, 1 days: 19% AC: 32.1 cm: 36 weeks, 0 days: 53% FL: 6.6 cm: 34 weeks, 0 days: 4% Age by LMP: 36 weeks, 2 days. STEFANI by LMP: May 22, 2024. age by current US: 35 weeks, 4 days. STEFANI by current US: May 27, 2024. Estimated weight: 2734 grams, +/- 410 grams, 36 percentile. US/OB Limited With Biometrics IMPRESSION: Single live intrauterine gestation with a mean gestational age of 35 weeks and 4 days. Electronically Signed: Tyree Faulkner MD at 14:05 EDT ,
== END | disposition home or self-care (01) ==
PROVIDERS: PCP Internal Medicine; Referring Provider Advanced Practice Midwife; Visit Provider Advanced Practice Midwife
DX: Z34.93 Encounter for supervision of normal pregnancy, unspecified, third trimester (principal); Z3A.35 35 weeks gestation of pregnancy
CPT/HCPCS: 76816; 87081

== ENCOUNTER 2024-05-21 04:50 | Inpatient (IN) | payer BC, SELFPAY ==
[2024-05-21] VITALS (75 sets, daily range): BP systolic 110–143; BP diastolic 60–86; PULSE 65–89; RESP 16–24; TEMP 36.2–36.8; O2SAT 94–100; BMI 35.9
--- OUTSIDE RECORDS SUMMARY | 2024-05-21 04:40 | XMS RPT_ITS | CCD ---
Author Organization [facility] Care Team Providers Care Color Maker Dyer Name Role Phone Diamond Mclean Unavailable EILEEN Stevenson Unavailable Unavailable Unavailable Unavailable Anatoly Escalona Unavailable Unavailable Diamond Mclean Unavailable Anatoly Escalona Unavailable Unavailable Unavailable Unavailable Casper Reyes Unavailable ovi jensen Unavailable Unavailable Winnie Jensen Unavailable Unavailable Tapan Mejia Unavailable EILEEN Stevenson Unavailable Unavailable Diamond Mclean Attending Unavailable Diamond Mclean Referring Unavailable Diamond Mclean Consulting Unavailable Virginia Redmond Unavailable Unavailable ovi Anguiano Unavailable Unavailable EILEEN Stevenson Unavailable Unavailable Anatoly Escalona Unavailable Unavailable Anatoly Andrea Unavailable Unavailable Edwin, May Unavailable Unavailable Diamond Mclean CNP Unavailable Tapan Mejia Unavailable Casper Reyes MD Unavailable [phone] Graham GUADALUPE, EILEEN Unavailable Unavailable Anatoly Andrea LPN Unavailable Unavailable felipe Anguianoline Unavailable Unavailable Edwin GUADALUPE May Unavailable Unavailable Unavailable Unavailable Marina Bronson MD Unavailable [phone] [employer] CEMENT DESPATCH OPERATOR, Jyoti Unavailable Unavailable Marline Rosado MA Unavailable Unavailable DoroteoaDiamond Unavailable Caridad Diamond Unavailable Marina Bronson MD Unavailable [phone] Medications Current Medications Medication Drug Class(es) Dates Sig (Normalized) Sig (Original) sertraline 100 mg oral tablet (20 sources) Serotonin Reuptake Inhibitor Start: 02-07-2023 sertraline 100 mg oral tablet 1 1/2 (one and a half) tablet daily for 0 days Quantity: 180 {Tablet} Refills: 3 Ordered: 07-Feb-2023 Marina Bronson MD, MD, Dana M Start : 07-Feb-2023 Active Comments: May increase to two tablets if needed. Start: 08-30-2022 sertraline 100 mg oral tablet 1 1/2 (one and a half) tablet daily for 0 days Quantity: 180 {Tablet} Refills: 3 Ordered: 30-Aug-2022 Marina Bronson MD, MD, Dana M Start : 30-Aug-2022 Active Comments: May increase to two tablets if needed. Start: 01-07-2022 take 1 tablet by zayra once daily Sertraline HCl 100 MG Oral Tablet 1 (one) Tablet qd for 0 days Quantity: 90 {Tablet} Refills: 3 Ordered: 07-Jan-2022 Marina Bronson MD, MD, Dana M Start : 07-Jan-2022 Active Comments: 07-24-20 this was already sent twice? Start: 06-29-2021 take 1 tablet by zayra once daily Sertraline HCl 100 MG Oral Tablet 1 (one) Tablet qd for 0 days Quantity: 90 {Tablet} Refills: 3 Ordered: 29-Jun-2021 Marina Bronson MD, MD, Dana M Start : 29-Jun-2021 Active Comments: 07-24-20 this was already sent twice? Start: 07-24-2020 take 1 tablet by zayra once daily Sertraline HCl 100 MG Oral Tablet 1 (one) Tablet qd for 0 days Quantity: 90 {Tablet} Refills: 3 Ordered: 24-Jul-2020 Marina Bronson MD Start : 24-Jul-2020 Active Comments: 07-24-20 this was already sent twice? Start: 07-19-2020 take 1 tablet by zayra once daily Sertraline HCl 100 MG Oral Tablet 1 (one) Tablet qd for 0 days Quantity: 90 {Tablet} Refills: 3 Ordered: 19-Jul-2020 Marina Bronson MD Start : 19-Jul-2020 Active Start: 12-13-2019 take 1 tablet by zayra once daily Sertraline HCl 100 MG Oral Tablet 1 (one) Tablet qd for 0 days Quantity: 30 {Tablet} Refills: 6 Ordered: 13-Dec-2019 Marina Bronson MD Start : 13-Dec-2019 Active Start: 11-10-2018 take 1 tablet by zayra th once daily Sertraline HCl 100 MG Oral Tablet 1 (one) Tablet qd for 0 days Quantity: 90 {Tablet} Refills: 3 Ordered: 10-Nov-2018 Marina Bronson MD Start : 10-Nov-2018 Active Start: 06-26-2018 take 1 mg by mouth once daily Sertraline HCl 100 MG Oral Tablet 1 (one) Tablet Tablet qd for 0 days Quantity: 30 {Tablet} Refills: 4 Ordered: 26-Jun-2018 Marina Bronson MD Start : 26-Jun-2018 Active Comments: 06-26-18increase in dose Pt will use the 50mg she has then refill at 100mg qd Comment on above: 06-26-18increase i n dose Pt will use the 50mg she has then refill at 100mg qd 07-24-20 this was al ready sent twice? May increase to two tablets if needed. [...] : 16-Oct-2018 Inactive Comments: thirty DX: F41.9 Comment on above: thirty DX: F41.9 amoxicillin 500 mg oral capsule (20 sources) Penicillin-class Antibacterial Start: 06-21-2020 End: 07-01-2020 take 1 capsule by mouth three times daily Amoxicillin 500 MG Oral Capsule 1 (one) Capsule tid for 10 days Quantity: 30 {Capsule} Refills: 0 Ordered: 21-Jun-2020 EILEEN Stevenson LPN Start : 21-Jun-2020 End : 01-Jul-2020 Inactive amoxicillin 875 mg / clavulanate 125 mg oral tablet (20 sources) Penicillin-class Antibacterial Start: 09-23-2018 End: 10-07-2018 take 1 tablet by mouth twice daily Augmentin 875-125 MG Oral Tablet 1 (one) Tablet bid for 14 days Quantity: 28 {Tablet} Refills: 0 Ordered: 23-Sep-2018 Diamond Mclean Start : 23-Sep-2018 End : 07-Oct-2018 Inactive amphetamine aspartate 5 mg / amphetamine sulfate 5 mg / dextroamphetamine saccharate 5 mg / dextroamphetamine sulfate 5 mg oral tablet (20 sources) Central Nervous System Stimulant Start: 12-31-2019 End: 01-22-2021 take 1 tablet by mouth three times daily Amphetamine-Dext roamphetamine 20 MG Oral Tablet 1 (one) Tablet tid for 0 days Quantity: 90 {Tablet} Refills: 0 Ordered: 22-Jan-2021 EILEEN Stevenson LPN Start : 31-Dec-2019 End : 22-Jan-2021 Inactive Comments: ninety DX: R41.840 Start: 06-14-2019 take 1 tablet by zayra th twice daily Amphetamine-Dextroamphetamine 20 MG Oral Tablet 1 (one) Tablet bid for 0 days Quantity: 60 {Tablet} Refills: 0 Ordered: 14-Jun-2019 Marina Bronson MD Start : 14-Jun-2019 Active Comments: Sixty DX: R41.840 Start: 04-02-2019 take 1 tablet by zayra th twice daily Amphetamine-Dextroamphetamine 20 MG Oral Tablet 1 (one) Tablet bid for 0 days Quantity: 60 {Tablet} Refills: 0 Ordered: 02-Apr-2019 Marina Bronson MD Start : 02-Apr-2019 Active Comments: Sixty DX: R41.840 Start: 02-25-2019 take 1 tablet by zayra th twice daily Amphetamine-Dextroamphetamine 10 MG Oral Tablet 1 (one) Tablet bid for 0 days Quantity: 60 {Tablet} Refills: 0 Ordered: 25-Feb-2019 EILEEN Stevenson Start : 25-Feb-2019 Active Comments: Sixty DX: R41.840 Comment on above: Sixty DX: R41.840 ninety DX: R41.840 azithromycin 250 mg oral tablet (13 sources) Macrolide Antimicrobial Start: 06-08-20 End: 06-26-20 Zithromax 250 MG Oral Tablet uad Tablet 2 today then 1 qd until gone for 0 days Quantity: 1 {Packet} Refills: 0 Ordered: 26-Jun-2021 EILEEN Stevenson LPN Start : 08-Jun-2021 End : 26-Jun-2021 Inactive bifidobacterium infantis 4 mg oral capsule (20 sources) Start: 07-31-19 End: 10-17-19 take 1 capsule by mouth once daily Align 4 MG Oral Capsule 1 (one) Capsule daily for 0 days Quantity: 30 {Capsule} Refills: 0 Ordered: 16-Oct-2018 EILEEN Stevenson LPN Start : 31-Jul-2018 End : 16-Oct-2018 Inactive clomiPHENE citrate 50 mg oral tablet (13 sources) Estrogen Agonist/Antagonist Start: 07-31-19 End: 07-31-19 clomiPHENE Citrate 50 MG Oral Tablet uad Tablet take 1 on day 3 and 4 of menstrual cycle then qd for 5 days as directed for 0 days Quantity: 7 {Tablet} Refills: 1 Ordered: 31-Jul-2021 EILEEN Stevenson LPN Start : 31-Jul-2021 End : 31-Jul-2021 Inactive Start: 06-26-2021 End: 06-26-2021 clomiPHENE Citrate 50 MG Ora l Tablet uad Tablet take 1 tablet on day 5-9 of menses as directed for 0 days Quantity: 5 {Tablet} Refills: 0 Ordered: 26-Jun-2021 EILEEN Stevenson LPN Start : 26-Jun-2021 End : 26-Jun-2021 Inactive Comments: 06-26-21 corrected quantity Comment on above: 06-26-21 corrected q uantity cyclobenzaprine hydrochloride 10 mg oral tablet (20 sources) Muscle Relaxant Start: 04-05-20 End: 12-10-19 take 1 tablet by mouth every eight hours as needed for muscle spasms Cyclobenzaprine HCl 10 MG Oral Tablet 1 (one) Tablet q 8 hours prn spasm for 0 days Quantity: 20 {Tablet} Refills: 0 Ordered: 10-Dec-2019 Anatoly Andrea LPN Start : 05-Apr-2019 End : 10-Dec-2019 Inactive fluconazole 150 mg oral tablet (20 sources) Azole Antifungal Start: 09-10-19 End: 10-20-19 Fluconazole 150 MG Oral Tablet 1 (one) Tablet qd for 3 days then once weekly for 6 months for 0 days Quantity: 27 {Tablet} Refills: 2 Ordered: 19-Oct-2021 EILEEN Stevenson LPN Start : 10-Sep-2021 End : 19-Oct-2021 Inactive Start: 12-11-2020 End: 01-22-2021 Fluconazole 150 MG Oral Tabl et 1 (one) Tablet qd for 7 days for 0 days Quantity: 7 {Tablet} Refills: 2 Ordered: 22-Jan-2021 EILEEN Stevenson LPN Start : 11-Dec-2020 End : 22-Jan-2021 Inactive Start: 07-08-2019 End: 07-27-2019 Fluconazole 150 MG Oral Tabl et 1 (one) Tablet qd for 5 days for 0 days Quantity: 5 {Tablet} Refills: 2 Ordered: 27-Jul-2019 EILEEN Stevenson LPN Start : 08-Jul-2019 End : 27-Jul-2019 Inactive Start: 01-20-2019 End: 02-09-2019 Fluconazole 150 MG Oral Tabl et 1 (one) Tablet today and may repeat in 3 days if not gone for 3 days Quantity: 2 {Tablet} Refills: 2 Ordered: 09-Feb-2019 EILEEN Stevenson LPN Start : 20-Jan-2019 End : 09-Feb-2019 Inactive Start: 09-18-2018 End: 10-16-2018 Fluconazole 150 MG Oral Tabl et 1 (one) Tablet today and may repeat in 2-3 days if not gone for 0 days Quantity: 2 {Tablet} Refills: 1 Ordered: 16-Oct-2018 EILEEN Stevenson Start : 18-Sep-2018 End : 16-Oct-2018 Inactive Start: 07-29-2018 Fluconazole 15 0 MG Oral Tablet 1 (one) Tablet Tablet today and may repeat in 2-3 days if not gone for 0 days Quantity: 2 {Tablet} Refills: 0 Ordered: 29-Jul-2018 Anatoly Escalona Start : 29-Jul-2018 Active levothyroxine sodium 0.075 mg oral tablet (20 sources) l-Thyroxine Start: 08-29-2022 take 1 tablet by mouth once daily levothyroxine 75 mcg oral tablet 1 (one) Tablet qd for 0 days Quantity: 30 {Tablet} Refills: 6 Ordered: 29-Aug-2022 Aiyana JARRELL, Marina Bronson MD, Marina Bermudez Start : 29-Aug-2022 Active Start: 08-14-2021 take 1 tablet by zayra th once daily Levothyroxine Sodium 75 MCG Oral Tablet 1 (one) Tablet qd for 0 days Quantity: 30 {Tablet} Refills: 11 Ordered: 14-Aug-2021 Marina Bronson MD, MD, Dana M Start : 14-Aug-2021 Active Start: 03-23-2021 take 1 tablet by zayra th once daily Levothyroxine Sodium 75 MCG Oral Tablet 1 (one) Tablet qd for 0 days Quantity: 30 {Tablet} Refills: 11 Ordered: 23-Mar-2021 Marina Bronson MD Start : 23-Mar-2021 Active Start: 04-07-2020 take 1 tablet by zayra th once daily Levothyroxine Sodium 75 MCG Oral Tablet 1 (one) Tablet qd for 0 days Quantity: 30 {Tablet} Refills: 11 Ordered: 07-Apr-2020 Marina Bronson MD Start : 07-Apr-2020 Active Start: 02-10-2019 take 1 tablet by zayra th once daily Levothyroxine Sodium 75 MCG Oral Tablet 1 (one) Tablet qd for 0 days Quantity: 30 {Tablet} Refills: 0 Ordered: 10-Feb-2019 Marina Bronson MD Start : 10-Feb-2019 Active meclizine hydrochloride 25 mg chewable tablet (20 sources) Antiemetic Start: 01-18-2019 End: 02-09-2019 take 1-2 tablets by mouth twice daily Meclizine HCl 25 MG Oral Tablet Chewable 1-2 Tablet PO BID for 0 days Quantity: 56 {Tablet} Refills: 0 Ordered: 09-Feb-2019 EILEEN Stevenson LPN Start : 18-Jan-2019 End : 09-Feb-2019 Inactive 24 hr methylphenidate hydrochloride 36 mg extended release oral tablet (20 sources) Central Nervous System Stimulant Start: 03-16-2019 End: 03-16-2019 take 1 tablet by mouth in the morning Concerta 36 MG Oral Tablet Extended Release 1 (one) Tablet in am for 0 days Quantity: 30 {Tablet} Refills: 0 Ordered: 16-Mar-2019 Marina Bronson MD, MD, Dana M Start : 16-Mar-2019 End : 16-Mar-2019 Inactive Comments: thirtynot like how feel, fall off in afternoon and hyper at night Start: 02-09-2019 take 1 tablet by zayra th in the morning Concerta 36 MG Oral Tablet Extended Release 1 (one) Tablet in am for 0 days Quantity: 30 {Tablet} Refills: 0 Ordered: 09-Feb-2019 Aiyana JARRELL, Marina Bermudez Start : 09-Feb-2019 Active Comments: thirty Comment on above: thirty thirtynot like how f eel, fall off in afternoon and hyper at night metroNIDAZOLE 0.01 mg/mg topical gel (15 sources) Nitroimidazole Antimicrobial Start: 01-06-20 End: 01-11-20 21 metroNIDAZOLE 1 % External Gel 1 (one) Applicatorful bid for 5 days Quantity: 10 {Applicatorful} Refills: 0 Ordered: 05-Jan-2021 EILEEN Stevenson LPN Start : 05-Jan-2021 End : 10-Jan-2021 Inactive montelukast 10 mg oral tablet (16 sources) Leukotriene Receptor Antagonist Start: 12-15-19 End: 10-20-19 take 1 tablet by mouth once daily Montelukast Sodium 10 MG Oral Tablet 1 (one) Tablet qd for 0 days Quantity: 30 {Tablet} Refills: 1 Ordered: 19-Oct-2021 EILEEN Stevenson LPN Start : 14-Dec-2020 End : 19-Oct-2021 Inactive nitrofurantoin, macrocrystals 25 mg / nitrofurantoin, monohydrate 75 mg oral capsule (20 sources) Nitrofuran Antibacterial Start: 07-24-20 End: 12-15-19 take 1 capsule by mouth twice daily Macrobid 100 MG Oral Capsule 1 (one) Capsule bid for 7 days Quantity: 14 {Capsule} Refills: 3 Ordered: 14-Dec-2020 EILEEN Stevenson LPN Start : 24-Jul-2020 End : 14-Dec-2020 Inactive Comments: or generic Start: 11-26-2019 End: 12-10-2019 Macrobid 100 MG Oral Capsule 1 (one) Capsule as directed following intercourse prn for 0 days Quantity: 30 {Capsule} Refills: 3 Ordered: 10-Dec-2019 Anatoly Andrea LPN Start : 26-Nov-2019 End : 10-Dec-2019 Inactive Start: 08-25-2018 End: 09-01-2018 take 1 capsule by mouth twice daily Macrobid 100 MG Oral Capsule 1 (one) Capsule BID for 7 days Quantity: 14 {Capsule} Refills: 0 Ordered: 25-Aug-2018 Anatoly Escalona LPN Start : 25-Aug-2018 End : 01-Sep-2018 Inactive Comment on above: or generic ondansetron 4 mg oral tablet (9 sources) Serotonin-3 Receptor Antagonist Start: 2 take 1 tablet by mouth every eight hours as needed for nausea Ondansetron HCl 4 MG Oral Tablet 1 (one) Tablet q 8 hours prn severe nausea for 0 days Quantity: 30 {Tablet} Refills: 0 Ordered: 01-Nov-2021 EILEEN Stevenson LPN Start : 01-Nov-2021 Active predniSONE 20 mg oral tablet (20 sources) Start: 0 End: 1 predniSONE 20 MG Oral Tablet uad Tablet 3 tabs a day for 3 days then 2 tabs a day for 3 days then 1 tab a day for 3 days then 1/2 tab for 4 days for 0 days Quantity: 20 {Tablet} Refills: 0 Ordered: 14-Dec-2020 EILEEN Setvenson LPN Start : 07-Jul-2020 End : 14-Dec-2020 Inactive terconazole 4 mg/ml vaginal cream (20 sources) Azole Antifungal Start: 9 End: 9 Terazol 7 0.4 % Vaginal Cream 1 (one) Application qhs for 7 days Quantity: 7 {Applicator} Refills: 0 Ordered: 31-Jul-2018 Diamond Mclean Start : 31-Jul-2018 End : 07-Aug-2018 Inactive valACYclovir 1000 mg oral tablet (13 sources) Herpesvirus Nucleoside Analog DNA Polymerase Inhibitor, Herpes Simplex Virus Nucleoside Analog DNA Polymerase Inhibitor, Herpes Zoster Virus Nucleoside Analog DNA Polymerase Inhibitor Start: 1 End: 1 Valtrex 1 GM Oral Tablet 2 (two) Tablet bid for 5 days as directed prn for 0 days Quantity: 10 {Tablet} Refills: 3 Ordered: 06-Jun-2021 Anatoly Andrea LPN Start : 04-May-2021 End : 06-Jun-2021 Inactive Problems Active Problems Problem Classification Problem Date [...] Diarrhea; Translations: [Diarrhea] Resolved: 10-16-2018 07-31-2018 Episodic Comment on above: is taking probiotic in purple bottle Other nervous system disorders (20 sources) Disturbance of attention; Translations: [Attention deficit] Resolved: 10-19-2021 02-09-2019 Chronic Comment on above: 02-09-19 [facility] review ed drug screen completed 02-09-19 [facility] review ed drug screen [id number] patient states the Conerta ER is causing increased HR and anxiety towards late afternoon, not like the way feel on ER, will try plain Adderall 10mg bid and see if feel better and not increase HR and anxiety as much. She will fu in 2-3 weeks on how doing 02-09-19 [facility] review ed drug screen -2-77 patient states the Conerta ER is causing increased HR and anxiety towards late afternoon, not like the way feel on ER, will try plain Adderall 10mg bid and see if feel better and not increase HR and anxiety as much. She will fu in 2-3 weeks on how doing04-02-19 patient better with the Adderall 10mg not so much fall off, however still needs an increase to 20mg with continued issue with 100% focus will fu in 2-3 weeks Other and delivery including normal (20 sources) Normal ; Translations: [Encntr for suprvsn of normal , unsp, unsp trimester] 11-30-2021 Episodic Other skin disorders (20 sources) Eruption; Translations: [Rash] Resolved: 10-19-2021 07-07-2020 Episodic Other upper respiratory disease (20 sources) Nasal congestion; Translations: [Nasal congestion] Resolved: 10-19-2021 09-18-2020 Episodic Other upper respiratory disease (11 sources) Pain in throat Episodic Other upper respiratory infections (20 sources) Streptococcal sore throat; Translations: [Strep pharyngitis] Resolved: 10-16-2018 09-23-2018 Episodic Residual codes; unclassified (20 sources) Body mass index 20-24 - normal; Translations: [BMI 23.0-23.9, adult] 01-17-2020 Episodic Residual codes; unclassified (19 sources) Non-smoker; Translations: [Nonsmoker] 06-06-2021 Episodic Spondylosis; intervertebral disc disorders; other back problems (20 sources) Neck pain; Translations: [Neck pain] Resolved: 10-19-2021 04-05-2019 Episodic Thyroid disorders (20 sources) Hypothyroidism; Translations: [Acquired hypothyroidism] 09-09-2018 Chronic Unclassified (20 sources) Unclassified (20 sources) Screen for STD (sexually transmitted disease) (Renamed from Encounter for screening examination for sexually transmitted disease); Translations: [Patient encounter status] 07-31-2018 Viral infection (19 sources) Herpes labialis; Translations: [Cold sore] Resolved: 10-19-2021 06-06-2021 Episodic Past or Other Problems Problem Classification [...] Results Test Name Value Interpretation Reference Range Facility T4, FREE (THYROXINE) ([id number]) Ordered By: Business Librarian on 04-10-2022 Free T4 [Mass/Vol] 0.93 ng/dL Normal 0.82-1.77 [facility]; [facility] Work Phone: Comment on above: PATIENT NOT FASTINGP ERFORMED BY: JOEL [id number] [facility] [id number] TSH (THYROID STIMULATING HOR CAL) ([id number])Ordered By: Business Librarian on 04-10-2022 TSH Qn 4.040 {uIU/mL} Normal 0.450-4.500 Rad[facility]; [facility] Work Phone: Comment on above: PATIENT NOT FASTINGP ERFORMED BY: JOEL [place] [id number] CBC, PLATELETS & AUT DIFF (1 [id number])Ordered By: Business Librarian on 11-30-2021 Basophils (Bld) [#/Vol] 0.0 10*3/uL Normal 0.0-0.2 [facility]; [facility] Work Phone: Comment on above: PATIENT NOT FASTINGP ERFORMED BY: JOEL [employer] [id number] [facility] [id number] Basophils/100 WBC (Bld) 0 % Normal [facility]; [facility] Work Phone: Comment on above: PATIENT NOT FASTINGP ERFORMED BY: [facility] [id number] [facility] [id number] Eosinophils (Bld) [#/Vol] 0.2 10*3/uL Normal 0.0-0.4 [facility]; [facility] Work Phone: Comment on above: PATIENT NOT FASTINGP ERFORMED BY: [facility] [id number] [facility] [id number] Eosinophils/100 WBC (Bld) 2 % Normal [facility]; [facility] Work Phone: Comment on above: PATIENT NOT FASTINGP ERFORMED BY: JOEL [employer] [id number] [facility] [id number] Erythrocyte distribution width (RBC) [Ratio] 12.5 % Normal 11.7-15.4 [facility]; [facility] Work Phone: Comment on above: PATIENT NOT FASTINGP ERFORMED BY: [facility] [id number] [facility] [id number] Hematocrit (Bld) [Volume fraction] 35.9 % Normal 34.0-46.6 [facility]; [facility] Work Phone: Comment on above: PATIENT NOT FASTINGP ERFORMED BY: [facility] [id number] [facility] [id number] Hemoglobin (Bld) [Mass/Vol] 12.0 g/dL Normal 11.1-15.9 [facility]; [facility] Work Phone: Comment on above: PATIENT NOT FASTINGP ERFORMED BY: JOEL [facility] [id number] [address]angel RoadDublin [place] [id number] Immature granulocytes (Bld) [#/Vol] 0.0 10*3/uL Normal 0.0-0.1 [facility]; [facility] Work Phone: Comment on above: PATIENT NOT FASTINGP ERFORMED BY: CB [facility] [id number] [address]angel RoadDorothea Dix Hospitalin [place] [id number] Immature granulocytes/100 WBC (Bld) 0 % Normal [facility]; [facility] Work Phone: Comment on above: PATIENT NOT FASTINGP ERFORMED BY: CB [facility] [id number] [address] [facility] [id number] Lymphocytes (Bld) [#/Vol] 1.6 10*3/uL Normal 0.7-3.1 [facility]; [facility] Work Phone: Comment on above: PATIENT NOT FASTINGP ERFORMED BY: CB [facility] [id number] [address] [facility] [place] [id number] Lymphocytes/100 WBC (Bld) 17 % Normal [facility]; [facility] Work Phone: Comment on above: PATIENT NOT FASTINGP ERFORMED BY: JOEL [facility] [id number] [address] [facility] [id number] MCH (RBC) [Entitic mass] 29.2 pg Normal 26.6-33.0 [facility]; [facility] Work Phone: Comment on above: PATIENT NOT FASTINGP ERFORMED BY: CB [facility] [id number] [address] [facility] [place] [id number] MCHC (RBC) [Mass/Vol] 33.4 g/dL Normal 31.5-35.7 [facility]; [facility] Work Phone: Comment on above: PATIENT NOT FASTINGP ERFORMED BY: CB [facility] [id number] [address] [facility] [place] [id number] MCV (RBC) [Entitic vol] 87 fL Normal 79-97 [facility]; [facility] Work Phone: Comment on above: PATIENT NOT FASTINGP ERFORMED BY: CB [facility] [id number] [address] RoadDublin [place] [id number] Monocytes (Bld) [#/Vol] 0.6 10*3/uL Normal 0.1-0.9 [facility]; [facility] Work Phone: Comment on above: PATIENT NOT FASTINGP ERFORMED BY: CB [facility] [id number] [address] RoadDublin [place] [id number] Monocytes/100 WBC (Bld) 6 % Normal [facility]; [facility] Work Phone: Comment on above: PATIENT NOT FASTINGP ERFORMED BY: CB [facility] [id number] [address] [place] [id number] Neutrophils (Bld) [#/Vol] 6.7 10*3/uL Normal 1.4-7.0 [facility]; [facility] Work Phone: Comment on above: PATIENT NOT FASTINGP ERFORMED BY: CB [facility] [id number] [address] RoadDublin [place] [id number] Neutrophils/100 WBC (Bld) 75 % Normal [facility]; [facility] Work Phone: Comment on above: PATIENT NOT FASTINGP ERFORMED BY: CB [facility] [id number] [address] RoadDublin [place] [id number] Platelets (Bld) [#/Vol] 241 10*3/uL Normal 150-450 [facility]; [facility] Work Phone: Comment on above: PATIENT NOT FASTINGP ERFORMED BY: CB [facility] [id number] [address] RoadDublin [place] [id number] RBC (Bld) [#/Vol] 4.11 10*6/uL Normal 3.77-5.28 [facility]; [facility] Work Phone: Comment on above: PATIENT NOT FASTINGP ERFORMED BY: CB [facility] [id number] [address] RoadDublin [place] [id number] WBC (Bld) [#/Vol] 9.0 10*3/uL Normal 3.4-10.8 [facility]; [facility] Work Phone: Comment on above: PATIENT NOT FASTINGP ERFORMED BY: JOEL [employer] [id number] [facility] [id number] HEPATITIS B SURFACE ANTIGEN ([id number])Ordered By: Business Librarian on 11-30-2021 HBV surface Ag IA Ql Negative Normal [facility]; [facility] Work Phone: Comment on above: PATIENT NOT FASTINGP ERFORMED BY: [employer] [id number] [facility] [id number] HEPATITIS C ANTIBODY ([id number]) Ordered By: Business Librarian on 11-30-2021 HCV Ab Signal/Cutoff IA [Rel units/Vol] {ratio} Normal 0.0-0.9 [facility]; [facility] Work Phone: Comment on above: Negative: < 0.8 Inde terminate: 0.8 - 0.9 Positive: > 0.9 . The CDC recommends that a positive HCV antibody result be followed up with a HCV Nucleic Acid Amplification test (134244). PATIENT NOT FASTINGP ERFORMED BY: [employer] Ojbptc0423 [facility] [id number] HIV ANTIGEN ([id number])Ordered B y: Business Librarian on 11-30-2021 HIV 1+2 Ab+HIV1 p24 Ag IA Ql Non-Reactive Normal [facility]; [facility] Work Phone: Comment on above: HIV NegativeHIV-1/HI V-2 antibodies and HIV-1 p24 antigen were NOT detected.There is no laboratory evidence of HIV infection. PATIENT NOT FASTINGP ERFORMED BY: [employer] Shmndi8514 [facility] [id number] RUBELLA IgG ([id number])Ordered B y: Business Librarian on 11-30-2021 Rubella virus IgG Qn (S) 1.01 {index} Normal [facility]; [facility] Work Phone: Comment on above: Non-immune <0.90 Equ ivocal 0.90 - 0.99 Immune >0.99 PATIENT NOT FASTINGP ERFORMED BY: [employer] Ajcsfi0594 [facility] [id number] T4, FREE (THYROXINE) ([id number]) Ordered By: Business Librarian on 11-30-2021 Free T4 [Mass/Vol] 1.06 ng/dL Normal 0.82-1.77 [facility]; [facility] Work Phone: Comment on above: PATIENT NOT FASTINGP ERFORMED BY: [employer] Xgwija9621 [facility] [id number] TSH (THYROID STIMULATING HOR CAL) ([id number])Ordered By: Business Librarian on 11-30-2021 TSH Qn 3.850 {uIU/mL} Normal 0.450-4.500 [facility]; [facility] Work Phone: Comment on above: PATIENT NOT FASTINGP ERFORMED BY: [employer] Zwelwg9025 [facility] [id number] TYPE & SCREEN GEL (55606)Ord ered By: Business Librarian on 11-30-2021 ABO group Nom (Bld) A Normal [facility]; [facility] Work Phone: Comment on above: PATIENT NOT FASTINGP ERFORMED BY: [employer] Xblhni3354 [facility] [id number] Rh Nom (Bld) Positive Normal Comprehensiv e Internal Medicine; [facility] Work Phone: Comment on above: Please note: Prior r ecords for this patient's ABO / Rh type are notavailable for additional verification. PATIENT NOT FASTINGP ERFORMED BY: [employer] Gywelo0191 [facility] [id number] INHOUSE Rapid Covid/ Flu A/ Flu BOrdered By: EILEEN Stevenson on 06-08-2021 SARS-CoV-2 (COVID-19) RNA ABRAM+probe Ql (Unsp spec) Negative Normal [facility]; [facility] Work Phone: NAI CULTURE-OTHER ([id number])Ord ered By: Business Librarian on 12-14-2020 Bacteria identified Respiratory culture Nom (Unsp spec) Final report Normal [facility]; [facility] Work Phone: Comment on above: PATIENT NOT FASTINGP ERFORMED BY: JOEL Peguero Lvbvej4424 [facility] [id number] Information: SRC:TH Bacteria identified Respiratory culture Nom (Unsp spec) RRF Normal [facility]; [facility] Work Phone: Comment on above: Routine respiratory theodora PATIENT NOT FASTINGP ERFORMED BY: [facility]EL [facility] Ygqnqt1594 [facility] [id number] Information: SRC:TH 2019 Novel Coronavirus (COVI D-19), ABRAM ([id number])Ordered By: Business Librarian on 09-18-2020 2019 Novel Coronavirus (COVID-19), ABRAM ([id number]) Not Detected Normal [facility]; [facility] Work Phone: Comment on above: This nucleic acid am plification test was developed and its performancecharacteristics determined by [employer]. Nucleic acidamplification tests include RT-PCR and TMA. This test has not beenFDA cleared or approved. This test has been authorized by FDA underan Emergency Use Authorization (EUA). This test is only authorizedfor the duration of time the declaration that circumstances existjustifying the authorization of the emergency use of in vitrodiagnostic tests for detection of SARS-CoV-2 virus and/or diagnosisof COVID-19 infection under section 564(b)(1) of the Act, 21 U.S.C.360bbb-3(b) (1), unless the authorization is terminated or revokedsooner.When diagnostic testing is negative, the possibility of a falsenegative result should be considered in the context of a patient'srecent exposures and the presence of clinical signs and symptomsconsistent with COVID-19. An individual without symptoms of COVID-19and who is not shedding SARS-CoV-2 virus would expect to have anegative (not detected) result in this assay. PATIENT NOT FASTINGP ERFORMED BY: [facility] Xkomdd4835 [facility] [id number] 2019 Novel Coronavirus (COVID-19), ABRAM (24092) Not detected Normal [facility]; [facility] Work Phone: Comment on above: This nucleic acid am plification test was developed and its performancecharacteristics determined by [employer]. Nucleic acidamplification tests include RT-PCR and TMA. This test has not beenFDA cleared or approved. This test has been authorized by FDA underan Emergency Use Authorization (EUA). This test is only authorizedfor the duration of time the declaration that circumstances existjustifying the authorization of the emergency use of in vitrodiagnostic tests for detection of SARS-CoV-2 virus and/or diagnosisof COVID-19 infection under section 564(b)(1) of the Act, 21 U.S.C.360bbb-3(b) (1), unless the authorization is terminated or revokedsooner.When diagnostic testing is negative, the possibility of a falsenegative result should be considered in the context of a patient'srecent exposures and the presence of clinical signs and symptomsconsistent with COVID-19. An individual without symptoms of COVID-19and who is not shedding SARS-CoV-2 virus would expect to have anegative (not detected) result in this assay. PATIENT NOT FASTINGP ERFORMED BY: JOEL [employer] [employer] [place] [id number] URINE NAI CULTURE-IDENTIFICA [place] ([id number])Ordered By: Business Librarian on 07-24-2020 Bacteria identified Cx Nom (U) MUG Normal [facility]; [facility] Work Phone: Comment on above: Mixed urogenital wayne ra50,000-100,000 colony forming units per mL PATIENT NOT FASTINGP ERFORMED BY: [employer] [place] [id number] Information: SRC: Bacteria identified Cx Nom (U) Final report Normal [facility]; [facility] Work Phone: Comment on above: PATIENT NOT FASTINGP ERFORMED BY: [facility] [id number] Information: SRC:SAUL Urinalysis, Office ([id number])Or dered By: Anatoly Andrea on 07-24-2020 Bilirubin Ql (U) Negative Normal Comprehe nsive Internal Medicine; [facility] Work Phone: Bilirubin Ql (U) Negative Normal Comprehe nsive [facility] Medicine; [facility] Work Phone: Glucose Test strip (U) [Mass/Vol] Negative Normal [facility]; [facility] Work Phone: Glucose Test strip (U) [Mass/Vol] Negative Normal [facility]; [facility] Work Phone: Hemoglobin Ql (U) +++ Abnormal Compreh ensive Internal Medicine; [facility] Work Phone: Ketones Ql (U) Negative Normal Comprehens phan [facility] Medicine; [facility] Work Phone: Ketones Ql (U) Negative Normal Comprehens phan [facility]; [facility] Work Phone: Leukocyte esterase Test strip Ql (U) Small Normal [facility]; [facility] Work Phone: Nitrite Ql (U) Negative Normal Comprehens phan [facility]; [facility] Work Phone: Nitrite Ql (U) Negative Normal Comprehens ph[facility]; [facility] Work Phone: pH (U) 6 [pH] Abnormal [facility]; [facility] Work Phone: Protein Ql (U) Negative Normal Comprehens phan [facility]; [facility] Work Phone: Protein Ql (U) Negative Normal Comprehens phan [facility]; [facility] Work Phone: Specific gravity (U) [Rel density] 1.005 1 Normal [facility]; [facility] Work Phone: Urobilinogen (24H U) [Mass/Time] Normal Normal [facility]; [facility] Work Phone: CALCIFIDIOL (38218) VIT D 25 Ordered By: Business Librarian on 06-14-2020 25-Hydroxyvitamin D2+25-Hydroxyvita min D3 [Mass/Vol] 41.1 ng/mL Normal 30.0-100.0 [facility] Work Phone: Comment on above: Vitamin D deficiency has been defined by the [place] of[place] and an Endocrine Society practice guideline as alevel of serum 25-OH vitamin D less than 20 ng/mL (1,2).The Endocrine Society went on to further define vitamin Dinsufficiency as a level between 21 and 29 ng/mL (2).1. IOM ([place] of [employer]). 2010. Dietary reference intakes for calcium and D. [place]: The National Academies Press.2. Kevin MF, Aurdey BARFIELD, Amy COHEN, et al. Evaluation, treatment, and prevention of vitamin D deficiency: an Endocrine Society clinical practice guideline. JCEM. 2010; 96(7):1911-30. PATIENT NOT FASTINGP ERFORMED BY: CB [facility] Olmeft0365 [address] RoadDublin [place] [id number] CBC WITH MANUAL DIFF ([id number]) Ordered By: Business Librarian on 06-14-2020 Basophils (Bld) [#/Vol] 0.0 {x10E3/uL} Normal 0.0-0.2 [facility] Work Phone: Comment on above: PATIENT NOT FASTINGP ERFORMED BY: CB [facility] Bemmir6758 [address]Dublin [place] [id number] Basophils (Bld) [#/Vol] 0.0 10*3/uL Normal 0.0-0.2 [facility]; [facility] Work Phone: Comment on above: PATIENT NOT FASTINGP ERFORMED BY: CB [facility] Nkrcxl6525 [address] RoadDublin [place] [id number] Basophils/100 WBC (Bld) 1 % Normal [facility] Work Phone: Comment on above: PATIENT NOT FASTINGP ERFORMED BY: CB [facility] Tpztxi5904 [address] RoadDublin [place] [id number] Eosinophils (Bld) [#/Vol] 0.1 {x10E3/uL} Normal 0.0-0.4 [facility] Work Phone: Comment on above: PATIENT NOT FASTINGP ERFORMED BY: CB [facility] Xilrfb3402 [address] [facility] [id number] Eosinophils (Bld) [#/Vol] 0.1 10*3/uL Normal 0.0-0.4 [facility]; [facility] Work Phone: Comment on above: PATIENT NOT FASTINGP ERFORMED BY: [facility] Hibvzg3565 [address] [facility] [id number] Eosinophils/100 WBC (Bld) 3 % Normal [facility] Work Phone: Comment on above: PATIENT NOT FASTINGP ERFORMED BY: [facility] Qgmxfn5458 [address] [facility] [id number] Erythrocyte distribution width (RBC) [Ratio] 12.6 % Normal 11.7-15.4 [facility] Work Phone: Comment on above: PATIENT NOT FASTINGP ERFORMED BY: [facility] Gabbrf0904 [address] [facility] [id number] Hematocrit (Bld) [Volume fraction] 44.0 % Normal 34.0-46.6 [facility] Work Phone: Comment on above: PATIENT NOT FASTINGP ERFORMED BY: [facility] Uisgrz3548 [address] [facility] [id number] Hemoglobin (Bld) [Mass/Vol] 14.4 g/dL Normal 11.1-15.9 [facility] Work Phone: Comment on above: PATIENT NOT FASTINGP ERFORMED BY: [facility] Wxegmx2268 [address] [facility] [id number] Immature granulocytes (Bld) [#/Vol] 0.0 {x10E3/uL} Normal 0.0-0.1 [facility] Work Phone: Comment on above: PATIENT NOT FASTINGP ERFORMED BY: [facility] Pmuwsj9816 [address] [facility] [id number] Immature granulocytes (Bld) [#/Vol] 0.0 10*3/uL Normal 0.0-0.1 [facility]; [facility] Work Phone: Comment on above: PATIENT NOT FASTINGP ERFORMED BY: CB [facility] Zjgwxy5319 [address]Dublin [place] [id number] Immature granulocytes/100 WBC (Bld) 0 % Normal [facility] Work Phone: Comment on above: PATIENT NOT FASTINGP ERFORMED BY: [facility] Oubqdb4194 [address]Dublin [place] [id number] Lymphocytes (Bld) [#/Vol] 1.4 {x10E3/uL} Normal 0.7-3.1 [facility] Work Phone: Comment on above: PATIENT NOT FASTINGP ERFORMED BY: [facility]6[address]bl[address] [place] [id number] Lymphocytes (Bld) [#/Vol] 1.4 10*3/uL Normal 0.7-3.1 [facility]; [facility] Work Phone: Comment on above: PATIENT NOT FASTINGP ERFORMED BY: [facility]6370 [address] [facility] [id number] Lymphocytes/100 WBC (Bld) 32 % Normal [facility] Work Phone: Comment on above: PATIENT NOT FASTINGP ERFORMED BY: [facility] Nzwoox1638 [address] [facility] [id number] MCH (RBC) [Entitic mass] 28.6 pg Normal 26.6-33.0 [facility] Work Phone: Comment on above: PATIENT NOT FASTINGP ERFORMED BY: [facility]6[address] [facility] [id number] MCHC (RBC) [Mass/Vol] 32.7 g/dL Normal 31.5-35.7 [facility] Work Phone: Comment on above: PATIENT NOT FASTINGP ERFORMED BY: [facility] Zbppst[address] [facility] [place] [id number] MCV (RBC) [Entitic vol] 87 fL Normal 79-97 [facility] Work Phone: Comment on above: PATIENT NOT FASTINGP ERFORMED BY: [facility]Co[facility]3]Dcozzh3378 [address] RoadDublin [place] [id number] Monocytes (Bld) [#/Vol] 0.3 {x10E3/uL} Normal 0.1-0.9 [facility] Work Phone: Comment on above: PATIENT NOT FASTINGP ERFORMED BY: JOEL Cuba6370 [address]Dublin [place] [id number] Monocytes (Bld) [#/Vol] 0.3 10*3/uL Normal 0.1-0.9 [facility]; [facility] Work Phone: Comment on above: PATIENT NOT FASTINGP ERFORMED BY: JOEL Cuba6[address] [place] [id number] Monocytes/100 WBC (Bld) 6 % Normal [facility] Work Phone: Comment on above: PATIENT NOT FASTINGP ERFORMED BY: JOEL Davalos R[address] RoadDuin [place] [id number] Neutrophils (Bld) [#/Vol] 2.6 {x10E3/uL} Normal 1.4-7.0 [facility] Work Phone: Comment on above: PATIENT NOT FASTINGP ERFORMED BY: JOEL Cuba6[address] [place] [id number] Neutrophils (Bld) [#/Vol] 2.6 10*3/uL Normal 1.4-7.0 [facility]; [facility] Work Phone: Comment on above: PATIENT NOT FASTINGP ERFORMED BY: JOEL Whitleylin6370 [address]Dublin [place] [id number] Neutrophils/100 WBC (Bld) 58 % Normal [facility] Work Phone: Comment on above: PATIENT NOT FASTINGP ERFORMED BY: JOEL LabLety WhitleyBvfsqy3110 [address] RoadDublin [place] [id number] Platelets (Bld) [#/Vol] 219 {x10E3/uL} Normal 150-450 [facility] Work Phone: Comment on above: PATIENT NOT FASTINGP ERFORMED BY: JOEL [facility] Fohqpn8523 [address] RoadDublin [place] [id number] Platelets (Bld) [#/Vol] 219 10*3/uL Normal 150-450 [facility]; [facility] Work Phone: Comment on above: PATIENT NOT FASTINGP ERFORMED BY: CB [facility] Prkhrj3876 [address] RoadDublin [place] [id number] RBC (Bld) [#/Vol] 5.04 {x10E6/uL} Normal 3.77-5.28 [facility] Internal Medicine Work Phone: Comment on above: PATIENT NOT FASTINGP ERFORMED BY: CB [facility] Ckypgz0912 [address] RoadDublin [place] [id number] RBC (Bld) [#/Vol] 5.04 10*6/uL Normal 3.77-5.28 [facility] Internal [facility]; [facility] Work Phone: Comment on above: PATIENT NOT FASTINGP ERFORMED BY: CB [facility] Smtmwf2598 [address] RoadDublin [place] [id number] WBC (Bld) [#/Vol] 4.5 {x10E3/uL} Normal 3.4-10.8 [facility] Internal Medicine Work Phone: Comment on above: PATIENT NOT FASTINGP ERFORMED BY: CB [facility] Aiacyu3863 [address] RoadDublin [place] [id number] WBC (Bld) [#/Vol] 4.5 10*3/uL Normal 3.4-10.8 [facility]; [facility] Work Phone: Comment on above: PATIENT NOT FASTINGP ERFORMED BY: CB [facility] Mxfaaw7487 [address] RoadDublin [place] [id number] Iron Binding Capacity (TIBC) ([id number])Ordered By: Business Librarian on 06-14-2020 Iron [Mass/Vol] 165 ug/dL Abnormal 27-159 [facility] Work Phone: Comment on above: Verified by repeat analysis PATIENT NOT FASTINGP ERFORMED BY: CB [facility] Hzrkmh8524 [address] RoadDublin [place] [id number] Iron binding capacity [Mass/Vol] 424 ug/dL Normal 250-450 [facility] Work Phone: Comment on above: PATIENT NOT FASTINGP ERFORMED BY: JOEL LabComarcy WhitleyKrabqg[address] [facility]blin [place] [id number] Iron binding capacity.unsatura denise [Mass/Vol] 259 ug/dL Normal 131-425 [facility] Work Phone: Comment on above: PATIENT NOT FASTINGP ERFORMED BY: [facility] Dhgeue8556 [address] [facility] [id number] Iron saturation [Mass fraction] 39 % Normal 15-55 [facility] Work Phone: Comment on above: PATIENT NOT FASTINGP ERFORMED BY: Sudhir Sgulre2741 [facility] [id number] T3, FREE (TRIDOTHYRONINE) ([id number])Ordered By: Business Librarian on 06-14-2020 Free T3 [Mass/Vol] 2.5 pg/mL Normal 2.0-4.4 [facility] Internal Medicine Work Phone: Comment on above: PATIENT NOT FASTINGP ERFORMED BY: [facility] Hogdpe6286 [facility] [id number] T4, FREE (THYROXINE) ([id number]) Ordered By: Business Librarian on 06-14-2020 Free T4 [Mass/Vol] 1.33 ng/dL Normal 0.82-1.77 [facility] Internal Medicine Work Phone: Comment on above: PATIENT NOT FASTINGP ERFORMED BY: [facility] Nisvmm0551 [address] [facility] [id number] TSH ([id number])Ordered By: Syste m Entry Level on 06-14-2020 TSH Qn 2.200 {uIU/mL} Normal 0.450-4.500 [facility] Internal Medicine Work Phone: Comment on above: PATIENT NOT FASTINGP ERFORMED BY: [facility] Tneovz5292 [facility] [id number] 2019 Novel Coronavirus (COVI D-19), ABRAM ([id number])Ordered By: Business Librarian on 01-17-20202018 Novel Coronavirus (COVID-19), ABRAM ([id number]) Not Detected Normal [facility] Work Phone: Comment on above: This test was develo ped and its performance characteristics determinedby [employer]. This test has not been FDA cleared orapproved. This test has been authorized by FDA under an Emergency UseAuthorization (EUA). This test is only authorized for the duration oftime the declaration that circumstances exist justifying theauthorization of the emergency use of in vitro diagnostic tests fordetection of SARS-CoV-2 virus and/or diagnosis of COVID-19 infectionunder section 564(b)(1) of the Act, 21 U.S.C. 360bbb-3(b)(1), unlessthe authorization is terminated or revoked sooner.When diagnostic testing is negative, the possibility of a falsenegative result should be considered in the context of a patient'srecent exposures and the presence of clinical signs and symptomsconsistent with COVID-19. An individual without symptoms of COVID-19and who is not shedding SARS-CoV-2 virus would expect to have anegative (not detected) result in this assay. PATIENT NOT FASTINGP ERFORMED BY: [employer] [facility] Jvkvfjfhra4886 [facility] [place] [id number] 2018 Novel Coronavirus (COVID-19), ABRAM ([id number]) Not detected Normal [facility]; [facility] Work Phone: Comment on above: This test was develo ped and its performance characteristics determinedby [employer]. This test has not been FDA cleared orapproved. This test has been authorized by FDA under an Emergency UseAuthorization (EUA). This test is only authorized for the duration oftime the declaration that circumstances exist justifying theauthorization of the emergency use of in vitro diagnostic tests fordetection of SARS-CoV-2 virus and/or diagnosis of COVID-19 infectionunder section 564(b)(1) of the Act, 21 U.S.C. 360bbb-3(b)(1), unlessthe authorization is terminated or revoked sooner.When diagnostic testing is negative, the possibility of a falsenegative result should be considered in the context of a patient'srecent exposures and the presence of clinical signs and symptomsconsistent with COVID-19. An individual without symptoms of COVID-19and who is not shedding SARS-CoV-2 virus would expect to have anegative (not detected) result in this assay. PATIENT NOT FASTINGP ERFORMED BY: [employer] Iafqnzldlx3456 [address] Sp[address] [place] [id number] CALCIFIDIOL (87971) VIT D 25 Ordered By: Business Librarian on 07-22-2019 25-Hydroxyvitamin D2+25-Hydroxyvita min D3 [Mass/Vol] 28.4 ng/mL Abnormal 30.0-100.0 [facility] Work Phone: Comment on above: Vitamin D deficiency has been defined by the [place] of[place] and an Endocrine Society practice guideline as alevel of serum 25-OH vitamin D less than 20 ng/mL (1,2).The Endocrine Society went on to further define vitamin Dinsufficiency as a level between 21 and 29 ng/mL (2).1. IOM ([place] [employer]). 2010. Dietary reference intakes for calcium and D. [place]: The National Academies Press.2. Kevin MF, Audrey NC, Amy COHEN, et al. Evaluation, treatment, and prevention of vitamin D deficiency: an Endocrine Society clinical practice guideline. JCEM. 2010; 96(7):1911-30. copy to Dr. Kaila acevedo [phone]; PATIENT NOT FASTINGPERFORMED BY: [employer] [employer] [place] [id number] Metabolic Panel, Basic (8004 [id number])Ordered By: Business Librarian on 07-22-2019 Calcium [Mass/Vol] 9.4 mg/dL Normal 8.7-10.2 [facility] Work Phone: Comment on above: fax copy to Dr. Jeane fairbanks [phone]; PATIENT NOT FASTINGPERFORMED BY: [employer] [place] [id number] Chloride [Moles/Vol] 103 mmol/L Normal 96-106 [facility] Work Phone: Comment on above: fax copy to Dr. Jeane fairbanks [phone]; PATIENT NOT FASTINGPERFORMED BY: CB [facility] Jqmkab4365 [address] RoadDublin [place] [id number] CO2 [Moles/Vol] 23 mmol/L Normal 20-29 [facility] Internal Medicine Work Phone: Comment on above: fax copy to Dr. Jeane fairbanks [phone]; PATIENT NOT FASTINGPERFORMED BY: CB [facility] Hdmrfd3116 [address] RoadDublin [place] [id number] Creatinine [Mass/Vol] 0.77 mg/dL Normal 0.57-1.00 [facility] Work Phone: Comment on above: fax copy to Dr. Jeane fairbanks [phone]; PATIENT NOT FASTINGPERFORMED BY: CB [facility] Ezttca3014 [address]Dublin [place] [id number] GFR/1.73 sq M predicted among blacks CKD-EPI (S/P/Bld) [Vol rate/Area] 125 mL/min/1.73 Normal [facility] Work Phone: Comment on above: fax copy to Dr. Jeane fairbanks [phone]; PATIENT NOT FASTINGPERFORMED BY: CB [facility] Gvzgoz9504 [address] RoadDublin [place] [id number] GFR/1.73 sq M predicted among non-blacks CKD-EPI (S/P/Bld) [Vol rate/Area] 108 mL/min/1.73 Normal [facility] Work Phone: Comment on above: fax copy to Dr. Jeane fairbanks [phone]; PATIENT NOT FASTINGPERFORMED BY: CB [facility] Ckmpxi0798 [address]Dublin [place] [id number] Glucose [Mass/Vol] 82 mg/dL Normal 65-99 [facility] Work Phone: Comment on above: fax copy to Dr. Jeane fairbanks [phone]; PATIENT NOT FASTINGPERFORMED BY: CB [facility] Bundem3469 [address] RoadDublin [place] [id number] Potassium [Moles/Vol] 4.8 mmol/L Normal 3.5-5.2 [facility] Work Phone: Comment on above: fax copy to Dr. Jeane fairbanks [phone]; PATIENT NOT FASTINGPERFORMED BY: CB [facility] Qckprb2651 Rangel RoadDublin [place] [id number] Sodium [Moles/Vol] 139 mmol/L Normal 134-144 [facility] Work Phone: Comment on above: fax copy to Dr. Jeane fairbanks [phone]; PATIENT NOT FASTINGPERFORMED BY: CB [facility] Tmyahw8836 Rangel RoadDublin [place] [id number] Urea nitrogen [Mass/Vol] 9 mg/dL Normal 6-20 [facility] Work Phone: Comment on above: fax copy to Dr. Jeane fairbanks [phone]; PATIENT NOT FASTINGPERFORMED BY: CB [facility] Xqlkyh3846 [address] RoadDublin [place] [id number] Urea nitrogen/Creatini ne [Mass ratio] 12 mg/mg Normal 9-23 [facility] Work Phone: Comment on above: fax copy to Dr. Jeane fairbanks [phone]; PATIENT NOT FASTINGPERFORMED BY: CB [facility] Ngzazs5449 [address] RoadDublin [place] [id number] PARATHORMONE ([id number])Ordered By: Business Librarian on 07-22-2019 Parathyrin.intact [Mass/Vol] 19 pg/mL Normal 15-65 [facility] Work Phone: Comment on above: copy to Dr. Kaila acevedo [phone]; PATIENT NOT FASTINGPERFORMED BY: CB [facility] Fjaygo0920 [address]Dublin [place] [id number] Anti TPO Antibody (84592)Ord ered By: Business Librarian on 06-29-2019 TPO Ab Qn 19 {IU/mL} Normal 0-34 [facility] Work Phone: Comment on above: PATIENT NOT FASTINGP ERFORMED BY: CB [facility] Ywzqxe3697 [address] RoadDublin [place] [id number] TPO Ab Qn 19 [IU]/mL Normal 0-34 [facility]; [facility] Work Phone: Comment on above: PATIENT NOT FASTINGP ERFORMED BY: CB [facility] Qvpckt6253 [address] [facility] [place] [id number] T3, FREE (TRIDOTHYRONINE) (8 6805)Ordered By: Business Librarian on 06-29-2019 Free T3 [Mass/Vol] 2.6 pg/mL Normal 2.0-4.4 [facility] Work Phone: Comment on above: PATIENT NOT FASTINGP ERFORMED BY: CB [facility] Lliflt4967 [address] RoadDublin [place] [id number] T4, FREE (THYROXINE) (27956) Ordered By: Business Librarian on 06-29-2019 Free T4 [Mass/Vol] 1.11 ng/dL Normal 0.82-1.77 [facility] Work Phone: Comment on above: PATIENT NOT FASTINGP ERFORMED BY: CB [facility] Gqqbhs[address]76 [address] [facility] [place] [id number] TSH (THYROID STIMULATING HOR CAL) (28939)Ordered By: Business Librarian on 06-29-2019 TSH Qn 2.880 {uIU/mL} Normal 0.450-4.500 [facility] Work Phone: Comment on above: fax a copy to Dr. Warner [facility]; PATIENT NOT FASTINGPERFORMED BY: CB [facility] Mlotvr7544 [address] [facility] [place] [id number] Drug Screen (7drug + Alcohol ) (06507)Ordered By: EILEEN Stevenson on 04-02-2019 Drug Screen (7drug + Alcohol) (84697) Negative Normal [facility] Work Phone: Drug Screen (7drug + Alcohol) (64818) Negative Normal [facility]; [facility] Work Phone: Drug Screen (7drug + Alcohol ) (79302)Ordered By: EILEEN Stevenson on 02-09-2019 Drug Screen (7drug + Alcohol) (34790) Negative Normal [facility] Work Phone: Drug Screen (7drug + Alcohol) (22114) Negative Normal [facility]; [facility] Work Phone: T3, FREE (TRIDOTHYRONINE) (1 6695)on 10-20-2018 T3 free mass conc 2.4 pg/mL Normal 2.0-4.4 Compreh ensive [facility] Medicine Work Phone: Comment on above: PATIENT NOT FASTINGP ERFORMED BY: JOEL [facility] Vufomx2886 [address] [facility] [facility], [facility] [id number] T4, FREE (THYROXINE) (51849) on 10-20-2018 T4 free mass conc 1.22 ng/dL Normal 0.82-1.77 Compreh ensive [facility] Work Phone: Comment on above: PATIENT NOT FASTINGP ERFORMED BY: JOEL [facility] Qgcufh2480 [address] [employer], LtdF[facility] [id number] Information: NURSE DRAW TSH (79461)on 10-20-2018 Thyrotropin Qn 1.640 {uIU/mL} Normal 0.450-4.500 [facility] Work Phone: Comment on above: PATIENT NOT FASTINGP ERFORMED BY: JOEL [facility] Xfwhqn9271 [address] [employer], LtdF[facility] [id number] Thyroid Peroxidase (TPO) Abo n 10-20-2018 Thyroperoxidase Ab Qn 32 {IU/mL} Normal 0-34 [facility] Work Phone: Comment on above: PATIENT NOT FASTINGP ERFORMED BY: CB [facility] Jmmgce0794 [address] [facility] [facility], LtdF[facility] [id number] MONOSPOT TEST (58009)on 08-29 Heterophile Ab LA Ql (S) Negative Normal [facility] Work Phone: Comment on above: The sensitivity of H eterophile antibody testing is 80- 90%.Kristian March IgM testing offers higher sensitivity. PATIENT NOT FASTINGP ERFORMED BY: [employer] Kcuuad8409 [facility]angelMont[facility] Hospitalin [place] [id number] MONOSPOT TEST (86574)Ordered By: Business Librarian on 09-23-2018 Heterophile Ab LA Ql (S) Negative Normal [facility]; [facility] Work Phone: Comment on above: The sensitivity of H eterophile antibody testing is 80- 90%.Kristian March IgM testing offers higher sensitivity. PATIENT NOT FASTINGP ERFORMED BY: [facility] Gkeguo5020 [address] FermentalgNovant Health [facility] [id number] URINE NAI CULTURE-IDENTIFICA TN (18293)on 08-25-2018 Bacteria identified Cx Nom (U) Final report Normal [facility] Work Phone: Comment on above: PATIENT NOT FASTINGP ERFORMED BY: [employer] Becsrz1902 [address] [employer], LtdF[facility] [id number] Information: SRC:UC Bacteria identified Cx Nom (U) MUG Normal [facility] Work Phone: Comment on above: Mixed urogenital wayne ra1,000 Colonies/mL PATIENT NOT FASTINGP ERFORMED BY: [facility] Acyums3425 [facility] [id number] Information: SRC:UC HPV, Reflex (74875)on 2018 Microscopic observation Other stain Nom (Unsp spec) . Normal [facility] Work Phone: Comment on above: Source.............C ervix;EndocervixNo. of containers..01 ThinPrep VialPATIENT NOT FASTINGPERFORMED BY: [employer] [id number] Information: [id number] Pathology report final diagnosis Narrative SPRCS Normal [facility] Work Phone: Comment on above: NEGATIVE FOR INTRAEP ITHELIAL LESION AND MALIGNANCY.Satisfactory for evaluation. Endocervical and/or squamous metaplasticcells (endocervical component) are present.Z01.419Kathryn George Calender Operator Helper (ASCP) Source.............C ervix;EndocervixNo. of containers..01 ThinPrep VialPATIENT NOT FASTINGPERFORMED BY: [address] [id number] Information: [id number] HPV, Reflex (85668) PAPSMR Normal [facility] Work Phone: Comment on above: The Pap smear is a s creening test designed to aid in the detection ofpremalignant and malignant conditions of the uterine cervix. It is not adiagnostic procedure and should not be used as the sole means of detectingcervical cancer. Both false-positive and false-negative reports do occur. .The HPV DNA reflex criteria were not met with this specimen resulttherefore, no HPV testing was performed. . Source.............C ervix;EndocervixNo. of containers..01 ThinPrep VialPATIENT NOT FASTINGPERFORMED BY: [address] [id number] Information: [id number] NuSwab STD (STD W/ Herpes) ( 86068)on 07-31-2018 Atopobium vaginae DNA ABRAM+probe Ql (Vag fld) Low - 0 Normal [facility] Work Phone: Comment on above: PATIENT NOT FASTINGP ERFORMED BY: [address] [id number] Information: SRC:VA Bacterial vaginosis associated bacterium 2 DNA ABRAM+probe Ql (Vag fld) Low - 0 Normal [facility] Work Phone: Comment on above: PATIENT NOT FASTINGP ERFORMED BY: [address] [id number] Information: SRC:VA C. albicans DNA ABRAM+probe Ql (Vag fld) Negative Normal [facility] Work Phone: Comment on above: PATIENT NOT FASTINGP ERFORMED BY: [address] [id number] Information: SRC:VA C. glabrata DNA ABRAM+probe Ql (Vag fld) Negative Normal [facility] Work Phone: Comment on above: This test was develo ped and its performance characteristics determinedby [employer]. It has not been cleared or approved by the Food and DrugAdministration. The FDA has determined that such clearance orapproval is not necessary. PATIENT NOT FASTINGP ERFORMED BY: [address] [id number] Information: SRC:VA C. trachomatis rRNA ABRAM+probe Ql (Unsp spec) Negative Normal [facility] Work Phone: Comment on above: PATIENT NOT FASTINGP ERFORMED BY: [address] [id number] Information: SRC:VA HSV 1 DNA ABRAM+probe Ql (Unsp spec) Negative Normal [facility] Work Phone: Comment on above: PATIENT NOT FASTINGP ERFORMED BY: [address] [id number] Information: SRC:VA HSV 2 DNA ABRAM+probe Ql (Unsp spec) Negative Normal [facility] Work Phone: Comment on above: PATIENT NOT FASTINGP ERFORMED BY: [address] [id number] Information: SRC:VA Megasphaera sp type 1 DNA ABRAM+probe Ql (Vag fld) Low - 0 Normal [facility] Work Phone: Comment on above: Calculate total scor e by adding the 3 individual bacterialvaginosis (BV) marker scores together. Total score isinterpreted as follows:Total score 0-1: Indicates the absence of BV.Total score 2: Indeterminate for BV. Additional clinical data should be evaluated to establish a diagnosis.Total score 3-6: Indicates the presence of BV. .This test was developed and its performance characteristicsdetermined by [employer]. It has not been cleared or approvedby the Food and Drug Administration. The FDA has determinedthat such clearance or approval is not necessary. PATIENT NOT FASTINGP ERFORMED BY: [address] [id number] Information: SRC:VA N. gonorrhoeae rRNA ABRAM+probe Ql (Unsp spec) Negative Normal [facility] Work Phone: Comment on above: PATIENT NOT FASTINGP ERFORMED BY: [address] [id number] Information: SRC:VA T. vaginalis rRNA ABRAM+probe Ql (Unsp spec) Negative Normal [facility] Work Phone: Comment on above: PATIENT NOT FASTINGP ERFORMED BY: [address] [id number] Information: SRC:[place] Nuab STD (STD W/ Herpes) ( 21501)Ordered By: Business Librarian on 07-31-2018 C. albicans DNA ABRAM+probe Ql (Vag fld) Negative Normal [facility]; [facility] Work Phone: Comment on above: PATIENT NOT FASTINGP ERFORMED BY: [address] [id number] Information: SRC:VA C. glabrata DNA ABRAM+probe Ql (Vag fld) Negative Normal [facility]; [facility] Work Phone: Comment on above: This test was develo ped and its performance characteristics determinedby [facility]. It has not been cleared or approved by the Food and DrugAdministration. The FDA has determined that such clearance orapproval is not necessary. PATIENT NOT FASTINGP ERFORMED BY: [address] [id number] Information: SRC:VA C. trachomatis rRNA ABRAM+probe Ql (Unsp spec) Negative Normal [facility]; [facility] Work Phone: Comment on above: PATIENT NOT FASTINGP ERFORMED BY: [address] [id number] Information: SRC:VA HSV 1 DNA ABRAM+probe Ql (Unsp spec) Negative Normal [facility]; [facility] Work Phone: Comment on above: PATIENT NOT FASTINGP ERFORMED BY: [facility] [address] [id number] Information: SRC:VA HSV 2 DNA ABRAM+probe Ql (Unsp spec) Negative Normal [facility]; [facility] Work Phone: Comment on above: PATIENT NOT FASTINGP ERFORMED BY: Lab[address] [id number] Information: SRC:VA N. gonorrhoeae rRNA ABRAM+probe Ql (Unsp spec) Negative Normal [facility]; [facility] Work Phone: Comment on above: PATIENT NOT FASTINGP ERFORMED BY: Lab[address] [id number] Information: SRC:VA T. vaginalis rRNA ABRAM+probe Ql (Unsp spec) Negative Normal [facility]; [facility] Work Phone: Comment on above: PATIENT NOT FASTINGP ERFORMED BY: [facility] [address] [id number] Information: SRC:VA CBC WITH MANUAL DIFF (17495) on 05-25-2018 Basophils #/vol (Bld) 0.0 {x10E3/uL} Normal 0.0-0.2 [facility] Work Phone: Comment on above: PATIENT NOT FASTINGP ERFORMED BY: [facility] Keeewb3182 [facility] [id number] Basophils Auto #/vol (Bld) 0.0 {x10E3/uL} Normal 0.0-0.2 [facility] Work Phone: Basophils/100 WBC (Bld) 0 % Normal [facility] Work Phone: Comment on above: PATIENT NOT FASTINGP ERFORMED BY: [facility] Nawcfm2833 [facility] [id number] Basophils/100 WBC Auto (Bld) 0 % Normal [facility] Work Phone: Eosinophils #/vol (Bld) 0.1 {x10E3/uL} Normal 0.0-0.4 [facility] Work Phone: Comment on above: PATIENT NOT FASTINGP ERFORMED BY: JOEL [facility] Bhpnlo1275 [address] [facility] [id number] Eosinophils Auto #/vol (Bld) 0.1 {x10E3/uL} Normal 0.0-0.4 [facility] Work Phone: Eosinophils/100 WBC (Bld) 1 % Normal [facility] Work Phone: Comment on above: PATIENT NOT FASTINGP ERFORMED BY: JOEL [facility] Dwuiyc3263 [facility] [id number] Eosinophils/100 WBC Auto (Bld) 1 % Normal [facility] Work Phone: Erythrocyte distribution width Auto Ratio (RBC) 13.3 % Normal 12.3-15.4 [facility] Work Phone: Erythrocyte distribution width Ratio (RBC) 13.3 % Normal 12.3-15.4 [facility] Work Phone: Comment on above: PATIENT NOT FASTINGP ERFORMED BY: JOEL [facility]Smzxko3066 [facility] [id number] Hematocrit Auto Volume Fraction (Bld) 40.6 % Normal 34.0-46.6 [facility] Work Phone: Hematocrit Volume Fraction (Bld) 40.6 % Normal 34.0-46.6 [facility] Work Phone: Comment on above: PATIENT NOT FASTINGP ERFORMED BY: [facility] Cwswsk7552 [facility] [id number] Hemoglobin mass conc (Bld) 13.3 g/dL Normal 11.1-15.9 [facility] Work Phone: Comment on above: PATIENT NOT FASTINGP ERFORMED BY: JOEL [facility] Zgvcyd3515 [facility] [id number] Immature granulocytes #/vol (Bld) 0.0 {x10E3/uL} Normal 0.0-0.1 [facility] Work Phone: Comment on above: PATIENT NOT FASTINGP ERFORMED BY: [facility]6370 [address] [facility] [id number] Immature granulocytes/100 WBC (Bld) 0 % Normal [facility] Work Phone: Comment on above: PATIENT NOT FASTINGP ERFORMED BY: [place] 4685070 [address] [facility] [id number] Lymphocytes #/vol (Bld) 2.7 {x10E3/uL} Normal 0.7-3.1 [facility] Work Phone: Comment on above: PATIENT NOT FASTINGP ERFORMED BY: [place] [id number] [facility] [id number] Lymphocytes Auto #/vol (Bld) 2.7 {x10E3/uL} Normal 0.7-3.1 [facility] Work Phone: Lymphocytes/100 WBC (Bld) 32 % Normal [facility] Work Phone: Comment on above: PATIENT NOT FASTINGP ERFORMED BY: [place] [id number] [facility] [id number] Lymphocytes/100 WBC Auto (Bld) 32 % Normal [facility] Work Phone: MCH Auto Entitic mass (RBC) 27.0 pg Normal 26.6-33.0 [facility] Work Phone: MCH Entitic mass (RBC) 27.0 pg Normal 26.6-33.0 [facility] Work Phone: Comment on above: PATIENT NOT FASTINGP ERFORMED BY: [place] [id number] [facility] [id number] MCHC Auto mass conc (RBC) 32.8 g/dL Normal 31.5-35.7 [facility] Work Phone: MCHC mass conc (RBC) 32.8 g/dL Normal 31.5-35.7 [facility] Work Phone: Comment on above: PATIENT NOT FASTINGP ERFORMED BY: [place] [id number] [facility] [id number] MCV Auto Entitic volume (RBC) 82 fL Normal 79-97 [facility] Work Phone: MCV Entitic volume (RBC) 82 fL Normal 79-97 [facility] Work Phone: Comment on above: PATIENT NOT FASTINGP ERFORMED BY: [place] [id number] [facility] [id number] Monocytes #/vol (Bld) 0.6 {x10E3/uL} Normal 0.1-0.9 [facility] Work Phone: Comment on above: PATIENT NOT FASTINGP ERFORMED BY: [address] [id number] Monocytes Auto #/vol (Bld) 0.6 {x10E3/uL} Normal 0.1-0.9 [facility] Work Phone: Monocytes/100 WBC (Bld) 7 % Normal [facility] Work Phone: Comment on above: PATIENT NOT FASTINGP ERFORMED BY: [address] [id number] Monocytes/100 WBC Auto (Bld) 7 % Normal [facility] Work Phone: Neutrophils #/vol (Bld) 5.1 {x10E3/uL} Normal 1.4-7.0 [facility] Work Phone: Comment on above: PATIENT NOT FASTINGP ERFORMED BY: [place] [id number] [facility] [id number] Neutrophils Auto #/vol (Bld) 5.1 {x10E3/uL} Normal 1.4-7.0 [facility] Work Phone: Neutrophils/100 WBC (Bld) 60 % Normal [facility] Work Phone: Comment on above: PATIENT NOT FASTINGP ERFORMED BY: [place] [id number] [facility] [id number] Neutrophils/100 WBC Auto (Bld) 60 % Normal [facility] Work Phone: Platelets #/vol (Bld) 253 {x10E3/uL} Normal 150-379 [facility] Work Phone: Comment on above: PATIENT NOT FASTINGP ERFORMED BY: JOEL Cuba6370 [facility] [id number] Platelets Auto #/vol (Bld) 253 {x10E3/uL} Normal 150-379 [facility] Work Phone: RBC #/vol (Bld) 4.93 {x10E6/uL} Normal 3.77-5.28 [facility] Internal Medicine Work Phone: Comment on above: PATIENT NOT FASTINGP ERFORMED BY: JOEL Cuba6370 [facility] [id number] RBC Auto #/vol (Bld) 4.93 {x10E6/uL} Normal 3.77-5.28 [facility] Work Phone: WBC #/vol (Bld) 8.5 {x10E3/uL} Normal 3.4-10.8 [facility] Internal Medicine Work Phone: Comment on above: PATIENT NOT FASTINGP ERFORMED BY: JOEL Cuba6370 [facility] [id number] WBC Auto #/vol (Bld) 8.5 {x10E3/uL} Normal 3.4-10.8 [facility] Work Phone: CBC WITH MANUAL DIFF (07684) Ordered By: Business Librarian on 05-25-2018 Basophils (Bld) [#/Vol] 0.0 10*3/uL Normal 0.0-0.2 [facility]; [facility] Work Phone: Comment on above: PATIENT NOT FASTINGP ERFORMED BY: JOEL Whitleylin6370 [facility] [id number] Eosinophils (Bld) [#/Vol] 0.1 10*3/uL Normal 0.0-0.4 [facility]; [facility] Work Phone: Comment on above: PATIENT NOT FASTINGP ERFORMED BY: JOEL Whitleylin6370 [facility] [place] [id number] Immature granulocytes (Bld) [#/Vol] 0.0 10*3/uL Normal 0.0-0.1 [facility]; [facility] Work Phone: Comment on above: PATIENT NOT FASTINGP ERFORMED BY: CB [facility] Vlwmbz7666 Rangel Roadblin [place] [id number] Lymphocytes (Bld) [#/Vol] 2.7 10*3/uL Normal 0.7-3.1 [facility]; [facility] Work Phone: Comment on above: PATIENT NOT FASTINGP ERFORMED BY: CB [facility] Eppkan6949 [address] RoadDublin [place] [id number] Monocytes (Bld) [#/Vol] 0.6 10*3/uL Normal 0.1-0.9 [facility]; [facility] Work Phone: Comment on above: PATIENT NOT FASTINGP ERFORMED BY: [facility] Qayqal5354 Rangel RoadDorothea Dix Hospitalin [place] [id number] Neutrophils (Bld) [#/Vol] 5.1 10*3/uL Normal 1.4-7.0 [facility]; [facility] Work Phone: Comment on above: PATIENT NOT FASTINGP ERFORMED BY: CB [facility] Dmvsfm0442 [address] RoadDublin [place] [id number] Platelets (Bld) [#/Vol] 253 10*3/uL Normal 150-379 [facility]; [facility] Work Phone: Comment on above: PATIENT NOT FASTINGP ERFORMED BY: CB [facility] Tpxbam6789 [address] RoadDublin [place] [id number] RBC (Bld) [#/Vol] 4.93 10*6/uL Normal 3.77-5.28 [facility]; [facility] Work Phone: Comment on above: PATIENT NOT FASTINGP ERFORMED BY: CB [facility] Xooiaa3679 [address] RoadDublin [place] [id number] WBC (Bld) [#/Vol] 8.5 10*3/uL Normal 3.4-10.8 Compre hensive Internal Medicine; [facility] Work Phone: Comment on above: PATIENT NOT FASTINGP ERFORMED BY: CB [facility] Hshrbc5656 [address] RoadDublin [place] [id number] Ferritin (84699)on 8 Ferritin mass conc 20 ng/mL Normal 15-150 [facility] Work Phone: Comment on above: PATIENT NOT FASTINGP ERFORMED BY: CB [facility] Zorsvs1402 [address] RoadDublin [place] [id number] Iron Binding Capacity (TIBC) (92531)on 05-25-2018 Iron binding capacity mass conc 332 ug/dL Normal 250-450 [facility] Work Phone: Comment on above: PATIENT NOT FASTINGP ERFORMED BY: CB [facility] Gqdntp6854 [address] RoadDublin [place] [id number] Iron binding capacity.unsatura denise mass conc 297 ug/dL Normal 131-425 [facility] Work Phone: Comment on above: PATIENT NOT FASTINGP ERFORMED BY: CB [facility] Vaseik5823 [address] RoadDublin [place] [id number] Iron mass conc 35 ug/dL Normal 27-159 Comprehens phan Internal Medicine Work Phone: Comment on above: PATIENT NOT FASTINGP ERFORMED BY: CB [facility] Zhqilc1700 [address] RoadDublin [place] [id number] Iron saturation mass fraction 11 % Abnormal 15-55 [facility] Work Phone: Comment on above: PATIENT NOT FASTINGP ERFORMED BY: CB [facility] Mdptdo4752 [address] RoadDublin [place] [id number] Metabolic Panel, Comprehensi ve (47434)on 05-25-2018 Albumin mass conc 4.6 g/dL Normal 3.5-5.5 Compreh ensive Internal Medicine Work Phone: Comment on above: PATIENT NOT FASTINGP ERFORMED BY: CB [facility] Wfwpfa5644 [address] RoadDublin [place] [id number] Albumin/Globulin mass ratio 1.7 {ratio} Normal 1.2-2.2 [facility] Work Phone: Comment on above: PATIENT NOT FASTINGP ERFORMED BY: JOEL Cuba6[address] [facility] [place] [id number] ALP enzyme act/vol 91 [iU]/L Normal 39-117 [facility] Work Phone: Comment on above: PATIENT NOT FASTINGP ERFORMED BY: JOEL Cuba6370 [address] [facility] [id number] ALT enzyme act/vol 15 [iU]/L Normal 0-32 [facility] Work Phone: Comment on above: PATIENT NOT FASTINGP ERFORMED BY: JOEL Cuba6370 [address] [facility] [id number] AST enzyme act/vol 19 [iU]/L Normal 0-40 [facility] Work Phone: Comment on above: PATIENT NOT FASTINGP ERFORMED BY: JOEL Conor Cuba6370 [address] [facility] [id number] Bilirubin mass conc 0.2 mg/dL Normal 0.0-1.2 [facility] Work Phone: Comment on above: PATIENT NOT FASTINGP ERFORMED BY: JOEL Cuba6370 [address] [facility] [id number] Calcium mass conc 9.6 mg/dL Normal 8.7-10.2 Compreh ensive Internal Medicine Work Phone: Comment on above: PATIENT NOT FASTINGP ERFORMED BY: JOEL Whitleylin6370 [address] [facility] [id number] Chloride molar conc 104 mmol/L Normal 96-106 [facility] Work Phone: Comment on above: PATIENT NOT FASTINGP ERFORMED BY: JOEL LabLety WhitleyOfwnpr3006 [facility] [id number] CO2 molar conc 23 mmol/L Normal 20-29 Comprehens phan [facility] Work Phone: Comment on above: PATIENT NOT FASTINGP ERFORMED BY: JOEL [facility] [id number] [facility] [id number] Creatinine mass conc 0.85 mg/dL Normal 0.57-1.00 [facility] Work Phone: Comment on above: PATIENT NOT FASTINGP ERFORMED BY: JOEL Conor Cuba6370 [facility] [id number] GFR/1.73 sq M predicted among blacks CKD-EPI vol rate/area (S/P/Bld) 112 mL/min/1.73 Normal [facility] Work Phone: Comment on above: PATIENT NOT FASTINGP ERFORMED BY: JOEL [facility]3]Oobhhr3343 [facility] [id number] GFR/1.73 sq M predicted among non-blacks CKD-EPI vol rate/area (S/P/Bld) 97 mL/min/1.73 Normal [facility] Work Phone: Comment on above: PATIENT NOT FASTINGP ERFORMED BY: JOEL LabBar[facility]6370 [facility] [id number] Globulin Calculated mass conc (S) 2.7 g/dL Normal 1.5-4.5 [facility] Work Phone: Globulin mass conc (S) 2.7 g/dL Normal 1.5-4.5 [facility] Work Phone: Comment on above: PATIENT NOT FASTINGP ERFORMED BY: JOEL [facility] Wdzqgz7509 [facility] [id number] Glucose mass conc 96 mg/dL Normal 65-99 Compreh ensive [facility] Work Phone: Comment on above: PATIENT NOT FASTINGP ERFORMED BY: [facility] Czrpfz0300 [facility] [id number] Potassium molar conc 4.3 mmol/L Normal 3.5-5.2 [facility] Work Phone: Comment on above: PATIENT NOT FASTINGP ERFORMED BY: LabCo Ltpopk0758 [facility] [id number] Protein mass conc 7.3 g/dL Normal 6.0-8.5 Compreh ensive [facility] Work Phone: Comment on above: PATIENT NOT FASTINGP ERFORMED BY: JOEL LabComarcy Isssgk7379 [address]angel RoadDublin [place] [id number] Sodium molar conc 142 mmol/L Normal 134-144 Compreh ens[facility] Work Phone: Comment on above: PATIENT NOT FASTINGP ERFORMED BY: JOEL LabLety WhitleyWtonca7762 [address] RoadDublin [place] [id number] Urea nitrogen mass conc 10 mg/dL Normal 6-20 [facility] Work Phone: Comment on above: PATIENT NOT FASTINGP ERFORMED BY: JOEL [facility] Bnesib9479 [address] RoadDublin [place] [id number] Urea nitrogen/Creatini ne mass ratio 12 mg/mg Normal 9-23 [facility] Work Phone: Comment on above: PATIENT NOT FASTINGP ERFORMED BY: JOEL LabLety WhitleyAonjjj6280 [address]blin [place] [id number] Metabolic Panel, Comprehensi ve (01608)Ordered By: Business Librarian on 05-25-2018 ALP [Catalytic activity/Vol] 91 U/L Normal 39-117 [facility]; [facility] Work Phone: Comment on above: PATIENT NOT FASTINGP ERFORMED BY: JOEL Whitleylin6370 [address] RoadDublin [place] [id number] ALT [Catalytic activity/Vol] 15 U/L Normal 0-32 [facility]; [facility] Work Phone: Comment on above: PATIENT NOT FASTINGP ERFORMED BY: JOEL LabNellarp Ouddid6[address] RoadDublin [place] [id number] AST [Catalytic activity/Vol] 19 U/L Normal 0-40 [facility]; [facility] Work Phone: Comment on above: PATIENT NOT FASTINGP ERFORMED BY: JOEL LabNellarp Zodcrx6134 [address] RoadDublin [place] [id number] Vitamin B-12 (cyanocobalamin ) (03006)on 05-25-2018 Cobalamin (Vitamin B12) mass conc 1126 pg/mL Normal 232-1245 [facility] Work Phone: Comment on above: PATIENT NOT FASTINGP ERFORMED BY: [facility]3]Mmzoid6663 [facility] [id number] Vital Signs Date Time Vital Sign Value Performing Clinician Facility 06-06-2021 11:34-0500 Body height 165.1 cm Anatoly Andrea LPN [facility]; [facility] Work Phone: 06-06-2021 11:34-0500 Body mass index (BMI) [Ratio] 23.3 kg/m2 Anatoly Andrea LPN [facility]; [facility] Work Phone: 06-06-2021 11:34-0500 Body surface area Derived from formula 1.7 m2 Anatoly Andrea LPN [facility]; [facility] Work Phone: 06-06-2021 11:34-0500 Body temperature 101.4 [degF] Anatoly Andrea LPN [facility]; [facility] Work Phone: Comment on above: Method: Oral 06-06-2021 11:34-0500 Body weight 63.5 kg Anatoly Andrea LPN [facility]; [facility] Work Phone: 02-09-2019 14:51-0400 BMI (Body Mass Index) 23.3 kg/m2 EILEEN Stevenson LPN [facility] Work Phone: 02-09-2019 14:51-0400 Body Temperature 97.6 [degF] EILEEN Stevenson LPN Comprehens[facility] Work Phone: Comment on above: Method: Temporal 02-09-2019 14:51-0400 Body weight 63.5 kg EILEEN Stevenson LPN [facility] Work Phone: 02-09-2019 14:51-0400 BP Diastolic 70 mm[Hg] EILEEN Stevenson LPN [facility] Work Phone: Comment on above: Patient Position: Sitting; Cuff Location : Left Arm; Cuff Size: Standard 02-09-2019 14:51-0400 BP Systolic 114 mm[Hg] EILEEN Stevenson LPN [facility] Work Phone: Comment on above: Patient Position: Sitting; Cuff Location : Left Arm; Cuff Size: Standard 02-09-2019 14:51-0400 BSA (Body Surface Area) 1.7 m2 EILEEN Stevenson LPN [facility] Work Phone: 02-09-2019 14:51-0400 Height 165.1 cm EILEEN Stevenson LPN [facility] Work Phone: 02-09-2019 14:51-0400 Pulse (Heart Rate) 76 /min EILEEN Stevenson LPN Comprehens phan [facility] Work Phone: Comment on above: Pattern: Regular 02-09-2019 14:51-0400 Pulse Oximetry 98 % Diamond Phippsqueta [facility] Work Phone: Comment on above: Room air 02-09-2019 14:51-0400 Respiratory Rate 18 /min EILEEN Stevenson LPN [facility] Work Phone: Comment on above: Pattern: Unlabored 02-09-2019 14:51-0400 SaO2% (BldA) [Mass fraction] 98 % EILEEN Stevenson LPN [facility]; [facility] Work Phone: Comment on above: Room air 09-23-2018 15:02-0500 Body Temperature 97.4 [degF] Diamond Sadlerlloyd DIRECTOR OF TESTING Work Phone: [facility] Work Phone: 09-23-2018 15:02-0500 BP Diastolic 80 mm[Hg] Diamond Sadlerlloyd DIRECTOR OF TESTING Work Phone: [facility] Work Phone: Comment on above: Patient Position: Supine; Cuff Location: Right Arm; Cuff Size: Standard 09-23-2018 15:02-0500 BP Systolic 112 mm[Hg] Diamond Sadlerlloyd DIRECTOR OF TESTING Work Phone: [facility] Work Phone: Comment on above: Patient Position: Supine; Cuff Location: Right Arm; Cuff Size: Standard 09-23-2018 15:02-0500 Pulse (Heart Rate) 103 /min Diamond Sadlerlloyd DIRECTOR OF TESTING Work Phone: [facility] Work Phone: Comment on above: Pattern: Regular 07-31-2018 13:50-0500 Body Temperature 98.6 [degF] Anatoly Andrea LPN [facility] Work Phone: Comment on above: Method: Temporal 07-31-2018 13:50-0500 BP Diastolic 78 mm[Hg] Anatoly Andrea LPN [facility] Work Phone: Comment on above: Patient Position: Sitting; Cuff Location : Left Arm; Cuff Size: Standard 07-31-2018 13:50-0500 BP Systolic 132 mm[Hg] Anatoly Andrea LPN [facility] Work Phone: Comment on above: Patient Position: Sitting; Cuff Location : Left Arm; Cuff Size: Standard 07-31-2018 13:50-0500 Pulse (Heart Rate) 99 /min Anatoly Andrea LPN [facility] Work Phone: Comment on above: Pattern: Regular 07-31-2018 13:50-0500 Pulse Oximetry 98 % Diamond Mclean [facility] Internal Medicine Work Phone: Comment on above: Room air 07-31-2018 13:50-0500 Respiratory Rate 18 /min Anatoly Andrea LPN [facility] Work Phone: Comment on above: Pattern: Unlabored 07-31-2018 13:50-0500 SaO2% (BldA) [Mass fraction] 98 % Anatoly Andrea LPN [facility]; [facility] Work Phone: Comment on above: Room air Encounters Encounter Date Encounter Type Care Provider [...] 06-26-2021 End: 06-26-2021 Lab Order Diamond Mclean DIRECTOR OF TESTING Work Phone: [facility] Start: 06-08-2021 End: 06-08-2021 Phone Encounter Diamond Mclean DIRECTOR OF TESTING Work Phone: [facility] Start: 06-06-2021 End: 06-08-2021 Erroneous Entry Diamond Sadlera DIRECTOR OF TESTING Work Phone: [facility] Start: 06-06-2021 End: 06-06-2021 Lab Order Diamond Sadlera DIRECTOR OF TESTING Work Phone: [facility] Start: 05-04-2021 End: 05-04-2021 Phone Encounter Diamond Mclean DIRECTOR OF TESTING Work Phone: [facility] Start: 01-05-2021 End: 01-05-2021 Phone Encounter Diamond Mclean DIRECTOR OF TESTING Work Phone: [facility] Start: 12-14-2020 End: 12-14-2020 Phone Encounter Diamond Mclean DIRECTOR OF TESTING Work Phone: [facility] Start: 12-14-2020 End: 12-14-2020 Lab Order Diamond Mclean DIRECTOR OF TESTING Work Phone: [facility] Start: 11-23-2020 Review Diamond Mclean DIRECTOR OF TESTING Work Phone: [facility] Start: 09-18-2020 End: 09-18-2020 Lab Order Diamond Mclean [facility] Start: 07-24-2020 End: 07-24-2020 Annotation/Addendum Diamond Mclean [facility] Start: 07-24-2020 End: 07-24-2020 Annotation/Addendum Diamond Mclean [facility] Start: 07-07-2020 End: 07-07-2020 Phone Encounter Diamond Mclean [facility] Start: 06-21-2020 End: 06-21-2020 Phone Encounter Diamond Mclean [facility] Start: 06-12-2020 End: 06-12-2020 Lab Order Diamond Mclean [facility] Start: 01-17-2020 End: 01-17-2020 Annotation/Addendum Diamond Mclean [facility] Start: 11-26-2019 End: 11-26-2019 Phone Encounter Diamond Mclean [facility] Start: 07-19-2019 End: 07-19-2019 Lab Order Diamond Mclean [facility] Start: 06-29-2019 End: 06-29-2019 Lab Order Diamond Mclean [facility] Start: 06-29-2019 End: 06-29-2019 Phone Encounter Diamond Mclean [facility] Start: 06-29-2019 End: 06-29-2019 Phone Encounter Diamond Mclean [facility] Start: 04-15-2019 End: 04-15-2019 Annotation/Addendum Diamond Mclean [facility] Start: 04-05-2019 End: 04-05-2019 Phone Encounter Diamond Mclean [facility] Start: 04-02-2019 End: 04-02-2019 Phone Encounter Diamond Mclean [facility] Start: 02-25-2019 End: 02-25-2019 Phone Encounter Diamond Mclean [facility] Start: 02-10-2019 End: 02-10-2019 Phone Encounter Diamond Mclean [facility] Start: 02-09-2019 End: 02-09-2019 Office outpatient visit 40 minutes Diamond Mclean [facility] Start: 01-18-2019 End: 01-18-2019 Phone Encounter Diamond Mclean [facility] Start: 10-20-2018 Patient encounter procedure Diamond Mclean [facility] Start: 10-20-2018 End: 10-20-2018 Lab Order Diamond Mclean [facility] Start: 10-16-2018 Review Diamond Mclean [facility] Start: 10-13-2018 End: 10-13-2018 Phone Encounter Diamond Mclean [facility] Start: 09-23-2018 End: 09-23-2018 Annotation/Addendum Diamond Mclean [facility] Start: 09-18-2018 End: 09-18-2018 Phone Encounter Diamond Mclean [facility] Start: 09-09-2018 End: 09-09-2018 Phone Encounter Diamond Mclean [facility] Start: 08-25-2018 End: 08-25-2018 Annotation/Addendum Diamond Mclean [facility] Start: 08-25-2018 End: 08-25-2018 Lab Order Diamond Mclean [facility] Start: 07-31-2018 End: 07-31-2018 Lab Order Diamond Mclean [facility] Start: 07-31-2018 End: 07-31-2018 Patient encounter procedure Marina Bronson MD Work Phone: [facility] Start: 07-31-2018 End: 07-31-2018 Office outpatient visit 15 minutes Diamond Mclean [facility] Start: 07-29-2018 End: 07-29-2018 Phone Encounter Diamond Mclean [facility] Start: 06-26-2018 End: 06-26-2018 Phone Encounter Diamond Mclean [facility] Start: 06-11-2018 End: 06-11-2018 Phone Encounter Diamond Mclean [facility] Start: 05-25-2018 End: 05-25-2018 Lab Order Diamond Mclean [facility] Patient encounter procedure EILEEN Stevenson LPN [facility]; [facility] Work Phone: Patient encounter procedure Anatoly Emre [facility]; [facility] Work Phone: End: 10-19-2021 Patient encounter procedure EILEEN Stevenson [facility]; [facility] Work Phone: Procedures Date Procedure Procedure Detail Performing Clinician Start: 11-25-2022 End: 11-26-2022 MR/BMS.[facility] Procedure Note: See Note; NOTES: [facility] [address] [place] [address] OFFICE VISIT Date of Service: 11/25/22 MR#: [id number] Acct: [id number] Name: OVI ANGUIANO Rep #: [id number] : 1995 Provider: MINNA sethi Age/Sex: 27/F Location: [facility] Status: Signed Intake Intake Visit Reasons: black spot on nipple Chief Complaint: black spot on niplpe Accompanied by: Self Allergies acetaminophen [From [place]] Allergy (Mild, Verified 06/23/22 16:53) Other hydrocodone [From [place]] Allergy (Mild, Verified 06/23/22 16:53) Other : [...] Labor Lgth Anesthesia Del Locatn Provider FOB 11/27/22 Lisa 38 live - full term Female [facility] Dr. Aidan wang Delivery Date: 06/23/22 Last Updated by: Elizabeth Zabala IAL, GDMA1 HPI HPI HPI: OVI ANGUIANO, is a 27 F who presents [...] MD Work Phone: Start: 08-05-2022 End: 08-05-2022 Mash Filter Operator Office Visit Report Procedure Note: See Note; NOTES: [facility] [address] [place] [address] OFFICE VISIT Date of Service: 08/05/22 MR#: [id number] Acct: [id number] Name: OVI ANGUIANO Rep #: [id number] : 1995 Provider: Dr. Yenni morrow MD Age/Sex: 27/F Location: [facility] Status: Signed Intake Vital Signs 08/05/22 10:07 08/05/22 10:07 Height 1.65 m 1.65 m Weight: 72.575 kg BMI 26.6 BP 150/100 H Intake Visit Reasons: 6 wk PP, declined IUD Chief Complaint: 6w pp declines IUD Motion Picture Critic Required: No Is patient in pain?: No Allergies acetaminophen [From [place]] Allergy (Mild, Verified 06/23/22 16:53) Other hydrocodone [From [place]] Allergy (Mild, Verified 06/23/22 16:53) Other Medications levothyroxine 75 mcg tablet (Synthroid) 75 mcg PO DAILY hypothyroidism 11/07/21 [History Confirmed 08/05/22] prenat.vits,jaswant,hqk-sgba-efts c 1 tab PO DAILY 11/13/21 [History Confirmed 08/05/22] sertraline 50 mg tablet 50 mg PO DAILY anxiety 11/13/21 [History Confirmed 08/05/22] norethindrone (contraceptive) 0.35 mg tablet (Ortho Micronor) 0.35 mg PO DAILY #28 tabs 08/05/22 [Rx Confirmed 08/05/22] : [facility] (Updated 06/24/22 @ 08:56 by [...] Lisa 38 live - full term Female [facility] Dr. Aidan wang Delivery Date: 06/23/22 [...] HPI 6 wk PP, declined IUD: Details: OVI ANGUIANO is a 27 year old who presents for her post visit. Feeding: Breast Menses resumed: No Almyra since delivery: No Emotional Support: Yes ROS [...] diet controlled. plan delivery by 40 weeks. 11/3 growth 2823g 51% stable blood sugars pp. [...] Acuna MD> Date Yenni Acuna MD [facility] Signature: Date (if applicable) CC: Marina Bronson MD Work Phone: Start: 06-27-2022 End: 06-27-2022 MR/BMS.BB Procedure Note: See Note; NOTES: [facility] [address] [place] [address] OFFICE VISIT Date of Service: 06/27/22 MR#: [id number] Acct: [id number] Name: OVI ANGUIANO Rep #: [id number] : 1995 Provider: MINNA sethi Age/Sex: 27/F Location: [facility] Status: Signed Intake Vital Signs 06/23/22 16:17 Height 5 ft 5 in Intake Visit Reasons: feeding assessment Chief Complaint: assessment Accompanied by: Significant Other Allergies acetaminophen [From [place]] Allergy (Mild, Verified 06/23/22 16:53) Other hydrocodone [From [place]] Allergy (Mild, Verified 06/23/22 16:53) Other : Yes [facility] Medical History (Updated 06/24/22 @ 08:56 by [...] Lisa 38 live - full term Female [facility] Dr. Aidan wang Delivery Date: 06/23/22 Last Updated by: Elizabeth Zabala IAL, GDMA1 HPI HPI HPI: OVI ANGUIANO, is a 27 F who presents [...] as needed. Coding Level of Care Code 82347 PRVT COUNSELING INDIVID Diagnoses Care and examination of lactating mother Z39.1 Time Spent (min) 30 06/27/22 1423 <Electronically signed by Wendy Wakefield ACCOUNTING INTERN ACCOUNTING INTERN-C> Date Wendy Wakefield NP ACCOUNTING INTERN-C Cosigner Signature: Date (if applicable) CC: Marina Bronson MD Work Phone: Start: 06-19-2022 End: 06-19-2022 Mash Filter Operator Office Visit Report Procedure Note: See Note; NOTES: [facility]'s [address] [place] [address] OFFICE VISIT Date of Service: 06/19/22 MR#: [id number] Acct: [id number] Name: OVI ANGUIANO Rep #: [id number] : 1995 Provider: Dr. Kaelyn Mcclain DO Age/Sex: 27/F Location: [facility] Status: Signed Intake Vital Signs 05/28/22 09:00 06/19/22 08:29 06/19/22 08:30 Height 5 ft 5 in 5 ft 5 in 5 ft 5 in Weight: 188 lb 2 oz BMI 31.3 BP 135/88 H Intake Visit Reasons: 39 WK OB Motion Picture Critic Required: No Is patient in pain?: No Allergies acetaminophen [From [place]] Allergy (Mild, Verified 06/19/22 08:28) Other hydrocodone [From [place]] Allergy (Mild, Verified 06/19/22 08:28) Other Medications levothyroxine 75 mcg tablet (Synthroid) 75 mcg PO DAILY 11/07/21 [History Confirmed 06/19/22] prenat.vits,jaswant,vhr-mxew-etiz c 1 tab PO DAILY 11/13/21 [History Confirmed 06/19/22] sertraline 50 mg tablet 100 mg PO DAILY 11/13/21 [History Confirmed 11/23/22] Last Menstrual Period: 09/20/21 Zika: Zika virus [...] living children HPI 39 WK OB Details: OVI ANGUIANO is a 27 year old who [...] pending, cbc showed borderline anemia. she will apple picker OTC iron. Has radu shower this [...] 130 37 Cephalic 3 -???-???-???-???-???-???-???- ???-???-???-???-???- 70 JORGE A- martir c ontrol of glucose. no lof, [...] Monitoring, Signs and Symptoms of Preeclampsia and [facility] Diagnostics Diagnostics: Gest Glucose Tolerance [...] by 40 weeks. 05/30 growth 2823g 51% (2) Abnormal glucose affecting : Status: Acute Comment: failed 3 hr GTT (3) Refuses tetanus, diphtheria, and acellular pertussis (Tdap) vaccination: Status: Acute (4) Thyroid disorder: Status: Acute Comment: synthroid, labs q trimester (5) Anxiety: Status: Acute Comment: zoloft, counseling encouraged (6) Supervision of high risk , antepartum: Status: Acute Comment: PRR STEFANI: 06/27/22 BF:Noe(AmaroChelsey) (7) : Status: Acute Qualifiers: Weeks of gestation: 38 weeks Qualified Code(s): Z3A.38 - 38 weeks gestation of Comment: GBS neg, discussed genetic and carrier screen, nl anatomy Orders: Orders POC Urinalysis 2 Dip (Clinic) Today 06/19/22 0858 <Electronically signed by Kaelyn Quinteros DO> Date Kaelyn Quinteros DO Cosigner Signature: Date (if applicable) CC: Marina Bronson MD Work Phone: Start: 06-13-2022 End: 06-17-2022 Mash Filter Operator Office Visit Report Procedure Note: See Note; NOTES: [facility] [address] [place], [place] [address]. [address] [place] [address] OFFICE VISIT Date of Service: 06/13/22 MR#: [id number] Acct: [id number] Name: OVI ANGUIANO Rep #: [id number] : 1995 Provider: Dr. Yenni morrow MD Age/Sex: 27/F Location: [facility] Status: Signed Intake Vital Signs 05/28/22 09:00 06/13/22 10:59 06/13/22 11:00 Height 5 ft 5 in 5 ft 5 in 5 ft 5 in Weight: 192 lb BMI 31.9 BP 110/78 Intake Visit Reasons: 38 WK OB Chief Complaint: est ob Motion Picture Critic Required: No Is patient in pain?: No Allergies acetaminophen [From [place]] Allergy (Mild, Verified 06/06/22 08:53) Other hydrocodone [From [place]] Allergy (Mild, Verified 06/06/22 08:53) Other Medications levothyroxine 75 mcg tablet (Synthroid) 75 mcg PO DAILY 11/07/21 [History Confirmed 06/13/22] prenat.vits,jaswant,tzv-ruue-gilq c 1 tab PO DAILY 11/13/21 [History [...] living children HPI 38 WK OB Details: OVI ANGUIANO is a 27 year old who [...] pending, cbc showed borderline anemia. she will apple picker OTC iron. Has radu shower this [...] Monitoring, Signs and Symptoms of Preeclampsia and [facility] [facility] Diagnostics Diagnostics: Gest Glucose Tolerance [...] by 40 weeks. 05/30 growth 2823g 51% (2) Abnormal glucose [...] POC Urinalysis 2 Dip (Clinic) 06/13/22 06/17/22 6860 <Electronically signed by Yenni Acuna MD> Date Yenni Acuna MD Cosign Signature: Date (if applicable) CC: Marina Bronson MD Work Phone: Start: 06-06-2022 End: 06-06-2022 Mash Filter Operator Office Visit Report Procedure Note: See Note; NOTES: [facility] [address] [place] [address] OFFICE VISIT Date of Service: 06/06/22 MR#: [id number] Acct: [id number] Name: OVI ANGUIANO Rep #: [id number] : 1995 Provider: Dr. Kaelyn Mcclain DO Age/Sex: 27/F Location: [facility] Status: Signed Intake Vital Signs 06/06/22 08:53 06/06/22 08:54 Height 5 ft 5 in 5 ft 5 in Weight: 190 lb 4 oz BMI 31.6 BP 134/83 H Intake Visit Reasons: 37 WK OB Motion Picture Critic Required: No Is patient in pain?: No Allergies acetaminophen [From [place]] Allergy (Mild, Verified 06/06/22 08:53) Other hydrocodone [From [place]] Allergy (Mild, Verified 06/06/22 08:53) Other Medications levothyroxine 75 mcg tablet (Synthroid) 75 mcg PO DAILY 11/07/21 [History Confirmed 06/06/22] prenat.vits,jaswant,mer-qyac-fmld c 1 tab PO DAILY 11/13/21 [History [...] living children HPI 37 WK OB Details: OVI ANGUIANO is a 27 year old who [...] pending, cbc showed borderline anemia. she will apple picker OTC iron. Has radu shower this [...] Plan (1) Gestational diabetes: Status: Acute Comment: [facility] jail keeper referal. appt on 04/24, 05/30 growth 2823g [...] of high risk , unspecified, unspecified trimester 06/06/22918 <Electronically signed by Kaelyn Quinteros DO> Date Kaelyn Quinteros DO Cosigndexter Signature: Date (if applicable) CC: Marina Bronson MD Work Phone: Start: 05-30-2022 End: 05-30-2022 OB Limited With Biometrics Procedure Note: See Note; NOTES: [facility] Imaging Services [address] [place] [address] OB Limited With Biometrics MR#: [id number] Acct: [id number] Name: OVI ANGUIANO Rep #: [id number] : 1995 F 27 From: Tyree olivo MD PCP: Dr. Marina Bronson MD Status: REG CLI Study: OB Limited With Biometrics Date of Exam: 05/30 Exam# [id number] Ordering Dr: Yenni Acuna STUDY: SECOND AND [...] Signed: Tyree Faulkner MD at 13:06 EDT , CC: Dr. Marina Bronson MD; Dr. Yenni Acuna MD Jerker: Signed Marina Bronson MD Work Phone: Start: 05-28-2022 End: 05-28-2022 Mash Filter Operator Office Visit Report Procedure Note: See Note; NOTES: [facility] [address] [place] [address] OFFICE VISIT Date of Service: 05/28/22 MR#: [id number] Acct: [id number] Name: OVI ANGUIANO Rep #: [id number] : 1995 Provider: Dr. Kaelyn Mcclain DO Age/Sex: 27/F Location: [facility] Status: Signed Intake Vital Signs 04/19/22 08:55 05/28/22 08:59 05/28/22 09:00 Height 5 ft 5 in 5 ft 5 in 5 ft 5 in Weight: 189 lb 4 oz BMI 31.4 BP 118/82 H Intake Visit Reasons: 36 WK OB Motion Picture Critic Required: No Is patient in pain?: No Allergies acetaminophen [From [place]] Allergy (Mild, Verified 05/28/22 08:59) Other hydrocodone [From [place]] Allergy (Mild, Verified 05/28/22 08:59) Other Medications levothyroxine 75 mcg tablet (Synthroid) 75 mcg PO DAILY 11/07/21 [History Confirmed 05/28/22] prenat.vits,jaswant,doo-psgt-ryhe c 1 tab PO DAILY 11/13/21 [History [...] living children HPI 36 WK OB Details: OVI ANGUIANO is a 27 year old who [...] pending, cbc showed borderline anemia. she will apple picker OTC iron. Has radu shower this [...] Plan (1) Gestational diabetes: Status: Acute Comment: [facility] jail keeper referal. appt on 04/24 (2) Abnormal glucose [...] MD Work Phone: Start: 05-17-2022 End: 05-17-2022 Mash Filter Operator Office Visit Report Procedure Note: See Note; NOTES: [facility] [address] [place] [address] OFFICE VISIT Date of Service: 05/17/22 MR#: [id number] Acct: [id number] Name: OVI ANGUIANO Rep #: [id number] : 1995 Provider: Dr. Kaelyn Mcclain DO Age/Sex: 27/F Location: [facility] Status: Signed Intake Vital Signs 04/19/22 08:55 05/17/22 08:40 05/17/22 08:40 05/17/22 08:43 Height 5 ft 5 in 5 ft 5 in 5 ft 5 in 5 ft 5 in Weight: 187 lb 2 oz BMI 31.1 BP 125/82 H Intake Visit Reasons: 34 WK OB Allergies acetaminophen [From [place]] Allergy (Mild, Verified 05/17/22 08:40) Other hydrocodone [From [place]] Allergy (Mild, Verified 05/17/22 08:40) Other Medications levothyroxine 75 mcg tablet (Synthroid) 75 mcg PO DAILY 11/07/21 [History Confirmed 05/17/22] prenat.vits,jaswant,muf-tgtp-bgqy c 1 tab PO DAILY 11/13/21 [History [...] living children HPI 34 WK OB Details: OVI ANGUIANO is a 27 year old who [...] pending, cbc showed borderline anemia. she will apple picker OTC iron. Has radu shower this [...] Plan (1) Gestational diabetes: Status: Acute Comment: [facility] jail keeper referal. appt on 04/24 (2) Abnormal glucose [...] POC Urinalysis 2 Dip (Clinic) Today 05/17/22 0901 <Electronically signed by Kaelyn Quinteros DO> Date Kaelyn Quinteros DO Cosigner Signature: Date (if applicable) CC: Marina Bronson MD Work Phone: Start: 05-03-2022 End: 05-03-2022 Mash Filter Operator Office Visit Report Procedure Note: See Note; NOTES: [facility] [address] [place] [address] OFFICE VISIT Date of Service: 05/03/22 MR#: [id number] Acct: [id number] Name: OVI ANGUIANO Rep #: [id number] : 1995 Provider: Dr. Yenni morrow MD Age/Sex: 27/F Location: [facility] Status: Signed Intake Vital Signs 04/19/22 08:55 05/01/22 16:57 05/03/22 10:37 05/03/22 10:38 Height 5 ft 5 in 5 ft 5 in 5 ft 5 in 5 ft 5 in Weight: 187 lb 6.4 oz 187 lb BMI 31.1 BP 115/79 Intake Visit Reasons: 32 WK OB Chief Complaint: est ob Motion Picture Critic Required: No Is patient in pain?: No Allergies acetaminophen [From [place]] Allergy (Mild, Verified 04/23/22 08:08) Other hydrocodone [From [place]] Allergy (Mild, Verified 04/23/22 08:08) Other Medications levothyroxine 75 mcg tablet (Synthroid) 75 mcg PO DAILY 11/07/21 [History Confirmed 05/03/22] prenat.vits,jaswant,ajs-jzqx-gxld c 1 tab PO DAILY 11/13/21 [History [...] living children HPI 32 WK OB Details: OVI ANGUIANO is a 27 year old who [...] pending, cbc showed borderline anemia. she will apple picker OTC iron. Has radu shower this [...] Plan (1) Gestational diabetes: Status: Acute Comment: [facility] jail keeper referal. appt on 04/24 (2) Abnormal glucose [...] Visit Report Procedure Note: See Note; NOTES: [facility] [address] [place] [address] OFFICE VISIT Date of Service: 04/23/22 MR#: [id number] Acct: [id number] Name: OVI ANGUIANO Rep #: [id number] : 1995 Provider: Aidan Rodney Age/Sex: 27/F Location: [facility] Status: Signed Intake Vital Signs 04/22/22 10:40 [...] Reasons: Gestational diabetes Chief Complaint: gestational diabetes Motion Picture Critic Required: No Accompanied by: Self Is patient in pain?: No Allergies acetaminophen [From [place]] Allergy (Mild, Verified 04/23/22 08:08) Other hydrocodone [From [place]] Allergy (Mild, Verified 04/23/22 08:08) Other Is last menstrual period known: Yes Patient : Yes Nurse's Note: Pt had A1C 4.8% two weeks ago at work [facility] Medical History Abnormal glucose affecting Anxiety [...] WELLS HPI Chief Complaint: gestational diabetes Details: OVI ANGUIANO, is a 27 F who presents to the office today for evaluation and management of gestational diabetes. A1C 4.8% per patient 1 hour glucola 164 3 hr gtt: [phone] This is her first , she is 30 weeks gestation. She has gained about 28 pounds so far. Father and paternal grandfather have type 2 diabetes. They both take insulin. She is testing blood sugars for the past 10 days. Blood sugars are in goal post meal, but a bit high fasting. She meets with the jail keeper tomorrow. Exam Const General: cooperative, healthy appearing, comfortable, no acute distress, well developed and not cushingoid Nutritional Appearance: well nourished Orientation: alert, awake and oriented x3 HENMS Head: normal to inspection Ears: hearing grossly [...] education as well as documenting clinical information. 04/23/22910 <Electronically signed by Jude Hernandez MD> Date Jude Hernandez MD [facility] Signature: Date (if applicable) CC: MD Marina Peñaloza MD Work Phone: Start: 04-19-2022 End: 04-19-2022 Mash Filter Operator Office Visit Report Procedure Note: See Note; NOTES: [facility] [address] [place] [address] [address] [place], [place] [id number] OFFICE VISIT Date of Service: 04/19/22 MR#: [id number] Acct: [id number] Name: OVI ANGUIANO Rep #: [id number] : 1995 Provider: Dr. Kaelyn Mcclain DO Age/Sex: 27/F Location: [facility] Status: Signed Intake Vital Signs 03/20/22 08:34 04/19/22 08:55 Height 5 ft 5 in 5 ft 5 in Weight: 188 lb 2 oz BMI 31.3 BP 137/91 H Intake Visit Reasons: 30 WK OB Motion Picture Critic Required: No Is patient in pain?: No Allergies acetaminophen [From [place]] Allergy (Mild, Verified 04/19/22 08:54) Other hydrocodone [From [place]] Allergy (Mild, Verified 04/19/22 08:54) Other Medications levothyroxine 75 mcg tablet (Synthroid) 75 mcg PO DAILY 11/07/21 [History Confirmed 04/19/22] prenat.vits,jaswant,xyv-buxn-ezmj c 1 tab PO DAILY 11/13/21 [History [...] living children HPI 30 WK OB Details: OVI ANGUIANO is a 27 year old who [...] pending, cbc showed borderline anemia. she will apple picker OTC iron. Has radu shower this [...] Plan (1) Gestational diabetes: Status: Acute Comment: [facility] jail keeper referal (2) Abnormal glucose affecting : Status: [...] Orders POC Urinalysis 2 Dip (Clinic) Today 04/19/22913 <Electronically signed by Kaelyn Quinteros DO> Date Kaelyn Quinteros DO [facility] Signature: Date (if applicable) CC: Marina Bronson MD Work Phone: Start: 04-05-2022 End: 04-05-2022 Mash Filter Operator Office Visit Report Procedure Note: See Note; NOTES: [facility] [address] [place] [address]. [address] [place] [address] OFFICE VISIT Date of Service: 04/05/22 MR#: [id number] Acct: [id number] Name: OVI ANGUIANO Rep #: [id number] : 1995 Provider: Dr. Kaelyn Mcclain DO Age/Sex: 26/F Location: [facility] Status: Signed Intake Vital Signs 03/20/22 08:55 04/05/22 10:03 04/05/22 10:03 Height 5 ft 5 in 5 ft 5 in 5 ft 5 in Weight: 188 lb 8 oz BMI 31.4 BP 130/80 H Intake Visit Reasons: 28 WK OB/GLUCOSE Motion Picture Critic Required: No Is patient in pain?: No Allergies acetaminophen [From [place]] Allergy (Mild, Verified 04/05/22 10:02) Other hydrocodone [From [place]] Allergy (Mild, Verified 04/05/22 10:02) Other Medications levothyroxine 75 mcg tablet (Synthroid) 75 mcg PO DAILY 11/07/21 [History Confirmed 04/05/22] prenat.vits,jaswant,rjy-lmig-asrj c 1 tab PO DAILY 11/13/21 [History [...] living children HPI 28 WK OB/GLUCOSE Details: OVI ANGUIANO is a 26 year old who [...] pending, cbc showed borderline anemia. she will apple picker OTC iron. Has radu shower this [...] MD Work Phone: Start: 03-20-2022 End: 03-20-2022 Mash Filter Operator Office Visit Report Procedure Note: See Note; NOTES: [facility] [address] [place] [address] OFFICE VISIT Date of Service: 03/20/22 MR#: [id number] Acct: [id number] Name: OVI ANGUIANO Rep #: [id number] : 1995 Provider: Dr. Kaelyn Mcclain DO Age/Sex: 26/F Location: [facility] Status: Signed Intake Vital Signs 03/20/22 08:33 03/20/22 08:34 Height 5 ft 5 in 5 ft 5 in Weight: 183 lb 6 oz BMI 30.5 BP 130/84 H Intake Visit Reasons: 26 WK OB Motion Picture Critic Required: No Is patient in pain?: No Allergies acetaminophen [From [place]] Allergy (Mild, Verified 03/20/22 08:33) Other hydrocodone [From [place]] Allergy (Mild, Verified 03/20/22 08:33) Other Medications levothyroxine 75 mcg tablet (Synthroid) 75 mcg PO DAILY 11/07/21 [History Confirmed 03/20/22] prenat.vits,jaswant,pkq-pijr-atmm c 1 tab PO DAILY 11/13/21 [History [...] living children HPI 26 WK OB Details: OVI ANGUIANO is a 26 year old who [...] MD Work Phone: Start: 02-19-2022 End: 02-19-2022 Mash Filter Operator Office Visit Report Procedure Note: See Note; NOTES: [facility] [place] [address] [place], [place] [id number] OFFICE VISIT Date of Service: 02/19/22 MR#: [id number] Acct: [id number] Name: OVI ANGUIANO Rep #: [id number] : 1995 Provider: Dr. Yenni morrow MD Age/Sex: 26/F Location: [facility] Status: Signed Intake Vital Signs 02/19/22 10:50 02/19/22 10:51 Height 5 ft 5 in 5 ft 5 in Weight: 177 lb BMI 29.4 BP 130/86 H Intake Visit Reasons: 22WK OB Chief Complaint: est ob Motion Picture Critic Required: No Is patient in pain?: No Allergies acetaminophen [From [place]] Allergy (Mild, Verified 01/24/22 11:50) Other hydrocodone [From [place]] Allergy (Mild, Verified 01/24/22 11:50) Other Medications levothyroxine 75 mcg tablet (Synthroid) 75 mcg PO DAILY 11/07/21 [History Confirmed 02/19/22] prenat.vits,jaswant,hjg-dfnf-mzjl c 1 tab PO DAILY 11/13/21 [History [...] of living children HPI 22WK OB Details: OVI ANGUIANO is a 26 year old who [...] signed by Yenni Acuna MD> Date Yenni Tejada Signature: Date (if applicable) CC: Marina Bronson MD Work Phone: Start: 01-24-2022 End: 01-24-2022 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 [address] [place], [place] [address] OFFICE VISIT Date of Service: 01/24/22 MR#: [id number] Acct: [id number] Name: OVI ANGUIANO Rep #: [id number] : 1995 Provider: Dr. Kaelyn Mcclain DO Age/Sex: 26/F Location: [facility] Status: Signed Intake Vital Signs 01/24/22 11:50 01/24/22 11:50 Height 5 ft 5 in 5 ft 5 in Weight: 175 lb 6 oz BMI 29.2 BP 142/84 H Intake Visit Reasons: 18 WK OB Motion Picture Critic Required: No Is patient in pain?: No Allergies acetaminophen [From [place]] Allergy (Mild, Verified 01/24/22 11:50) Other hydrocodone [From [place]] Allergy (Mild, Verified 01/24/22 11:50) Other Medications levothyroxine 75 mcg tablet (Synthroid) 75 mcg PO DAILY 11/07/21 [History Confirmed 01/24/22] prenat.vits,jaswant,kyu-tahk-hlgy c 1 tab PO DAILY 11/13/21 [History [...] living children HPI 18 WK OB Details: OVI ANGUIANO is a 26 year old who [...] MD Work Phone: Start: 12-27-2021 End: 12-27-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 [place] [address] OFFICE VISIT Date of Service: 12/27/21 MR#: [id number] Acct: [id number] Name: OVI ANGUIANO Rep #: [id number] : 1995 Provider: Dr. Kaelyn Mcclain DO Age/Sex: 26/F Location: [facility] Status: Signed Intake Vital Signs 12/27/21 10:30 Height 5 ft 5 in Weight: 166 lb BMI 27.6 BP 135/87 H Intake Visit Reasons: 14 WK OB Motion Picture Critic Required: No Is patient in pain?: No Allergies acetaminophen [From [place]] Allergy (Mild, Verified 12/27/21 10:29) Other hydrocodone [From [place]] Allergy (Mild, Verified 12/27/21 10:29) Other Medications levothyroxine 75 mcg tablet 75 mcg PO DAILY 11/07/21 [History Confirmed 12/27/21] prenat.vits,jaswant,xya-mtcs-cerj c 1 tab PO DAILY 11/13/21 [History [...] living children HPI 14 WK OB Details: OVI ANGUIANO is a 26 year old who [...] signed by Kaelyn Quinteros DO> Date Kaelyn Kaurigndexter Signature: Date (if applicable) CC: Marina Bronson MD Work Phone: Start: 11-29-2021 End: 11-29-2021 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 [address] [place] [address] OFFICE VISIT Date of Service: 11/29/21 MR#: [id number] Acct: [id number] Name: OVI ANGUIANO Rep #: [id number] : 1995 Provider: Dr. Yenni morrow MD Age/Sex: 26/F Location: [facility] Status: Signed Intake Vital Signs 11/29/21 09:24 Height 5 ft 5 in Weight: 161 lb BMI 26.8 Intake Visit Reasons: NOB LMP 09/20/21 Chief Complaint: NEW OB LMP 09/20/21 Motion Picture Critic Required: No Is patient in pain?: No Allergies acetaminophen [From [place]] Allergy (Mild, Verified 11/29/21 09:25) Other hydrocodone [From [place]] Allergy (Mild, Verified 11/29/21 09:25) Other Medications levothyroxine 75 mcg tablet 75 mcg PO DAILY 11/07/21 [History Confirmed 11/29/21] prenat.vits,jaswant,ick-fvgn-ptld c 1 tab PO DAILY 11/13/21 [History Confirmed 11/29/21] sertraline 50 mg tablet 100 mg PO DAILY tab 11/13/21 [History Confirmed 11/29/21] Last Menstral Period: 09/20/21 Zika: Zika virus screening: Negative : No PFSH PFSH Medical History (Updated 11/29/21 @ 09:[address] Yenni cAuna MD) Anxiety Breast lump in female Thyroid [...] living children HPI NOB LMP 09/20/21 Details: OVI ANGUIANO is a 26 year old who [...] allergies (OTC med prn) and Drug/latex allergies/reactions ([place]) and Negative: Diabetes, Hypertension, Heart disease, Auto-immune disorder, Kidney disease/UTI, Neurologic/epilepsy, Depression/ depression, Hepatitis/liver disease, Varicosities/phlebitis, Trauma/domestic violence, History of blood transfusions, D (Rh) Sensitized, Pulmonary (e.g.,TB,Asthma), Breast, Formula Checker surgery, Operations/hospitalizations, Anesthetic complications, History of abnormal [...] comfortable and no acute distress Orientation: alert [facility] Head: normal to inspection, normocephalic and [...] to inspection and full ROM Supplemental Info ACOG book given and patient encouraged to read [...] antepartum: Status: Acute Comment: STEFANI: 06/27/22 BF:Miranda) (4) : Status: Acute Comment: discussed genetic and carrier screen Orders: Orders: Type Screen Today Hepatitis B Surface Antigen Today Hepatitis C Antibody Today HIV - [facility] Today Syphilis Antibodies Today Rubella IgG Today T4 Free Direct Today Thyroid Stim Hormone (TSH) Today CBC W/Diff, Automated Today Culture, Urine Today Chlamydia/GC ABRAM aptima Today Urine Drug Screen ([facility]) Today Plan - Dr. Yenni Acuna MD: Patient oriented to practice and discussed care expectations and screenings. ACOG book offered to patient. 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 Kaelyn Mcclain DO Age/Sex: 26/F Location: [facility] Status: Signed Intake Vital Signs 11/07/21 16:34 Height 5 ft 5 in Weight: 152 lb 2 oz BMI 25.3 BP 160/90 H Intake Visit Reasons: repeat US in office ok per JV Motion Picture Critic Required: No Is patient in pain?: No Allergies acetaminophen [From [place]] Allergy (Mild, Verified 11/07/21 16:33) Other hydrocodone [From [place]] Allergy (Mild, Verified 11/07/21 16:33) Other Medications levothyroxine 75 mcg tablet 75 mcg PO DAILY 11/07/21 [History Confirmed 11/07/21] promethazine 12.5 mg tablet 12.5 mg PO Q6H PRN #60 tab 11/07/21 [Rx Confirmed 11/07/21] sertraline 50 mg tablet 50 mg PO DAILY 11/07/21 [History Confirmed 11/07/21] Is last menstrual period known: Yes Post menopausal: No Patient : Yes : No [facility] Medical History (Updated 11/07/21 @ 16:[address] Kaelyn Quinteros, DO) Anxiety Breast lump in female Thyroid disorder Family History Mother Breast cancer Asthma Social History Smoking Status: Never smoker alcohol intake: never substance use type: does not use caffeine: Yes what type of physical activity do you participate in: none seatbelt use: always do you feel safe at home: Yes additional social history: Seperated- works at [employer] repeat US in office ok per JV Details: OVI ANGUIANO is a 26 year old who [...] Q6H PRN 60 tabs 4RF nasuea 11/07/21 1657 <Electronically signed by Kaelyn Quinteros DO> Date Kaelyn Quinteros DO Cosigner Signature: Date (if applicable) CC: Marina Bronson MD Work Phone: Start: 10-30-2021 End: 10-31-2021 Transvaginal w/Preg US Comments: See Note; NOTES: [facility] Imaging Services [address] [place] [address] Transvaginal w/Preg US MR#: [id number] Acct: [id number] Name: OVI ANGUIANO Rep #: [id number] : 1995 F 26 From: Tyree olivo MD PCP: Dr. Marina Bronson MD Status: REG CLI Study: Transvaginal w/Preg US Date of Exam: 10/30/21 Exam# [id number] Ordering Dr: Nazia Flowers ACCOUNTING INTERN ACCOUNTING INTERN -C STUDY: FIRST TRIMESTER OBSTETRICAL ULTRASOUND REASON [...] Signed: Tyree Faulkner MD at 10:31 EDT , CC: ILIA Flowers; Dr. Marina Bronson MD Jerker: Signed Marina Bronson MD Work Phone: Start: 10-22-2021 End: 10-23-2021 Transvaginal w/Preg US Comments: See Note; NOTES: [facility] Imaging Services [address] [place] [address] Transvaginal w/Preg US MR#: [id number] Acct: [id number] Name: OVI ANGUIANO Rep #: [id number] : 1995 F 26 From: Tyree olivo MD PCP: Dr. Marina Bronson MD Status: REG CLI Study: Transvaginal w/Preg US Date of Exam: 10/22/21 Exam# [id number] Ordering Dr: Yenni Acuna STUDY: FIRST TRIMESTER [...] Marina Bronson MD; Dr. Yenni Acuna MD Jerker: Signed Marina Bronson MD Work Phone: Start: 10-19-2021 End: 10-23-2021 Transvaginal w/Preg US Comments: See Note; NOTES: [facility] Imaging Services [address] [place] [address] Transvaginal w/Preg US MR#: [id number] Acct: [id number] Name: OVI ANGUIANO Rep #: [id number] : 1995 F 26 From: Benigno Chery PCP: Dr. Marina Bronson MD Status: [facility] ER Study: Transvaginal w/Preg US Date of Exam: 10/19/21 Exam# [id number] Ordering Dr: Alex Knox DO STUDY: FIRST [...] Signed: Benigno Hope MD at 18:44 EDT , CC: Dr. Marina Bronson MD; Dr. Alex Knox DO Jerker: Signed Marina Bronson MD Work Phone: Start: 10-19-2021 End: 10-19-2021 Emergency Department Summary Comments: See Note; NOTES: [facility] Medical Records Department [address] [place] [address] Emergency Department Summary 10/19/21 MR#: [id number] Acct: [id number] Name: OVI ANGUIANO Rep #: [id number] : 1995 26 From: Alex Knox DO [...] states her pain is worse with walking. [facility] Medical History (Updated 10/19/21 @ 19:38 [...] Reaction Status Date / Time acetaminophen [From [place]] Allergy Mild Other Verified 10/19/21 16:29 hydrocodone [From [place]] Allergy Mild Other Verified 10/19/21 16:29 Family History Mother Breast cancer Asthma Social History Smoking Status: Never smoker alcohol intake: never substance use type: does not use caffeine: Yes what type of physical activity do you participate in: none seatbelt use: always do you feel safe at home: Yes additional social history: Seperated- works at [employer] ROS ROS ED Constitutional Constitutional ED: Denies chills or [...] Patient was instructed 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 for repeat [...] (Auto) 72.3 H Lymph % (Auto) 21.0 [place] % (Auto) 5.0 Eos % (Auto) 1.0 [...] Color Urine Clarity Urine pH Ur Specific Pollard Urine Protein Urine Glucose (UA) Urine Ketones [...] (Auto) Neut % (Auto) Lymph % (Auto) [place] % (Auto) Eos % (Auto) Baso % (Auto) Absolute Neuts (auto) Absolute Lymphs (auto) Nucleated RBC % Sodium Potassium Chloride Carbon Dioxide Anion Gap BUN Creatinine Estim Creat Clear Calc Est GFR (MDRD) Af Amer Est GFR (MDRD) Non-Af BUN/Creatinine Ratio Glucose Calcium Urine Color Yellow Urine Clarity Clear Urine pH 6.5 Ur Specific [place] 1.010 Urine Protein Negative Urine Glucose (UA) [...] 18:44 EDT Reading Location ID and State: [facility] / [place] , Service support , Discharge Plan Triage [...] You may start taking vitamins. They are gnyd-jjk-dcopzbv. Disposition Disposition: Home, Self Care What to do if you have Problems For any increased pain, shortness of breath, bleeding, nausea or vomiting, chest pain, or any unexpected problems, contact your Primary Care Provider. Call [facility] ([phone]) or report to the closest Emergency Room. Call 911 if necessary. 10/19/212211 <Electronically signed by Alex Knox DO> Cosigner Signature (if applicable): CC: Dr. Marina Bronson MD Signed Marina Bronson MD Work Phone: Start: 07-02-2019 End: 07-05-2019 Parathyroid scan Comments: See Note; NOTES: [facility] Imaging Services [address] [place] [address] Parathyroid Scan MR#: [id number] Acct: [id number] Name: OVI ANGUIANO Rep #: [id number] : 1995 F 24 From: Casper Lugo DO PCP: Marina Bronson MD Status: REG CLI Study: Parathyroid Scan Date of Exam: 07/02/19 Exam# [id number] Ordering Dr: Marina Bronson MD CLINICAL: 24-year-old [...] Service support , CC: Marina Bronson MD Jerker: Signed Marina Bronson Work Phone: Start: 06-30-2019 End: 06-30-2019 Thyroid Comments: See Note; NOTES: [facility] Imaging Services [address] [place] [address] Thyroid MR#: [id number] Acct: [id number] Name: OVI ANGUIANO Rep #: [id number] : 1995 F 24 From: Leeroy Gerardo MD PCP: Marina Bronson MD Status: REG CLI Study: Thyroid Date of Exam: 06/30/19 Exam# [id number] Ordering Dr: Marina Bronson MD STUDY: THYROID [...] Service support , CC: Marina Bronson MD Jerker: Signed Marina Bronson Work Phone: Plan of Treatment Date Care Activity Detail Author Start: 11-30-2021 Syphilis test non-treponemal antibody qual RPR (RAPID PLASMA REAGIN) (10424) [facility]; [facility] Work Phone: Start: 11-30-2021 Syphilis test quantitative SYPHILIS ASSAY (42238) [facility]; [facility] Work Phone: Start: 11-30-2021 Culture bct isol&prs mptv id isolate ea urine URINE NAI CULTURE-IDENTIFICATN (47794) [facility]; [facility] Work Phone: Start: 11-06-2021 Gonadotropin chorion ic qualitative HCG Qualitative, Serum (14931) [facility]; [facility] Work Phone: Comment on above: [facility] Start: 11-01-2021 Gonadotropin chorion ic quantitative HCG Quantitative (67007) [facility]; [facility] Work Phone: Start: 10-26-2021 Gonadotropin chorion ic quantitative HCG Quantitative (01887) [facility]; [facility] Work Phone: Start: 10-24-2021 Gonadotropin chorion ic quantitative HCG Quantitative (38804) [facility]; [facility] Work Phone: Comment on above: stat Start: 10-24-2021 Gonadotropin chorion ic qualitative HCG Qualitative, Serum (31001) [facility]; [facility] Work Phone: Comment on above: stat Start: 10-22-2021 Gonadotropin chorion ic quantitative HCG Quantitative (83863) [facility]; [facility] Work Phone: Start: 10-19-2021 Gonadotropin chorion ic quantitative HCG Quantitative (64984) [facility]; [facility] Work Phone: Start: 10-19-2021 Gonadotropin chorion ic qualitative HCG Qualitative, Serum (20360) [facility]; [facility] Work Phone: Start: 06-26-2021 Gonadotropin follicl e stimulating hormone GONADOTROPIN-FSH (16270) [facility]; [facility] Work Phone: Comment on above: do on day 10 of mens es Start: 06-26-2021 Assay of testosteron e free TESTOSTERONE FREE (22608) [facility]; [facility] Work Phone: Start: 06-26-2021 Dehydroepiandrostero ne-s ulfate DHEA-S (DEHYDROEPIANDROSTERON E SULFATE) (39221) [facility]; [facility] Work Phone: Start: 06-26-2021 Assay of prolactin PROLACTIN (24535) [facility]; [facility] Work Phone: Start: 06-26-2021 Gonadotropin luteini zing hormone GONADOTROPIN-LH (45968) [facility]; [facility] Work Phone: Start: 06-26-2021 Assay of estradiol ESTRADIOL (66471) [facility]; [facility] Work Phone: Start: 06-26-2021 Gonadotropin follicl e stimulating hormone GONADOTROPIN-FSH (91693) [facility]; [facility] Work Phone: Comment on above: draw on day 3 of men ses and draw on day 10 after menses Start: 06-06-2021 Procedure Education Eprescribe d prescriptions (G8553) [facility]; [facility] Work Phone: Start: 06-06-2021 Iaadiadoo influenza 2019 Novel Coronavirus (COVID-19), ABRAM (36007) [facility]; [facility] Work Phone: Start: 12-14-2020 Cul bact xcpt urine blood/stool aerobic isol NAI CULTURE-OTHER (95383) [facility]; [facility] Work Phone: Start: 07-24-2020 Culture bct isol&prs mptv id isolate ea urine URINE NAI CULTURE-IDENTIFICATN (26188) [facility]; [facility] Work Phone: Start: 06-12-2020 Comprehensive metabo lic panel Metabolic Panel, Comprehensive (18678) [facility] Work Phone: Start: 06-12-2020 Assay of iron Iron (13293) [facility]; [facility] Work Phone: Start: 06-12-2020 Iron [Mass/Vol] Iron (95875) [facility] Work Phone: Start: 06-12-2020 Organic acid 1 quantitative Methymalonic Acid, Serum (79463) [facility] Work Phone: Start: 06-12-2020 Blood count manual c ell count each CBC WITH MANUAL DIFF (36407) [facility] Work Phone: Start: 06-12-2020 Cobalamin (Vitamin B 12) [Mass/Vol] Vitamin B-12 (cyanocobalamin) (89810) [facility] Work Phone: Start: 06-12-2020 Cyanocobalamin vitam in b-12 Vitamin B-12 (cyanocobalamin) (55329) [facility]; [facility] Work Phone: Start: 06-12-2020 Iron binding capacity Iron Bin ding Capacity (TIBC) (87375) [facility] Work Phone: Start: 06-12-2020 25 hydroxy includes fractions if performed CALCIFIDIOL (06914) VIT D 25 [facility] Work Phone: Start: 06-12-2020 Free T4 [Mass/Vol] T4, FREE (T HYROXINE) (25880) [facility] Work Phone: Start: 06-12-2020 Free T3 [Mass/Vol] T3, FREE (TRIDOTHYRONINE) (56205) [facility] Work Phone: Start: 06-12-2020 TSH Qn TSH (13751) [facility] Work Phone: Start: 10-20-2018 Free T4 [Mass/Vol] T4, FREE (T HYROXINE) (65485) [facility] Work Phone: Start: 10-20-2018 Free T3 [Mass/Vol] T3, FREE (TRIDOTHYRONINE) (12281) [facility] Work Phone: Start: 10-20-2018 Microsomal antibodie s each Anti-TPO Antibody (68074) [facility] Work Phone: Start: 10-20-2018 TSH Qn TSH (91575) [facility] Work Phone: Start: 09-23-2018 Heterophile antibodi es screen MONOSPOT TEST (86640) [facility] Work Phone: Start: 08-25-2018 Culture bct isol&prs mptv id isolate ea urine URINE NAI CULTURE-IDENTIFICATN (04239) [facility] Work Phone: Start: 07-31-2018 Iadna alhaji specie s amplified probe tq NuSwab STD (STD W/ Herpes) (51956) [facility] Work Phone: Start: 07-31-2018 Cytp c/v auto thin l yr prepj scr mnl rescr phys Pap - GC Chlamydia (77574) [facility] Work Phone: Start: 07-31-2018 Procedure Education Eprescribe d prescriptions (G7033) [facility] Work Phone: Start: 07-31-2018 Provider Instruction s for Treatment Follow up if no improvement or if symptoms worsen [facility] Work Phone: Start: 05-25-2018 25 hydroxy includes fractions if performed CALCIFIDIOL (46304) VIT D 25 [facility] Work Phone: Start: 05-25-2018 Organic acid 1 quantitative Methymalonic Acid, Serum (06426) [facility] Work Phone: Start: 05-25-2018 Assay of iron Iron (86057) [facility]; [facility] Work Phone: Start: 05-25-2018 Iron mass conc Iron (11395) [facility] Work Phone: Vaginal discharg e : Follow up if no improvement or if symptoms worsen [facility] Work Phone: Vaginal discharg e : Eprescribed prescriptions (G8553) [facility] Work Phone: [facility] Work [facility]: [facility] Work Phone: Payers Date Payer Category Payer Unknown [id number] Unknown Pedro BC/BS Unknown [id number] Social History Date Type Detail Facility Alcohol Use: Alcohol Use: [facility] Work Phone: Comment on above: 2 qd Caffeine Use Caffeine Use [facility] Work Phone: Comment on above: 2-3 qd single lives with darwin camilo Current Work/Study Status: Current Work/Study Status: [facility] Work Phone: Comment on above: [facility] Exercise History: Exercise History: [facility] Work Phone: Alcohol Use: Alcohol Use: [facility]; [facility] Work Phone: Comment on above: 2 qd Current Work/Study Status: Current Work/Study Status: [facility]; [facility] Work Phone: Comment on above: [facility] Exercise History: Exercise History: [facility]; [facility] Work Phone: Medical Equipment Procedure Code Equipment Code Equipment Origin al Text Equipment Identifier Dates ReliOn Blood Glucose Test In Vitro Strip 1 (one) Each test 4 times daily and as needed for 0 days Quantity: 150 {Each} Refills: 3 Ordered: 06-May-2022 [employer], May Start : 06-May-2022 Active Comments: Medication taken as needed. Dx O24.419 Start: 05-06-2022 Comment on above: Medication taken as needed. Dx O24.419 ReliOn Blood Glucose Test In Vitro Strip 1 (one) Each test 4 times daily and as needed for 0 days Quantity: 150 {Each} Refills: 3 Ordered: 06-May-2022 [employer]arb [employer]OUNT[employer] SUPPORT SPECIALIST, May Start : 06-May-2022 Active Comments: Medication taken as needed. Dx O24.419 Start: 05-06-2022 Comment on above: Medication taken as needed. Dx O24.419 ReliOn Blood Glucose Test In Vitro Strip 1 (one) Each test 4 times daily and as needed for 0 days Quantity: 150 {Each} Refills: 3 Ordered: 06-May-2022 Slarb [employer]OUNT[employer] SUPPORT SPECIALIST, May Start : 06-May-2022 Active Comments: Medication taken as needed. Dx O24.419 Start: 05-06-2022 Comment on above: Medication taken as needed. Dx O24.419 ReliOn Blood Glucose Test In Vitro Strip 1 (one) Each test 4 times daily and as needed for 0 days Quantity: 150 {Each} Refills: 3 Ordered: 06-May-2022 Slarb [employer]OUNTING SUPPORT SPECIALIST, May Start : 06-May-2022 Active Comments: Medication taken as needed. Dx O24.419 Start: 05-06-2022 Comment on above: Medication taken as needed. Dx O24.419 ReliOn Blood Glucose Test In Vitro Strip 1 (one) Each test 4 times daily and as needed for 0 days Quantity: 150 {Each} Refills: 3 Ordered: 06-May-2022 Slarb [employer]OUNTING SUPPORT SPECIALIST, May Start : 06-May-2022 Active Comments: Medication taken as needed. Dx O24.419 Start: 05-06-2022 Comment on above: Medication taken as needed. Dx O24.419 Clinical Notes Note Date & Type Note Facility Instructions Name How to access health information online Indication:BMI 23.0-23.9, adult Start: 9 Instruction Type:Patient Education How to access health information online - Detail Indication:BMI 23.0-23.9, adult Start: 9 Instruction Type:Patient Education Patient Instructions Indication:BMI 23.0-23.9, adult Start: 9 Instruction Type:Provider Instructions for Treatment How to access health information online Indication:Vaginal discharge Start:31-Jul-2018 Instruction Type:Patient Education How to access health information online - Detail Indication:Vaginal discharge Start:31-Jul-2018 Instruction [...] Medicine Work Phone: instructions* Name Dates Details How to access health [...] Medicine Work Phone: instructions* Name Dates Details How to access health [...] Medicine Work Phone: instructions* Name Dates Details How to access health [...] Informa tion Online using Patient Portal and [employer] Indication:Nonsmoker Start:06-Jun-2021 Instruction Type:Patient Education [...] Informa tion Online using Patient Portal and [employer] Indication:Nonsmoker Start:06-Jun-2021 Instruction Type:Patient Education How [...] Informa tion Online using Patient Portal and [employer] Indication:Nonsmoker Start:06-Jun-2021 Instruction Type:Patient Education How [...] Informa tion Online using Patient Portal and [employer] Indication:Nonsmoker Start:06-Jun-2021 Instruction Type:Patient Education [...] Informa tion Online using Patient Portal and [employer] Indication:Nonsmoker Start:06-Jun-2021 Instruction Type:Patient Education How [...] [facility]; [facility] Work Phone: [email or web address]* Name Dates Details Patient Instructions Indication:Nonsmoker Start:06-Jun-2021 Instruction Type:Provider Instructions for Treatment How to Access Health Informa tion Online using Patient Portal and [employer] Indication:Nonsmoker Start:06-Jun-2021 Instruction Type:Patient Education [...] [facility]; [facility] Work Phone: [email or web address]* Name Dates Details Patient Instructions Indication:Nonsmoker Start:06-Jun-2021 Instruction Type:Provider Instructions for Treatment How to Access Health Informa tion Online using Patient Portal and [employer] Indication:Nonsmoker Start:06-Jun-2021 Instruction Type:Patient Education How [...] [facility]; [facility] Work Phone: [email or web address]* Name Dates Details Patient Instructions Indication:Nonsmoker Start:06-Jun-2021 [...] [facility]; [facility] Work Phone: [email or web address]* Name Dates Details Patient Instructions Indication:Nonsmoker Start:06-Jun-2021 [...] [facility] Medicine; [facility] Work Phone: [email or web address]* Name Dates Details Patient Instructions Indication:Nonsmoker Start:06-Jun-2021 [...] INFORMATION SOURCE (unrecogn ized section and content) DATE CREATED AUTHOR 10/23/2018 [facility] [email or web address] FOR RECORDS PERTAINING TO PATIENTS WHO ARE [...] BE BASED ON THE PRIMARY CLINICAL RECORDS. [employer] provides no warranty or guarantee of the accuracy or completeness of information in this document.
--- OUTSIDE RECORDS SUMMARY | 2024-05-21 05:13 | XMS RPT_ITS | CCD ---
Author Organization [facility] Care Team Providers Care Machine Shop Instructor Name Role Phone Diamond Mclean Unavailable EILEEN [...] Tapan Mejia Unavailable Casper Reyes MD Unavailable Graham GUADALUPE, EILEEN Unavailable Unavailable Anatoly Andrea LPN Unavailable Unavailable felipe Anguianoline Unavailable Unavailable Edwin GUADALUPE May Unavailable Unavailable Unavailable Unavailable Marina Bronson MD Unavailable [phone] [facility] CLINIC PHYSICIAN DIRECTOR, Jyoti Unavailable Unavailable Marline Rosado MA Unavailable Unavailable DoroteoaDiamond Unavailable Caridad Diamond Unavailable Marina Bronson MD Unavailable [phone] Medications Current Medications Medication Drug Class(es) [...] 20 {Tablet} Refills: 0 Ordered: 14-Dec-2020 EILEEN Stevenson LPN Start : 07-Jul-2020 End : 14-Dec-2020 [...] completed 02-09-19 [facility] review ed drug screen [id number] patient states the [facility] ER is causing increased HR and anxiety towards late afternoon, not like the way feel on ER, will try plain Adderall 10mg bid and see if feel better and not increase HR and anxiety as much. She will fu in 2-3 weeks on how doing 02-09-19 [facility] review ed drug screen [id number] patient states the [facility] ER is causing [...] Interpretation Reference Range Facility T4, FREE (THYROXINE) ([id number]) Ordered By: Clinical Project Coordinator on 04-10-2022 Free T4 [Mass/Vol] 0.93 ng/dL Normal 0.82-1.77 [facility]; [facility] Work Phone: Comment on above: PATIENT NOT FASTINGP ERFORMED BY: JOEL Robot App Store6370 [facility]EC[facility] [id number] TSH (THYROID STIMULATING HOR CAL) ([id number])Ordered By: Clinical Project Coordinator on 04-10-2022 TSH Qn 4.040 {uIU/mL} Normal 0.450-4.500 Radha thomas [facility]; [facility] Work Phone: Comment on above: PATIENT NOT FASTINGP ERFORMED BY: JOEL [employer] [place] [id number] CBC, PLATELETS & AUT DIFF ([id number])Ordered By: Clinical Project Coordinator on 11-30-2021 Basophils (Bld) [#/Vol] 0.0 10*3/uL Normal 0.0-0.2 [facility]; [facility] Work Phone: Comment on above: PATIENT NOT FASTINGP ERFORMED BY: JOEL [employer] Mryprd4889 [facility] [id number] Basophils/100 WBC (Bld) 0 % Normal [facility]; [facility] Work Phone: Comment on above: PATIENT NOT FASTINGP ERFORMED BY: [facility] Tbymif2970 [facility] [id number] Eosinophils (Bld) [#/Vol] 0.2 10*3/uL Normal 0.0-0.4 [facility]; [facility] Work Phone: Comment on above: PATIENT NOT FASTINGP ERFORMED BY: [facility] Ogozqp6016 [facility] [id number] Eosinophils/100 WBC (Bld) 2 % Normal [facility]; [facility] Work Phone: Comment on above: PATIENT NOT FASTINGP ERFORMED BY: JOEL Peguero Zrefle5589 [facility] [id number] Erythrocyte distribution width (RBC) [Ratio] 12.5 % Normal 11.7-15.4 [facility]; [facility] Work Phone: Comment on above: PATIENT NOT FASTINGP ERFORMED BY: [facility] Bdgacl8592 [facility] [id number] Hematocrit (Bld) [Volume fraction] 35.9 % Normal 34.0-46.6 [facility]; [facility] Work Phone: Comment on above: PATIENT NOT FASTINGP ERFORMED BY: [facility] Yzotsb2762 [facility] [id number] Hemoglobin (Bld) [Mass/Vol] 12.0 g/dL Normal 11.1-15.9 [facility]; [facility] Work Phone: Comment on above: PATIENT NOT FASTINGP ERFORMED BY: JOEL [facility] Lqvwgy4271 [address] RoadDublin [place] [id number] Immature granulocytes (Bld) [#/Vol] 0.0 10*3/uL Normal 0.0-0.1 [facility]; [facility] Work Phone: Comment on above: PATIENT NOT FASTINGP ERFORMED BY: CB [facility] Xojihd7513 [address] RoadReplaced By [facility] [place] [id number] Immature granulocytes/100 WBC (Bld) 0 % Normal [facility]; [facility] Work Phone: Comment on above: PATIENT NOT FASTINGP ERFORMED BY: CB [facility] Qxmguk3073 [address] [facility] [id number] Lymphocytes (Bld) [#/Vol] 1.6 10*3/uL Normal 0.7-3.1 [facility]; [facility] Work Phone: Comment on above: PATIENT NOT FASTINGP ERFORMED BY: CB [facility] Zzfswa6726 [address] [facility] [place] [id number] Lymphocytes/100 WBC (Bld) 17 % Normal [facility]; [facility] Work Phone: Comment on above: PATIENT NOT FASTINGP ERFORMED BY: JOEL [facility] Jrsnao7472 [address] [facility] [id number] MCH (RBC) [Entitic mass] 29.2 pg Normal 26.6-33.0 [facility]; [facility] Work Phone: Comment on above: PATIENT NOT FASTINGP ERFORMED BY: CB [facility] Danklr4616 [address] [facility] [place] [id number] MCHC (RBC) [Mass/Vol] 33.4 g/dL Normal 31.5-35.7 [facility]; [facility] Work Phone: Comment on above: PATIENT NOT FASTINGP ERFORMED BY: CB [facility] Pcwxyo0246 [address] [facility] [place] [id number] MCV (RBC) [Entitic vol] 87 fL Normal 79-97 [facility]; [facility] Work Phone: Comment on above: PATIENT NOT FASTINGP ERFORMED BY: CB [facility] Okfvek6298 [address] RoadDublin [place] [id number] Monocytes (Bld) [#/Vol] 0.6 10*3/uL Normal 0.1-0.9 [facility]; [facility] Work Phone: Comment on above: PATIENT NOT FASTINGP ERFORMED BY: CB [facility] Xfquiz9863 [address] RoadDublin [place] [id number] Monocytes/100 WBC (Bld) 6 % Normal [facility]; [facility] Work Phone: Comment on above: PATIENT NOT FASTINGP ERFORMED BY: CB [facility] Pyupfu7311 [address] RoadDublin [place] [id number] Neutrophils (Bld) [#/Vol] 6.7 10*3/uL Normal 1.4-7.0 [facility]; [facility] Work Phone: Comment on above: PATIENT NOT FASTINGP ERFORMED BY: CB [facility] Mzgfnq0163 [address] RoadDublin [place] [id number] Neutrophils/100 WBC (Bld) 75 % Normal [facility]; [facility] Work Phone: Comment on above: PATIENT NOT FASTINGP ERFORMED BY: CB [facility] Zcegif7332 [address] RoadDublin [place] [id number] Platelets (Bld) [#/Vol] 241 10*3/uL Normal 150-450 [facility]; [facility] Work Phone: Comment on above: PATIENT NOT FASTINGP ERFORMED BY: CB [facility] Wmnzuy2951 [address] RoadDublin [place] [id number] RBC (Bld) [#/Vol] 4.11 10*6/uL Normal 3.77-5.28 [facility] Internal [facility]; [facility] Work Phone: Comment on above: PATIENT NOT FASTINGP ERFORMED BY: CB [facility] Qgyksz4177 [address] RoadDublin [place] [id number] WBC (Bld) [#/Vol] 9.0 10*3/uL Normal 3.4-10.8 [facility] Internal [facility]; [facility] Work Phone: Comment on above: PATIENT NOT FASTINGP ERFORMED BY: JEOL [employer] Goouuo6534 [facility] [id number] HEPATITIS B SURFACE ANTIGEN ([id number])Ordered By: Clinical Project Coordinator on 11-30-2021 HBV surface Ag IA Ql Negative Normal [facility]; [facility] Work Phone: Comment on above: PATIENT NOT FASTINGP ERFORMED BY: [employer] Fjnwpe4105 [facility] [id number] HEPATITIS C ANTIBODY ([id number]) Ordered By: Clinical Project Coordinator on 11-30-2021 HCV Ab Signal/Cutoff IA [Rel units/Vol] {ratio} Normal 0.0-0.9 [facility]; [facility] Work Phone: Comment on above: Negative: < 0.8 Inde terminate: 0.8 - 0.9 Positive: > 0.9 . The CDC recommends that a positive HCV antibody result be followed up with a HCV Nucleic Acid Amplification test (804941). PATIENT NOT FASTINGP ERFORMED BY: [employer] Osghob4130 [facility] [id number] HIV ANTIGEN ([id number])Ordered B y: Clinical Project Coordinator on 11-30-2021 HIV 1+2 Ab+HIV1 p24 Ag IA Ql Non-Reactive Normal [facility]; [facility] Work Phone: Comment on above: HIV NegativeHIV-1/HI V-2 antibodies and HIV-1 p24 antigen were NOT detected.There is no laboratory evidence of HIV infection. PATIENT NOT FASTINGP ERFORMED BY: [employer] Qmuvxx3434 [facility] [id number] RUBELLA IgG ([id number])Ordered B y: Clinical Project Coordinator on 11-30-2021 Rubella virus IgG Qn (S) 1.01 {index} Normal [facility]; [facility] Work Phone: Comment on above: Non-immune <0.90 Equ ivocal 0.90 - 0.99 Immune >0.99 PATIENT NOT FASTINGP ERFORMED BY: [employer] Vmgwae5759 [facility] [id number] T4, FREE (THYROXINE) ([id number]) Ordered By: Clinical Project Coordinator on 11-30-2021 Free T4 [Mass/Vol] 1.06 ng/dL Normal 0.82-1.77 [facility]; [facility] Work Phone: Comment on above: PATIENT NOT FASTINGP ERFORMED BY: [employer] Dvcybp0166 [facility] [id number] TSH (THYROID STIMULATING HOR CAL) ([id number])Ordered By: Clinical Project Coordinator on 11-30-2021 TSH Qn 3.850 {uIU/mL} Normal 0.450-4.500 [facility]; [facility] Work Phone: Comment on above: PATIENT NOT FASTINGP ERFORMED BY: [employer] Bhcvux4387 [facility] [id number] TYPE & SCREEN GEL (09073)Ord ered By: Clinical Project Coordinator on 11-30-2021 ABO group Nom (Bld) A Normal [facility]; [facility] Work Phone: Comment on above: PATIENT NOT FASTINGP ERFORMED BY: [employer] Fjnsjo4710 [facility] [id number] Rh Nom (Bld) Positive Normal Comprehensiv e [facility]; [facility] Work Phone: Comment on above: Please note: Prior r ecords for this patient's ABO / Rh type are notavailable for additional verification. PATIENT NOT FASTINGP ERFORMED BY: [employer] Ljtyll0224 [facility] [id number] INHOUSE Rapid Covid/ Flu A/ Flu BOrdered By: EILEEN Stevenson on 06-08-2021 SARS-CoV-2 (COVID-19) RNA ABRAM+probe Ql (Unsp spec) Negative Normal [facility]; [facility] Work Phone: NAI CULTURE-OTHER ([id number])Ord ered By: Clinical Project Coordinator on 12-14-2020 Bacteria identified Respiratory culture Nom (Unsp spec) Final report Normal [facility]; [facility] Work Phone: Comment on above: PATIENT NOT FASTINGP ERFORMED BY: JOEL Peguero Piddic1253 [facility] [id number] Information: SRC:TH Bacteria identified Respiratory culture Nom (Unsp spec) RRF Normal [facility]; [facility] Work Phone: Comment on above: Routine respiratory theodora PATIENT NOT FASTINGP ERFORMED BY: JOEL BethChildren[facility] Vapvrh9230 [facility] [id number] Information: SRC:TH 2019 Novel Coronavirus (COVI D-19), ABRAM ([id number])Ordered By: Clinical Project Coordinator on 09-18-2020 2019 Novel Coronavirus (COVID-19), ABRAM ([id number]) Not Detected Normal [facility]; [facility] Work Phone: Comment on above: This nucleic acid am plification test was developed and its performancecharacteristics determined by [employer]. Nucleic acidamplification tests include RT-PCR and TMA. [...] this assay. PATIENT NOT FASTINGP ERFORMED BY: [facility] Wyefte3740 [facility] [id number] 2019 Novel Coronavirus (COVID-19), ABRAM ([id number]) Not detected Normal [facility]; [facility] Work Phone: Comment on above: This nucleic acid am plification test was developed and its performancecharacteristics determined by [employer]. Nucleic acidamplification tests include RT-PCR and TMA. [...] assay. PATIENT NOT FASTINGP ERFORMED BY: JOEL Digicompanion6370 [employer] [place] [id number] URINE NAI CULTURE-IDENTIFICA TN ([id number])Ordered By: Clinical Project Coordinator on 07-24-2020 Bacteria identified Cx Nom (U) MUG Normal [facility]; [facility] Work Phone: Comment on above: Mixed urogenital wayne ra50,000-100,000 colony forming units per mL PATIENT NOT FASTINGP ERFORMED BY: Dig[employer]ompanion63[employer] [place] [id number] Information: SRC: Bacteria identified Cx Nom (U) Final report Normal [facility]; [facility] Work Phone: Comment on above: PATIENT NOT FASTINGP ERFORMED BY: LiquidCool SolutionsAtrium Health Lincoln [id number] Information: SRC:SAUL Urinalysis, Office (79783)Or dered By: Anatoly Andrea on 07-24-2020 Bilirubin [...] Medicine; [facility] Work Phone: CALCIFIDIOL (77507) VIT D 25 Ordered By: Clinical Project Coordinator on 06-14-2020 25-Hydroxyvitamin D2+25-Hydroxyvita min D3 [Mass/Vol] 41.1 ng/mL Normal 30.0-100.0 [facility] Work Phone: Comment on above: Vitamin D deficiency has been defined by the [place] of[place]icine and an Endocrine Society practice guideline as alevel of serum 25-OH vitamin D less than 20 ng/mL (1,2).The Endocrine Society went on to further define vitamin Dinsufficiency as a level between 21 and 29 ng/mL (2).1. IOM ([place] of Medicine). 2010. Dietary reference intakes for calcium and D. [place]: The National Academies Press.2. Kevin MF, Audrey BARFIELD, Amy COHEN, et al. Evaluation, treatment, and prevention of vitamin D deficiency: an Endocrine Society clinical practice guideline. JCEM. 2010; 96(7):1911-30. PATIENT NOT FASTINGP ERFORMED BY: CB [facility] Fealff6841 [address] RoadDublin [place] [id number] CBC WITH MANUAL DIFF ([id number]) Ordered By: Clinical Project Coordinator on 06-14-2020 Basophils (Bld) [#/Vol] 0.0 {x10E3/uL} Normal 0.0-0.2 [facility] Work Phone: Comment on above: PATIENT NOT FASTINGP ERFORMED BY: CB [facility] Znotcg7913 [address] RoadDublin [place] [id number] Basophils (Bld) [#/Vol] 0.0 10*3/uL Normal 0.0-0.2 [facility]; [facility] Work Phone: Comment on above: PATIENT NOT FASTINGP ERFORMED BY: CB [facility] Rssapu4242 [address] RoadDublin [place] [id number] Basophils/100 WBC (Bld) 1 % Normal [facility] Work Phone: Comment on above: PATIENT NOT FASTINGP ERFORMED BY: CB [facility] Sliknn8825 [address] RoadDublin [place] [id number] Eosinophils (Bld) [#/Vol] 0.1 {x10E3/uL} Normal 0.0-0.4 [facility] Work Phone: Comment on above: PATIENT NOT FASTINGP ERFORMED BY: CB [facility] Lqgdeq1285 [address] [facility] [id number] Eosinophils (Bld) [#/Vol] 0.1 10*3/uL Normal 0.0-0.4 [facility]; [facility] Work Phone: Comment on above: PATIENT NOT FASTINGP ERFORMED BY: [facility] Wfvtkr8726 [address] [facility] [id number] Eosinophils/100 WBC (Bld) 3 % Normal [facility] Work Phone: Comment on above: PATIENT NOT FASTINGP ERFORMED BY: [facility] Pzckxq7583 [address] [facility] [id number] Erythrocyte distribution width (RBC) [Ratio] 12.6 % Normal 11.7-15.4 [facility] Work Phone: Comment on above: PATIENT NOT FASTINGP ERFORMED BY: Lab[facility] Jawbna4845 [address] [facility] [id number] Hematocrit (Bld) [Volume fraction] 44.0 % Normal 34.0-46.6 [facility] Work Phone: Comment on above: PATIENT NOT FASTINGP ERFORMED BY: Lab[facility] Lwmtlx5569 [address] [facility] [id number] Hemoglobin (Bld) [Mass/Vol] 14.4 g/dL Normal 11.1-15.9 [facility] Work Phone: Comment on above: PATIENT NOT FASTINGP ERFORMED BY: [facility] Qxgaxo2455 [address] [facility] [id number] Immature granulocytes (Bld) [#/Vol] 0.0 {x10E3/uL} Normal 0.0-0.1 [facility] Work Phone: Comment on above: PATIENT NOT FASTINGP ERFORMED BY: [facility] Wwdyys9346 [address] [facility] [id number] Immature granulocytes (Bld) [#/Vol] 0.0 10*3/uL Normal 0.0-0.1 [facility]; [facility] Work Phone: Comment on above: PATIENT NOT FASTINGP ERFORMED BY: CB [facility] Bbsqln7106 [address] RoadDublin [place] [id number] Immature granulocytes/100 WBC (Bld) 0 % Normal [facility] Work Phone: Comment on above: PATIENT NOT FASTINGP ERFORMED BY: [facility] Nwdqnd4244 [address] RoadDublin [place] [id number] Lymphocytes (Bld) [#/Vol] 1.4 {x10E3/uL} Normal 0.7-3.1 [facility] Work Phone: Comment on above: PATIENT NOT FASTINGP ERFORMED BY: LabH[facility]6370 [address]blin [place] [id number] Lymphocytes (Bld) [#/Vol] 1.4 10*3/uL Normal 0.7-3.1 [facility]; [facility] Work Phone: Comment on above: PATIENT NOT FASTINGP ERFORMED BY: IgnaciaHills [facility]6370 [address] [facility] [id number] Lymphocytes/100 WBC (Bld) 32 % Normal [facility] Work Phone: Comment on above: PATIENT NOT FASTINGP ERFORMED BY: LabChildren[facility] Bmjnof8059 [address] [facility] [id number] MCH (RBC) [Entitic mass] 28.6 pg Normal 26.6-33.0 [facility] Work Phone: Comment on above: PATIENT NOT FASTINGP ERFORMED BY: LabHills [facility]6370 [address] [facility] [id number] MCHC (RBC) [Mass/Vol] 32.7 g/dL Normal 31.5-35.7 [facility] Work Phone: Comment on above: PATIENT NOT FASTINGP ERFORMED BY: [facility] Unvopu7490 [address] [facility]bl[facility] [place] [id number] MCV (RBC) [Entitic vol] 87 fL Normal 79-97 [facility] Work Phone: Comment on above: PATIENT NOT FASTINGP ERFORMED BY: LabCoRutgers - University Behavioral HealthCareZykgag2387 [address] RoadDublin [place] [id number] Monocytes (Bld) [#/Vol] 0.3 {x10E3/uL} Normal 0.1-0.9 [facility] Work Phone: Comment on above: PATIENT NOT FASTINGP ERFORMED BY: JOEL Cuba6370 [address] RoadDublin [place] [id number] Monocytes (Bld) [#/Vol] 0.3 10*3/uL Normal 0.1-0.9 [facility]; [facility] Work Phone: Comment on above: PATIENT NOT FASTINGP ERFORMED BY: JOEL Cuba6370 [address] RoadDublin [place] [id number] Monocytes/100 WBC (Bld) 6 % Normal [facility] Work Phone: Comment on above: PATIENT NOT FASTINGP ERFORMED BY: JOEL Davalos R[address] RoadDuin [place] [id number] Neutrophils (Bld) [#/Vol] 2.6 {x10E3/uL} Normal 1.4-7.0 [facility] Work Phone: Comment on above: PATIENT NOT FASTINGP ERFORMED BY: JOEL Cuba6370 [address]bl[address] [place] [id number] Neutrophils (Bld) [#/Vol] 2.6 10*3/uL Normal 1.4-7.0 [facility]; [facility] Work Phone: Comment on above: PATIENT NOT FASTINGP ERFORMED BY: JOEL Whitleylin6370 [address] RoadDublin [place] [id number] Neutrophils/100 WBC (Bld) 58 % Normal [facility] Work Phone: Comment on above: PATIENT NOT FASTINGP ERFORMED BY: JOEL LabLety WhitleyMylrqy8776 [address] RoadDublin [place] [id number] Platelets (Bld) [#/Vol] 219 {x10E3/uL} Normal 150-450 [facility] Work Phone: Comment on above: PATIENT NOT FASTINGP ERFORMED BY: JOEL [facility] Lbvwio5030 [address] RoadDublin [place] [id number] Platelets (Bld) [#/Vol] 219 10*3/uL Normal 150-450 [facility]; [facility] Work Phone: Comment on above: PATIENT NOT FASTINGP ERFORMED BY: CB [facility] Rddsxs5187 [address] RoadDublin [place] [id number] RBC (Bld) [#/Vol] 5.04 {x10E6/uL} Normal 3.77-5.28 [facility] Internal Medicine Work Phone: Comment on above: PATIENT NOT FASTINGP ERFORMED BY: CB [facility] Ouavnm1446 [address] RoadDublin [place] [id number] RBC (Bld) [#/Vol] 5.04 10*6/uL Normal 3.77-5.28 [facility] Internal Medicine; [facility] Work Phone: Comment on above: PATIENT NOT FASTINGP ERFORMED BY: CB [facility] Svyjtn9090 [address] RoadDublin [place] [id number] WBC (Bld) [#/Vol] 4.5 {x10E3/uL} Normal 3.4-10.8 [facility] Internal Medicine Work Phone: Comment on above: PATIENT NOT FASTINGP ERFORMED BY: CB [facility] Eitgjr3601 [address] RoadDublin [place] [id number] WBC (Bld) [#/Vol] 4.5 10*3/uL Normal 3.4-10.8 [facility] Internal Medicine; [facility] Work Phone: Comment on above: PATIENT NOT FASTINGP ERFORMED BY: CB [facility] Ujgqlz6785 [address] RoadDublin [place] [id number] Iron Binding Capacity (TIBC) ([id number])Ordered By: Clinical Project Coordinator on 06-14-2020 Iron [Mass/Vol] 165 ug/dL Abnormal 27-159 [email or web address] Internal Medicine Work Phone: Comment on above: Verified by repeat analysis PATIENT NOT FASTINGP ERFORMED BY: CB [facility] Bzzklt3337 [address] RoadDublin [place] [id number] Iron binding capacity [Mass/Vol] 424 ug/dL Normal 250-450 [facility] Work Phone: Comment on above: PATIENT NOT FASTINGP ERFORMED BY: JOEL LabComarcy WhitleyNsfsvc8281 [address] [facility] Hospitalblin [place] [id number] Iron binding capacity.unsatura denise [Mass/Vol] 259 ug/dL Normal 131-425 [facility] Work Phone: Comment on above: PATIENT NOT FASTINGP ERFORMED BY: [facility] Wsmvtx6376 [address] [facility] [id number] Iron saturation [Mass fraction] 39 % Normal 15-55 [facility] Work Phone: Comment on above: PATIENT NOT FASTINGP ERFORMED BY: Sudhir Qcmakz6079 [facility] [id number] T3, FREE (TRIDOTHYRONINE) ([id number])Ordered By: Clinical Project Coordinator on 06-14-2020 Free T3 [Mass/Vol] 2.5 pg/mL Normal 2.0-4.4 [facility] Internal Medicine Work Phone: Comment on above: PATIENT NOT FASTINGP ERFORMED BY: LabChildren[facility] Fsmoas9635 [facility] [id number] T4, FREE (THYROXINE) (00611) Ordered By: Clinical Project Coordinator on 06-14-2020 Free T4 [Mass/Vol] 1.33 ng/dL Normal 0.82-1.77 [facility] Internal Medicine Work Phone: Comment on above: PATIENT NOT FASTINGP ERFORMED BY: LabChildren[facility] Axnsxq2551 [address] [facility] [id number] TSH ([id number])Ordered By: Syste m Project Specialist on 06-14-2020 TSH Qn 2.200 {uIU/mL} Normal 0.450-4.500 [facility] Internal Medicine Work Phone: Comment on above: PATIENT NOT FASTINGP ERFORMED BY: [facility] Czseod7410 [facility] [id number] 2019 Novel Coronavirus (COVI D-19), ABRAM ([id number])Ordered By: Clinical Project Coordinator on 01-17-20202018 Novel Coronavirus (COVID-19), ABRAM (75350) Not Detected Normal [facility] Work Phone: Comment on above: This test was develo ped and its performance characteristics determinedby [employer]. This test has not been FDA cleared [...] this assay. PATIENT NOT FASTINGP ERFORMED BY: [employer] [facility] Wwbrevaybj0139 [facility] [place] [id number] 2018 Novel Coronavirus (COVID-19), ABRAM (12097) Not detected Normal [facility]; [facility] Work Phone: Comment on above: This test was develo ped and its performance characteristics determinedby [employer]. This test has not been FDA cleared [...] this assay. PATIENT NOT FASTINGP ERFORMED BY: [employer] [facility] Jqykymnzhs6093 Nita Spann [place] [id number] CALCIFIDIOL (49541) VIT D 25 Ordered By: Clinical Project Coordinator on 07-22-2019 25-Hydroxyvitamin D2+25-Hydroxyvita min D3 [Mass/Vol] 28.4 ng/mL Abnormal 30.0-100.0 [facility] Work Phone: Comment on above: Vitamin D deficiency has been defined by the [place] of[place]icine and an Endocrine Society practice guideline as alevel of serum 25-OH vitamin D less than 20 ng/mL (1,2).The Endocrine Society went on to further define vitamin Dinsufficiency as a level between 21 and 29 ng/mL (2).1. IOM ([place] of Medicine). 2010. Dietary reference intakes for calcium and D. [place]: The National Academies Press.2. Kevin MF, Audrey NC, Amy COHEN, et al. Evaluation, treatment, and prevention of vitamin D deficiency: an Endocrine Society clinical practice guideline. JCEM. 2010; 96(7):1911-30. copy to Dr. Kaila acevedo [phone]; PATIENT NOT FASTINGPERFORMED BY: [employer] [employer] [place] [id number] Metabolic Panel, Basic (8004 8)Ordered By: Clinical Project Coordinator on 07-22-2019 Calcium [Mass/Vol] 9.4 mg/dL Normal 8.7-10.2 [facility] Work Phone: Comment on above: fax copy to Dr. Jeane fairbanks [phone]; PATIENT NOT FASTINGPERFORMED BY: [employer] [employer] [employer] [place] [id number] Chloride [Moles/Vol] 103 mmol/L Normal 96-106 [facility] Work Phone: Comment on above: fax copy to Dr. Jeane fairbanks [phone]; PATIENT NOT FASTINGPERFORMED BY: CB [facility] Dsaihn4856 Rangel RoadDublin [place] [id number] CO2 [Moles/Vol] 23 mmol/L Normal 20-29 [facility] Internal Medicine Work Phone: Comment on above: fax copy to Dr. Jeane fairbanks [phone]; PATIENT NOT FASTINGPERFORMED BY: CB [facility] Jhkiww5236 Rangel RoadDublin [place] [id number] Creatinine [Mass/Vol] 0.77 mg/dL Normal 0.57-1.00 [facility] Work Phone: Comment on above: fax copy to Dr. Jeane fairbanks [phone]; PATIENT NOT FASTINGPERFORMED BY: CB [facility] Hjoqpa6379 [address]angel RoadDublin [place] [id number] GFR/1.73 sq M predicted among blacks CKD-EPI (S/P/Bld) [Vol rate/Area] 125 mL/min/1.73 Normal [facility] Work Phone: Comment on above: fax copy to Dr. Jeane fairbanks [phone]; PATIENT NOT FASTINGPERFORMED BY: CB [facility] Uadgho5809 [address] RoadDublin [place] [id number] GFR/1.73 sq M predicted among non-blacks CKD-EPI (S/P/Bld) [Vol rate/Area] 108 mL/min/1.73 Normal [facility] Work Phone: Comment on above: fax copy to Dr. Jeane fairbanks [phone]; PATIENT NOT FASTINGPERFORMED BY: CB [facility] Boeybp6084 [address] RoadDublin [place] [id number] Glucose [Mass/Vol] 82 mg/dL Normal 65-99 [facility] Work Phone: Comment on above: fax copy to Dr. Jeane fairbanks [phone]; PATIENT NOT FASTINGPERFORMED BY: CB [facility] Nzfuag3642 [address] RoadDublin [place] [id number] Potassium [Moles/Vol] 4.8 mmol/L Normal 3.5-5.2 [facility] Work Phone: Comment on above: fax copy to Dr. Jeane fairbanks [phone]; PATIENT NOT FASTINGPERFORMED BY: CB [facility] Yhhqxi0797 [address] RoadDublin [place] [id number] Sodium [Moles/Vol] 139 mmol/L Normal 134-144 [facility] Work Phone: Comment on above: fax copy to Dr. Jenae fairbanks [phone]; PATIENT NOT FASTINGPERFORMED BY: CB [facility] Ybggvz4625 [address] RoadDublin [place] [id number] Urea nitrogen [Mass/Vol] 9 mg/dL Normal 6-20 [facility] Work Phone: Comment on above: fax copy to Dr. Jeane fairbanks [phone]; PATIENT NOT FASTINGPERFORMED BY: CB [facility] Mfjxqi6564 [address] RoadDublin [place] [id number] Urea nitrogen/Creatini ne [Mass ratio] 12 mg/mg Normal 9-23 [facility] Work Phone: Comment on above: fax copy to Dr. Jeane fairbanks [phone]; PATIENT NOT FASTINGPERFORMED BY: CB [facility] Jcqvtv9649 [address] RoadDublin [place] [id number] PARATHORMONE (61470)Ordered By: Clinical Project Coordinator on 07-22-2019 Parathyrin.intact [Mass/Vol] 19 pg/mL Normal 15-65 [facility] Work Phone: Comment on above: copy to Dr. Kaila acevedo [phone]; PATIENT NOT FASTINGPERFORMED BY: CB [facility] Xpvqju9680 [address] RoadDublin [place] [id number] Anti TPO Antibody (30049)Ord ered By: Clinical Project Coordinator on 06-29-2019 TPO Ab Qn 19 {IU/mL} Normal 0-34 [facility] Work Phone: Comment on above: PATIENT NOT FASTINGP ERFORMED BY: CB [facility] Jlqcck1027 [address] RoadDublin [place] [id number] TPO Ab Qn 19 [IU]/mL Normal 0-34 [facility]; [facility] Work Phone: Comment on above: PATIENT NOT FASTINGP ERFORMED BY: CB [facility] Nqierh[address] [facility] [place] [id number] T3, FREE (TRIDOTHYRONINE) (8 4007)Ordered By: Clinical Project Coordinator on 06-29-2019 Free T3 [Mass/Vol] 2.6 pg/mL Normal 2.0-4.4 [facility] Work Phone: Comment on above: PATIENT NOT FASTINGP ERFORMED BY: CB [facility] Zktsbj2160 [address] RoadDublin [place] [id number] T4, FREE (THYROXINE) (98309) Ordered By: Clinical Project Coordinator on 06-29-2019 Free T4 [Mass/Vol] 1.11 ng/dL Normal 0.82-1.77 [facility] Work Phone: Comment on above: PATIENT NOT FASTINGP ERFORMED BY: CB [facility] Qarmkk0[address] [facility] [place] [id number] TSH (THYROID STIMULATING HOR CAL) (36384)Ordered By: Clinical Project Coordinator on 06-29-2019 TSH Qn 2.880 {uIU/mL} Normal 0.450-4.500 [facility] Internal Medicine Work Phone: Comment on above: fax a copy to Dr. Warner [facility]; PATIENT NOT FASTINGPERFORMED BY: CB [facility] Jeyutu[address] [facility] [place] [id number] Drug Screen (7drug + Alcohol ) (79389)Ordered By: EILEEN Stevenson on 04-02-2019 Drug Screen (7drug + Alcohol) (33087) Negative Normal [facility] Work Phone: Drug Screen (7drug + Alcohol) (44866) Negative Normal [facility]; [facility] Work Phone: Drug Screen (7drug + Alcohol ) (17215)Ordered By: EILEEN Stevenson on 02-09-2019 Drug Screen (7drug + Alcohol) (24837) Negative Normal [facility] Work Phone: Drug Screen (7drug + Alcohol) (71023) Negative Normal [facility]; [facility] Work Phone: T3, FREE (TRIDOTHYRONINE) (9 1197)on 10-20-2018 T3 free mass conc 2.4 pg/mL Normal 2.0-4.4 Compreh ensive Internal Medicine Work Phone: Comment on above: PATIENT NOT FASTINGP ERFORMED BY: JOEL [facility] Xyiywy4483 [address] WebcollageAt[facility] Health [facility] [id number] T4, FREE (THYROXINE) (68600) on 10-20-2018 T4 free mass conc 1.22 ng/dL Normal 0.82-1.77 Compreh ensive Internal Medicine Work Phone: Comment on above: PATIENT NOT FASTINGP ERFORMED BY: JOEL [facility] Mljrdp5109 [address] WebcollageAtrium Health [facility] [id number] Information: NURSE DRAW TSH (61551)on 10-20-2018 Thyrotropin Qn 1.640 {uIU/mL} Normal 0.450-4.500 [facility] Work Phone: Comment on above: PATIENT NOT FASTINGP ERFORMED BY: JOEL [facility] Varkec2759 [address] WebcollageAtrium Health [facility] [id number] Thyroid Peroxidase (TPO) Abo n 10-20-2018 Thyroperoxidase Ab Qn 32 {IU/mL} Normal 0-34 [facility] Work Phone: Comment on above: PATIENT NOT FASTINGP ERFORMED BY: CB [facility] Yokioc6090 [address] WebcollageAtrium Health [facility] [id number] MONOSPOT TEST (77601)on 08-29 Heterophile Ab LA Ql (S) Negative Normal [facility] Work Phone: Comment on above: The sensitivity of H eterophile antibody testing is 80- 90%.Kristian March IgM testing offers higher sensitivity. PATIENT NOT FASTINGP ERFORMED BY: Vayyar Uzvoii7012 RangelRaleigh General Hospitalin [place] [id number] MONOSPOT TEST (93437)Ordered By: Clinical Project Coordinator on 09-23-2018 Heterophile Ab LA Ql (S) Negative Normal [facility]; [facility] Work Phone: Comment on above: The sensitivity of H eterophile antibody testing is 80- 90%.Kristian March IgM testing offers higher sensitivity. PATIENT NOT FASTINGP ERFORMED BY: [facility] Mafxsc9330 [address] PiqoraECU [facility] [id number] URINE NAI CULTURE-IDENTIFICA [place] (58796)on 08-25-2018 Bacteria identified Cx Nom (U) Final report Normal [facility] Work Phone: Comment on above: PATIENT NOT FASTINGP ERFORMED BY: Vayyar Kuxwvy6[address] WebcollageAtrium Health [facility] [id number] Information: SRC:UC Bacteria identified Cx Nom (U) MUG Normal [facility] Work Phone: Comment on above: Mixed urogenital wayne ra1,000 Colonies/mL PATIENT NOT FASTINGP ERFORMED BY: [facility] Mbrsxu3645 [facility] [id number] Information: SRC:UC HPV, Reflex (19945)on 2018 Microscopic observation Other stain Nom (Unsp spec) . Normal [facility] Work Phone: Comment on above: Source.............C ervix;EndocervixNo. of containers..01 ThinPrep VialPATIENT NOT FASTINGPERFORMED BY: [employer] [id number] Information: [id number] Pathology report final diagnosis Narrative SPRCS Normal [facility] Work Phone: Comment on above: NEGATIVE FOR INTRAEP ITHELIAL LESION AND MALIGNANCY.Satisfactory for evaluation. Endocervical and/or squamous metaplasticcells (endocervical component) are present.Z01.419Kathryn George Floor Clerk (ASCP) Source.............C ervix;EndocervixNo. of containers..01 ThinPrep VialPATIENT NOT FASTINGPERFORMED BY: [address] [id number] Information: [id number] HPV, Reflex (95090) PAPSMR Normal [facility] Work Phone: [...] of containers..01 ThinPrep VialPATIENT NOT FASTINGPERFORMED BY: [address] [id number] Information: [id number] NuSwab STD (STD W/ Herpes) ( 19080)on 07-31-2018 Atopobium vaginae DNA ABRAM+probe Ql (Vag fld) Low - 0 Normal [facility] Work Phone: Comment on above: PATIENT NOT FASTINGP ERFORMED BY: [address] [id number] Information: SRC:VA Bacterial vaginosis associated bacterium 2 DNA ABRAM+probe Ql (Vag fld) Low - 0 Normal [facility] Work Phone: Comment on above: PATIENT NOT FASTINGP ERFORMED BY: [address] [id number] Information: SRC:VA C. albicans DNA ABRAM+probe Ql (Vag fld) Negative Normal [facility] Work Phone: Comment on above: PATIENT NOT FASTINGP ERFORMED BY: [address] [id number] Information: SRC:VA C. glabrata DNA ABRAM+probe Ql (Vag fld) Negative Normal [facility] Work Phone: Comment on above: This test was develo ped and its performance characteristics determinedby [employer]. It has not been cleared or approved by the Food and DrugAdministration. The FDA has determined that such clearance orapproval is not necessary. PATIENT NOT FASTINGP ERFORMED BY: [address] [id number] Information: SRC:VA C. trachomatis rRNA ABRAM+probe Ql (Unsp spec) Negative Normal [facility] Work Phone: Comment on above: PATIENT NOT FASTINGP ERFORMED BY: [address] [id number] Information: SRC:VA HSV 1 DNA ABRAM+probe Ql (Unsp spec) Negative Normal [facility] Work Phone: Comment on above: PATIENT NOT FASTINGP ERFORMED BY: [address] [id number] Information: SRC:VA HSV 2 DNA ABRAM+probe Ql (Unsp spec) Negative Normal [facility] Work Phone: Comment on above: PATIENT NOT FASTINGP ERFORMED BY: [address] [id number] Information: SRC:VA Megasphaera sp type 1 DNA [...] was developed and its performance characteristicsdetermined by [employer]. It has not been cleared or approvedby the Food and Drug Administration. The FDA has determinedthat such clearance or approval is not necessary. PATIENT NOT FASTINGP ERFORMED BY: [address] [id number] Information: SRC:VA N. gonorrhoeae rRNA ABRAM+probe Ql (Unsp spec) Negative Normal [facility] Work Phone: Comment on above: PATIENT NOT FASTINGP ERFORMED BY: [address] [id number] Information: SRC:VA T. vaginalis rRNA ABRAM+probe Ql (Unsp spec) Negative Normal [facility] Work Phone: Comment on above: PATIENT NOT FASTINGP ERFORMED BY: [address] [id number] Information: SRC:RI Nuab STD (STD W/ Herpes) ( 10989)Ordered By: Clinical Project Coordinator on 07-31-2018 C. albicans DNA ABRAM+probe Ql (Vag fld) Negative Normal [facility]; [facility] Work Phone: Comment on above: PATIENT NOT FASTINGP ERFORMED BY: [address] [id number] Information: SRC:VA C. glabrata DNA ABRAM+probe Ql (Vag fld) Negative Normal [facility]; [facility] Work Phone: Comment on above: This test was develo ped and its performance characteristics determinedby [facility]. It has not been cleared or approved by the Food and DrugAdministration. The FDA has determined that such clearance orapproval is not necessary. PATIENT NOT FASTINGP ERFORMED BY: [address] [id number] Information: SRC:VA C. trachomatis rRNA ABRAM+probe Ql (Unsp spec) Negative Normal [facility]; [facility] Work Phone: Comment on above: PATIENT NOT FASTINGP ERFORMED BY: [address] [id number] Information: SRC:VA HSV 1 DNA ABRAM+probe Ql (Unsp spec) Negative Normal [facility]; [facility] Work Phone: Comment on above: PATIENT NOT FASTINGP ERFORMED BY: [facility] [address] [id number] Information: SRC:VA HSV 2 DNA ABRAM+probe Ql (Unsp spec) Negative Normal [facility]; [facility] Work Phone: Comment on above: PATIENT NOT FASTINGP ERFORMED BY: Lab[address] [id number] Information: SRC:VA N. gonorrhoeae rRNA ABRAM+probe Ql (Unsp spec) Negative Normal [facility]; [facility] Work Phone: Comment on above: PATIENT NOT FASTINGP ERFORMED BY: Lab[address] [id number] Information: SRC:VA T. vaginalis rRNA ABRAM+probe Ql (Unsp spec) Negative Normal [facility]; [facility] Work Phone: Comment on above: PATIENT NOT FASTINGP ERFORMED BY: [facility] [address] [id number] Information: SRC:[place] CBC WITH MANUAL DIFF (79613) on 05-25-2018 Basophils #/vol (Bld) 0.0 {x10E3/uL} Normal 0.0-0.2 [facility] Work Phone: Comment on above: PATIENT NOT FASTINGP ERFORMED BY: [facility] Cjuqvk9013 [facility] [id number] Basophils Auto #/vol (Bld) 0.0 {x10E3/uL} Normal 0.0-0.2 [facility] Work Phone: Basophils/100 WBC (Bld) 0 % Normal [facility] Work Phone: Comment on above: PATIENT NOT FASTINGP ERFORMED BY: [facility] Baxqbn1287 [facility] [id number] Basophils/100 WBC Auto (Bld) 0 % Normal [facility] Work Phone: Eosinophils #/vol (Bld) 0.1 {x10E3/uL} Normal 0.0-0.4 [facility] Work Phone: Comment on above: PATIENT NOT FASTINGP ERFORMED BY: JOEL [facility] Yqalag[address] [facility] [id number] Eosinophils Auto #/vol (Bld) 0.1 {x10E3/uL} Normal 0.0-0.4 [facility] Work Phone: Eosinophils/100 WBC (Bld) 1 % Normal [facility] Work Phone: Comment on above: PATIENT NOT FASTINGP ERFORMED BY: JOEL [facility] Hkmwbl4091 [facility] [id number] Eosinophils/100 WBC Auto (Bld) 1 % Normal [facility] Work Phone: Erythrocyte distribution width Auto Ratio (RBC) 13.3 % Normal 12.3-15.4 [facility] Work Phone: Erythrocyte distribution width Ratio (RBC) 13.3 % Normal 12.3-15.4 [facility] Work Phone: Comment on above: PATIENT NOT FASTINGP ERFORMED BY: JEOL LabCoRutgers - University Behavioral HealthCareCdndfx4779 [facility] [id number] Hematocrit Auto Volume Fraction (Bld) 40.6 % Normal 34.0-46.6 [facility] Work Phone: Hematocrit Volume Fraction (Bld) 40.6 % Normal 34.0-46.6 [facility] Work Phone: Comment on above: PATIENT NOT FASTINGP ERFORMED BY: [facility] Cbljzu4348 [facility] [id number] Hemoglobin mass conc (Bld) 13.3 g/dL Normal 11.1-15.9 [facility] Work Phone: Comment on above: PATIENT NOT FASTINGP ERFORMED BY: JOEL [facility] Zsvetb9180 [facility] [id number] Immature granulocytes #/vol (Bld) 0.0 {x10E3/uL} Normal 0.0-0.1 [facility] Work Phone: Comment on above: PATIENT NOT FASTINGP ERFORMED BY: [facility] [facility] [id number] Immature granulocytes/100 WBC (Bld) 0 % Normal [facility] Work Phone: Comment on above: PATIENT NOT FASTINGP ERFORMED BY: [place] [address] [facility] [id number] Lymphocytes #/vol (Bld) 2.7 {x10E3/uL} Normal 0.7-3.1 [facility] Work Phone: Comment on above: PATIENT NOT FASTINGP ERFORMED BY: [place] 2460070 [facility] [id number] Lymphocytes Auto #/vol (Bld) 2.7 {x10E3/uL} Normal 0.7-3.1 [facility] Work Phone: Lymphocytes/100 WBC (Bld) 32 % Normal [facility] Work Phone: Comment on above: PATIENT NOT FASTINGP ERFORMED BY: [place] 2460070 [facility] [id number] Lymphocytes/100 WBC Auto (Bld) 32 % Normal [facility] Work Phone: MCH Auto Entitic mass (RBC) 27.0 pg Normal 26.6-33.0 [facility] Work Phone: MCH Entitic mass (RBC) 27.0 pg Normal 26.6-33.0 [facility] Work Phone: Comment on above: PATIENT NOT FASTINGP ERFORMED BY: [place] 2460070 [facility] [id number] MCHC Auto mass conc (RBC) 32.8 g/dL Normal 31.5-35.7 [facility] Work Phone: MCHC mass conc (RBC) 32.8 g/dL Normal 31.5-35.7 [facility] Work Phone: Comment on above: PATIENT NOT FASTINGP ERFORMED BY: [place] 2460070 [facility] [id number] MCV Auto Entitic volume (RBC) 82 fL Normal 79-97 [facility] Work Phone: MCV Entitic volume (RBC) 82 fL Normal 79-97 [facility] Work Phone: Comment on above: PATIENT NOT FASTINGP ERFORMED BY: [place] 2460070 [facility] [id number] Monocytes #/vol (Bld) 0.6 {x10E3/uL} Normal 0.1-0.9 [facility] Work Phone: Comment on above: PATIENT NOT FASTINGP ERFORMED BY: [address] [id number] Monocytes Auto #/vol (Bld) 0.6 {x10E3/uL} Normal 0.1-0.9 [facility] Work Phone: Monocytes/100 WBC (Bld) 7 % Normal [facility] Work Phone: Comment on above: PATIENT NOT FASTINGP ERFORMED BY: [address] [id number] Monocytes/100 WBC Auto (Bld) 7 % Normal [facility] Work Phone: Neutrophils #/vol (Bld) 5.1 {x10E3/uL} Normal 1.4-7.0 [facility] Work Phone: Comment on above: PATIENT NOT FASTINGP ERFORMED BY: [place] 2460070 [facility] [id number] Neutrophils Auto #/vol (Bld) 5.1 {x10E3/uL} Normal 1.4-7.0 [facility] Work Phone: Neutrophils/100 WBC (Bld) 60 % Normal [facility] Work Phone: Comment on above: PATIENT NOT FASTINGP ERFORMED BY: [place] 2460070 [facility] [id number] Neutrophils/100 WBC Auto (Bld) 60 % Normal [facility] Work Phone: Platelets #/vol (Bld) 253 {x10E3/uL} Normal 150-379 [facility] Work Phone: Comment on above: PATIENT NOT FASTINGP ERFORMED BY: JOEL Cuba6370 [facility] [id number] Platelets Auto #/vol (Bld) 253 {x10E3/uL} Normal 150-379 [facility] Work Phone: RBC #/vol (Bld) 4.93 {x10E6/uL} Normal 3.77-5.28 [facility] Internal Medicine Work Phone: Comment on above: PATIENT NOT FASTINGP ERFORMED BY: JOEL Cuba6370 [facility] [id number] RBC Auto #/vol (Bld) 4.93 {x10E6/uL} Normal 3.77-5.28 [facility] Work Phone: WBC #/vol (Bld) 8.5 {x10E3/uL} Normal 3.4-10.8 [facility] Internal Medicine Work Phone: Comment on above: PATIENT NOT FASTINGP ERFORMED BY: JOEL Cuba6370 [facility] [id number] WBC Auto #/vol (Bld) 8.5 {x10E3/uL} Normal 3.4-10.8 [facility] Work Phone: CBC WITH MANUAL DIFF (17542) Ordered By: Clinical Project Coordinator on 05-25-2018 Basophils (Bld) [#/Vol] 0.0 10*3/uL Normal 0.0-0.2 [facility]; [facility] Work Phone: Comment on above: PATIENT NOT FASTINGP ERFORMED BY: JOEL Whitleylin6370 [facility] [id number] Eosinophils (Bld) [#/Vol] 0.1 10*3/uL Normal 0.0-0.4 [facility]; [facility] Work Phone: Comment on above: PATIENT NOT FASTINGP ERFORMED BY: JOEL Whitleylin6370 [facility] [place] [id number] Immature granulocytes (Bld) [#/Vol] 0.0 10*3/uL Normal 0.0-0.1 [facility]; [facility] Work Phone: Comment on above: PATIENT NOT FASTINGP ERFORMED BY: CB [facility] Iwmirr8152 Rangel Roadblin [place] [id number] Lymphocytes (Bld) [#/Vol] 2.7 10*3/uL Normal 0.7-3.1 [facility]; [facility] Work Phone: Comment on above: PATIENT NOT FASTINGP ERFORMED BY: CB [facility] Rvxtem1970 [address]angel RoadDublin [place] [id number] Monocytes (Bld) [#/Vol] 0.6 10*3/uL Normal 0.1-0.9 [facility]; [facility] Work Phone: Comment on above: PATIENT NOT FASTINGP ERFORMED BY: [facility] Eaagbj5518 [address] RoadReplaced By [facility] [place]in [place] [id number] Neutrophils (Bld) [#/Vol] 5.1 10*3/uL Normal 1.4-7.0 [facility]; [facility] Work Phone: Comment on above: PATIENT NOT FASTINGP ERFORMED BY: CB [facility] Qutolh6866 [address] RoadDublin [place] [id number] Platelets (Bld) [#/Vol] 253 10*3/uL Normal 150-379 [facility]; [facility] Work Phone: Comment on above: PATIENT NOT FASTINGP ERFORMED BY: CB [facility] Cqpmbf9806 [address] RoadDublin [place] [id number] RBC (Bld) [#/Vol] 4.93 10*6/uL Normal 3.77-5.28 [facility]; [facility] Work Phone: Comment on above: PATIENT NOT FASTINGP ERFORMED BY: CB [facility] Ccvhvs3633 [address] RoadDublin [place] [id number] WBC (Bld) [#/Vol] 8.5 10*3/uL Normal 3.4-10.8 Compre hensive Internal Medicine; [facility] Work Phone: Comment on above: PATIENT NOT FASTINGP ERFORMED BY: CB [facility] Dyxivu8284 [address] RoadDublin [place] [id number] Ferritin (36883)on 8 Ferritin mass conc 20 ng/mL Normal 15-150 [facility] Work Phone: Comment on above: PATIENT NOT FASTINGP ERFORMED BY: CB [facility] Ryhrkn6978 [address] RoadDublin [place] [id number] Iron Binding Capacity (TIBC) (07126)on 05-25-2018 Iron binding capacity mass conc 332 ug/dL Normal 250-450 [facility] Work Phone: Comment on above: PATIENT NOT FASTINGP ERFORMED BY: CB [facility] Spdcmi5202 [address] RoadDublin [place] [id number] Iron binding capacity.unsatura denise mass conc 297 ug/dL Normal 131-425 [facility] Work Phone: Comment on above: PATIENT NOT FASTINGP ERFORMED BY: CB [facility] Lfdggb3792 [address] RoadDublin [place] [id number] Iron mass conc 35 ug/dL Normal 27-159 Comprehens phan Internal Medicine Work Phone: Comment on above: PATIENT NOT FASTINGP ERFORMED BY: CB [facility] Scgrue0418 [address] RoadDublin [place] [id number] Iron saturation mass fraction 11 % Abnormal 15-55 [facility] Work Phone: Comment on above: PATIENT NOT FASTINGP ERFORMED BY: CB [facility] Pwomrk2268 [address] RoadDublin [place] [id number] Metabolic Panel, Comprehensi ve (48059)on 05-25-2018 Albumin mass conc 4.6 g/dL Normal 3.5-5.5 Compreh ensive [facility] Work Phone: Comment on above: PATIENT NOT FASTINGP ERFORMED BY: CB [facility] Mdvrby2[address] RoadDublin [place] [id number] Albumin/Globulin mass ratio 1.7 {ratio} Normal 1.2-2.2 [facility] Work Phone: Comment on above: PATIENT NOT FASTINGP ERFORMED BY: JOEL Cuba[address] [facility] [place] [id number] ALP enzyme act/vol 91 [iU]/L Normal 39-117 [facility] Work Phone: Comment on above: PATIENT NOT FASTINGP ERFORMED BY: JOEL [address] [facility] [id number] ALT enzyme act/vol 15 [iU]/L Normal 0-32 [facility] Work Phone: Comment on above: PATIENT NOT FASTINGP ERFORMED BY: JOEL [address] [facility] [id number] AST enzyme act/vol 19 [iU]/L Normal 0-40 [facility] Work Phone: Comment on above: PATIENT NOT FASTINGP ERFORMED BY: JOEL Conor [address] [facility] [id number] Bilirubin mass conc 0.2 mg/dL Normal 0.0-1.2 [facility] Work Phone: Comment on above: PATIENT NOT FASTINGP ERFORMED BY: JOEL [address] [facility] [id number] Calcium mass conc 9.6 mg/dL Normal 8.7-10.2 Compreh ensive [facility] Work Phone: Comment on above: PATIENT NOT FASTINGP ERFORMED BY: JOEL Whitleylin[address] [facility] [id number] Chloride molar conc 104 mmol/L Normal 96-106 [facility] Work Phone: Comment on above: PATIENT NOT FASTINGP ERFORMED BY: JOEL LabLety WhitleyGsjebx[address] [facility] [id number] CO2 molar conc 23 mmol/L Normal 20-29 Comprehens phan Internal Medicine Work Phone: Comment on above: PATIENT NOT FASTINGP ERFORMED BY: JOEL [facility] Jwuefq8703 [facility] [id number] Creatinine mass conc 0.85 mg/dL Normal 0.57-1.00 [facility] Work Phone: Comment on above: PATIENT NOT FASTINGP ERFORMED BY: JOEL Conor Cuba6370 [facility] [id number] GFR/1.73 sq M predicted among blacks CKD-EPI vol rate/area (S/P/Bld) 112 mL/min/1.73 Normal [facility] Work Phone: Comment on above: PATIENT NOT FASTINGP ERFORMED BY: JOEL [facility]CoR[facility] HealthCareZvcyzr3443 [facility] [id number] GFR/1.73 sq M predicted among non-blacks CKD-EPI vol rate/area (S/P/Bld) 97 mL/min/1.73 Normal [facility] Work Phone: Comment on above: PATIENT NOT FASTINGP ERFORMED BY: JOEL LabH[facility]6370 [facility] [id number] Globulin Calculated mass conc (S) 2.7 g/dL Normal 1.5-4.5 [facility] Work Phone: Globulin mass conc (S) 2.7 g/dL Normal 1.5-4.5 [facility] Work Phone: Comment on above: PATIENT NOT FASTINGP ERFORMED BY: JOEL Lab[facility] Ndxzsd8413 [facility] [id number] Glucose mass conc 96 mg/dL Normal 65-99 Compreh ensive Internal Medicine Work Phone: Comment on above: PATIENT NOT FASTINGP ERFORMED BY: [facility] Cjzaaj0461 [facility] [id number] Potassium molar conc 4.3 mmol/L Normal 3.5-5.2 [facility] Work Phone: Comment on above: PATIENT NOT FASTINGP ERFORMED BY: [facility] Slzyxn0376 [facility] [id number] Protein mass conc 7.3 g/dL Normal 6.0-8.5 Compreh ensive Internal Medicine Work Phone: Comment on above: PATIENT NOT FASTINGP ERFORMED BY: JOEL LabComarcy Rruicq63[address]Dublin [place] [id number] Sodium molar conc 142 mmol/L Normal 134-144 Compreh ensive [facility] Medicine Work Phone: Comment on above: PATIENT NOT FASTINGP ERFORMED BY: JOEL LabLety WhitleyXiuhwq4219 [address] RoadDublin [place] [id number] Urea nitrogen mass conc 10 mg/dL Normal 6-20 [facility] Work Phone: Comment on above: PATIENT NOT FASTINGP ERFORMED BY: JOEL [facility] Kwmvhj8176 [address] RoadDublin [place] [id number] Urea nitrogen/Creatini ne mass ratio 12 mg/mg Normal 9-23 [facility] Work Phone: Comment on above: PATIENT NOT FASTINGP ERFORMED BY: JOEL LabLety WhitleyKcqjen1277 R[address] Roadblin [place] [id number] Metabolic Panel, Comprehensi ve ([id number])Ordered By: Clinical Project Coordinator on 05-25-2018 ALP [Catalytic activity/Vol] 91 U/L Normal 39-117 [facility]; [facility] Work Phone: Comment on above: PATIENT NOT FASTINGP ERFORMED BY: JOEL Whitleylin[address]ublin [place] [id number] ALT [Catalytic activity/Vol] 15 U/L Normal 0-32 [facility]; [facility] Work Phone: Comment on above: PATIENT NOT FASTINGP ERFORMED BY: JOEL LabNellarp Tuucrt7[address] RoadDublin [place] [id number] AST [Catalytic activity/Vol] 19 U/L Normal 0-40 [facility]; [facility] Work Phone: Comment on above: PATIENT NOT FASTINGP ERFORMED BY: JOEL LabNellarp Zxemug36[address] RoadDublin [place] [id number] Vitamin B-12 (cyanocobalamin ) (57112)on 05-25-2018 Cobalamin (Vitamin B12) mass conc 1126 pg/mL Normal 232-1245 [facility] Work Phone: Comment on above: PATIENT NOT FASTINGP ERFORMED BY: LabCoR[facility] HealthCareAhhbtr6364 [facility] [id number] Vital Signs Date Time Vital Sign Value [...] 14:51-0400 Pulse Oximetry 98 % Diamond Phippsqueta [facility] Internal [facility] Work Phone: Comment on above: Room air 02-09-2019 14:51-0400 Respiratory Rate 18 /min EILEEN Stevenson LPN Comprehensiv e Internal Medicine Work Phone: Comment on above: Pattern: Unlabored 02-09-2019 14:51-0400 SaO2% (BldA) [Mass fraction] 98 % EILEEN Stevenson LPN [facility]; [facility] Work Phone: Comment on above: Room air 09-23-2018 15:02-0500 Body Temperature 97.4 [degF] Diamond Sadlerlloyd PESTICIDE USE MEDICAL COORDINATOR Work Phone: [facility] Work Phone: 09-23-2018 15:02-0500 BP Diastolic 80 mm[Hg] Diamond Sadlerlloyd PESTICIDE USE MEDICAL COORDINATOR Work Phone: [facility] Work Phone: Comment on above: Patient Position: Supine; Cuff Location: Right Arm; Cuff Size: Standard 09-23-2018 15:02-0500 BP Systolic 112 mm[Hg] Diamond Sadlerlloyd PESTICIDE USE MEDICAL COORDINATOR Work Phone: [facility] Work Phone: Comment on above: Patient Position: Supine; Cuff Location: Right Arm; Cuff Size: Standard 09-23-2018 15:02-0500 Pulse (Heart Rate) 103 /min Diamond Sadlerlloyd PESTICIDE USE MEDICAL COORDINATOR Work Phone: [facility] Work Phone: [...] 13:50-0500 Pulse Oximetry 98 % Diamond Mclean [facility] [place] Internal Medicine Work Phone: Comment on above: [...] 06-26-2021 End: 06-26-2021 Lab Order Diamond Mclean PESTICIDE USE MEDICAL COORDINATOR Work Phone: [facility] Start: 06-08-2021 End: 06-08-2021 Phone Encounter Diamond Mclean PESTICIDE USE MEDICAL COORDINATOR Work Phone: [facility] Start: 06-06-2021 End: 06-08-2021 Erroneous Entry Diamond Sadlera PESTICIDE USE MEDICAL COORDINATOR Work Phone: [facility] Start: 06-06-2021 End: 06-06-2021 Lab Order Diamond Sadlera PESTICIDE USE MEDICAL COORDINATOR Work Phone: [facility] Start: 05-04-2021 End: 05-04-2021 Phone Encounter Diamond Mclean PESTICIDE USE MEDICAL COORDINATOR Work Phone: [facility] Start: 01-05-2021 End: 01-05-2021 Phone Encounter Diamond Mclean PESTICIDE USE MEDICAL COORDINATOR Work Phone: [facility] Start: 12-14-2020 End: 12-14-2020 Phone Encounter Diamond Mclean PESTICIDE USE MEDICAL COORDINATOR Work Phone: [facility] Start: 12-14-2020 End: 12-14-2020 Lab Order Diamond Mclean PESTICIDE USE MEDICAL COORDINATOR Work Phone: [facility] Start: 11-23-2020 Review Diamond Mclean PESTICIDE USE MEDICAL COORDINATOR Work Phone: [facility] Start: 09-18-2020 End: 09-18-2020 Lab Order Diamond Mclean [facility] Start: 07-24-2020 End: 07-24-2020 Annotation/Addendum Diamond Mclean [facility] Start: 07-24-2020 End: 07-24-2020 Annotation/Addendum Diamond Mclean [facility] Start: 07-07-2020 End: 07-07-2020 Phone Encounter Diamond Mclean [facility] Start: 06-21-2020 End: 06-21-2020 Phone Encounter Diamond Mclean [facility] Start: 06-12-2020 End: 06-12-2020 Lab Order Diamond Mclean [facility] Start: 01-17-2020 End: 01-17-2020 Annotation/Addendum Diamond Mclean [facility] Start: 11-26-2019 End: 11-26-2019 Phone Encounter Diamond Mclean [facility] Start: 07-19-2019 End: 07-19-2019 Lab Order Diamond Mclean [facility] Start: 06-29-2019 End: 06-29-2019 Lab Order Diamond Mclean [facility] Start: 06-29-2019 End: 06-29-2019 Phone Encounter Diamond Mclean [facility] Start: 06-29-2019 End: 06-29-2019 Phone Encounter Diamond Mclean [facility] Start: 04-15-2019 End: 04-15-2019 Annotation/Addendum Diamond Mclean [facility] Start: 04-05-2019 End: 04-05-2019 Phone Encounter Diamond Mclean [facility] Start: 04-02-2019 End: 04-02-2019 Phone Encounter Diamond Mclean [facility] Start: 02-25-2019 End: 02-25-2019 Phone Encounter Diamond Mclean [facility] Start: 02-10-2019 End: 02-10-2019 Phone Encounter Diamond Mclean [facility] Start: 02-09-2019 End: 02-09-2019 Office outpatient visit 40 minutes Diamond Mclean [facility] Start: 01-18-2019 End: 01-18-2019 Phone Encounter Diamond Mclean [facility] Start: 10-20-2018 Patient encounter procedure Diamond Mclean [facility] Start: 10-20-2018 End: 10-20-2018 Lab Order Diamond Mclean [facility] Start: 10-16-2018 Review Diamond Mclean [facility] Start: 10-13-2018 End: 10-13-2018 Phone Encounter Diamond Mclean [facility] Start: 09-23-2018 End: 09-23-2018 Annotation/Addendum Diamond Mclean [facility] Start: 09-18-2018 End: 09-18-2018 Phone Encounter Diamond Mclean [facility] Start: 09-09-2018 End: 09-09-2018 Phone Encounter Diamond Mclean [facility] Start: 08-25-2018 End: 08-25-2018 Annotation/Addendum Diamond Mclean [facility] Start: 08-25-2018 End: 08-25-2018 Lab Order Diamond Mclean [facility] Start: 07-31-2018 End: 07-31-2018 Lab Order Diamond Mclean [facility] Start: 07-31-2018 End: 07-31-2018 Patient encounter procedure Marina Bronson MD Work Phone: [facility] Start: 07-31-2018 End: 07-31-2018 Office outpatient visit 15 minutes Diamond Mclean [facility] Start: 07-29-2018 End: 07-29-2018 Phone Encounter Diamond Mclean [facility] Start: 06-26-2018 End: 06-26-2018 Phone Encounter Diamond Mclean [facility] Start: 06-11-2018 End: 06-11-2018 Phone Encounter Diamond Mclean [facility] Start: 05-25-2018 End: 05-25-2018 Lab Order Diamond Mclean [facility] Patient encounter procedure EILEEN Stevenson LPN [facility]; [facility] Work Phone: Patient encounter procedure Anatoly Emre [facility]; [facility] Work Phone: End: 10-19-2021 Patient encounter procedure EILEEN Stevenson [facility]; [facility] Work Phone: Procedures Date Procedure Procedure Detail Performing Clinician Start: 11-25-2022 End: 11-26-2022 MR/BMS.[facility] Procedure Note: See Note; NOTES: [facility] [address] [place] [address] OFFICE VISIT Date of Service: 11/25/22 MR#: [id number] Acct: [id number] Name: OVI ANGUIANO Rep #: [id number] : 1995 Provider: MINNA sethi Age/Sex: 27/F Location: [facility] Status: Signed Intake Intake Visit Reasons: black spot on nipple Chief Complaint: black spot on niplpe Accompanied by: Self Allergies acetaminophen [From [place]] Allergy (Mild, Verified 06/23/22 16:53) Other hydrocodone [From [place]] Allergy (Mild, Verified 06/23/22 16:53) Other : [...] Lisa 38 live - full term Female [facility] Dr. Aidan wang Delivery Date: 06/23/22 [...] MD Work Phone: Start: 08-05-2022 End: 08-05-2022 Roll Line Operator Office Visit Report Procedure Note: See Note; NOTES: [facility] [address] [place] [address] OFFICE VISIT Date of Service: 08/05/22 MR#: [id number] Acct: [id number] Name: OVI ANGUIANO Rep #: [id number] : 1995 Provider: Dr. Yenni morrow MD Age/Sex: 27/F Location[place] [facility] Status: Signed Intake Vital Signs 08/05/22 10:07 08/05/22 10:07 Height 1.65 m 1.65 m Weight: 72.575 kg BMI 26.6 BP 150/100 H Intake Visit Reasons: 6 wk PP, declined IUD Chief Complaint: 6w pp declines IUD Java Golden Gate Developer Required: No Is patient in pain?: No Allergies acetaminophen [From [place]] Allergy (Mild, Verified 06/23/22 16:53) Other hydrocodone [From [place]] Allergy (Mild, Verified 06/23/22 16:53) Other Medications levothyroxine 75 mcg tablet (Synthroid) 75 mcg PO DAILY hypothyroidism 11/07/21 [History Confirmed 08/05/22] prenat.vits,jaswant,equ-ngfu-onao c 1 tab PO DAILY 11/13/21 [History Confirmed 08/05/22] sertraline 50 mg tablet 50 mg PO DAILY anxiety 11/13/21 [History Confirmed 08/05/22] norethindrone (contraceptive) 0.35 mg tablet (Ortho Micronor) 0.35 mg PO DAILY #28 tabs 08/05/22 [Rx Confirmed 08/05/22] : [facility] (Updated 06/24/22 @ 08:56 by [...] safe at home: Yes additional social history: BF:Neo History 1 Elective abortions Hx Para 0 Spontaneous abortions Hx # Term Pregnancies Ectopic pregnancies Hx # Pregnancies Multiple births # of living children 1 Past Pregnancies Del. Date Name GA/Weeks Outcome Route Bth Weight Gen Labor Lgth Anesthesia Del Locatn Provider FOB 06/23/22 Lisa 38 live - full term Female [facility] Dr. Aidan wang Delivery Date: 06/23/22 [...] post visit. Feeding: Breast Menses resumed: No Ronan since delivery: No Emotional Support: Yes ROS [...] Yenni Acuna MD> Date [facility]enn[facility] Acuna [facility]: Date (if applicable) CC: Marina Bronson MD Work Phone: Start: 06-27-2022 End: 06-27-2022 MR/BMS.BB Procedure Note: See Note; NOTES: [facility] [address] [place] [address] OFFICE VISIT Date of Service: 06/27/22 MR#: [id number] Acct: [id number] Name: OVI ANGUIANO Rep #: [id number] : 1995 Provider: MINNA sethi Age/Sex: 27/F Location: [facility] Status: Signed Intake Vital Signs 06/23/22 16:17 Height 5 ft 5 in Intake Visit Reasons: feeding assessment Chief Complaint: assessment Accompanied by: Significant Other Allergies acetaminophen [From [place]] Allergy (Mild, Verified 06/23/22 16:53) Other hydrocodone [From [place]] Allergy (Mild, Verified 06/23/22 16:53) Other : Yes [facility] Medical History (Updated 06/24/22 @ 08:56 [...] Lisa 38 live - full term Female [facility] Dr. Aidan awng Delivery Date: 06/23/22 Last Updated by: Elizabeth [...] as needed. Coding Level of Care Code 11274 PRVT COUNSELING INDIVID Diagnoses Care and examination of lactating mother Z39.1 Time Spent (min) 30 06/27/22 1423 <Electronically signed by Wendy Wakefield SHIP PILOT DISPATCHER SHIP PILOT DISPATCHER-C> Date Wendy Wakefield NP SHIP PILOT DISPATCHER-C Cosigner Signature: Date (if applicable) CC: Marina Bronson MD Work Phone: Start: 06-19-2022 End: 06-19-2022 Roll Line Operator Office Visit Report Procedure Note: See Note; NOTES: [facility] [address] [place] [address] OFFICE VISIT Date of Service: 06/19/22 MR#: [id number] Acct: [id number] Name: OVI ANGUIANO Rep #: [id number] : 1995 Provider: Dr. Kaelyn Mcclain DO Age/Sex: 27/F Location: [facility] Status: Signed Intake Vital Signs 05/28/22 09:00 06/19/22 08:29 06/19/22 08:30 Height 5 ft 5 in 5 ft 5 in 5 ft 5 in Weight: 188 lb 2 oz BMI 31.3 BP 135/88 H Intake Visit Reasons: 39 WK OB Java Golden Gate Developer Required: No Is patient in pain?: No Allergies acetaminophen [From [place]] Allergy (Mild, Verified 06/19/22 08:28) Other hydrocodone [From [place]] Allergy (Mild, Verified 06/19/22 08:28) Other Medications levothyroxine 75 mcg tablet (Synthroid) 75 mcg PO DAILY 11/07/21 [History Confirmed 06/19/22] prenat.vits,jaswant,bbw-inen-jsby c 1 tab PO DAILY 11/13/21 [History [...] pending, cbc showed borderline anemia. 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 [...] Monitoring, Signs and Symptoms of Preeclampsia and [place] [facility] Diagnostics Diagnostics: Gest Glucose Tolerance [...] MD Work Phone: Start: 06-13-2022 End: 06-17-2022 Roll Line Operator Office Visit Report Procedure Note: See Note; NOTES: [facility] [address] [place], [place] [address]ju[address]ito. [address] [place] [address] OFFICE VISIT Date of Service: 06/13/22 MR#: [id number] Acct: [id number] Name: OVI ANGUIANO Rep #: [id number] : 1995 Provider: Dr. Yenni morrow MD Age/Sex: 27/F Location: [facility] Status: Signed Intake Vital Signs 05/28/22 09:00 06/13/22 10:59 06/13/22 11:00 Height 5 ft 5 in 5 ft 5 in 5 ft 5 in Weight: 192 lb BMI 31.9 BP 110/78 Intake Visit Reasons: 38 WK OB Chief Complaint: est ob Java Golden Gate Developer Required: No Is patient in pain?: No Allergies acetaminophen [From [place]] Allergy (Mild, Verified 06/06/22 08:53) Other hydrocodone [From [place]] Allergy (Mild, Verified 06/06/22 08:53) Other Medications levothyroxine 75 mcg tablet (Synthroid) 75 mcg PO DAILY 11/07/21 [History Confirmed 06/13/22] prenat.vits,jaswant,bke-efzt-nuyx c 1 tab PO DAILY 11/13/21 [History [...] pending, cbc showed borderline anemia. 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 [...] Monitoring, Signs and Symptoms of Preeclampsia and [place] [facility] Diagnostics Diagnostics: Gest Glucose Tolerance [...] POC Urinalysis 2 Dip (Clinic) 06/13/22 06/17/22 7114 <Electronically signed by Yenni Acuna MD> Date Yenni Acuna MD Cosign Signature: Date (if applicable) CC: Marina Bronson MD Work Phone: Start: 06-06-2022 End: 06-06-2022 Roll Line Operator Office Visit Report Procedure Note: See Note; NOTES: [facility] [address] [place] [address] OFFICE VISIT Date of Service: 06/06/22 MR#: [id number] Acct: [id number] Name: OVI ANGUIANO Rep #: [id number] : 1995 Provider: Dr. Kaelyn Mcclain DO Age/Sex: 27/F Location: [facility] Status: Signed Intake Vital Signs 06/06/22 08:53 06/06/22 08:54 Height 5 ft 5 in 5 ft 5 in Weight: 190 lb 4 oz BMI 31.6 BP 134/83 H Intake Visit Reasons: 37 WK OB Java Golden Gate Developer Required: No Is patient in pain?: No Allergies acetaminophen [From [place]] Allergy (Mild, Verified 06/06/22 08:53) Other hydrocodone [From [place]] Allergy (Mild, Verified 06/06/22 08:53) Other Medications levothyroxine 75 mcg tablet (Synthroid) 75 mcg PO DAILY 11/07/21 [History Confirmed 06/06/22] prenat.vits,jaswant,xfh-hbmh-kmom c 1 tab PO DAILY 11/13/21 [History [...] pending, cbc showed borderline anemia. 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 [...] Plan (1) Gestational diabetes: Status: Acute Comment: [facility] hop separator referal. appt on 04/24, 05/30 growth 2823g [...] With Biometrics Procedure Note: See Note; NOTES: [facility] Imaging Services [address] [facility] [place] [address] OB Limited With Biometrics MR#: [id number] Acct: [id number] Name: OVI ANGUIANO Rep #: [id number] : 1995 F 27 From: Tyree olivo MD PCP: Dr. Marina Bronson MD Status: REG CLI Study: OB Limited With Biometrics Date of Exam: 05/30 Exam# [id number] Ordering Dr: Yenni Acuna STUDY: SECOND AND [...] Marina Bronson MD; Dr. Yenni Acuna MD Director Of Placement: Signed Marina Bronson MD Work Phone: Start: 05-28-2022 End: 05-28-2022 Roll Line Operator Office Visit Report Procedure Note: See Note; NOTES: [facility] [address] [place] [address] OFFICE VISIT Date of Service: 05/28/22 MR#: [id number] Acct: [id number] Name: OVI ANGUIANO Rep #: [id number] : 1995 Provider: Dr. Kaelyn Mcclain DO Age/Sex: 27/F Location: [facility] Status: Signed Intake Vital Signs 04/19/22 08:55 05/28/22 08:59 05/28/22 09:00 Height 5 ft 5 in 5 ft 5 in 5 ft 5 in Weight: 189 lb 4 oz BMI 31.4 BP 118/82 H Intake Visit Reasons: 36 WK OB Java Golden Gate Developer Required: No Is patient in pain?: No Allergies acetaminophen [From [place]] Allergy (Mild, Verified 05/28/22 08:59) Other hydrocodone [From [place]] Allergy (Mild, Verified 05/28/22 08:59) Other Medications levothyroxine 75 mcg tablet (Synthroid) 75 mcg PO DAILY 11/07/21 [History Confirmed 05/28/22] prenat.vits,jaswant,sxa-friw-pvel c 1 tab PO DAILY 11/13/21 [History [...] pending, cbc showed borderline anemia. 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 [...] Plan (1) Gestational diabetes: Status: Acute Comment: [facility] hop separator referal. appt on 04/24 (2) Abnormal glucose [...] MD Work Phone: Start: 05-17-2022 End: 05-17-2022 Roll Line Operator Office Visit Report Procedure Note: See Note; NOTES: [facility] [address] [place] [address] OFFICE VISIT Date of Service: 05/17/22 MR#: [id number] Acct: [id number] Name: OVI ANGUIANO Rep #: [id number] : 1995 Provider: Dr. Kaelyn Mcclain DO Age/Sex: 27/F Location: [facility] Status: Signed Intake Vital Signs 04/19/22 08:55 05/17/22 08:40 05/17/22 08:40 05/17/22 08:43 Height 5 ft 5 in 5 ft 5 in 5 ft 5 in 5 ft 5 in Weight: 187 lb 2 oz BMI 31.1 BP 125/82 H Intake Visit Reasons: 34 WK OB Allergies acetaminophen [From [place]] Allergy (Mild, Verified 05/17/22 08:40) Other hydrocodone [From [place]] Allergy (Mild, Verified 05/17/22 08:40) Other Medications levothyroxine 75 mcg tablet (Synthroid) 75 mcg PO DAILY 11/07/21 [History Confirmed 05/17/22] prenat.vits,jaswant,tgm-ibwl-peuz c 1 tab PO DAILY 11/13/21 [History [...] pending, cbc showed borderline anemia. 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 [...] Plan (1) Gestational diabetes: Status: Acute Comment: [facility] hop separator referal. appt on 04/24 (2) Abnormal glucose [...] MD Work Phone: Start: 05-03-2022 End: 05-03-2022 Roll Line Operator Office Visit Report Procedure Note: See Note; NOTES: [facility] [address] [place] [address] OFFICE VISIT Date of Service: 05/03/22 MR#: [id number] Acct: [id number] Name: OVI ANGUIANO Rep #: [id number] : 1995 Provider: Dr. Yenni morrow MD Age/Sex: 27/F [place] [facility] [place]: Signed Intake Vital Signs 04/19/22 08:55 05/01/22 16:57 05/03/22 10:37 05/03/22 10:38 Height 5 ft 5 in 5 ft 5 in 5 ft 5 in 5 ft 5 in Weight: 187 lb 6.4 oz 187 lb BMI 31.1 BP 115/79 Intake Visit Reasons: 32 WK OB Chief Complaint: est ob Java Golden Gate Developer Required: No Is patient in pain?: No Allergies acetaminophen [From [place]] Allergy (Mild, Verified 04/23/22 08:08) Other hydrocodone [From [place]] Allergy (Mild, Verified 04/23/22 08:08) Other Medications levothyroxine 75 mcg tablet (Synthroid) 75 mcg PO DAILY 11/07/21 [History Confirmed 05/03/22] prenat.vits,jaswant,bke-wsmh-detb c 1 tab PO DAILY 11/13/21 [History [...] pending, cbc showed borderline anemia. 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 [...] Plan (1) Gestational diabetes: Status: Acute Comment: [facility] hop separator referal. appt on 04/24 (2) Abnormal glucose [...] Visit Report Procedure Note: See Note; NOTES: [facility] [address] [place] [address] OFFICE VISIT Date of Service: 04/23/22 MR#: [id number] Acct: [id number] Name: OVI ANGUIANO Rep #: [id number] : 1995 Provider: Aidan Rodney Age/Sex: 27/F Location: [facility] [place] Status: Signed Intake Vital Signs 04/22/22 10:40 [...] Reasons: Gestational diabetes Chief Complaint: gestational diabetes Java Golden Gate Developer Required: No Accompanied by: Self Is patient in pain?: No Allergies acetaminophen [From [place]] Allergy (Mild, Verified 04/23/22 08:08) Other hydrocodone [From [place]] Allergy (Mild, Verified 04/23/22 08:08) Other Is last menstrual period known: Yes Patient : Yes Nurse's Note: Pt had A1C 4.8% two weeks ago at work [facility] Medical History Abnormal glucose affecting Anxiety [...] 1 hour glucola 164 3 hr gtt: [phone] This is her first , she is 30 weeks gestation. She has gained about 28 pounds so far. Father and paternal grandfather have type 2 diabetes. They both take insulin. She is testing blood sugars for the past 10 days. Blood sugars are in goal post meal, but a bit high fasting. She meets with the hop separator tomorrow. Exam Const General: cooperative, healthy appearing, comfortable, no acute distress, well developed and not cushingoid Nutritional Appearance: well nourished Orientation: alert, awake and oriented x3 HENID Head: normal to inspection Ears: hearing grossly [...] Jude Hernandez MD> Date [facility] Signature: Date (if applicable) CC: MD Marina Peñaloza MD Work Phone: Start: 04-19-2022 End: 04-19-2022 Roll Line Operator Office Visit Report Procedure Note: See Note; NOTES: [facility] [address] [place] [address] [address] [place], [place] [id number] OFFICE VISIT Date of Service: 04/19/22 MR#: [id number] Acct: [id number] Name: OVI ANGUIANO Rep #: [id number] : 1995 Provider: Dr. Kaelyn Mcclain DO Age/Sex: 27/F Location: [facility] Status: Signed Intake Vital Signs 03/20/22 08:34 04/19/22 08:55 Height 5 ft 5 in 5 ft 5 in Weight: 188 lb 2 oz BMI 31.3 BP 137/91 H Intake Visit Reasons: 30 WK OB Java Golden Gate Developer Required: No Is patient in pain?: No Allergies acetaminophen [From [place]] Allergy (Mild, Verified 04/19/22 08:54) Other hydrocodone [From [place]] Allergy (Mild, Verified 04/19/22 08:54) Other Medications levothyroxine 75 mcg tablet (Synthroid) 75 mcg PO DAILY 11/07/21 [History Confirmed 04/19/22] prenat.vits,jaswant,cpg-szmj-cgcd c 1 tab PO DAILY 11/13/21 [History [...] pending, cbc showed borderline anemia. 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 [...] Plan (1) Gestational diabetes: Status: Acute Comment: [facility] hop separator referal (2) Abnormal glucose affecting : Status: [...] Kaelyn Quinteros DO> Date Kaelyn Quinteros DO [facility] Signature: Date (if applicable) CC: Marina Bronson MD Work Phone: Start: 04-05-2022 End: 04-05-2022 Roll Line Operator Office Visit Report Procedure Note: See Note; NOTES: [facility] [address] [place] [address]. [address] [place] [address] OFFICE VISIT Date of Service: 04/05/22 MR#: [id number] Acct: [id number] Name: OVI ANGUIANO Rep #: [id number] : 1995 Provider: Dr. Kaelyn Mcclain DO Age/Sex: 26/F Location: [facility] [place] Status: Signed Intake Vital Signs 03/20/22 08:55 04/05/22 10:03 04/05/22 10:03 Height 5 ft 5 in 5 ft 5 in 5 ft 5 in Weight: 188 lb 8 oz BMI 31.4 BP 130/80 H Intake Visit Reasons: 28 WK OB/GLUCOSE Java Golden Gate Developer Required: No Is patient in pain?: No Allergies acetaminophen [From [place]] Allergy (Mild, Verified 04/05/22 10:02) Other hydrocodone [From [place]] Allergy (Mild, Verified 04/05/22 10:02) Other Medications levothyroxine 75 mcg tablet (Synthroid) 75 mcg PO DAILY 11/07/21 [History Confirmed 04/05/22] prenat.vits,jaswant,yhk-dnsp-lhry c 1 tab PO DAILY 11/13/21 [History [...] pending, cbc showed borderline anemia. 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 [...] MD Work Phone: Start: 03-20-2022 End: 03-20-2022 Roll Line Operator Office Visit Report Procedure Note: See Note; NOTES: [facility] [address] [place] [address] OFFICE VISIT Date of Service: 03/20/22 MR#: [id number] Acct: [id number] Name: OVI ANGUIANO Rep #: [id number] : 1995 Provider: Dr. Kaelyn Mcclain DO Age/Sex: 26/F Location: [facility] [place] Status: Signed Intake Vital Signs 03/20/22 08:33 03/20/22 08:34 Height 5 ft 5 in 5 ft 5 in Weight: 183 lb 6 oz BMI 30.5 BP 130/84 H Intake Visit Reasons: 26 WK OB Java Golden Gate Developer Required: No Is patient in pain?: No Allergies acetaminophen [From [place]] Allergy (Mild, Verified 03/20/22 08:33) Other hydrocodone [From [place]] Allergy (Mild, Verified 03/20/22 08:33) Other Medications levothyroxine 75 mcg tablet (Synthroid) 75 mcg PO DAILY 11/07/21 [History Confirmed 03/20/22] prenat.vits,jaswant,wtl-etkw-dttt c 1 tab PO DAILY 11/13/21 [History [...] MD Work Phone: Start: 02-19-2022 End: 02-19-2022 Roll Line Operator Office Visit Report Procedure Note: See Note; NOTES: [facility] [place] [address] [place], [place] [id number] OFFICE VISIT Date of Service: 02/19/22 MR#: [id number] Acct: [id number] Name: OVI ANGUIANO Rep #: [id number] : 1995 Provider: Dr. Yenni morrow MD Age/Sex: 26/F Location: [facility] [place] Status: Signed Intake Vital Signs 02/19/22 10:50 02/19/22 10:51 Height 5 ft 5 in 5 ft 5 in Weight: 177 lb BMI 29.4 BP 130/86 H Intake Visit Reasons: 22WK OB Chief Complaint: est ob Java Golden Gate Developer Required: No Is patient in pain?: No Allergies acetaminophen [From [place]] Allergy (Mild, Verified 01/24/22 11:50) Other hydrocodone [From [place]] Allergy (Mild, Verified 01/24/22 11:50) Other Medications levothyroxine 75 mcg tablet (Synthroid) 75 mcg PO DAILY 11/07/21 [History Confirmed 02/19/22] prenat.vits,jaswant,ald-dtuf-hjog c 1 tab PO DAILY 11/13/21 [History [...] living children HPI 22WK OB Details: OVI ANGIUANO is a 26 year old who presents [...] MD Work Phone: Start: 01-24-2022 End: 01-24-2022 Roll Line Operator Office Visit Report Comments: See Note; NOTES: [facility] [address] [place] [address]. [address] [place], [place] [address] OFFICE VISIT Date of Service: 01/24/22 MR#: [id number] Acct: [id number] Name: OVI ANGUIANO Rep #: [id number] : 1995 Provider: Dr. Kaelyn Mcclain DO Age/Sex: 26/F Location: [facility] [place] Status: Signed Intake Vital Signs 01/24/22 11:50 01/24/22 11:50 Height 5 ft 5 in 5 ft 5 in Weight: 175 lb 6 oz BMI 29.2 BP 142/84 H Intake Visit Reasons: 18 WK OB Java Golden Gate Developer Required: No Is patient in pain?: No Allergies acetaminophen [From [place]] Allergy (Mild, Verified 01/24/22 11:50) Other hydrocodone [From [place]] Allergy (Mild, Verified 01/24/22 11:50) Other Medications levothyroxine 75 mcg tablet (Synthroid) 75 mcg PO DAILY 11/07/21 [History Confirmed 01/24/22] prenat.vits,jaswant,fld-lltw-dwmm c 1 tab PO DAILY 11/13/21 [History [...] MD Work Phone: Start: 12-27-2021 End: 12-27-2021 Roll Line Operator Office Visit Report Comments: See Note; NOTES: [facility] [address] [place] [address] OFFICE VISIT Date of Service: 12/27/21 MR#: [id number] Acct: [id number] Name: OVI ANGUIANO Rep #: [id number] : 1995 Provider: Dr. Kaelyn Mcclain DO Age/Sex: 26/F Location: [facility] [place] Status: Signed Intake Vital Signs 12/27/21 10:30 Height 5 ft 5 in Weight: 166 lb BMI 27.6 BP 135/87 H Intake Visit Reasons: 14 WK OB Java Golden Gate Developer Required: No Is patient in pain?: No Allergies acetaminophen [From [place]] Allergy (Mild, Verified 12/27/21 10:29) Other hydrocodone [From [place]] Allergy (Mild, Verified 12/27/21 10:29) Other Medications levothyroxine 75 mcg tablet 75 mcg PO DAILY 11/07/21 [History Confirmed 12/27/21] prenat.vits,jaswant,ujp-fmad-skcu c 1 tab PO DAILY 11/13/21 [History [...] MD Work Phone: Start: 11-29-2021 End: 11-29-2021 Roll Line Operator Office Visit Report Comments: See Note; NOTES: [facility] [address] [place] [address]. [address] [place] [address] OFFICE VISIT Date of Service: 11/29/21 MR#: [id number] Acct: [id number] Name: OVI ANGUIANO Rep #: [id number] : 1995 Provider: Dr. 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: No Is patient in pain?: No Allergies acetaminophen [From [place]] Allergy (Mild, Verified 11/29/21 09:25) Other hydrocodone [From [place]] Allergy (Mild, Verified 11/29/21 09:25) Other Medications levothyroxine 75 mcg tablet 75 mcg PO DAILY 11/07/21 [History Confirmed 11/29/21] prenat.vits,jaswant,lkc-dayi-doas c 1 tab PO DAILY 11/13/21 [History [...] allergies (OTC med prn) and Drug/latex allergies/reactions ([place]) and Negative: Diabetes, Hypertension, Heart disease, Auto-immune disorder, Kidney disease/UTI, Neurologic/epilepsy, Depression/ depression, Hepatitis/liver disease, Varicosities/phlebitis, Trauma/domestic violence, History of blood transfusions, D (Rh) Sensitized, Pulmonary (e.g.,TB,Asthma), Breast, Screen Maker surgery, Operations/hospitalizations, Anesthetic complications, History of abnormal [...] comfortable and no acute distress Orientation: alert [facility] Head: normal to inspection, normocephalic and [...] Today Hepatitis C Antibody Today HIV - [facility] Today Syphilis Antibodies Today Rubella IgG Today [...] MD Work Phone: Start: 11-07-2021 End: 11-07-2021 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 Kaelyn Mcclain DO Age/Sex: 26/F Location: [facility] [place] Status: Signed Intake Vital Signs 11/07/21 16:34 Height 5 ft 5 in Weight: 152 lb 2 oz BMI 25.3 BP 160/90 H Intake Visit Reasons: repeat US in office ok per JV Java Golden Gate Developer Required: No Is patient in pain?: No Allergies acetaminophen [From [place]] Allergy (Mild, Verified 11/07/21 16:33) Other hydrocodone [From [place]] Allergy (Mild, Verified 11/07/21 16:33) Other Medications levothyroxine 75 mcg tablet 75 mcg PO DAILY 11/07/21 [History Confirmed 11/07/21] promethazine 12.5 mg tablet 12.5 mg PO Q6H PRN #60 tab 11/07/21 [Rx Confirmed 11/07/21] sertraline 50 mg tablet 50 mg PO DAILY 11/07/21 [History Confirmed 11/07/21] Is last menstrual period known: Yes Post menopausal: No Patient : Yes : No [facility] Medical History (Updated 11/07/21 @ 16:56 [...] Yes additional social history: Seperated- works at [employer] repeat US in office ok per [...] Transvaginal w/Preg US Comments: See Note; NOTES: [facility] Imaging Services [address] [place] [address] Transvaginal w/Preg US MR#: [id number] Acct: [id number] Name: OVI ANGUIANO Rep #: [id number] : 1995 F 26 From: Tyree olivo MD PCP: Dr. 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 Marina Bronson MD Director Of Placement: Signed Marina Bronson MD Work Phone: Start: 10-22-2021 End: 10-23-2021 Transvaginal w/Preg US Comments: See Note; NOTES: [facility] Imaging Services [address] [place] [address] Transvaginal w/Preg US MR#: [id number] Acct: [id number] Name: OVI ANGUIANO Rep #: [id number] : 1995 F 26 From: Tyree olivo MD PCP: Dr. Marina Bronson MD Status: REG CLI Study: Transvaginal w/Preg US Date of Exam: 10/22/21 Exam# [id number] Ordering Dr: Yenni Acuna STUDY: FIRST TRIMESTER [...] Marina Bronson MD; Dr. Yenni Acuna MD Director Of Placement: Signed Marina Bronson MD Work Phone: Start: 10-19-2021 End: 10-23-2021 Transvaginal w/Preg US Comments: See Note; NOTES: [facility] Services [address] [place] [address] Transvaginal w/Preg US MR#: [id number] Acct: [id number] Name: OVI ANGUIANO Rep #: [id number] : 1995 F 26 From: Benigno Chery PCP: Dr. Marina Bronson MD Status: [facility] ER Study: Transvaginal w/Preg US Date of Exam: 10/19/21 Exam# [id number] Ordering Dr: Alex Knox DO STUDY: FIRST [...] fluid in the pelvis. . Electronically Signed: Beingno Hope MD at 18:44 EDT , CC: Dr. Marina Bronson MD; Dr. Alex Knox DO Director Of Placement: Signed Marina Bronson MD Work Phone: Start: 10-19-2021 End: 10-19-2021 Emergency Department Summary Comments: See Note; NOTES: [facility] Medical Records Department [address] [place] [address] Emergency Department Summary 10/19/21 MR#: [id number] Acct: [id number] Name: OVI ANGUIANO Rep #: [id number] : 1995 26 From: Alex Knox DO [...] states her pain is worse with walking. [facility] Medical History (Updated 10/19/21 @ 19:38 [...] Reaction Status Date / Time acetaminophen [From [place]] Allergy Mild Other Verified 10/19/21 16:29 hydrocodone [From [place]] Allergy Mild Other Verified 10/19/21 16:29 Family History Mother Breast cancer Asthma Social History Smoking Status: Never smoker alcohol intake: never substance use type: does not use caffeine: Yes what type of physical activity do you participate in: none seatbelt use: always do you feel safe at home: Yes additional social history: Seperated- works at [employer] ROS ROS ED Constitutional Constitutional ED: [...] Patient was instructed to follow-up with her RICE FARMER in 2 to 3 days for repeat [...] (Auto) 72.3 H Lymph % (Auto) 21.0 [place] % (Auto) 5.0 Eos % (Auto) 1.0 [...] Color Urine Clarity Urine pH Ur Specific [place] Urine Protein Urine Glucose (UA) Urine Ketones [...] (Auto) Neut % (Auto) Lymph % (Auto) [place] % (Auto) Eos % (Auto) Baso % (Auto) Absolute Neuts (auto) Absolute Lymphs (auto) Nucleated RBC % Sodium Potassium Chloride Carbon Dioxide Anion Gap BUN Creatinine Estim Creat Clear Calc Est GFR (MDRD) Af Amer Est GFR (MDRD) Non-Af BUN/Creatinine Ratio Glucose Calcium Urine Color Yellow Urine Clarity Clear Urine pH 6.5 Ur Specific [place] 1.010 Urine Protein Negative Urine Glucose (UA) [...] 18:44 EDT Reading Location ID and State: [facility] / [place] , Service support , Discharge Plan Triage [...] You may start taking vitamins. They are yohb-igu-xctojny. Disposition Disposition: Home, Self Care What to do if you have Problems For any increased pain, shortness of breath, bleeding, nausea or vomiting, chest pain, or any unexpected problems, contact your Primary Care Provider. Call [facility] ([phone]) or report to the closest Emergency Room. Call 911 if necessary. 10/19/212211 <Electronically signed by Alex Knox DO> Cosigner Signature (if applicable): CC: Dr. Marina Bronson MD Signed Marina Bronson MD Work Phone: Start: 07-02-2019 End: 07-05-2019 Parathyroid scan Comments: See Note; NOTES: [facility] Imaging Services [address] [place] [address] Parathyroid Scan MR#: [id number] Acct: [id number] Name: OVI ANGUIANO Rep #: [id number] : 1995 F 24 From: Casper Lugo DO PCP: Marina Bronson MD Status: REG CLI Study: Parathyroid Scan Date of Exam: 07/02/19 Exam# [id number] Ordering Dr: Marina Bronson MD CLINICAL: 24-year-old [...] Service support , CC: Marina Bronson MD Director Of Placement: Signed Marina Bronson Work Phone: Start: 06-30-2019 End: 06-30-2019 Thyroid Comments: See Note; NOTES: [facility] Imaging Services [address] [address] Thyroid MR#: [id number] Acct: [id number] Name: OVI ANGUIANO Rep #: [id number] : 1995 F 24 From: Leeroy Gerardo MD PCP: Marina Bronson MD Status: REG CLI Study: Thyroid Date of Exam: 06/30/19 Exam# [id number] Ordering Dr: Marina Bronson MD STUDY: THYROID [...] Service support , CC: Marina Bronson MD Director Of Placement: Signed Marina Bronson Work Phone: Plan of Treatment Date Care Activity Detail Author Start: 11-30-2021 Syphilis test non-treponemal antibody qual RPR (RAPID PLASMA REAGIN) (15311) [facility]; [facility] Work Phone: Start: 11-30-2021 Syphilis test quantitative SYPHILIS ASSAY (45614) [facility]; [facility] Work Phone: Start: 11-30-2021 Culture bct isol&prs mptv id isolate ea urine URINE NAI CULTURE-IDENTIFICATN (43563) [facility]; [facility] Work Phone: Start: 11-06-2021 Gonadotropin chorion ic qualitative HCG Qualitative, Serum (68301) [facility]; [facility] Work Phone: Comment on above: [facility] LAB[facility] Start: 11-01-2021 Gonadotropin chorion ic quantitative HCG Quantitative (84192) [facility]; [facility] Work Phone: Start: 10-26-2021 Gonadotropin chorion ic quantitative HCG Quantitative (27006) [facility]; [facility] Work Phone: Start: 10-24-2021 Gonadotropin chorion ic quantitative HCG Quantitative (86466) [facility]; [facility] Work Phone: Comment on above: stat Start: 10-24-2021 Gonadotropin chorion ic qualitative HCG Qualitative, Serum (06284) [facility]; [facility] Work Phone: Comment on above: stat Start: 10-22-2021 Gonadotropin chorion ic quantitative HCG Quantitative (41225) [facility]; [facility] Work Phone: Start: 10-19-2021 Gonadotropin chorion ic quantitative HCG Quantitative (90975) [facility]; [facility] Work Phone: Start: 10-19-2021 Gonadotropin chorion ic qualitative HCG Qualitative, Serum (28110) [facility]; [facility] Work Phone: Start: 06-26-2021 Gonadotropin follicl e stimulating hormone GONADOTROPIN-FSH (35414) [facility]; [facility] Work Phone: Comment on above: do on day 10 of mens es Start: 06-26-2021 Assay of testosteron e free TESTOSTERONE FREE (50149) [facility]; [facility] Work Phone: Start: 06-26-2021 Dehydroepiandrostero ne-s ulfate DHEA-S (DEHYDROEPIANDROSTERON E SULFATE) (69225) [facility]; [facility] Work Phone: Start: 06-26-2021 Assay of prolactin PROLACTIN (10886) [facility]; [facility] Work Phone: Start: 06-26-2021 Gonadotropin luteini zing hormone GONADOTROPIN-LH (71979) [facility]; [facility] Work Phone: Start: 06-26-2021 Assay of estradiol ESTRADIOL (94934) [facility]; [facility] Work Phone: Start: 06-26-2021 Gonadotropin follicl e stimulating hormone GONADOTROPIN-FSH (47673) [facility]; [facility] Work Phone: Comment on above: draw on day 3 of men ses and draw on day 10 after menses Start: 06-06-2021 Procedure Education Eprescribe d prescriptions (G8553) [facility]; [facility] Work Phone: Start: 06-06-2021 Iaadiadoo influenza 2019 Novel Coronavirus (COVID-19), ABRAM (70432) [facility]; [facility] Work Phone: Start: 12-14-2020 Cul bact xcpt urine blood/stool aerobic isol NAI CULTURE-OTHER (13225) [facility]; [facility] Work Phone: Start: 07-24-2020 Culture bct isol&prs mptv id isolate ea urine URINE NAI CULTURE-IDENTIFICATN (50280) [facility]; [facility] Work Phone: Start: 06-12-2020 Comprehensive metabo lic panel Metabolic Panel, Comprehensive (64264) [facility] Work Phone: Start: 06-12-2020 Assay of iron Iron (89687) [facility]; [facility] Work Phone: Start: 06-12-2020 Iron [Mass/Vol] Iron (58581) [facility] Work Phone: Start: 06-12-2020 Organic acid 1 quantitative Methymalonic Acid, Serum (90974) [facility] Work Phone: Start: 06-12-2020 Blood count manual c ell count each CBC WITH MANUAL DIFF (41788) [facility] Work Phone: Start: 06-12-2020 Cobalamin (Vitamin B 12) [Mass/Vol] Vitamin B-12 (cyanocobalamin) (70964) [facility] Work Phone: Start: 06-12-2020 Cyanocobalamin vitam in b-12 Vitamin B-12 (cyanocobalamin) (24156) [facility]; [facility] Work Phone: Start: 06-12-2020 Iron binding capacity Iron Bin ding Capacity (TIBC) (48039) [facility] Work Phone: Start: 06-12-2020 25 hydroxy includes fractions if performed CALCIFIDIOL (54737) VIT D 25 [facility] Work Phone: Start: 06-12-2020 Free T4 [Mass/Vol] T4, FREE (T HYROXINE) (95886) [facility] Work Phone: Start: 06-12-2020 Free T3 [Mass/Vol] T3, FREE (TRIDOTHYRONINE) (67138) [facility] Work Phone: Start: 06-12-2020 TSH Qn TSH (19019) [facility] Work Phone: Start: 10-20-2018 Free T4 [Mass/Vol] T4, FREE (T HYROXINE) (90824) [facility] Work Phone: Start: 10-20-2018 Free T3 [Mass/Vol] T3, FREE (TRIDOTHYRONINE) (43786) [facility] Work Phone: Start: 10-20-2018 Microsomal antibodie s each Anti-TPO Antibody (20701) [facility] Work Phone: Start: 10-20-2018 TSH Qn TSH (59707) [facility] Work Phone: Start: 09-23-2018 Heterophile antibodi es screen MONOSPOT TEST (63300) [facility] Work Phone: Start: 08-25-2018 Culture bct isol&prs mptv id isolate ea urine URINE NAI CULTURE-IDENTIFICATN (56987) [facility] Work Phone: Start: 07-31-2018 Iadna alhaji specie s amplified probe tq NuSwab STD (STD W/ Herpes) (01558) [facility] Work Phone: Start: 07-31-2018 Cytp c/v auto thin l yr prepj scr mnl rescr phys Pap - GC Chlamydia (29736) [facility] Work Phone: Start: 07-31-2018 Procedure Education Eprescribe d prescriptions (G6508) [facility] Work Phone: Start: 07-31-2018 Provider Instruction s for Treatment Follow up if no improvement or if symptoms worsen [facility] Work Phone: Start: 05-25-2018 25 hydroxy includes fractions if performed CALCIFIDIOL (02804) VIT D 25 [facility] Work Phone: Start: 05-25-2018 Organic acid 1 quantitative Methymalonic Acid, Serum (07511) [facility] Work Phone: Start: 05-25-2018 Assay of iron Iron (83052) [facility]; [facility] Work Phone: Start: 05-25-2018 Iron mass conc Iron (00355) Comprehe [facility] Work Phone: Vaginal discharg e : Follow up if no improvement or if symptoms worsen [facility] Work Phone: Vaginal discharg e : Eprescribed prescriptions (G8553) [facility] Work Phone: [facility] Work Phone: [facility] Work Phone: Payers Date Payer Category Payer Unknown [id number] Unknown Pedro BC/BS Unknown [id number] Social History Date Type Detail Facility Alcohol [...] 150 {Each} Refills: 3 Ordered: 06-May-2022 Slarb COLLAR FUSER, May Start : 06-May-2022 Active Comments: Medication taken as needed. Dx O24.419 Start: 05-06-2022 Comment on above: Medication taken as needed. Dx O24.419 ReliOn Blood Glucose Test In Vitro Strip 1 (one) Each test 4 times daily and as needed for 0 days Quantity: 150 {Each} Refills: 3 Ordered: 06-May-2022 Slarb COLLAR FUSER, May Start : 06-May-2022 Active Comments: Medication taken as needed. Dx O24.419 Start: 05-06-2022 Comment on above: Medication taken as needed. Dx O24.419 ReliOn Blood Glucose Test In Vitro Strip 1 (one) Each test 4 times daily and as needed for 0 days Quantity: 150 {Each} Refills: 3 Ordered: 06-May-2022 Slarb COLLAR FUSER, May Start : 06-May-2022 Active Comments: Medication taken as needed. Dx O24.419 Start: 05-06-2022 Comment on above: Medication taken as needed. Dx O24.419 ReliOn Blood Glucose Test In Vitro Strip 1 (one) Each test 4 times daily and as needed for 0 days Quantity: 150 {Each} Refills: 3 Ordered: 06-May-2022 Slarb COLLAR FUSER, May Start : 06-May-2022 Active Comments: Medication taken as needed. Dx O24.419 Start: 05-06-2022 Comment on above: Medication taken as needed. Dx O24.419 ReliOn Blood Glucose Test In Vitro Strip 1 (one) Each test 4 times daily and as needed for 0 days Quantity: 150 {Each} Refills: 3 Ordered: 06-May-2022 Slarb COLLAR FUSER, May Start : 06-May-2022 Active Comments: Medication [...] Informa tion Online using Patient Portal and [employer] Apps Indication:Nonsmoker Start:06-Jun-2021 Instruction Type:Patient Education How [...] Informa tion Online using Patient Portal and [employer] Apps Indication:Nonsmoker Start:06-Jun-2021 Instruction Type:Patient Education How [...] Informa tion Online using Patient Portal and [employer] Apps Indication:Nonsmoker Start:06-Jun-2021 Instruction Type:Patient Education How [...] Informa tion Online using Patient Portal and [employer] Apps Indication:Nonsmoker Start:06-Jun-2021 Instruction Type:Patient Education How [...] Informa tion Online using Patient Portal and [employer] Apps Indication:Nonsmoker Start:06-Jun-2021 Instruction Type:Patient Education How [...] tion Online using Patient Portal and [employer] Apps Indication:Nonsmoker Start:06-Jun-2021 Instruction Type:Patient Education How [...] Internal Medicine; [facility] Work Phone: [employer]* Name Dates Details Patient Instructions Indication:Nonsmoker Start:06-Jun-2021 Instruction Type:Provider Instructions for Treatment How to Access Health Informa tion Online using Patient Portal and [employer] Apps Indication:Nonsmoker Start:06-Jun-2021 Instruction Type:Patient Education How [...] tion Online using Patient Portal and [employer] Apps Indication:Nonsmoker Start:06-Jun-2021 Instruction Type:Patient Education How [...] Internal Medicine; [facility] Work Phone: [employer]* Name Dates Details Patient Instructions Indication:Nonsmoker Start:06-Jun-2021 Instruction Type:Provider Instructions for Treatment How to Access Health Informa tion Online using Patient Portal and [employer] Apps Indication:Nonsmoker Start:06-Jun-2021 Instruction Type:Patient Education How [...] Internal Medicine; [facility] Work Phone: [employer]* Name Dates Details Patient Instructions Indication:Nonsmoker Start:06-Jun-2021 Instruction Type:Provider Instructions for Treatment How to Access Health Informa tion Online using Patient Portal and [employer] Apps Indication:Nonsmoker Start:06-Jun-2021 Instruction Type:Patient Education How [...] Internal Medicine; [facility] Work Phone: [employer]* Name Dates Details Patient Instructions Indication:Nonsmoker Start:06-Jun-2021 Instruction Type:Provider Instructions for Treatment How to Access Health Informa tion Online using Patient Portal and [employer] Apps Indication:Nonsmoker Start:06-Jun-2021 Instruction Type:Patient Education How [...] Internal Medicine; [facility] Work Phone: [employer]* Name Dates Details Patient Instructions Indication:Nonsmoker Start:06-Jun-2021 Instruction Type:Provider Instructions for Treatment How to Access Health Informa tion Online using Patient Portal and [employer] Apps Indication:Nonsmoker Start:06-Jun-2021 Instruction Type:Patient Education How [...] tion Online using Patient Portal and [employer] Apps Indication:Nonsmoker Start:06-Jun-2021 Instruction Type:Patient Education How [...] content) DATE CREATED AUTHOR 10/23/2018 [facility] FOR RECORDS PERTAINING TO PATIENTS WHO ARE [...] BE BASED ON THE PRIMARY CLINICAL RECORDS. [employer] provides no warranty or guarantee of the accuracy or completeness of information in this document.
[2024-05-21] MEDS: Lactated Ringers 1,000 ML 999 ML IV (05:25)
[2024-05-21 05:41] LABS: Absolute Lymphocyte Count 1.25 X10^3/uL (0.83-4.51); Absolute Neutrophil Count 6.8 X10^3/uL (2.0-7.7); Basophil# 0.02 X10^3/uL; Basophil% 0.2 % (0-1); Eosinophil# 0.12 X10^3/uL; Eosinophils% 1.3 % (0-5); Hematocrit 36.4 % (37-47); Hemoglobin 12.1 g/dL (12.0-15.0); Lymphocyte # 1.25 X10^3/ul (0.83-4.51); Mean Corp Hgb Conc 33.2 g/dL (32-36); Mean Corpuscular Hgb 29.2 pg (27.0-32.0); Mean Corpuscular Volume 87.7 fL (81-99); Mean Platelet Vol. 10.4 fl (6.2-12.0); Monocyte# 0.61 X10^3/uL; Monocyte% 6.8 % (0-10); NRBC Flagged by Analyzer 0 % (0-5); Neutrophil # 6.84 X10^3/uL (2.7-7.7); Neutrophil % 76.9 % (47-70); Platelet Count 153 K/mm3 (150-450); RBC Distribution Width SD 44.7 fl (35.1-43.9); Red Blood Count 4.15 M/mm3 (4.2-5.4); White Blood Count 8.9 K/mm3 (4.4-11.0)
[2024-05-21 06:22] LABS: Syphilis Antibodies Non-reactive
[2024-05-21] MEDS: Lactated Ringers 1,000 ML 50 ML IV (06:27)
[2024-05-21] MEDS: fentaNYL-bupivacaine (epidural) 100 ML BAG EPIDURAL (06:40)
[2024-05-21] MEDS: Oxytocin 10 UNITS/ML Vial IM (08:00)
--- NOTE | 2024-05-21 08:16 | HP.PCM.OB_ITS ---
HPI - General General Date of Admission: 05/21/24 HPI Narrative MECHE HORNER, is a 29 F who [id number] at 39.6 with increasing contractions intensity and frequency. no lof/vb. hypothyroidism otherwise uncomplicated course Maternal Data Information STEFANI Calculator Estimated Delivery Date Method Current WG Current Estimate 05/22/24 LMP (Certain) 39w 6d PFSH PFSH Medical History (Updated 05/21/24 @ 08:18 by Linda Leonard CNM) Active labor at term Left breast lump Seasonal allergies Vaginal delivery Gestational diabetes Thyroid disorder Anxiety Home Medications ?Medication ?Instructions ?Recorded ?Last Taken ?Type prenat.vits,jaswant,kgv-ddoj-izupt 1 tab PO DAILY 11/13/21 05/20/24 21:00 History sertraline 50 mg tablet 100 mg PO DAILY anxiety 10/07/23 05/20/24 21:00 History levothyroxine 75 mcg tablet 75 mcg PO DAILY hypothyroidism 11/18/23 05/20/24 08:00 History (Synthroid) Allergy/AdvReac Type Severity Reaction Status Date / Time hydrocodone (From [facility]) Allergy Mild Other Verified 05/21/24 04:37 Family History Mother Breast cancer Asthma Surgical History H/O left breast biopsy Social History adopted: No household members: spouse and children number of children: 1 current occupational status: employed current occupation: [employer] current occupational exposures/hazards: No pets and animals: No history of recent travel: No sexually active: Yes Smoking Status: Never smoker alcohol intake: never substance use type: does not use well-balanced diet: about half the time caffeine: Yes Type: carbonated beverages Number of servings: 1 eating out: rarely or never during the past year weight has: remained stable what type of physical activity do you participate in: none armando/druze: None seatbelt use: always do you feel safe at home: Yes additional social history: [employer] S[employer]NC[employer] History 2 Elective abortions Hx Para 1 Spontaneous abortions Hx # Term Pregnancies Ectopic pregnancies Hx # Pregnancies Multiple births # of living children 1 Past Pregnancies Del. Date Name GA/Weeks Outcome Route Bth Weight Gen Labor Lgth Anes th esia Del Alina Provider FOB 06/23/22 Lisa 38 live - full term 7#5oz Female none [facility] Dr. Acuna Delivery Date: 06/23/22 Last Updated by: Elizabeth Zabala IAL, [email or web address] Visit Details Expected Delivery Route/Plan Labor Preferences- CB/BF classes: no labor support person: Noe labor intervention preferences: [] pain management options preferred: no intervention cut cord/dad catch: yes : yes PP control planned: pill discussed possible routes of delivery and associated risks: [] special requests: [] Plans Covid status: [] Flu vaccine: declined Tdap vaccine: declined Rhogam: NA LARC form signed: yes movement and labor precautions reviewed. Problem list reviewed and updated with the most current plan of care details and appropriate orders placed. Relevant counseling for the gestational age provided. Continue routine care and follow up unless otherwise noted in visit notes/problem list details OB Flowsheet Initial Weight: Not Recorded Date -?-?-?-?-?-?-?-?-?-?-?-?- EGA Weight BP Urine Prot -?-?-?-?-?-?-?-?-?-?-?-?- Glucose FHR FuHt Pres Dilation -?-?-?-?-?-?-?-?-?-?-?-?- Effaced St Visit Note 10/16/23 -?-?-?-?-?-?-?-?-?-?-?-?- 8w 5d 171 lb 6 oz 130/82 -?-?-?-?-?--?-?-?-?-?-?-?- 168 -?-?-?-?-?-?-?-?-?-?-?-?- KW- CRL cons wit h dates. declines NIPT. A1C and thyroid labs done 11/18/23 -?-?-?-?-?-?-?-?-?-?-?-?- 13w 3d 175 lb 135/85 -?-?-?-?-?-?-?-?-?-?-?-?- 145 -?-?-?-?-?-?-?-?-?-?-?-?- SM- no vb crampi ng reviewed labs 12/16/23 -?-?-?-?-?-?-?-?-?-?-?-?- 17w 3d 181 lb 8 oz 122/80 Nega tive -?-?-?-?-?-?-?-?-?-?-?-?- Negative 157 -?-?-?-?-?-?-?-?-?-?-?-?- -No VB, crampi ng. Notes SOB with exertion (climbing steps) only. Denies other sx. CBC ordered. Reviewed sx to report. 01/09/24 -?-?-?-?-?-?-?-?-?-?-?-?- 20w 6d 186 lb 127/85 Negative -?-?-?-?-?-?-?-?-?-?-?-?- Negative 150 Cephalic -?-?-?-?-?-?-?-?-?-?-?-?- JV- pt is going to [place] this weekend. normal anatomy scan. 02/06/24 -?-?-?-?-?-?-?-?-?-?-?-?- 24w 6d 195 lb 2 oz 132/84 Nega tive -?-?-?-?-?-?-?-?-?-?-?-?- Negative 158 25 -?-?-?-?-?-?-?-?-?-?-?-?- KW- no vb/crampi ng. good fm. magnesium for leg cramps. 02/23/24 -?-?-?-?-?-?-?-?-?-?-?-?- 27w 2d 200 lb 2 oz 118/78 Nega tive -?-?-?-?-?-?-?-?-?-?-?-?- Negative 151 Cephalic -?-?-?-?-?-?-?-?-?-?-?-?- -No VB, LOF. G ood FM. Nl 3rd trim labs. Larc 03/08/24 -?-?-?-?-?-?-?-?-?-?-?-?- 29w 2d 203 lb 6 oz 128/76 Trac e -?-?-?-?-?-?-?-?-?-?-?-?- Negative 155 29 -?-?-?-?-?-?-?-?-?-?-?-?- KW- no vb/adriannyla ng. good fm. 03/09/24 -?-?-?-?-?-?-?-?-?-?-?-?- 29w 3d 202 lb 122/81 Negative -?-?-?-?-?-?-?-?-?-?-?-?- Negative 145 30 1 -?-?-?-?-?-?-?-?-?-?-?-?- 10 SM- had episode of spotting since yesterday, no ctx, will send to l and d for labor rule out 03/22/24 -?-?-?-?-?-?-?-?-?-?-?-?- 31w 2d 205 lb 4 oz 122/68 Nega tive -?-?-?-?-?-?-?-?-?-?-?-?- Negative 149 32 -?-?-?-?-?-?-?-?-?-?-?-?- MH-No further VB since last visit. No CTX. Good FM. 04/05/24 -?-?-?-?-?-?-?-?-?-?-?-?- 33w 2d 209 lb 4 oz 125/76 Nega tive -?-?-?-?-?-?-?-?-?-?-?-?- Negative 140 34 -?-?-?-?-?-?-?-?-?-?-?-?- SM- no vb lof go od fm n oregular ctx 04/19/24 -?-?-?-?-?-?-?-?-?-?-?-?- 35w 2d 209 lb 6 oz 116/77 Nega tive -?-?-?-?-?-?-?-?-?-?-?-?- Negative 145 35 -?-?-?-?-?-?-?-?-?-?-?-?- JV- did 28 week labs done at [facility] . growth scan ordered. thyroid labs due 04/26/24 -?-?-?-?-?-?-?-?-?-?-?-?- 36w 2d 214 lb 116/75 Negative -?-?-?-?-?-?-?-?-?-?-?-?- Negative 160 36 1 -?-?-?-?-?-?-?-?-?-?-?-?- 50 kw- no v b/lof/ctx. good fm. Has growth US today. GBS today. 05/03/24 -?-?-?-?-?-?-?-?-?-?-?-?- 37w 2d 213 lb 114/76 Negative -?-?-?-?-?-?-?-?-?-?-?-?- Negative 140 37 -?-?-?-?-?-?-?-?-?-?-?-?- KW- no vb/lof/ct x. good fm. had thyroid labs done this trimester through her work 05/10/24 -?-?-?-?-?-?-?-?-?-?-?-?- 38w 2d 215 lb 8 oz 122/76 Trac e -?-?-?-?-?-?-?-?-?-?-?-?- Negative 155 39 3 -?-?-?-?-?-?-?-?-?-?-?-?- 60 -2 KW- no vb/ lof/ctx. good fm. KW- no vb/lof/ctx. good fm. labor precautions 05/17/24 -?-?-?-?-?-?-?-?-?-?-?-?- 39w 2d 217 lb 117/81 Negative -?-?-?-?-?-?-?-?-?-?-?-?- Negative 150 39 Cephalic 4 -?-?-?-?-?-?-?-?-?-?-?-?- 70 -1 SM- no vn lof good fm no reuglar ctx NST FHR Rate Baby A Baseline: 135-145 Variability:: Moderate Accelerations:: 15 x 15 Decelerations:: None NST Reactive:: Yes FHR Category:: Category I Uterine Activity:: q3 ROS Cardiovascular Cardiovascular: Denies abdominal pain, chest pain, diaphoresis or dyspnea Respiratory/Chest Respiratory/Chest: Denies change in mental status, chest congestion, chest tightness, cough, shortness of breath at rest, shortness of breath with exertion, breast mass, breast pain, breast skin changes, breast swelling, change in breast shape or nipple discharge Genitourinary Genitourinary: Reports change in urinary stream Musculoskeletal Musculoskeletal: Reports none Integumentary Integumentary: Reports none Neurologic Neurologic: Reports none Psychiatric Psychiatric: Reports none Endocrine Endocrinology: Reports none Hematologic/Lymphatic Hematologic/Lymphatic: Reports none Allergic/Immunologic Allergic/Immunologic: Reports none Vital Signs Vital Signs Vital Signs: 05/21/24 04:31 05/21/24 04:31 05/21/24 04:34 Temperature Temperature Source Pulse Rate 75 81 Respiratory Rate Blood Pressure 139/86 H BP Systolic 139 BP Diastolic 86 Pulse Ox 05/21/24 04:34 05/21/24 04:38 05/21/24 04:38 Temperature Temperature Source Temporal Pulse Rate Respiratory Rate 24 H Blood Pressure BP Systolic BP Diastolic Pulse Ox 99 05/21/24 04:38 05/21/24 04:47 05/21/24 04:47 Temperature 98.2 F Temperature Source Pulse Rate 75 Respiratory Rate Blood Pressure 137/82 H BP Systolic 137 BP Diastolic 82 Pulse Ox 05/21/24 05:55 05/21/24 05:55 05/21/24 06:00 Temperature Temperature Source Pulse Rate 83 79 Respiratory Rate Blood Pressure BP Systolic BP Diastolic Pulse Ox 100 05/21/24 06:00 05/21/24 06:05 05/21/24 06:05 Temperature Temperature Source Pulse Rate 80 Respiratory Rate Blood Pressure BP Systolic BP Diastolic Pulse Ox 100 98 05/21/24 06:10 05/21/24 06:10 05/21/24 06:15 Temperature Temperature Source Pulse Rate 87 87 Respiratory Rate Blood Pressure BP Systolic BP Diastolic Pulse Ox 99 05/21/24 06:15 05/21/24 06:18 05/21/24 06:18 Temperature Temperature Source Pulse Rate 85 Respiratory Rate Blood Pressure 143/72 H BP Systolic 143 BP Diastolic 72 Pulse Ox 100 05/21/24 06:20 05/21/24 06:20 05/21/24 06:22 Temperature Temperature Source Pulse Rate 86 Respiratory Rate Blood Pressure 131/68 H BP Systolic 131 BP Diastolic 68 Pulse Ox 99 05/21/24 06:22 05/21/24 06:25 05/21/24 06:25 Temperature Temperature Source Pulse Rate 80 76 Respiratory Rate Blood Pressure BP Systolic BP Diastolic Pulse Ox 100 05/21/24 06:27 05/21/24 06:27 05/21/24 06:27 Temperature Temperature Source Pulse Rate 74 Respiratory Rate 22 H Blood Pressure 123/65 H BP Systolic 123 BP Diastolic 65 Pulse Ox 05/21/24 06:30 05/21/24 06:30 05/21/24 06:33 Temperature Temperature Source Pulse Rate 78 Respiratory Rate Blood Pressure 118/61 BP Systolic 118 BP Diastolic 61 Pulse Ox 100 05/21/24 06:33 05/21/24 06:33 05/21/24 06:36 Temperature Temperature Source Pulse Rate 76 82 Respiratory Rate 21 H Blood Pressure BP Systolic BP Diastolic Pulse Ox 05/21/24 06:36 05/21/24 06:38 05/21/24 06:38 Temperature Temperature Source Pulse Rate 74 Respiratory Rate Blood Pressure 119/70 BP Systolic 119 BP Diastolic 70 Pulse Ox 99 05/21/24 06:38 05/21/24 06:41 05/21/24 06:41 Temperature Temperature Source Pulse Rate 76 Respiratory Rate 20 H Blood Pressure BP Systolic BP Diastolic Pulse Ox 99 05/21/24 06:43 05/21/24 06:43 05/21/24 06:43 Temperature Temperature Source Pulse Rate 78 Respiratory Rate 22 H Blood Pressure 117/72 BP Systolic 117 BP Diastolic 72 Pulse Ox 05/21/24 06:46 05/21/24 06:46 05/21/24 06:48 Temperature Temperature Source Pulse Rate 75 Respiratory Rate Blood Pressure 117/65 BP Systolic 117 BP Diastolic 65 Pulse Ox 99 05/21/24 06:48 05/21/24 06:48 05/21/24 06:51 Temperature Temperature Source Pulse Rate 71 72 Respiratory Rate 20 H Blood Pressure BP Systolic BP Diastolic Pulse Ox 05/21/24 06:51 05/21/24 06:53 05/21/24 06:54 Temperature Temperature Source Pulse Rate Respiratory Rate 21 H Blood Pressure 121/65 H BP Systolic 121 BP Diastolic 65 Pulse Ox 99 05/21/24 06:54 05/21/24 06:56 05/21/24 06:56 Temperature Temperature Source Pulse Rate 70 71 Respiratory Rate Blood Pressure BP Systolic BP Diastolic Pulse Ox 99 05/21/24 06:58 05/21/24 06:58 05/21/24 06:58 Temperature Temperature Source Pulse Rate 67 Respiratory Rate 24 H Blood Pressure 121/66 H BP Systolic 121 BP Diastolic 66 Pulse Ox 05/21/24 07:01 05/21/24 07:01 05/21/24 07:03 Temperature Temperature Source Oral Pulse Rate 71 Respiratory Rate Blood Pressure BP Systolic BP Diastolic Pulse Ox 100 05/21/24 07:03 05/21/24 07:03 05/21/24 07:03 Temperature Temperature Source Pulse Rate 68 Respiratory Rate 20 H Blood Pressure 121/69 H BP Systolic 121 BP Diastolic 69 Pulse Ox 05/21/24 07:03 05/21/24 07:04 05/21/24 07:04 Temperature 98.2 F Temperature Source Pulse Rate 70 Respiratory Rate Blood Pressure BP Systolic BP Diastolic Pulse Ox 94 Weight Weight: 216 lb Body Mass Index (BMI) 35.9 Physical Exam Const alert, oriented x3 and no apparent distress General Appearance: cooperative, comfortable and well kempt Orientation / Consciousness: awake and oriented to person Exam Limitations: no limitations HEENT normocephalic Neck full ROM Chest inspection of chest normal Resp normal respiratory effort, normal air movement and no retractions Effort and Inspection: able to speak in complete sentences and symmetric chest movement Cardio regular rate Peripheral Pulses: pulses 2+ throughout GI normal to inspection, nondistended, normoactive bowel sounds Inspection: gravid no CVA tenderness and appearance of the vagina normal External Female Exam: normal appearance of the urethra; Negative for external lesion OB / External & Speculum: external exam normal Manual OB Exam: estimated gestational size appropriate and presentation cephalic Uterus Palpation: Negative for uterus tender Extremity normal to inspection Skin no rashes or lesions noted Neuro deep tendon reflexes 2+ bilaterally and gait normal Motor Exam: strength 5/5 throughout and clonus absent Psych Activity / Motor Behavior: appropriate eye contact Speech: normal speech Labs Labs Labs: Blood Type A POSITIVE Antibody Screen NEGATIVE Hct 36.4 % (37-47) L Hgb 12.1 g/dL (12.0-15.0) Pap Smear Negative Obstetrics Ultrasound Syphilis Total Ab Non-reactive Rubella IgG Antibody Reactive (Nonreactive) Hep Bs Antigen Non-Reactive (Nonreactive) Hepatitis C Antibody Non-Reactive (Nonreactive) Chlamydia DNA (ABRAM) Negative (Negative) N.gonorrhoeae DNA (ABRAM) Negative (Negative) HIV 1&2 Antibody Non-Reactive (Nonreactive) Glucose 1 Hr 50 gm 164 mg/dL (70-140) H Gest Glucose Tolerance MG/DL Rhogam given: No Miscellaneous Test Assessment & Plan (1) Active labor at term: PLAN: Patient presents IAL, plan expectant management for , pitocin/AROM PRN if needed. Pain management: plans epidural. GBS negative. Management of any complications: [none] I have reviewed the [facility] and made any clinically relevant updates. Dr. Acuna updated on admission, exam and poc. (2) Hypothyroidism affecting : QUALIFIERS: Trimester: second trimester Qualified Code(s): O99.282 - Endocrine, nutritional and metabolic diseases complicating , second trimester; E03.9 - Hypothyroidism, unspecified COMMENT: synthroid, labs q trimester hypothyroid TSHR AB neg sees PCP (3) Hx of gestational diabetes in prior , currently : COMMENT: nl HgbA1c at [facility] (4) Supervision of high-risk : QUALIFIERS: Trimester: second trimester Qualified Code(s): O09.92 - Supervision of high risk , unspecified, second trimester COMMENT: PRR, , STEFANI 05/22/24 boy PC Lisa, Noe (5) : QUALIFIERS: Weeks of gestation: 39 weeks Qualified Code(s): Z3A.39 - 39 weeks gestation of COMMENT: GBS neg,NIPT low risk, Declined ntd and carrier testing Nl 28wk labs-works at [facility] and scanned in. (6) Anxiety: COMMENT: zoloft, counseling encouraged
--- NOTE | 2024-05-21 08:19 | EX.PCM.OBRPT ---
Assessment & Plan (1) (spontaneous vaginal delivery): COMMENT: LC boy:Cal, Maternal Data Information STEFANI Calculator Estimated Delivery Date Method Current WG Current Estimate 05/22/24 LMP (Certain) 39w 6d Final STEFANI: 05/22/24 Final STEFANI Source: LMP Gestational age: 39.6 Operative Report (OB) Cecarean Details Estimated Blood Loss: 200 Findings Specimen collected: No Complications Complications: No Admit VTE Documentation VTE Present on Admission: No Baby B Operative Information Mode of Delivery: Vaginal Cord Vessel Description: 3 Vessels Cord Entanglement: Around neck x 1, loose Nuchal Cord Compression: Without compression B gender: Male (1 minute): 8 (5 minute): 9 Delayed Cord Clamping: Yes Procedures Urinary/Genital [id number]: [id number] Vaginal Delivery global pkg Delivery Report Final STEFANI: 05/22/24 Final STEFANI Source: LMP Presentation: Cephalic Delivery Method: Spontaneous Vaginal Pre-Operative Diagnosis: see problem list Post-Operative Diagnosis: Surgery/ Procedure Performed: Vaginal Delivery Type of Anesthesia: Epidural Description of Procedure: Patient began pushing and delivered the head in the WILLIE presentation. The head was delivered atraumatically and a loose nuchal cord ?1 was identified and easily reduced over the 's head. The anterior and posterior shoulders delivered without complication followed by the rest of the infant and the was placed on the maternal abdomen. Delayed cord clamping was employed for approximately 60 seconds. Cord was clamped and cut and gentle traction was applied to the cord and the placenta delivered spontaneously immediately following it was noted to be intact with three-vessel cord. The perineum and vagina were inspected and noted to have first degree laceration repaired with 3-0 Vicryl in standard fashion and labial tear repaired with 4-0 Monocryl in standard fashion. EBL was 200cc. Patient and infant tolerated delivery well. Estimated Blood Loss (ml): 200 Episiotomy Description: 1st degree Complications: none
--- NOTE | 2024-05-21 08:30 | OB.VAGDELI_ITS ---
Assessment & Plan (1) (spontaneous vaginal delivery): COMMENT: LC boy:Cal, Maternal Data Information STEFANI Calculator Estimated Delivery Date Method Current WG Current Estimate 05/22/24 LMP (Certain) 39w 6d Final STEFANI: 05/21/24 Gestational age: 39.6 Vaginal Delivery Maternal Presentation Maternal Presentation: Active Labor Maternal Presentation: at 39.6 presented in active labor, AROMd for clear fluid after epidural placement. Vaginal Delivery Information Procedure Performed: Spontaneous Vaginal Delivery Date of Procedure: 05/21/24 Pre-Procedure Diagnosis: see problem list Post-Procedure Diagnosis: Type of anesthesia: Epidural Estimated Blood Loss: 200 Time of Delivery: 07:44 Findings Description of procedure: Patient began pushing and delivered the head in the WILLIE presentation. The head was delivered atraumatically and a loose nuchal cord ?1 was identified and easily reduced over the 's head. The anterior and posterior shoulders delivered without complication followed by the rest of the and the was placed on the maternal abdomen. Delayed cord clamping was employed for approximately 60 seconds. Cord was clamped and cut and gentle traction was applied to the cord and the placenta delivered spontaneously immediately following it was noted to be intact with three-vessel cord. The perineum and vagina were inspected and noted to have first degree laceration repaired with 3- 0 Vicryl in standard fashion and labial tear repaired with 4-0 Monocryl. EBL was 200cc. Patient and infant tolerated delivery well. Presentation: Vertex Amniotic Membrane Rupture Type: Spontaneous Amniotic Fluid Description: Clear Placental Delivery Description: Spontaneous Placenta Disposition: [facility] Cord Vessel Description: 3 Vessels Cord Entanglement: Around neck x 1, loose A Gender: Male (1 minute): 8 (5 minute): 9 Delayed Cord Clamping: Yes Post Vaginal Deli Medications given after delivery: IM Pitocin Episiotomy Description: None Laceration: 1st degree Complication Complications: No Admit VTE Documentation VTE Present on Admission: No Procedures Urinary/Genital [id number]: [id number] Vaginal Delivery [facility]
--- NOTE | 2024-05-21 08:34 | DCINST_ITS ---
Discharge Instructions Diet Discharge Diet: No restrictions Activity Discharge Activity: May Not Drive and May Shower May resume sexual activity in: 6 weeks Weight Bearing Status: Full weight bearing Dressing / Incision Call your doctor if your incision/area has: Sudden Increased Bleeding, Increased Pain/ Swelling and Foul Smelling Discharge Call your doctor if you observe: Fever of 101 or Higher, Numbness or Tingling, Change in Color, Inability to urinate, Inability to have a bowel movement, Using more than 1 pad per hour, Shortness of breath, Dizziness, Fainting spells, Chest pain, Calf discomfort and Uncontrolled pain Follow Up Care Please Follow Up With: Linda Leonard CNM When: 6 weeks , please call office to make an appointment. Congratulations on the of your baby! Test Results: Test results from this visit will be discussed in further detail at your follow- up appointment, if applicable. Discharge Plan Admission Admit Date/Time: 05/21/24 04:50 Attending Provider: Linda Leonard Primary Care Provider: Marina Bronson Consulting Providers: Kaelyn Quinteros Discharge Orders/Prescriptions Prescriptions: No Action sertraline 50 mg tablet 100 mg PO DAILY levothyroxine [Synthroid] 75 mcg tablet 75 mcg PO DAILY Rx Instructions: 1.5 tabs on on wed. and sat. prenat.vits,jaswant,ehb-mfgs-aasva Tablet 1 tab PO DAILY Referrals / Follow Up: Marina Bronson MD [Primary Care Provider] -
[2024-05-21] MEDS: Levothyroxine 75 MCG Tablet PO (09:25)
[2024-05-21] MEDS: Acetaminophen 500 MG Tablet 1000 MG PO (13:17)
[2024-05-21] MEDS: Benzocaine/Lanolin/Aloe Vera 85 GM Spray 1 SPRAY TOPICAL (13:18)
[2024-05-21] MEDS: Naproxen 500 MG Tablet PO (18:00)
[2024-05-21] MEDS: Sertraline 100 MG Tablet PO (21:27)
[2024-05-22 01:27] VITALS: BP 118/74; PULSE 76; RESP 16; TEMP 36.3; O2SAT 96
[2024-05-22] MEDS: Acetaminophen 500 MG Tablet 1000 MG PO (01:37)
[2024-05-22 03:45] VITALS: BP 113/73; PULSE 67; RESP 18
[2024-05-22] MEDS: Levothyroxine 112 MCG Tablet PO (06:38)
--- NOTE | 2024-05-22 08:11 | PN.OBGYN_ITS ---
Subjective Subjective Patient doing well without complaints. Tolerating PO. Ambulating and voiding without difficulty. Feeding well. Denies chest pain, shortness of breath, calf pain/swelling, fevers, chills, lightheadedness. Objective Data Objective Data Vital Signs: Vital Signs Temp Pulse Resp BP Pulse Ox O2 Del Method 97.4 F L 67 18 113/73 96 Room Air 05/22/24 01:27 05/22/24 03:45 05/22/24 03:45 05/22/24 03:45 05/22/24 01:27 05/22/24 03:45 Oxygen Delivery Method Room Air Weight: 216 lb Body Mass Index (BMI) 35.9 Intake & Output: Intake and Output for Last 24 Hours 05/20/24 05/21/24 05/22/24 23:59 23:59 23:59 Intake Total 1375 / 1375 Output Total 950 / 950 Balance 425 / 425 Lab / Micro Data 05/21/24 05:02 Physical Exam Const alert and oriented x3 HEENT normocephalic Neck full ROM Lymph Lymphatic: no lymphadenopathy noted Chest inspection of chest normal and inspection of breasts normal Resp normal respiratory effort and normal air movement Cardio regular rate and regular rhythm GI normal to inspection, nondistended, normoactive bowel sounds Uterus Palpation: uterus fundus firm Extremity normal to inspection, full ROM and no pedal edema Skin no rashes or lesions noted and no wounds Psych mental status grossly normal Assessment & Plan (1) (spontaneous vaginal delivery): COMMENT: LC boy:Cal, (2) Hypothyroidism affecting : QUALIFIERS: Trimester: second trimester Qualified Code(s): O 99.282 - Endocrine, nutritional and metabolic diseases complicating , second trimester; E03.9 - Hypothyroidism, unspecified COMMENT: synthroid, labs q trimester hypothyroid TSHR AB neg sees PCP (3) Anxiety: COMMENT: zoloft, counseling encouraged PLAN: Plan s/p PPD # 1 1. routine post delivery care 2. breast feeding- support given 3. rh positive 4. rubella immune 5. plan d/c home today
[2024-05-22 08:21] VITALS: BP 123/79; PULSE 67; RESP 16; TEMP 36.1; O2SAT 96
--- NOTE | 2024-05-22 13:10 | CASEMGMT ---
Social Work Assessment Labor and Delivery Unit Patient Address: [address] [place] [address] Phone number: Date of Referral: 05/21/2024 Time of Referral: 10:21 Referred By: Linda Leonard Date of Intervention: ?05/22/2024 Time of Intervention: 13:08 Reason for Referral: Mental Health History obtained from: Medical records, mother of baby (MOB) and father of baby (FOB).? Household composition: MOB (Constance), FOB (Noe), 22 month old daughter Lisa and son Cal (born 05/21/2024). Patient's parent/guardian status: MOB and FOB are and have been together for almost 6 years and for 1 year. ?Both are actively involved and will be providing care for baby. MOB denied any concerns with domestic violence and described a positive and supportive relationship with the FOB. Medical History: ?MOB received routine PNC through [facility] beginning at 8 weeks and 5 days. : 2, Para: 2. Apgars: 8 and 9. Weight: 3.705 kg. Short Goods Drier: Dr. Yamini Olmos through [facility]. Educational Status: MOB and FOB denied any issues or concerns with reading or writing. Both MOB and FOB reported they earned their High School Diploma. Financial Status: MOB and FOB reported their income is sufficient to meet the needs of their family at this time. 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 Infant Supplies: MOB and FOB reported they have all the supplies they need for baby at this time including but not limited to: Car seat, bassinet, crib, diapers, bottles, breast pump and clothing. Childcare/Caregiver(s):? MOB reported both she and the FOB will be caregivers and provide care for and during the time MOB and FOB are working, ?s maternal grandparents (MGP?s) and ?s maternal great-grandparents (MGGP?s) will provide childcare for . Transportation:? MOB and FOB reported they are both licensed drivers and have a reliable vehicle to take baby to and from all medical appointments. No transportation issues identified. Programs/Agencies Involved: MOB and FOB denied any current programs or agencies involved at this time and denied the need/interest for any at this time. Children Services/Legal Issues:? Denied. Behavioral Health Issues: ??Mental Health History: FOB denied any current or history of mental health issues and MOB has a diagnosis of Anxiety which is currently being treated and managed with medication (Zoloft).?Substance Use History:? Denied and use or abuse of drugs or alcohol. ?Family History: Denied. ???Drug Screens: ?None obtained at the time of this admission. ? Family/Social Stressors: ?MOB and FOB denied any current family or social stressors. Support Systems: Ample.? MOB and FOB identified their biggest supports as MGP?s and paternal grandparents (PGP?s) as well as each other. Depression/Shaken Baby/Safe Sleeping: child daycare worker provided verbal and written education on PPD, Safe Sleeping and Shaken Baby.? Parents verbalized an understanding. ??? ASSESSMENT:? MOB and FOB provided consent to social work visit. Upon arrival, MOB sitting on the couch holding and the FOB was in a nearby chair.? Both MOB and FOB were verbally engaged and cooperative throughout the visit. MOB was observed being very gentle with and attentive.? FOB was observed to be supportive to the MOB by assisting with getting personal belongings packed to go home. child daycare worker observed positive interaction between the MOB and FOB as well as attachment and bonding with . At the end of the visit, social worker masters requested to talk with the MOB alone which both were agreeable to.? MOB reported feeling safe in her own home and denied any DV, drug or alcohol abuse or untreated/unmanaged mental health concerns with herself, the FOB or any extended family member(s). Safe Plan of Care for related to substance use: N/A; not needed. ? PLAN:? Baby to be discharged home when ready.? child daycare worker also provided written information on depression, depression resources and Help Me Grow as additional resources offered by social worker masters which MOB and FOB accepted. No other services requested or indicated. Kaelyn Glover, PEDIATRIC REGISTERED NURSE, DOCUMENT COORDINATOR
--- NOTE | 2024-05-28 16:10 | NURSING ---
late entry for Jonas Marquez: Documentation in this intervention to pull data to Log. Data was collected from Dr. hubbard, and labor documentation and confirmed by phone call with nurse. Rufina
== END 2024-05-22 13:20 | disposition home or self-care (01) | DRG 807 ==
LOC: WPOUT 04:54 → WP 04:54
PROVIDERS: Obstetrics & Gynecology; Admitting Provider Registered Nurse; PCP Internal Medicine; Referring Provider Registered Nurse; Visit Provider Registered Nurse
DX: O99.284 Endocrine, nutritional and metabolic diseases complicating childbirth (principal); Z37.0 Single live birth; O99.344 Other mental disorders complicating childbirth; E03.9 Hypothyroidism, unspecified; F41.9 Anxiety disorder, unspecified; O69.81X0 Labor and delivery complicated by cord around neck, without compression, not applicable or unspecified; O70.0 First degree perineal laceration during delivery; Z3A.39 39 weeks gestation of pregnancy; Z79.890 Hormone replacement therapy; Z86.32 Personal history of gestational diabetes
CPT/HCPCS: 85025; 86780; 86850; 86900; 86901; J7120